=== PATIENT | female | born 1950 | race Caucasian/White ===

== ENCOUNTER → 2016-10-05 | Outpatient (CLI) | payer OTHER, MEDICARE ==
[~2016-10-05] MED LIST: ACET325T96 PO; ASCA500 PO; ASPI325T45 PO; CALC600T9 PO; CHOL20009 PO; CYAN10004 PO; FRS/40 PO; HMLI SC; IBUP-1050 PO; INSUINJ12 SC; LEVO25TA PO; LISI-725 PO; METF-384 PO; MULT-190 PO; MULTTAB PO; OMEG10007 PO; OXGN; POTA10CA28 PO; SIMV40TA2 PO
[2016-10-05 12:00] LABS: BASO % 0.2 %; BASO ABS # 0.02 K/uL (0-0.2); COMPLETE YES; EOS % 2.2 %; HEMATOCRIT 44.7 % (37-47); IG% 0.5 %; LYMPH ABS # 2.82 K/uL (1.2-3.4); MEAN CELL VOLUME 96.3 fL (80-100); MEAN CORPUSCULAR HEMOGLOBIN 31.3 pg (25-34); MEAN CORPUSCULAR HGB CONC 32.4 g/dl (32-36); MEAN PLATELET VOLUME 10.9 fL (7.4-10.4); MONO % 7.4 %; NEUT % 57.7 %; PLATELET COUNT 221 K/uL (130-400); RED BLOOD COUNT 4.64 M/uL (4.2-5.4); WHITE BLOOD COUNT 8.82 K/uL (4.8-10.8)
[2016-10-05 12:21] LABS: ESTIMATED AVERAGE GLUCOSE 160 mg/dl; HA1C FLAG Normal (Normal)
[2016-10-05 12:31] LABS: ALT/SGPT 36 U/L (12-78); AST/SGOT 36 U/L (15-37); BLOOD UREA NITROGEN 23 mg/dl (7-18); BUN/CREATININE RATIO 30.1 (10-20); CALCIUM 9.3 mg/dl (8.5-10.1); CARBON DIOXIDE 28 mmol/L (21-32); CHLORIDE 103 mmol/L (98-107); CHOLESTEROL 169 mg/dl (0-200); CREATININE 0.75 mg/dl (0.60-1.20); GLUCOSE 187 mg/dl (70-99); POTASSIUM 4.3 mmol/L (3.5-5.1); SODIUM 141 mmol/L (136-145)
[2016-10-05 12:41] LABS: ALB/GLOB RATIO 0.9 (0.9-2); ALKALINE PHOSPHATASE 62 U/L (45-117); HDL CHOLESTEROL 57 mg/dl; LDL CHOLESTEROL CALCULATED 80 mg/dl; TRIGLYCERIDES 159 mg/dl (0-150); VERY LOW DENSITY LIPOPROT CALC 32 mg/dl
[2016-10-05 12:46] LABS: RATIO 21.9 mcg/mg (0-30.0)
== END | disposition home or self-care (01) ==
LOC: C.LAB 10:50
PROVIDERS: ATTEND Internal Medicine
DX: E11.9 Type 2 diabetes mellitus without complications (principal); G47.36 Sleep related hypoventilation in conditions classified elsewhere

== ENCOUNTER → 2016-10-15 | Outpatient (CLI) | payer OTHER, MEDICARE ==
--- NOTE | 2016-10-15 14:17 | MAMMOGRAPHY REPORT ---
BILATERAL DIGITAL SCREENING MAMMOGRAM WITH CAD: 10/15/2016 CLINICAL HISTORY: Routine screening. Patient has no complaints. TECHNIQUE: Current study was also evaluated with a Computer Aided Detection (CAD) system. Bilatera l CC and MLO views were obtained. COMPARISON: Comparison is made to exams dated: 08/15/2015 mammogram, 08/14/2014 mammogram, 07/18/20 13 mammogram, 07/15/2012 mammogram, 07/04/2012 mammogram, and 07/01/2011 mammogram - [facility]. BREAST COMPOSITION: The tissue of both breasts is almost entirely fatty. FINDINGS: No suspicious masses, calcifications, or areas of architectural distortion are noted in e ither breast. There has been no significant interval change compared to prior exams. Scattered bilat eral benign-appearing calcifications are not significantly changed. IMPRESSION: ACR BI-RADS CATEGORY 2: BENIGN There is no mammographic evidence of malignancy. A 1 year screening mammogram is recommended. The p atient will receive written notification of the results. Approximately 10% of breast cancers are not detected with mammography. A negative mammographic repor t should not delay biopsy if a clinically suggestive mass is present. Casandra Castro M.D. /:10/15/2016 12:10:04 Home Specialist: Linsey REAL(Kaitlin)(Uriel)(BD), [facility] letter sent: Normal 1/2 BI-RADS Code: ACR BI-RADS Category 2: Benign
== END | disposition home or self-care (01) ==
LOC: C.MAMM 11:07
PROVIDERS: ATTEND Internal Medicine
DX: Z12.31 Encounter for screening mammogram for malignant neoplasm of breast (principal)

== ENCOUNTER → 2017-01-22 | Outpatient (CLI) | payer OTHER, MEDICARE ==
[2017-01-22 13:44] LABS: ESTIMATED AVERAGE GLUCOSE 163 mg/dl; HA1C FLAG Normal (Normal)
== END | disposition home or self-care (01) ==
LOC: C.LAB 12:11
PROVIDERS: ATTEND Internal Medicine
DX: Z00.00 Encounter for general adult medical examination without abnormal findings (principal); E03.9 Hypothyroidism, unspecified; E11.29 Type 2 diabetes mellitus with other diabetic kidney complication

== ENCOUNTER → 2017-05-21 | Outpatient (CLI) | payer OTHER, MEDICARE ==
[2017-05-21 13:27] LABS: ESTIMATED AVERAGE GLUCOSE 166 mg/dl; HA1C FLAG Normal (Normal)
== END | disposition home or self-care (01) ==
LOC: C.LAB 11:49
PROVIDERS: ATTEND Nurse Practitioner Family
DX: E11.29 Type 2 diabetes mellitus with other diabetic kidney complication (principal)

== ENCOUNTER → 2017-11-16 | Outpatient (CLI) | payer OTHER, MEDICARE ==
[~2017-11-16] MED LIST changes: +ACET-1693 PO; -ACET325T96 PO
--- NOTE | 2017-11-17 08:03 | MAMMOGRAPHY REPORT ---
BILATERAL DIGITAL SCREENING MAMMOGRAM TOMOSYNTHESIS WITH CAD: 11/16/2017 CLINICAL HISTORY: Routine screening. Patient has no complaints. TECHNIQUE: Breast tomosynthesis in addition to standard 2D mammography was performed. Current study was also evaluated with a Computer Aided Detection (CAD) system. COMPARISON: Comparison is made to exams dated: 10/15/2016 mammogram, 08/15/2015 mammogram, 08/14/2014 mammogram, 07/18/2013 mammogram, 01/20/2013 mammogram, and 08/02/2012 mammogram - [facility]. BREAST COMPOSITION: The tissue of both breasts is almost entirely fatty. FINDINGS: There is stable nodularity in the upper outer anterior left breast and scattered stable shu ign-appearing calcifications. No suspicious mass, architectural distortion or cluster of microcalcif ications is seen. IMPRESSION: ACR BI-RADS CATEGORY 1: NEGATIVE There is no mammographic evidence of malignancy. A 1 year screening mammogram is recommended. The pa tient will receive written notification of the results. Approximately 10% of breast cancers are not detected with mammography. A negative mammographic report should not delay biopsy if a clinically suggestive mass is present. Anh Echols M.D. ay/:11/16/2017 15:27:15 Supervisor [employer]: Sirisha Perez, [facility] letter sent: Normal 1/2 BI-RADS Code: ACR BI-RADS Category 1: Negative
== END | disposition home or self-care (01) ==
LOC: C.MAMM 11:49
PROVIDERS: ATTEND Internal Medicine
DX: Z12.31 Encounter for screening mammogram for malignant neoplasm of breast (principal)

== ENCOUNTER → 2017-12-06 | Outpatient (CLI) | payer OTHER, MEDICARE | END | disposition home or self-care (01) | LOC: C.LAB1850 11:14 | PROVIDERS: ATTEND Nurse Practitioner Family | DX: R80.9 Proteinuria, unspecified (principal); G47.36 Sleep related hypoventilation in conditions classified elsewhere ==

== ENCOUNTER → 2018-01-22 | Outpatient (CLI) | payer OTHER, MEDICARE ==
[~2018-01-22] MED LIST changes: +ASPECOTC PO; -ASPI325T45 PO
[2018-01-22 11:15] LABS: BASO % 0.2 %; BASO ABS # 0.02 K/uL (0-0.2); EOS % 2.8 %; EOS ABS # 0.27 K/uL (0-0.5); HEMATOCRIT 45.1 % (37-47); HEMOGLOBIN 14.7 g/dL (12.0-16.0); IG# 0.03 K/uL (0.00-0.02); LYMPH % 36.1 %; LYMPH ABS # 3.49 K/uL (1.2-3.4); MEAN CELL VOLUME 96.2 fL (80-100); MEAN CORPUSCULAR HEMOGLOBIN 31.3 pg (25-34); MEAN CORPUSCULAR HGB CONC 32.6 g/dl (32-36); MEAN PLATELET VOLUME 10.6 fL (7.4-10.4); MONO % 6.3 %; MONO ABS # 0.61 K/uL (0.11-0.59); NEUT % 54.3 %; NEUT ABS # 5.26 K/uL (1.4-6.5); PLATELET COUNT 229 K/uL (130-400); RED CELL DISTRIBUTION WIDTH CV 14.2 % (11.5-14.5); RED CELL DISTRIBUTION WIDTH SD 50.2 fL (36.4-46.3); WHITE BLOOD COUNT 9.68 K/uL (4.8-10.8)
[2018-01-22 11:48] LABS: ALBUMIN 3.5 gm/dl (3.4-5.0); ALT/SGPT 43 U/L (12-78); AST/SGOT 64 U/L (15-37); BLOOD UREA NITROGEN 14 mg/dl (7-18); CALCIUM 9.3 mg/dl (8.5-10.1); CARBON DIOXIDE 24 mmol/L (21-32); CREATININE 0.81 mg/dl (0.60-1.20); GLUCOSE 183 mg/dl (70-99); POTASSIUM 4.3 mmol/L (3.5-5.1); SODIUM 137 mmol/L (136-145)
[2018-01-22 11:53] LABS: ALKALINE PHOSPHATASE 78 U/L (45-117); CHOLESTEROL 119 mg/dl (0-200); LDL CHOLESTEROL CALCULATED 37 mg/dl; TOTAL PROTEIN 7.9 gm/dl (6.4-8.2)
== END | disposition home or self-care (01) ==
LOC: C.LAB 10:15
PROVIDERS: ATTEND Internal Medicine
DX: E03.9 Hypothyroidism, unspecified (principal); G47.36 Sleep related hypoventilation in conditions classified elsewhere

== ENCOUNTER 2021-03-12 00:51 | Observation (INO) ==
[2021-03-12] MEDS ORDERED: SODIUM CHLORIDE 0.9% 1000ML 500 ML IV ONE (01:04)
[2021-03-12] MEDS ORDERED: METOPROLOL TARTRATE 1 MG/ML VIAL IV STA ×2 (01:04→03:09)
--- NOTE | 2021-03-12 01:15 | Emergency Department Note ---
Impression & Plan Atrial fibrillation with rapid ventricular response ED Provider Note Name: WILI WAHL Age: 70 Sex: F Arrives Via: Ambulance Informant: Patient ED Provider: Jim Yoon MD Chief Complaint: Palpitations Impression: Atrial Fibrillation with Rapid Ventricular Response Medical Decision Makin yr old female with HTN, DLP, DMII, CKD amongst others arrives with acute palpitations. Notes this was preceded by RUQ pain which is now completely resolved. EMS brought her in and gave 10mg IV Cardizem by my order. On arrival she is Afib RVR though feeling much better than prior to ems. Given further IV Lopressor and IV fluids. Waxing and waning tachycardia. Further Lopressor ordered and after discussion hospitalist requests start heparin as well. Remarkably afib broke just prior to further Lopressor. With her significant risks, and likelihood this has been ongoing will bring in after further discussion with hospitalist who requests we continued heparin. Of note patient consented verbally to heparin and she denies risks at this time, having previously tolerated coumadin in past. Denies headache, injuries, falls, blood in stool, nor bleeding issue. Unclear RUQ pain initially though she has no TTP RUQ nor current pain. Mild LFT elevation. May have passed biliary stone as she has no gallbladder per patient. Hold on imaging at this time. Prior Medical Record and Triage/Nursing Notes reviewed by Me Differentials:Premature contractions, electrolyte abnormality, cardiac dysrhythmia, thyroid dysfunction, pulmonary embolism, infection, gastrointestinal, as well as other pathologies. Vital Signs: reviewed and remarkable for tachycardia Interventions: lopressor 5mg iv, nss bolus 500ml iv, heparin bolus/gtt Labs:Reviewed and remarkable for mild lft elevation Imaging:X ray results are stated below per my interpretation: Chest: 1 view: No infiltrate, no effusion, normal cardiac border. EKG:Per My Interpretation: Indication Palpitations: Afib RVR 104 bpm, qtc 470. No Ectopy. No Ischemia. Compared to EKG 02/06/13 afib is new. Cardiac/Tele Monitoring: Cardiac Monitoring: An Order was placed for continuous cardiac monitoring. The monitor shows a rate of 110 with a afib rhythm. Consults:Dr Maria T SOSA Hospitalist Plan: Disposition:Hospitalization. Condition: Good History of Present Illness:70 yr old female arrives for evaluation of palpitations. Patient notes that she had some band like right upper quadrant pain this evening after dinner. She gets this every few months for the last 40 yrs since her GB removed. After this past tonight she developed severe palpitations associated with shortness of breath. Denies syncope, chest pain, nausea, vomiting, back pain, headache, weakness, rashes, fevers, chills, abdominal pain, urinary/bowel symptoms, leg swelling, calf pain nor other sy mptoms. Exertion made worse, rest made better. No trauma/injury. Has never had palpitations issues nor afib. Denies previous cardiac issues. Does have PE history though not on coumadin for many years. No recent travel, leg swelling/calf pain. She was given 10mg IV Cardizem with improvement of symptoms en route. Has been dealing with a lactic acidosis of uncertain etiology. ROS: See above HPI for pertinent positives & negatives. A total of 10 systems reviewed and were otherwise negative. Past Medical History:See Below Past Surgical History:See Below Family History:See Below Social History:See Below Home Medications:See Below Allergies:codeine Vitals:Blood Pressure: 174/78, Pulse 115, RR 20, T 36.7C, O2 96% on RA Physical Exam: GENERAL: Patient is well appearing and in minimal distress. EYES: No scleral icterus, unremarkable pupils. ENT: Mucous membranes moist, no nasal congestion. NECK: No masses appreciated, nomeningismus, trachea is midline. RESPIRATORY: No dyspnea. Clear to auscultation and equal bilaterally. No wheeze, no rhonchi. CARDIOVASCULAR: tachy irregular.No murmurs, rubs, gallops appreciated. GASTROINTESTINAL: Abdomen soft, non-tender, no peritonitis.Bowel sounds positive.No masses appreciated. BACK: No midline tenderness, no CVA tenderness EXTREMITIES: Normal motion all extremities, no cyanosis, mild bilateral edema. NEUROLOGIC: Alert and oriented, no acute motor or sensory deficits, no focal weakness, cranial nerves grossly intact. SKIN: No rash, no jaundice, no diaphoresis. PSYCH: Appropriate GCS: 15 ED Course: Times/Reassessments: gradually improving hr with eventual break to NSR Critical Care: I have personally spent 30 minutes of critical care time in the direct management of this patient. Afib RVR given rounds IV lopressor and started IV heparin. This was a life/limb threatening event. This 30 minutes is in excess of all separately billable procedures. Jim Yoon MD Past Med/Surg History Medical History Benign neoplasm of large intestine BMI 60.0-69.9, adult Diabetes mellitus type 2, controlled Dyslipidemia Hypertension Hypothyroidism Joint pain, knee Obstructive sleep apnea Sleep related hypoventilation in conditions classified elsewhere Type 2 diabetes mellitus, with long-term current use of insulin Vitamin D deficiency Surgical History H/O total knee replacement History of cholecystectomy History of foot surgery History of tooth extraction Family History Mother Lung cancer Brother Myocardial infarction Other Breast cancer Colorectal cancer Stroke Social History Smoking Status: Former smoker Tobacco Type: Cigarettes Age Started Using Tobacco: 16; Age Quit Using Tobacco: 60; packs per day: 1; Second Hand Exposure: No; Hx Alcohol Use: No Hx Substance Use: No Preferred Language: [place] Verdean Communication Ability: Effective Visual Impairment: Limited Hearing Ability: Normal marital status: Single Current Living Situation: Alone current occupational status: retired Feels Safe at Home: Yes Childhood Exposure to Second-Hand Smoke: No caffeine: Yes Dental Care, Regularly: Yes Physical Activity Frequency: Does not Exercise Seatbelt Use: always Sunscreen Use: Yes Do you think of yourself as: straight/heterosexual Allergies Allergies Allergy/AdvReac Type Severity Reaction Status Date / Time codeine AdvReac Mild NAUSEA Verified 03/11/21 13:59 Home Meds Home Medications Medication Instructions Recorded Confirmed aspirin 325 mg tablet 325 mg PO DAILY tab 05/25/19 03/12/21 calcium carbonate-vitamin D3 600 1 tab PO DAILY tab 05/25/19 03/12/21 mg (1,500 mg)-800 unit tablet cholecalciferol (vitamin D3) 50 2,000 units PO DAILY cap 05/25/19 03/12/21 mcg (2,000 unit) capsule cyanocobalamin (vitamin B-12) 1,000 mcg PO DAILY tab 05/25/19 03/12/21 1,000 mcg tablet,extended release multivitamin 1 tab PO DAILY tab 05/25/19 03/12/21 omega-3 fatty acids 1,000 mg 1,000 mg PO DAILY cap 05/25/19 03/12/21 capsule vit A 1,000 unit-C 200 mg-E 60 1 tab PO DAILY tab 05/25/19 03/12/21 unit-lutein 2 mg and minerals tablet insulin lispro 100 unit/mL 1 sliding scale dose SQ 03/05/20 03/12/21 subcutaneous solution USEASDIRECTD zinc 50 mg tablet 50 mg PO DAILY 11/21/20 03/12/21 ascorbic acid (vitamin C) 1,000 mg 1 g PO DAILY tab 12/24/20 03/12/21 tablet melatonin 1 tab PO DAILY PRN 12/24/20 03/12/21 insulin glargine 100 unit/mL 50 unit SUBCUT DAILY ml 01/07/21 03/12/21 subcutaneous solution Previous Rx's Medication Instructions Recorded CPAP Machine #1 ea 07/24/19 Oxygen Home #1 ea 07/24/19 furosemide 40 mg tablet 40 mg PO DAILY #90 tab 04/29/20 simvastatin 40 mg tablet 40 mg PO DAILY #90 tab 04/29/20 BD Insulin Syringe Ultra-Fine 1 mL #400 ea NS 06/06/20 31 gauge x 5/16" OneTouch Ultra Blue Test Strip #400 ea NS 07/03/20 levothyroxine 75 mcg tablet 75 mcg PO DAILY #90 tab 08/26/20 lisinopril 20 mg tablet 20 mg PO DAILY #90 tab 08/26/20 amoxicillin 500 mg capsule 2,000 mg PO .COMPLEX #20 cap 09/10/20 potassium chloride 10 mEq 10 meq PO DAILY #90 tab 09/10/20 tablet,extended release Results & Data (ED) Vital Signs Vital Signs - 24 hr 03/12/21 00:56 03/12/21 01:12 03/12/21 01:23 Temperature 36.7 C Temperature Source Oral Pulse Rate 115 H 120 H Pulse Rate [Right] 95 H Pulse Rate from SpO2 Sensor Pulse Rhythm Irregular Pulse Rhythm [Right] Irregular Pulse Strength Normal Pulse Strength [Right] Normal Respiratory Rate 20 18 Respiratory Effort / Characteristics Non-Labored Spontaneous Non-Labored Spontaneous Respiratory Depth Normal Normal Blood Pressure 174/78 H 174/78 H Blood Pressure [Right Arm] 136/77 Blood Pressure Mean 110 Blood Pressure Mean [Right Arm] 96 Blood Pressure Position Lying Blood Pressure Position [Right Arm] Pulse Oximetry 96 96 Oxygen Delivery Method Room Air Nasal Cannula Oxygen Flow Rate 2 Sepsis Recent Fever Within 48 Hours No Sepsis New/Unexplained Change in Mental Status N/A Sepsis Action Taken by Nursing No Action Required 03/12/21 03:06 03/12/21 03:30 Temperature Temperature Source Pulse Rate 83 Pulse Rate [Right] 119 H Pulse Rate from SpO2 Sensor 82 Pulse Rhythm Pulse Rhythm [Right] Irregular Pulse Strength Pulse Strength [Right] Normal Respiratory Rate 16 16 Respiratory Effort / Characteristics Non-Labored Spontaneous Respiratory Depth Normal Blood Pressure Blood Pressure [Right Arm] 123/80 Blood Pressure Mean Blood Pressure Mean [Right Arm] 94 Blood Pressure Position Blood Pressure Position [Right Arm] Lying Pulse Oximetry 97 99 Oxygen Delivery Method Nasal Cannula Nasal Cannula Oxygen Flow Rate 2 2 Sepsis Recent Fever Within 48 Hours Sepsis New/Unexplained Change in Mental Status Sepsis Action Taken by Nursing Laboratory Data Result diagrams: 03/12/21 01:00 03/12/21 02:15 Lab Results 03/12/21 03/12/21 03/12/21 Range/Units 01:00 01:00 01:00 WBC 14.49 H (4.8-10.8) K/uL RBC 4.66 (4.2-5.4) M/uL Hgb 14.6 (12.0-16.0) g/dL Hct 44.7 (37-47) % MCV 95.9 (80-100) fL MCH 31.3 (25-34) pg MCHC 32.7 (32-36) g/dL RDW Std Deviation 47.8 H (36.4-46.3) fL RDW Coeff of Keith 13.6 (11.5-14.5) % Plt Count 266 (130-400) K/uL MPV 11.4 H (7.4-10.4) fL Immature Gran % (Auto) 0.3 % Neut % (Auto) 66.3 % Lymph % (Auto) 24.8 % [place] % (Auto) 7.9 % Eos % (Auto) 0.6 % Baso % (Auto) 0.1 % Neut # (Auto) 9.60 H (1.4-6.5) K/uL Lymph # (Auto) 3.60 H (1.2-3.4) K/uL [place] # (Auto) 1.14 H (0.11-0.59) K/uL Eos # (Auto) 0.09 (0-0.5) K/uL Baso # (Auto) 0.02 (0-0.2) K/uL Immature Gran # (Auto) 0.04 H (0.00-0.02) K/uL PT 9.8 (9.0-12.0) Seconds INR 1.0 (0.9-1.1) APTT 20.6 L (21.0-31.0) Seconds PTT Ratio 0.8 Sodium 130 L (136-145) mmol/L Potassium (3.5-5.1) mmol/L Chloride 110 H (98-107) mmol/L Carbon Dioxide 20 L (21-32) mmol/L Anion Gap 0 L (3-11) BUN 23 H (7-18) mg/dl Creatinine 1.17 (0.6-1.2) mg/dl Est Cr Clr Drug Dosing 57.0 ml/min Est GFR ( Amer) 53.9 ml/min Est GFR (Non-Af Amer) 46.5 ml/min BUN/Creatinine Ratio 20.0 (10-20) Glucose 207 H (70-99) mg/dl Calcium 10.4 H (8.5-10.1) mg/dl Magnesium (1.8-2.4) mg/dl Total Bilirubin 0.6 (0.2-1) mg/dl Direct Bilirubin (0-0.2) mg/dl AST (15-37) U/L ALT 80 H (12-78) U/L Alkaline Phosphatase 193 H (45-117) U/L Troponin I < 0.015 (0-0.045) ng/ml Total Protein 8.0 (6.4-8.2) gm/dl Albumin 3.7 (3.4-5.0) gm/dl Lipase 224 (73-393) U/L TSH (0.300-4.500) uIu/ml COVID-19 Eval Order SARS-CoV-2 (PCR) (Negative) 03/12/21 03/12/21 03/12/21 Range/Units 01:15 01:15 02:15 WBC (4.8-10.8) K/uL RBC (4.2-5.4) M/uL Hgb (12.0-16.0) g/dL Hct (37-47) % MCV (80-100) fL MCH (25-34) pg MCHC (32-36) g/dL RDW Std Deviation (36.4-46.3) fL RDW Coeff of Keith (11.5-14.5) % Plt Count (130-400) K/uL MPV (7.4-10.4) fL Immature Gran % (Auto) % Neut % (Auto) % Lymph % (Auto) % [place] % (Auto) % Eos % (Auto) % Baso % (Auto) % Neut # (Auto) (1.4-6.5) K/uL Lymph # (Auto) (1.2-3.4) K/uL [place] # (Auto) (0.11-0.59) K/uL Eos # (Auto) (0-0.5) K/uL Baso # (Auto) (0-0.2) K/uL Immature Gran # (Auto) (0.00-0.02) K/uL PT (9.0-12.0) Seconds INR (0.9-1.1) APTT (21.0-31.0) Seconds PTT Ratio Sodium (136-145) mmol/L Potassium 3.9 (3.5-5.1) mmol/L Chloride (98-107) mmol/L Carbon Dioxide (21-32) mmol/L Anion Gap (3-11) BUN (7-18) mg/dl Creatinine (0.6-1.2) mg/dl Est Cr Clr Drug Dosing ml/min Est GFR ( Amer) ml/min Est GFR (Non-Af Amer) ml/min BUN/Creatinine Ratio (10-20) Glucose (70-99) mg/dl Calcium (8.5-10.1) mg/dl Magnesium 2.1 (1.8-2.4) mg/dl Total Bilirubin (0.2-1) mg/dl Direct Bilirubin < 0.1 (0-0.2) mg/dl AST 91 H (15-37) U/L ALT (12-78) U/L Alkaline Phosphatase (45-117) U/L Troponin I (0-0.045) ng/ml Total Protein (6.4-8.2) gm/dl Albumin (3.4-5.0) gm/dl Lipase (73-393) U/L TSH 1.650 (0.300-4.500) uIu/ml COVID-19 Eval Order Covid19 at [facility] SARS-CoV-2 (PCR) NEGATIVE (Negative) Administered Medications Heparin Sodium/Dextrose (Heparin Sodium/Dextrose) 25,000 units in 500 mls @ 20 mls/hr IV .Q24H [facility]; Protocol Stop: 04/11/21 03:30 Last Admin: 03/12/21 04:21 Dose: 1,000 units/hr, 20 mls/hr Documented by: [id number] Cosigned by: [id number] Discontinued Medications Heparin Sodium (Porcine) (Heparin Sod (Porcine) 1000 Unit/Ml) 1 units IV NOW ONE Stop: 03/12/21 03:32 Last Admin: 03/12/21 04:17 Dose: Not Given Documented by: [id number] Heparin Sodium (Porcine) (Heparin Sod (Porcine) 1000 Unit/Ml) 4,000 units IV NOW ONE Stop: 03/12/21 04:16 Last Admin: 03/12/21 04:17 Dose: Not Given Documented by: [id number] Heparin Sodium/Dextrose (Heparin Iv Adult Wt-Based Low-Dose With Bolus Protocol) 1 ea N/A NOW STA; Protocol Stop: 03/12/21 03:16 Last Admin: 03/12/21 04:18 Dose: Not Given Documented by: [id number] Sodium Chloride (Nss 1000ml) 500 mls @ 999 mls/hr IV .Q31M ONE Stop: 03/12/21 01:34 Last Infusion: 03/12/21 01:45 Dose: 0 mls/hr Documented by: [id number] Admin: 03/12/21 01:13 Dose: 999 mls/hr Documented by: [id number] Metoprolol Tartrate (Metoprolol Tartrate 1 Mg/Ml Vial) 5 mg IV NOW STA Stop: 03/12/21 01:05 Last Admin: 03/12/21 01:12 Dose: 5 mg Documented by: [id number] Metoprolol Tartrate (Metoprolol Tartrate 1 Mg/Ml Vial) 5 mg IV NOW STA Stop: 03/12/21 03:10 Last Admin: 03/12/21 04:22 Dose: Not Given Documented by: [id number] Imaging Data Radiologist's Impression: Chest X-Ray 03/12/21 01:04 XR chest 1V portable HISTORY: Atrial fibrillation. COMPARISON: Chest 02/06/2013. FINDINGS: No pneumothorax or no pleural effusions. There are low lung volumes. The heart remains mildly enlarged. There is diffuse interstitial thickening, unchanged. No new focal lung consolidations to suggest pneumonia. No evidence for pulmonary edema. Advanced degenerative changes again noted within the shoulders. IMPRESSION: No significant change compared to the prior study. No acute process. ACT 112: Negative or not required by law. Electronically signed by: Bryan Berry M.D. 03/12/2021 7:28 AM Discharge Plan Visit Data Chief Complaint: Cardiac Assessment Stated Complaint: CARDIAC ASSESSMENT ED Provider: Jim Yoon Discharge Problem: Atrial fibrillation with rapid ventricular response Patient Disposition: Admitted As Inpatient Discharge Instructions Interventions: ED Discharge Assessment Last Done: 03/12/21 06:04
[2021-03-12 01:23] LABS: Partial Thromboplastin Ratio 0.8; Partial Thromboplastin Time 20.6 Seconds (21.0-31.0); Prothrombin Time 9.8 Seconds (9.0-12.0)
[2021-03-12 01:30] LABS: Basophils # (auto) 0.02 K/uL (0-0.2); Basophils % (auto) 0.1 %; Eosinophils # (auto) 0.09 K/uL (0-0.5); Eosinophils % (auto) 0.6 %; Hematocrit (blood only) 44.7 % (37-47); Hemoglobin 14.6 g/dL (12.0-16.0); Immature Granulocytes # (auto) 0.04 K/uL (0.00-0.02); Immature Granulocytes % (auto) 0.3 %; Lymphocytes % (auto) 24.8 %; Mean Corpuscular Hemoglobin 31.3 pg (25-34); Mean Corpuscular Hgb Conc 32.7 g/dL (32-36); Mean Corpuscular Volume 95.9 fL (80-100); Mean Platelet Volume 11.4 fL (7.4-10.4); Monocytes # (auto) 1.14 K/uL (0.11-0.59); Monocytes % (auto) 7.9 %; Neutrophils % (auto) 66.3 %; Platelet Count 266 K/uL (130-400); RDW Coefficient of Variation 13.6 % (11.5-14.5); RDW Standard Deviation 47.8 fL (36.4-46.3); Red Blood Count 4.66 M/uL (4.2-5.4); White Blood Count 14.49 K/uL (4.8-10.8)
[2021-03-12 01:51] LABS: Alanine Aminotransferase 80 U/L (12-78); Albumin Level 3.7 gm/dl (3.4-5.0); Alkaline Phosphatase 193 U/L (45-117); Anion Gap 0 (3-11); Bilirubin,Total 0.6 mg/dl (0.2-1); Blood Urea Nitrogen 23 mg/dl (7-18); Calcium 10.4 mg/dl (8.5-10.1); Carbon Dioxide 20 mmol/L (21-32); Chloride 110 mmol/L (98-107); Est GFR (African American) 53.9 ml/min; Est GFR (Non-African American) 46.5 ml/min; Glucose 207 mg/dl (70-99); Lipase 224 U/L (73-393); Sodium 130 mmol/L (136-145); Troponin I < 0.015 ng/ml (0-0.045)
[2021-03-12 02:53] LABS: Potassium 3.9 mmol/L (3.5-5.1)
[2021-03-12 02:58] LABS: Aspartate Aminotransferase 91 U/L (15-37); Bilirubin Direct < 0.1 mg/dl (0-0.2); Magnesium 2.1 mg/dl (1.8-2.4)
[2021-03-12] MEDS ORDERED: Heparin IV Adult Wt-Based Low-Dose WITH Bolus Protocol STA (03:15)
[2021-03-12] MEDS ORDERED: HEPARIN SOD (PORCINE) 1000 UNIT/ML IV ONE ×3 (03:31→15:00)
[2021-03-12] MEDS ORDERED: HEPARIN SODIUM/DEXTROSE 25,000 UNITS/500 ML BAG IV SCH (03:31)
--- NOTE | 2021-03-12 04:43 | History & Physical Report ---
Date of Service March 12, 2021 Assessment & Plan (1) Atrial fibrillation with RVR: New onset atrial fibrillation with RVR/hypertension- The patient will be admitted to telemetry for serial cardiac enzymes, serial EKG's, cardiac rhythm monitoring and a 2-D echocardiogram with Dopplers. Patient did convert to normal sinus rhythm after administration of Lopressor 5 mg IV x2 by the ED. Start metoprolol succinate 25 mg p.o. every morning Continue lisinopril 20 mg p.o. daily Hold furosemide Present on Admission?: Yes (2) CKD (chronic kidney disease), stage III: Creatinine then 1.17 upon admission and creatinine clearance 57.0 within her range. Present on Admission?: Yes (3) Obstructive sleep apnea: CPAP at at bedtime as needed Present on Admission?: Yes (4) Dyslipidemia: Continue simvastatin 40 mg daily Present on Admission?: Yes (5) Diabetes mellitus type 2, controlled: Decrease insulin glargine from 50 to 40 units subcu daily. Placed on Accu-Cheks before meals and at bedtime with NovoLog coverage per scale Present on Admission?: Yes (6) Hypertension: See above Present on Admission?: Yes (7) Hypothyroidism: Continue levothyroxine sodium 75 mcg daily Check a TSH level Present on Admission?: Yes (8) Abnormal LFTs: repeat labs in a.m. May be secondary to obesity, diabetes mellitus, hyperlipidemia or combination thereof. No abdominal complaints If worsening, would do a CT abdomen and pelvis Present on Admission?: Yes History of Present Illness Chief Complaint: The patient presents to the emergency department with complaint of acute onset of rapid heart rate around 10 PM this evening, that developed after an episode of nausea and vomiting Primary Care Provider: Emerson Herron MD The patient is a 70-year-old female with a asthma history including high serum lactate, CKD stage III, ANN MARIE, dyslipidemia, morbid obesity with BMI 56.7, diabetes mellitus type 2, hypertension, hyper thyroid isn't, knee osteoarthritis, sleep related hypoventilation and vitamin D deficiency. Patient presented with the acute onset of rapid heart rate while at home at 10 PM this evening. She has had no previous occurrences of this type of sensation. Work-up in the emergency department included an initial EKG that showed atrial fibrillation with RVR, for which she received metoprolol 5 mg IV x2 from the ED, and did ultimately convert to normal sinus rhythm. Blood pressure remained satisfactory during the entire interval. Allergies Allergy/AdvReac Type Severity Reaction Status Date / Time codeine AdvReac Mild NAUSEA Verified 03/11/21 13:59 Home Medications Medication Instructions Recorded Confirmed Type aspirin 325 mg tablet 325 mg PO DAILY tab 05/25/19 03/12/21 History calcium carbonate-vitamin D3 600 1 tab PO DAILY tab 05/25/19 03/12/21 History mg (1,500 mg)-800 unit tablet cholecalciferol (vitamin D3) 50 2,000 units PO DAILY cap 05/25/19 03/12/21 History mcg (2,000 unit) capsule cyanocobalamin (vitamin B-12) 1,000 mcg PO DAILY tab 05/25/19 03/12/21 History 1,000 mcg tablet,extended release multivitamin 1 tab PO DAILY tab 05/25/19 03/12/21 History omega-3 fatty acids 1,000 mg 1,000 mg PO DAILY cap 05/25/19 03/12/21 History capsule vit A 1,000 unit-C 200 mg-E 60 1 tab PO DAILY tab 05/25/19 03/12/21 History unit-lutein 2 mg and minerals tablet CPAP Machine #1 ea 07/24/19 03/11/21 Rx Oxygen Home #1 ea 07/24/19 03/11/21 Rx insulin lispro 100 unit/mL 1 sliding scale dose SQ 03/05/20 03/12/21 History subcutaneous solution USEASDIRECTD furosemide 40 mg tablet 40 mg PO DAILY #90 tab 04/29/20 03/12/21 Rx simvastatin 40 mg tablet 40 mg PO DAILY #90 tab 04/29/20 03/12/21 Rx BD Insulin Syringe Ultra-Fine 1 mL #400 ea NS 06/06/20 03/11/21 Rx 31 gauge x 02/09" OneTouch Ultra Blue Test Strip #400 ea NS 07/03/20 03/11/21 Rx levothyroxine 75 mcg tablet 75 mcg PO DAILY #90 tab 08/26/20 03/12/21 Rx lisinopril 20 mg tablet 20 mg PO DAILY #90 tab 08/26/20 03/12/21 Rx amoxicillin 500 mg capsule 2,000 mg PO .COMPLEX #20 cap 09/10/20 03/12/21 Rx potassium chloride 10 mEq 10 meq PO DAILY #90 tab 09/10/20 03/12/21 Rx tablet,extended release zinc 50 mg tablet 50 mg PO DAILY 11/21/20 03/12/21 History ascorbic acid (vitamin C) 1,000 mg 1 g PO DAILY tab 12/24/20 03/12/21 History tablet melatonin 1 tab PO DAILY PRN 12/24/20 03/12/21 History insulin glargine 100 unit/mL 50 unit SUBCUT DAILY ml 01/07/21 03/12/21 History subcutaneous solution Past Med/Surg History Medical History Benign neoplasm of large intestine BMI 60.0-69.9, adult Diabetes mellitus type 2, controlled Dyslipidemia Hypertension Hypothyroidism Joint pain, knee Obstructive sleep apnea Sleep related hypoventilation in conditions classified elsewhere Type 2 diabetes mellitus, with long-term current use of insulin Vitamin D deficiency Surgical History H/O total knee replacement History of cholecystectomy History of foot surgery History of tooth extraction Family History Mother Lung cancer Brother Myocardial infarction Other Breast cancer Colorectal cancer Stroke Social History Smoking Status: Former smoker Tobacco Type: Cigarettes Age Started Using Tobacco: 16; Age Quit Using Tobacco: 60; packs per day: 1; Second Hand Exposure: No; Hx Alcohol Use: No Hx Substance Use: No Preferred Language: Greenlandic Communication Ability: Effective Visual Impairment: Limited Hearing Ability: Normal marital status: Single Current Living Situation: Alone current occupational status: retired Feels Safe at Home: Yes Childhood Exposure to Second-Hand Smoke: No caffeine: Yes Dental Care, Regularly: Yes Physical Activity Frequency: Does not Exercise Seatbelt Use: always Sunscreen Use: Yes Do you think of yourself as: straight/heterosexual Review of Systems Review of Systems: The patient denies chest pain, shortness of breath, dyspnea on exertion, cough, lower extremity swelling, sore throat, fevers, chills, sweats, weight change, fatigue, diarrhea , constipation, abdominal pain, pelvic pain, blood in urine or stool, dysuria, urinary frequency or urgency, lightheadedness, dizziness, headache, memory loss, loss of consciousness, rash, abnormal bruising or bleeding, imbalance, focal or generalized weakness, numbness or tingling in arms or legs, generalized arthralgias or myalgias, back or neck pain, or night sweats. The review of systems is otherwise negative other than for that already noted above, and at least 10 systems have been reviewed. Physical Exam Physical Exam: The patient is awake, alert and oriented 3, well developed and well nourished, normocephalic and atraumatic, lying in bed and in no acute distress. HEENT--PERRL, EOMI, mucous membranes and oropharynx mildly dry. Neck--supple. No JVD. No bruits. Thyroid normal, trachea midline, no adenopathy. Heart--normal S1 and S2. No murmurs, rubs or gallops. Lungs--clear bilaterally, no respiratory distress, no accessory muscle use. Abdomen--normal bowel sounds and soft. Nontender. Nondistended. Morbidly obese Extremities--no cyanosis or clubbing. No edema. Dermatologic--normal skin turgor, normal color, no abnormal lymph nodes, no rash. Neurologic--cranial nerves II through XII grossly intact. Rheumatologic--range of motion limited by body habitus Psychiatric--normal affect. Results & Data Results & Data ([facility]) Vital Signs (Past 12 Hours) Vital Signs Temp Pulse Pulse Resp BP BP Pulse Ox 03/12/21 03:30 83 16 99 03/12/21 03:06 119 H 16 123/80 97 03/12/21 01:23 95 H 18 136/77 96 03/12/21 01:12 120 H 174/78 H 03/12/21 00:56 98.1 F 115 H 20 174/78 H 96 Laboratory Results Laboratory Results WBC 14.49 K/uL (4.8-10.8) H 03/12/21 01:00 RBC 4.66 M/uL (4.2-5.4) 03/12/21 01:00 Hgb 14.6 g/dL (12.0-16.0) 03/12/21 01:00 Hct 44.7 % (37-47) 03/12/21 01:00 MCV 95.9 fL (80-100) 03/12/21 01:00 MCH 31.3 pg (25-34) 03/12/21 01:00 MCHC 32.7 g/dL (32-36) 03/12/21 01:00 RDW Std Deviation 47.8 fL (36.4-46.3) H 03/12/21 01:00 RDW Coeff of Keith 13.6 % (11.5-14.5) 03/12/21 01:00 Plt Count 266 K/uL (130-400) 03/12/21 01:00 MPV 11.4 fL (7.4-10.4) H 03/12/21 01:00 Immature Gran % (Auto) 0.3 % 03/12/21 01:00 Neut % (Auto) 66.3 % 03/12/21 01:00 Lymph % (Auto) 24.8 % 03/12/21 01:00 [place] % (Auto) 7.9 % 03/12/21 01:00 Eos % (Auto) 0.6 % 03/12/21 01:00 Baso % (Auto) 0.1 % 03/12/21 01:00 Neut # (Auto) 9.60 K/uL (1.4-6.5) H 03/12/21 01:00 Lymph # (Auto) 3.60 K/uL (1.2-3.4) H 03/12/21 01:00 [place] # (Auto) 1.14 K/uL (0.11-0.59) H 03/12/21 01:00 Eos # (Auto) 0.09 K/uL (0-0.5) 03/12/21 01:00 Baso # (Auto) 0.02 K/uL (0-0.2) 03/12/21 01:00 Immature Gran # (Auto) 0.04 K/uL (0.00-0.02) H 03/12/21 01:00 PT 9.8 Seconds (9.0-12.0) 03/12/21 01:00 INR 1.0 (0.9-1.1) 03/12/21 01:00 APTT 20.6 Seconds (21.0-31.0) L 03/12/21 01:00 PTT Ratio 0.8 03/12/21 01:00 Sodium 130 mmol/L (136-145) L 03/12/21 01:00 Potassium 3.9 mmol/L (3.5-5.1) 03/12/21 02:15 Chloride 110 mmol/L (98-107) H 03/12/21 01:00 Carbon Dioxide 20 mmol/L (21-32) L 03/12/21 01:00 Anion Gap 0 (3-11) L 03/12/21 01:00 BUN 23 mg/dl (7-18) H 03/12/21 01:00 Creatinine 1.17 mg/dl (0.6-1.2) 03/12/21 01:00 Est Cr Clr Drug Dosing 57.0 ml/min 03/12/21 01:00 Est GFR ( Amer) 53.9 ml/min 03/12/21 01:00 Est GFR (Non-Af Amer) 46.5 ml/min 03/12/21 01:00 BUN/Creatinine Ratio 20.0 (10-20) 03/12/21 01:00 Glucose 207 mg/dl (70-99) H 03/12/21 01:00 Calcium 10.4 mg/dl (8.5-10.1) H 03/12/21 01:00 Magnesium 2.1 mg/dl (1.8-2.4) 03/12/21 02:15 Total Bilirubin 0.6 mg/dl (0.2-1) 03/12/21 01:00 Direct Bilirubin < 0.1 mg/dl (0-0.2) 03/12/21 02:15 AST 91 U/L (15-37) H 03/12/21 02:15 ALT 80 U/L (12-78) H 03/12/21 01:00 Alkaline Phosphatase 193 U/L (45-117) H 03/12/21 01:00 Troponin I < 0.015 ng/ml (0-0.045) 03/12/21 01:00 Total Protein 8.0 gm/dl (6.4-8.2) 03/12/21 01:00 Albumin 3.7 gm/dl (3.4-5.0) 03/12/21 01:00 Lipase 224 U/L (73-393) 03/12/21 01:00 COVID-19 Eval Order Covid19 at [facility] 03/12/21 01:15 SARS-CoV-2 (PCR) NEGATIVE (Negative) 03/12/21 01:15 Code Status & VTE Plan Code Status Full code VTE Prophylaxis Plan VTE Prophylaxis will be ordered: Yes PG Care Time/CCT Total # of Minutes Spent Total Time Spent with Patient: Total time spent is greater than 50% in coordination of care (as documented) at patient's floor/unit and/or counseling patient: Coding Level of Care Code 61592 OBS Care - Level 3 Diagnoses Atrial fibrillation with RVR I48.91 CKD (chronic kidney disease), stage III N18.30 Obstructive sleep apnea G47.33 Dyslipidemia E78.5 Diabetes mellitus type 2, controlled E11.9 Hypertension I10 Hypothyroidism E03.9 Abnormal LFTs R94.5
[2021-03-12] MEDS ORDERED: METOPROLOL TARTRATE 1 MG/ML VIAL IV PRN (06:00)
[2021-03-12] MEDS ORDERED: GLUCAGON FOR INJ 1 MG VIAL SQ PRN (06:00)
[2021-03-12] MEDS ORDERED: CARBOHYDRATES FOR HYPOGLYCEMIA PO PRN (06:00)
[2021-03-12] MEDS ORDERED: GLUCOSE 10 TABS/TUBE PO PRN (06:00)
[2021-03-12] MEDS ORDERED: DEXTROSE 50% 50 ML SYRINGE IV PRN (06:00)
[2021-03-12] MEDS ORDERED: GLUCOSE 40% GEL 15 GM TUBE PO PRN (06:00)
[2021-03-12] MEDS ORDERED: ONDANSETRON INJ 2 MG/ML 2 ML VIAL IV PRN (06:00)
[2021-03-12] MEDS ORDERED: MELATONIN 3 MG TAB PO PRN (06:22)
--- NOTE | 2021-03-12 07:30 | XRay Report ---
XR chest 1V portable HISTORY: Atrial fibrillation. COMPARISON: Chest 02/06/2013. FINDINGS: No pneumothorax or no pleural effusions. There are low lung volumes. The heart remains mild ly enlarged. There is diffuse interstitial thickening, unchanged. No new focal lung consolidations to suggest pneumonia. No evidence for pulmonary edema. Advanced degenerative changes again noted within the shoulders. IMPRESSION: No significant change compared to the prior study. No acute process. ACT 112: Negative or not required by law. Electronically signed by: Bryan Berry M.D. 03/12/2021 7:28 AM
--- NOTE | 2021-03-12 07:42 | Hospitalist Progress Note ---
Date of Service March 12, 2021 Assessment & Plan (1) Atrial fibrillation with RVR: New onset atrial fibrillation with RVR/hypertension-converted to sinus rhythm serial cardiac enzymes are not elevated , serial EKG shows conversion to nsr, cardiac rhythm monitoring and pending echocardiogram shows normal systolic function, concentric lvh and mild Patient did convert to normal sinus rhythm after administration of Lopressor 5 mg IV x2 by the ED. Started on metoprolol succinate 25 mg p.o. every morning, will start on eliquis Continue lisinopril 20 mg p.o. daily Hold furosemide, seems euvolumic, given some sob and h/o PE did have CTA without evidence of pe or suggestion of pulmonary edema (2) CKD (chronic kidney disease), stage III: Creatinine then 1.17 upon admission and creatinine clearance 57.0 within her range. (3) Obstructive sleep apnea: CPAP at at bedtime as needed (4) Dyslipidemia: Continue simvastatin 40 mg daily (5) Diabetes mellitus type 2, controlled: Decrease insulin glargine from 50 to 40 units subcu daily. Placed on Accu-Cheks before meals and at bedtime with NovoLog coverage per scale (6) Hypertension: See above (7) Hypothyroidism: Continue levothyroxine sodium 75 mcg daily Normal TSH level (8) Abnormal LFTs: May be secondary to obesity, diabetes mellitus, hyperlipidemia or combination thereof. No abdominal complaints transaminitis Admission and Anticipated Discharge Date Admission Date: March 12, 2021 Results & Data Results & Data ([facility]) Vital Signs (Past 12 Hours) Vital Signs Temp Pulse Pulse Resp BP BP Pulse Ox 03/12/21 06:04 68 18 131/65 96 03/12/21 05:02 69 13 129/75 97 03/12/21 03:30 83 16 99 03/12/21 03:06 119 H 16 123/80 97 03/12/21 01:23 95 H 18 136/77 96 03/12/21 01:12 120 H 174/78 H 03/12/21 00:56 98.1 F 115 H 20 174/78 H 96 PG Care Time/CCT Total # of Minutes Spent Total Time Spent with Patient: Total time spent is greater than 50% in coordination of care (as documented) at patient's floor/unit and/or counseling patient: Coding Level of Care Code None Diagnoses Atrial fibrillation with RVR I48.91 CKD (chronic kidney disease), stage III N18.30 Obstructive sleep apnea G47.33 Dyslipidemia E78.5 Diabetes mellitus type 2, controlled E11.9 Hypertension I10 Hypothyroidism E03.9 Abnormal LFTs R94.5
[2021-03-12] MEDS: ZINC SULFATE 220 MG CAPSULE PO SCH (08:30)
[2021-03-12] MEDS: POTASSIUM CHLORIDE 10 MEQ TABCR PO SCH (08:30)
[2021-03-12] MEDS: CHOLECALCIFEROL 1,000 UNITS 25 MCG TAB PO SCH (08:30)
[2021-03-12] MEDS: CYANOCOBALAMIN 500 MCG TABLET (VITAMIN B-12) PO SCH (08:30)
[2021-03-12] MEDS: CEROVITE ADV FORMULA TAB PO SCH (08:30)
[2021-03-12] MEDS: CALCIUM 600MG + VIT D 400 IU TAB PO SCH (08:30)
[2021-03-12] MEDS: lisinopril 20 MG TAB PO SCH (08:31)
[2021-03-12] MEDS: SIMVASTATIN 40 MG TAB PO SCH (08:31)
[2021-03-12] MEDS: ASCORBIC ACID 500 MG TAB PO SCH (08:31)
[2021-03-12] MEDS: MULTIVITAMIN TAB PO SCH (08:31)
[2021-03-12] MEDS: LEVOTHYROXINE SODIUM 75 MCG TABLET PO SCH (08:31)
[2021-03-12] MEDS: METOPROLOL SUCC 25MG EXT REL TAB PO SCH (08:31)
[2021-03-12] MEDS ORDERED: INSULIN GLARGINE SOLOSTAR 100 UNITS/ML 3 ML PEN SQ SCH ×2 (09:00→21:00)
[2021-03-12] MEDS ORDERED: ASPIRIN 325 MG ECTAB PO SCH (09:00)
[2021-03-12] MEDS: INSULIN ASPART 100 UNITS/ML 3 ML PEN SC SCH ×4 (09:02→21:36)
--- NOTE | 2021-03-12 09:39 | Electrocardiogram Report ---
Test Reason : Blood Pressure : / mmHG Vent. Rate : 104 BPM Atrial Rate : 127 BPM P-R Int : 000 ms QRS Dur : 104 ms QT Int : 358 ms P-R-T Axes : 000 104 033 degrees QTc Int : 470 ms Atrial fibrillation with rapid ventricular response Rightward axis Abnormal ECG When compared with ECG of 06-FEB-2013 16:01, Atrial fibrillation has replaced Sinus rhythm Confirmed by Anderson Andujar ([id number]) on 03/12/2021 9:39:19 AM Referred By: REFERRED SELF Confirmed By:Ignacio Andujar
--- NOTE | 2021-03-12 09:44 | Electrocardiogram Report ---
Test Reason : Blood Pressure : / mmHG Vent. Rate : 082 BPM Atrial Rate : 082 BPM P-R Int : 184 ms QRS Dur : 104 ms QT Int : 390 ms P-R-T Axes : 072 101 059 degrees QTc Int : 455 ms Normal sinus rhythm Rightward axis When compared with ECG of 12-MAR-2021 00:56, (unconfirmed) Sinus rhythm has replaced Atrial fibrillation Confirmed by Anderson Andujar ([id number]) on 03/12/2021 9:44:17 AM Referred By: REFERRED SELF Confirmed By:Ignacio Andujar
--- NOTE | 2021-03-12 10:53 | Cardiology Consultation ---
Date of Consultation March 12, 2021 Assessment & Plan (1) Atrial fibrillation with rapid ventricular response: -converted spontaneously to sinus rhythm after receiving intravenous metoprolol. -agree with metoprolol succinate. -suggest Eliquis at 5 mg b.i.d.. -echocardiogram pending. -I am happy to see her in follow-up in approximately 2 weeks. (2) Hypertension: -adequate control on current regimen. (3) Dyslipidemia: -continue simvastatin. History of Present Illness Attending Physician: Andrew Bernstein MD History of Present Illness Ms. Enamorado is a 70-year-old female admitted earlier today with atrial fibrillation rapid ventricular response. This consultation was ordered to assist in her cardiac management. The patient was in her usual state of health until approximately 10:00 p.m. last evening. She had the abrupt onset of palpitations with a rapid and irregular pulse. She presented to the emergency room and her initial evaluation noted atrial fibrillation with a rapid ventricular response. She was given 2 doses of intravenous metoprolol and she spontaneously converted to sinus rhythm. She has remained in sinus rhythm since that time. She has never been given the diagnosis of paroxysmal atrial fibrillation. She has never had a cardiac event. She has never experienced exertional chest pain or limiting dyspnea. She further denies syncope, presyncope, PND, orthopnea, lower extremity edema, and claudication. Currently, patient is resting comfortably in bed without complaints. Past medical and surgical history 1. Hypertension 2. Hypercholesterolemia 3. Paroxysmal atrial fibrillation 4. Diabetes mellitus 5. Chronic renal failure 6. Hypothyroidism 7. Morbid obesity 8. Obstructive sleep apnea 9. Vitamin-D deficiency 10. DJD 11. Colonic polyps 12. Cholecystectomy 13. 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 Forty pack year history No alcohol Family history No early coronary artery disease Review of systems A 10 review systems was undertaken and negative except for that described above. Allergies Allergy/AdvReac Type Severity Reaction Status Date / Time codeine AdvReac Mild NAUSEA Verified 03/11/21 13:59 Home Medications Medication Instructions Recorded Confirmed Type aspirin 325 mg tablet 325 mg PO DAILY tab 05/25/19 03/12/21 History calcium carbonate-vitamin D3 600 1 tab PO DAILY tab 05/25/19 03/12/21 History mg (1,500 mg)-800 unit tablet cholecalciferol (vitamin D3) 50 2,000 units PO DAILY cap 05/25/19 03/12/21 History mcg (2,000 unit) capsule cyanocobalamin (vitamin B-12) 1,000 mcg PO DAILY tab 05/25/19 03/12/21 History 1,000 mcg tablet,extended release multivitamin 1 tab PO DAILY tab 05/25/19 03/12/21 History omega-3 fatty acids 1,000 mg 1,000 mg PO DAILY cap 05/25/19 03/12/21 History capsule vit A 1,000 unit-C 200 mg-E 60 1 tab PO DAILY tab 05/25/19 03/12/21 History unit-lutein 2 mg and minerals tablet CPAP Machine #1 ea 07/24/19 03/11/21 Rx Oxygen Home #1 ea 07/24/19 03/11/21 Rx insulin lispro 100 unit/mL 1 sliding scale dose SQ 03/05/20 03/12/21 History subcutaneous solution USEASDIRECTD furosemide 40 mg tablet 40 mg PO DAILY #90 tab 04/29/20 03/12/21 Rx simvastatin 40 mg tablet 40 mg PO DAILY #90 tab 04/29/20 03/12/21 Rx BD Insulin Syringe Ultra-Fine 1 mL #400 ea NS 06/06/20 03/11/21 Rx 31 gauge x 5/16" OneTouch Ultra Blue Test Strip #400 ea NS 07/03/20 03/11/21 Rx levothyroxine 75 mcg tablet 75 mcg PO DAILY #90 tab 08/26/20 03/12/21 Rx lisinopril 20 mg tablet 20 mg PO DAILY #90 tab 08/26/20 03/12/21 Rx amoxicillin 500 mg capsule 2,000 mg PO .COMPLEX #20 cap 09/10/20 03/12/21 Rx potassium chloride 10 mEq 10 meq PO DAILY #90 tab 09/10/20 03/12/21 Rx tablet,extended release zinc 50 mg tablet 50 mg PO DAILY 11/21/20 03/12/21 History ascorbic acid (vitamin C) 1,000 mg 1 g PO DAILY tab 12/24/20 03/12/21 History tablet melatonin 1 tab PO DAILY PRN 12/24/20 03/12/21 History insulin glargine 100 unit/mL 50 unit SUBCUT DAILY ml 01/07/21 03/12/21 History subcutaneous solution Patient History Medical History Benign neoplasm of large intestine BMI 60.0-69.9, adult Diabetes mellitus type 2, controlled Dyslipidemia Hypertension Hypothyroidism Joint pain, knee Obstructive sleep apnea Sleep related hypoventilation in conditions classified elsewhere Type 2 diabetes mellitus, with long-term current use of insulin Vitamin D deficiency Surgical History H/O total knee replacement History of cholecystectomy History of foot surgery History of tooth extraction Family History Mother Lung cancer Brother Myocardial infarction Other Breast cancer Colorectal cancer Stroke Social History Smoking Status: Former smoker Tobacco Type: Cigarettes Age Started Using Tobacco: 16; Age Quit Using Tobacco: 60; packs per day: 1; Second Hand Exposure: No; Hx Alcohol Use: No Hx Substance Use: No Preferred Language: Wolof Communication Ability: Effective Visual Impairment: Limited Hearing Ability: Normal Beliefs That Will Affect Care: None marital status: Single Current Living Situation: Alone current occupational status: retired Feels Safe at Home: Yes Safety Concerns: Feels Safe At This Time Childhood Exposure to Second-Hand Smoke: No caffeine: Yes Dental Care, Regularly: Yes Physical Activity Frequency: Does not Exercise Seatbelt Use: always Sunscreen Use: Yes Do you think of yourself as: straight/heterosexual Assistive Devices: Cane and Glasses Results & Data ([facility]) Vital Signs (Past 12 Hours) Vital Signs Temp Pulse Pulse Resp BP BP Pulse Ox 03/12/21 08:37 36.8 C 82 18 163/108 H 95 03/12/21 06:04 68 18 131/65 96 03/12/21 05:02 69 13 129/75 97 03/12/21 03:30 83 16 99 03/12/21 03:06 119 H 16 123/80 97 03/12/21 01:23 95 H 18 136/77 96 03/12/21 01:12 120 H 174/78 H 03/12/21 00:56 36.7 C 115 H 20 174/78 H 96 Laboratory Results CBC notes hemoglobin of 14.6, crit 44.7, white count 14.49, and platelet count [id number]. Electrolytes note a sodium of 130, potassium 3.9, chloride 110, bicarb 20, BUN 23, creatinine 1.17, glucose of 207. Troponin I level is less than 0.015. TSH level is normal at 1.65. Diagnostic Findings EKG notes atrial fibrillation with a rapid ventricular response. PG Care Time/CCT Total # of Minutes Spent Total Time Spent with Patient: Total time spent is greater than 50% in coordination of care (as documented) at patient's floor/unit and/or counseling patient: Coding Level of Care Code 62599 OBS Care - Level 3 Diagnoses Atrial fibrillation with rapid ventricular response I48.91 Hypertension I10 Dyslipidemia E78.5
--- NOTE | 2021-03-12 11:26 | XCELERA ---
[id number]
[2021-03-12 11:33] LABS: Partial Thromboplastin Ratio 1.1; Partial Thromboplastin Time 27.9 Seconds (21.0-31.0)
[2021-03-12] MEDS ORDERED: OPTIRAY 350 500ml IV ONE (15:19)
--- NOTE | 2021-03-12 15:48 | CT Scan Report ---
CT ANGIOGRAPHY OF THE CHEST, PULMONARY EMBOLUS PROTOCOL CLINICAL HISTORY: Shortness of breath. Evaluate for pulmonary embolus. COMPARISON STUDY: Chest radiograph February 23, 2013 and March 12, 2021. Chest CT November 01, 2006. TECHNIQUE: Following IV administration of 115 mL of Optiray, helical axial images of the chest were o btained utilizing the pulmonary embolus protocol. Maximal intensity projections and sagittal and cor onal reformats were viewed on an independent 3D workstation. IV contrast was administered without co mplication. Automated exposure control was utilized for the study. A dose lowering technique was ut ilized adhering to the principles of ALARA. CT DOSE: 581.16 mGycm FINDINGS: Incidental note is made of an aberrant right subclavian artery. No pulmonary emboli are id entified although the segmental and subsegmental arteries within the lower lobes are suboptimally ass essed due to respiratory motion. There is mild cardiomegaly. No thoracic aortic dissection is noted. There is mild dilatation of the central pulmonary arteries. No enlarged thoracic lymph nodes are note d. Groundglass opacities within the lungs favor atelectasis. There is no consolidation to suggest pne umonia. No pneumothorax or pleural effusion is noted. There may be a hepatic steatosis. Liver is subo ptimally assessed due to artifact. IMPRESSION: 1. No pulmonary emboli identified although segmental and subsegmental pulmonary arteries within the l ower lobes suboptimally assessed due to respiratory motion. 2. No consolidation to suggest pneumonia. 3. Cardiomegaly. ACT 112: Negative or not required by law. Electronically signed by: Jonas Monterroso M.D. 03/12/2021 3:46 PM
[2021-03-12] MEDS: ACETAMINOPHEN 325 MG TAB PO PRN (15:49)
[2021-03-12 18:01] LABS: Appearance Urine Cloudy (Clear); Bacteria Urine Automated Negative (Negative); Blood Urine 3+ (Negative); Color Urine Red; Epithelial Cell Urine Auto >30 /lpf (0-5); Glucose Urine UA Negative (Negative); Ketones Urine Negative (Negative); Leukocyte Esterase Urine 2+ (Negative); Nitrite Urine Negative (Negative); Protein Urine 1+ (Negative); RBC Urine Automated >30 /hpf (0-4); Specific Gravity Urine 1.038 (1.000-1.030); Urobilinogen Urine Negative (Negative)
[2021-03-12 18:34] LABS: Bilirubin Urine 1+ (Negative)
[2021-03-12] MEDS: APIXABAN 5 MG TABLET PO SCH (21:32)
[2021-03-13] MEDS: LEVOTHYROXINE SODIUM 75 MCG TABLET PO SCH (05:34)
[2021-03-13 06:40] LABS: Basophils # (auto) 0.02 K/uL (0-0.2); Basophils % (auto) 0.2 %; Eosinophils # (auto) 0.19 K/uL (0-0.5); Hematocrit (blood only) 41.1 % (37-47); Hemoglobin 13.2 g/dL (12.0-16.0); Immature Granulocytes # (auto) 0.02 K/uL (0.00-0.02); Immature Granulocytes % (auto) 0.2 %; Lymphocytes # (auto) 2.81 K/uL (1.2-3.4); Lymphocytes % (auto) 29.8 %; Mean Corpuscular Hemoglobin 30.9 pg (25-34); Mean Corpuscular Hgb Conc 32.1 g/dL (32-36); Mean Corpuscular Volume 96.3 fL (80-100); Mean Platelet Volume 11.4 fL (7.4-10.4); Monocytes # (auto) 0.89 K/uL (0.11-0.59); Monocytes % (auto) 9.4 %; Neutrophils % (auto) 58.4 %; Platelet Count 251 K/uL (130-400); RDW Coefficient of Variation 13.9 % (11.5-14.5); Red Blood Count 4.27 M/uL (4.2-5.4); White Blood Count 9.43 K/uL (4.8-10.8)
[2021-03-13 06:52] LABS: Prothrombin Time 10.1 Seconds (9.0-12.0)
[2021-03-13 07:06] LABS: Albumin Level 3.5 gm/dl (3.4-5.0); BUN Creatinine Ratio 22.1 (10-20); Calcium 9.6 mg/dl (8.5-10.1); Creatinine Clr Calc Pharmacy 72.4 ml/min; Est GFR (African American) 76.1 ml/min; Est GFR (Non-African American) 65.6 ml/min
[2021-03-13 07:09] LABS: Albumin Globulin Ratio 0.9 (0.9-2); Bilirubin,Total 0.7 mg/dl (0.2-1); Globulin 3.9 gm/dl (2.5-4.0); Total Protein 7.4 gm/dl (6.4-8.2)
[2021-03-13 08:01] LABS: Estimated Average Glucose 154 mg/dl
[2021-03-13] MEDS: CYANOCOBALAMIN 500 MCG TABLET (VITAMIN B-12) PO SCH (08:11)
[2021-03-13] MEDS: APIXABAN 5 MG TABLET PO SCH (08:12)
[2021-03-13] MEDS: CALCIUM 600MG + VIT D 400 IU TAB PO SCH (08:12)
[2021-03-13] MEDS: SIMVASTATIN 40 MG TAB PO SCH (08:12)
[2021-03-13] MEDS: lisinopril 20 MG TAB PO SCH (08:12)
[2021-03-13] MEDS: METOPROLOL SUCC 25MG EXT REL TAB PO SCH (08:12)
[2021-03-13] MEDS: ZINC SULFATE 220 MG CAPSULE PO SCH (08:12)
[2021-03-13] MEDS: ASCORBIC ACID 500 MG TAB PO SCH (08:13)
[2021-03-13] MEDS: CHOLECALCIFEROL 1,000 UNITS 25 MCG TAB PO SCH (08:13)
[2021-03-13] MEDS: CEROVITE ADV FORMULA TAB PO SCH (08:13)
[2021-03-13] MEDS: MULTIVITAMIN TAB PO SCH (08:13)
[2021-03-13] MEDS: INSULIN ASPART 100 UNITS/ML 3 ML PEN SC SCH ×2 (08:15→11:53)
[2021-03-13] MEDS: ACETAMINOPHEN 325 MG TAB PO PRN (08:17)
[2021-03-13] MEDS ORDERED: ASPIRIN 81 MG ECTAB PO SCH (09:00)
[2021-03-13] MEDS: POTASSIUM CHLORIDE 10 MEQ TABCR PO SCH (11:52)
--- NOTE | 2021-03-13 15:11 | Electrocardiogram Report ---
Test Reason : Blood Pressure : / mmHG Vent. Rate : 076 BPM Atrial Rate : 076 BPM P-R Int : 148 ms QRS Dur : 098 ms QT Int : 400 ms P-R-T Axes : 042 056 053 degrees QTc Int : 450 ms Normal sinus rhythm Normal ECG When compared with ECG of 12-MAR-2021 03:13, No significant change was found Confirmed by Anderson Andujar ([id number]) on 03/13/2021 3:10:39 PM Referred By: REFERRED SELF Confirmed By:Ignacio Andujar
--- NOTE | 2021-03-13 18:44 | Discharge Summary ---
Date of Service March 13, 2021 Admission HPI Per Admitting Provider The patient is a 70-year-old female with a asthma history including high serum lactate, CKD stage III, ANN MARIE, dyslipidemia, morbid obesity with BMI 56.7, diabetes mellitus type 2, hypertension, hyper thyroid isn't, knee os teoarthritis, sleep related hypoventilation and vitamin D deficiency. Patient presented with the acute onset of rapid heart rate while at home at 10 PM this evening. She has had no previous occurrences of this type of sensation. Work-up in the emergency department included an initial EKG that showed atrial fibrillation with RVR, for which she received metoprolol 5 mg IV x2 from the ED, and did ultimately convert to normal sinus rhythm. Blood pressure remained satisfactory during the entire interval. Principal Diagnosis afib rvr with conversion to nsr Discharge Exam The patient appeared well Vital signs as documented. Lungs are clear to auscultation and appear unlabored Cardiac exam, Rhythm is regular.nsr . No murmurs, rubs or gallops. Abdominal exam reveals normal bowel sounds, soft non tender, no masses Extremities are nonedematous and both pedal pulses are normal. Neurologic exam is alert and oriented, no focal loss of strength or sensation Skin is without bruises or rashes Psychologically is without concerns for anxiety or depression. Discharge Data Allergies Allergy/AdvReac Type Severity Reaction Status Date / Time codeine AdvReac Mild NAUSEA Verified 03/11/21 13:59 Consultations 03/12/21 03:15 ED Decision to Admit Stat 03/12/21 06:00 Consult Cardiology Routine 03/12/21 08:44 Consult Cardiology Routine Ordered Studies 03/12/21 14:38 CT angio chest PE protocol Stat Hospital Course (1) Atrial fibrillation with RVR: New onset atrial fibrillation with RVR/hypertension-converted to sinus rhythm serial cardiac enzymes are not elevated , serial EKG shows conversion to nsr, cardiac rhythm monitoring and pending echocardiogram shows normal systolic function, concentric lvh and mild Patient did convert to normal sinus rhythm after administration of Lopressor 5 mg IV x2 by the ED. Started on metoprolol succinate 25 mg p.o. every morning, will start on eliquis Continue lisinopril 20 mg p.o. daily resume lasix at d/c given some sob and h/o PE did have CTA without evidence of pe or suggestion of pulmonary edema (2) CKD (chronic kidney disease), stage III: Creatinine then 1.17 upon admission and creatinine clearance 57.0 within her range.stable after ct contrast (3) Obstructive sleep apnea: CPAP at at bedtime as needed (4) Dyslipidemia: Continue simvastatin 40 mg daily (5) Diabetes mellitus type 2, controlled: resume home insulin regimen (6) Hypertension: See above (7) Hypothyroidism: Continue levothyroxine sodium 75 mcg daily Normal TSH level (8) Abnormal LFTs: May be secondary to obesity, diabetes mellitus, hyperlipidemia or combination thereof. No abdominal complaints transaminitis Total Time Total Time Spent Total Time Spent (In Minutes): greater than 30 minutes were required to prepare this discharge Discharge Plan Discharge Items Patient Disposition: Home - Self-Care Reason For Visit: NEW ONSET ATRIAL FIB WITH RVR Discharge Diagnosis: atrial fibrillation Activity: Resume your previous activity Non-emergency contact: Primary Care Provider and Pipe Stripper Call non-emergency contact if: you have any medication questions and your symptoms worsen Follow-up/Referrals: Emerson Herron MD [Primary Care Provider] - Diet: Carb Consistent or DM2 Addtl Attending Provider Instructions: please take your metoprolol and eliquis, follow up with Dr Herron in one week and Dr Mi in 2 weeks Medication Instructions: Your condition is typically treated with an anticoagulant. Anticoagulants will thin your blood to help prevent new clots. * You should take her medication exactly as directed. * Never skip a dose. * Never take a double dose. If you miss a dose, take it as soon as you remember. Call your Primary Care doctor if you experience any of the following: * Swelling or Pain in your leg * Sudden, continuous pain deep in a muscle * Pain that worsens when you are active or when you stand still for a long time * Chest Pain * Sudden Shortness of Breath * Rapid or pounding heart beat * Fainting * Dizziness * Cough with blood or bloody sputum * Sweating more than normal * Bruises * Heavy or uncontrolled bleeding * Blood in your urine, stool or vomit * Black or tarry stools Caring for Your Self at Home: * Avoid sitting, standing or lying down for long periods without moving your legs and feet * When traveling by car, stop to get out and move around at least once every 3 hours * On long airplane, train or bus rides, get up and move around when possible * If you can't get up, wiggle your toes and tighten your calves to keep your blood moving Pending Studies at Discharge: No Stand-Alone Forms: My [facility], Smoking Cessation Medications and DC Order Prescriptions: New aspirin 81 mg Tablet,Delayed Release (Dr/Ec) 81 mg PO DAILY Qty: 30 RF: 0 metoprolol succinate 25 mg Tablet Extended Release 24 Hr 25 mg PO QAM Qty: 30 RF: 5 Eliquis 5 mg Tablet 5 mg PO BID Qty: 60 RF: 0 Continued insulin lispro 100 unit/mL solution 1 sliding scale dose SQ USEASDIRECTD RF: 0 furosemide 40 mg tablet 40 mg PO DAILY Qty: 90 RF: 3 simvastatin 40 mg tablet 40 mg PO DAILY Qty: 90 RF: 3 (DME) insulin syringe-needle U-100 [BD Insulin Syringe Ultra-Fine] 1 mL 31 gauge x 5/16 syringe See Rx Instructions .ROUTE .MEDSUPPLY Qty: 400 RF: 3 (DME) OneTouch Ultra Blue Test Strip Strip See Dose Instructions .ROUTE .MEDSUPPLY Qty: 400 RF: 3 levothyroxine 75 mcg tablet 75 mcg PO DAILY Qty: 90 RF: 3 lisinopril 20 mg tablet 20 mg PO DAILY Qty: 90 RF: 3 amoxicillin 500 mg capsule 2,000 mg PO .COMPLEX Qty: 20 RF: 0 potassium chloride 10 mEq tablet extended release 10 meq PO DAILY Qty: 90 RF: 3 calcium carbonate-vitamin D3 [Caltrate with Vitamin D3] 600 mg(1,500mg) -800 unit tablet 1 tab PO DAILY RF: 0 multivitamin tablet 1 tab PO DAILY RF: 0 Ocuvite with Lutein 1,000 unit-200 mg-60 unit-2 mg tablet 1 tab PO DAILY RF: 0 cyanocobalamin (vitamin B-12) 1,000 mcg tablet extended release 1,000 mcg PO DAILY RF: 0 cholecalciferol (vitamin D3) 2,000 unit capsule 2,000 units PO DAILY RF: 0 zinc 50 mg tablet 50 mg PO DAILY RF: 0 melatonin 1 tab PO DAILY PRN (Reason: Sleep) RF: 0 ascorbic acid (vitamin C) 1,000 mg tablet 1 g PO DAILY RF: 0 omega-3 fatty acids [Fish Oil Concentrate] 1,000 mg capsule 1,000 mg PO DAILY RF: 0 (DME) CPAP Machine Misc See Dose Instructions .ROUTE .MEDSUPPLY Qty: 1 RF: 0 (DME) Oxygen Home Liters Per Minute See Dose Instructions .ROUTE .MEDSUPPLY Qty: 1 RF: 0 Lantus U-100 Insulin 100 unit/mL solution 50 unit subcut DAILY RF: 0 Discontinued aspirin 325 mg tablet 325 mg PO DAILY RF: 0 Discharge Orders: Discharge Order (Routine); Ordered 03/13/21 Ordered By: Andrew Silver/Other Patient Handouts: Managing Type 2 Diabetes, A1C Admission Data Admit Date/Time: 03/12/21 04:42 Attending Provider: Andrew Bernstein Admit Provider: [facility] Primary Care Provider: Emerson Herron Other Providers: [facility] ; Carlos Hernandez ; Stuart Mi Other Interventions: Discharge Summary Assessment (RN) Last Done: 03/13/21 12:48 Coding Level of Care Code D/C Day Management >30 mins Diagnoses Atrial fibrillation with RVR I48.91 CKD (chronic kidney disease), stage III N18.30 Obstructive sleep apnea G47.33 Dyslipidemia E78.5 Diabetes mellitus type 2, controlled E11.9 Hypertension I10 Hypothyroidism E03.9 Abnormal LFTs R94.5
== END 2021-03-13 13:39 | disposition home or self-care (01) ==
LOC: ED 00:51 → EDINP 00:51 → SUATTDRO 04:42 → 2E 06:04

== ENCOUNTER 2021-03-24 13:07 | Inpatient (IN) ==
[2021-03-24] MEDS ORDERED: SODIUM CHLORIDE 0.9% 500 ML IV STA (14:05)
--- NOTE | 2021-03-24 14:10 | Emergency Department Note ---
Impression & Plan Abnormal vaginal bleeding in postmenopausal patient, Anemia ED Provider Note NAME: WILI WAHL AGE: 70 SEX: F : 1950 ARRIVES VIA: Ambulance INFORMANT: Patient, ED PROVIDER(S): Stuart Renteria DO CHIEF COMPLAINT: Vaginal bleeding HPI: The patient is a 70-year-old female who presented to the emergency department for an evaluation of vaginal bleeding. The patient has a history of atrial fibrillation. She was recently started on blood thinners approximately 2 weeks ago after being in atrial fibrillation. The patient had vaginal spotting initially. She then started having vaginal bleeding with heavy clots. This sta rted to worsen last evening into today. She was seen by her primary care physician last week for similar complaints. No RADIATION OFFICER follow-up has been arranged yet. The patient denies having any fever. She has pelvic pain which is moderate to severe. She denies having any recent trauma. She denies having any shortness of breath or chest pain at rest but does complain of dyspnea on exertion. She states her symptoms are moderate to severe. She called 911 and came to the emergency department via ambulance. The patient has noticed clots as well as fresh bleeding. ROS: See above HPI for pertinent positives & negatives. A total of 10 systems reviewed and were otherwise negative. PAST MEDICAL HISTORY: See Below PAST SURGICAL HISTORY: See Below FAMILY HISTORY: See Below SOCIAL HISTORY: See Below HOME MEDICATIONS: See Below ALLERGIES: See Below VITALS: See Below PHYSICAL EXAMINATION: GENERAL: The patient is awake and alert. She is very anxious appearing. EYES: The conjunctivae are clear. The pupils are round and reactive. EARS, NOSE, MOUTH AND THROAT: The nose is without any evidence of any deformity. Mucous membranes are moist. Tongue is midline. NECK: The neck is nontender and supple. RESPIRATORY: Normal respiratory effort is noted there is no evidence of wheezing rhonchi or rales CARDIOVASCULAR: Regular rate and rhythm noted there no murmurs rubs or gallops normal S1 normal S2. GASTROINTESTINAL: The abdomen is soft. Abdomen is nontender. MUSCULOSKELETAL/EXTREMITIES: There is no evidence of gross deformity full range of motion is noted in the hips and shoulders. SKIN: Skin is pale and dry. Trace pedal edema was noted bilaterally. NEUROLOGIC: Patient is awake alert and oriented x3. MEDICAL DECISION MAKING: The patient is a 70-year-old female who presented to the emergency department for vaginal bleeding. The patient had very significant vaginal bleeding. She was found to be anemic compared to CBC that was only done a few weeks ago. The patient was started on anticoagulation recently because of atrial fibrillation. I discussed the patient's laboratory and radiographic studies with her. She was reevaluated multiple times. I discussed her case with the on-call unassigned RADIATION OFFICER physician. I also discussed [facility] They have agreed to evaluate the patient in the emergency department. The patient was treated with IV fluids. She was also typed and screened in the emergency department. Triage Nursing notes reviewed. Prior medical records reviewed Vital Signs: reviewed and remarkable for hypotension. Differential diagnosis: Etiologies such as threatened AB, miscarriage, ectopic , dysfunction uterine bleeding, bleeding dyscrasia, trauma, infection, as well as others were entertained. ER treatment provided: See below Diagnostics interpreted by me: ECG: EKG was obtained in the emergency department. My interpretation is normal sinus rhythm at 82 bpm. There was no ectopy. There was no acute ST segment abnormalities. This was compared to a tracing from March 132020. No significant changes were noted. Cardiac Monitoring: An order was placed for continuous cardiac monitoring. The monitor shows a rate of 70 bpm with sinus rhythm. Laboratory studies: As stated above and show below. Imaging studies: See below Consultation(s): 1550: I discussed this case with Dr. Giles who is on-call for [facility]. 1600: I discussed this case with Dr Victoria who was on for [facility]. I discussed this case with Dr. Matute who is on-call for the [facility]. They will evaluate the patient in the emergency department for further management and disposition. Past Med/Surg History Medical History (Updated 03/24/21 @ 20:09 by Stuart Renteria DO) Benign neoplasm of large intestine BMI 60.0-69.9, adult CKD (chronic kidney disease), stage III Diabetes mellitus type 2, controlled Dyslipidemia Hypertension Hypothyroidism Joint pain, knee Lactic acidosis Metabolic acidosis Nocturnal hypoxemia Obstructive sleep apnea Paroxysmal atrial fibrillation Personal history of deep vein thrombosis Pulmonary nodule Sleep related hypoventilation in conditions classified elsewhere Type 2 diabetes mellitus, with long-term current use of insulin Vitamin D deficiency Surgical History H/O total knee replacement History of cholecystectomy History of foot surgery History of tooth extraction Family History Mother Lung cancer Brother Myocardial infarction Other Breast cancer Colorectal cancer Stroke Social History (Updated 03/24/21 @ 17:07 by Pili Matute MD) Smoking Status: Former smoker Tobacco Type: Cigarettes Age Started Using Tobacco: 16; Age Quit Using Tobacco: 60; packs per day: 1; Second Hand Exposure: No; Hx Alcohol Use: No Hx Substance Use: No Preferred Language: Somali Communication Ability: Effective Visual Impairment: Limited Hearing Ability: Normal Beliefs That Will Affect Care: None marital status: Single Current Living Situation: Alone current occupational status: retired Feels Safe at Home: Yes Childhood Exposure to Second-Hand Smoke: No caffeine: Yes Dental Care, Regularly: Yes Physical Activity Frequency: Does not Exercise Seatbelt Use: always Sunscreen Use: Yes Do you think of yourself as: straight/heterosexual Assistive Devices: Cane and Glasses Allergies Allergies Allergy/AdvReac Type Severity Reaction Status Date / Time codeine AdvReac Mild NAUSEA Verified 03/24/21 16:56 Home Meds Home Medications Medication Instructions Recorded Confirmed calcium carbonate-vitamin D3 600 1 tab PO DAILY tab 05/25/19 03/24/21 mg (1,500 mg)-800 unit tablet cholecalciferol (vitamin D3) 50 2,000 units PO DAILY cap 05/25/19 03/24/21 mcg (2,000 unit) capsule cyanocobalamin (vitamin B-12) 1,000 mcg PO DAILY tab 05/25/19 03/24/21 1,000 mcg tablet,extended release multivitamin 1 tab PO DAILY tab 05/25/19 03/24/21 omega-3 fatty acids 1,000 mg 1,000 mg PO DAILY cap 05/25/19 03/24/21 capsule vit A 1,000 unit-C 200 mg-E 60 1 tab PO DAILY tab 05/25/19 03/24/21 unit-lutein 2 mg and minerals tablet insulin lispro 100 unit/mL 1 sliding scale dose SQ 03/05/20 03/24/21 subcutaneous solution USEASDIRECTD zinc 50 mg tablet 50 mg PO DAILY 11/21/20 03/24/21 ascorbic acid (vitamin C) 1,000 mg 1 g PO DAILY tab 12/24/20 03/24/21 tablet melatonin 1 tab PO DAILY PRN 12/24/20 03/24/21 insulin glargine 100 unit/mL 50 unit SUBCUT DAILY ml 01/07/21 03/24/21 subcutaneous solution Previous Rx's Medication Instructions Recorded CPAP Machine #1 ea 07/24/19 Oxygen Home #1 ea 07/24/19 furosemide 40 mg tablet 40 mg PO DAILY #90 tab 04/29/20 simvastatin 40 mg tablet 40 mg PO DAILY #90 tab 04/29/20 BD Insulin Syringe Ultra-Fine 1 mL #400 ea NS 06/06/20 31 gauge x 5/16" OneTouch Ultra Blue Test Strip #400 ea NS 07/03/20 levothyroxine 75 mcg tablet 75 mcg PO DAILY #90 tab 08/26/20 lisinopril 20 mg tablet 20 mg PO DAILY #90 tab 08/26/20 amoxicillin 500 mg capsule 2,000 mg PO .COMPLEX #20 cap 09/10/20 potassium chloride 10 mEq 10 meq PO DAILY #90 tab 09/10/20 tablet,extended release apixaban [Eliquis] 5 mg PO BID #60 tab 03/13/21 aspirin 81 mg PO DAILY #30 tab 03/13/21 metoprolol succinate 25 mg PO QAM #30 tab 03/13/21 Results & Data (ED) Vital Signs Vital Signs - 24 hr 03/24/21 13:16 03/24/21 13:19 03/24/21 13:20 Temperature Temperature Source Pulse Rate 85 86 86 Pulse Rate from SpO2 Sensor 85 85 86 Pulse Rhythm Pulse Strength Respiratory Rate 18 20 19 Respiratory Effort / Characteristics Respiratory Depth Blood Pressure 151/73 H Blood Pressure Mean 99 Pulse Oximetry 94 94 93 Oxygen Delivery Method Sepsis Recent Fever Within 48 Hours Sepsis New/Unexplained Change in Mental Status Sepsis Action Taken by Nursing 03/24/21 13:24 03/24/21 13:30 03/24/21 13:31 Temperature 36.7 C Temperature Source Oral Pulse Rate 84 83 86 Pulse Rate from SpO2 Sensor 84 85 Pulse Rhythm Regular Pulse Strength Normal Respiratory Rate 20 17 18 Respiratory Effort / Characteristics Non-Labored Respiratory Depth Normal Blood Pressure 151/73 H 112/62 Blood Pressure Mean 99 78 Pulse Oximetry 94 92 91 Oxygen Delivery Method Room Air Sepsis Recent Fever Within 48 Hours No Sepsis New/Unexplained Change in Mental Status N/A Sepsis Action Taken by Nursing No Action Required 03/24/21 13:40 03/24/21 13:50 03/24/21 14:00 Temperature Temperature Source Pulse Rate 83 85 79 Pulse Rate from SpO2 Sensor 84 85 81 Pulse Rhythm Pulse Strength Respiratory Rate 16 19 18 Respiratory Effort / Characteristics Respiratory Depth Blood Pressure Blood Pressure Mean Pulse Oximetry 92 91 94 Oxygen Delivery Method Sepsis Recent Fever Within 48 Hours Sepsis New/Unexplained Change in Mental Status Sepsis Action Taken by Nursing 03/24/21 14:10 03/24/21 14:12 03/24/21 14:20 Temperature Temperature Source Pulse Rate 81 80 79 Pulse Rate from SpO2 Sensor 81 79 Pulse Rhythm Regular Pulse Strength Respiratory Rate 19 18 16 Respiratory Effort / Characteristics Respiratory Depth Blood Pressure Blood Pressure Mean Pulse Oximetry 93 93 95 Oxygen Delivery Method Sepsis Recent Fever Within 48 Hours Sepsis New/Unexplained Change in Mental Status Sepsis Action Taken by Nursing 03/24/21 14:30 03/24/21 14:40 03/24/21 14:50 Temperature Temperature Source Pulse Rate 76 79 81 Pulse Rate from SpO2 Sensor 77 79 78 Pulse Rhythm Pulse Strength Respiratory Rate 15 13 17 Respiratory Effort / Characteristics Respiratory Depth Blood Pressure Blood Pressure Mean Pulse Oximetry 95 94 96 Oxygen Delivery Method Sepsis Recent Fever Within 48 Hours Sepsis New/Unexplained Change in Mental Status Sepsis Action Taken by Nursing 03/24/21 15:00 03/24/21 15:10 03/24/21 15:29 Temperature Temperature Source Pulse Rate 81 81 82 Pulse Rate from SpO2 Sensor 81 81 Pulse Rhythm Pulse Strength Respiratory Rate 14 17 21 Respiratory Effort / Characteristics Respiratory Depth Blood Pressure Blood Pressure Mean Pulse Oximetry 95 94 Oxygen Delivery Method Sepsis Recent Fever Within 48 Hours Sepsis New/Unexplained Change in Mental Status Sepsis Action Taken by Nursing 03/24/21 15:30 03/24/21 15:31 03/24/21 15:40 Temperature Temperature Source Pulse Rate 81 80 82 Pulse Rate from SpO2 Sensor 80 80 82 Pulse Rhythm Pulse Strength Respiratory Rate 17 23 29 H Respiratory Effort / Characteristics Respiratory Depth Blood Pressure 134/54 L Blood Pressure Mean 80 Pulse Oximetry 97 98 97 Oxygen Delivery Method Sepsis Recent Fever Within 48 Hours Sepsis New/Unexplained Change in Mental Status Sepsis Action Taken by Nursing 03/24/21 15:50 03/24/21 16:00 03/24/21 16:01 Temperature Temperature Source Pulse Rate 82 81 82 Pulse Rate from SpO2 Sensor 82 82 82 Pulse Rhythm Pulse Strength Respiratory Rate 19 21 17 Respiratory Effort / Characteristics Respiratory Depth Blood Pressure 132/60 Blood Pressure Mean 84 Pulse Oximetry 97 96 96 Oxygen Delivery Method Sepsis Recent Fever Within 48 Hours Sepsis New/Unexplained Change in Mental Status Sepsis Action Taken by Nursing 03/24/21 16:10 03/24/21 16:13 03/24/21 16:20 Temperature Temperature Source Pulse Rate 83 83 80 Pulse Rate from SpO2 Sensor 83 82 81 Pulse Rhythm Pulse Strength Respiratory Rate 20 21 14 Respiratory Effort / Characteristics Respiratory Depth Blood Pressure 150/48 H Blood Pressure Mean 82 Pulse Oximetry 96 97 96 Oxygen Delivery Method Sepsis Recent Fever Within 48 Hours Sepsis New/Unexplained Change in Mental Status Sepsis Action Taken by Nursing 03/24/21 16:30 03/24/21 16:31 03/24/21 16:40 Temperature Temperature Source Pulse Rate 86 84 84 Pulse Rate from SpO2 Sensor 85 83 85 Pulse Rhythm Pulse Strength Respiratory Rate 26 H 25 H 18 Respiratory Effort / Characteristics Respiratory Depth Blood Pressure 124/47 L Blood Pressure Mean 72 Pulse Oximetry 96 95 96 Oxygen Delivery Method Sepsis Recent Fever Within 48 Hours Sepsis New/Unexplained Change in Mental Status Sepsis Action Taken by Nursing 03/24/21 16:50 03/24/21 17:00 03/24/21 17:01 Temperature Temperature Source Pulse Rate 85 85 81 Pulse Rate from SpO2 Sensor 85 84 82 Pulse Rhythm Pulse Strength Respiratory Rate 19 26 H 23 Respiratory Effort / Characteristics Respiratory Depth Blood Pressure 122/57 L Blood Pressure Mean 78 Pulse Oximetry 96 99 96 Oxygen Delivery Method Sepsis Recent Fever Within 48 Hours Sepsis New/Unexplained Change in Mental Status Sepsis Action Taken by Nursing 03/24/21 17:10 03/24/21 17:20 03/24/21 17:30 Temperature Temperature Source Pulse Rate 80 82 83 Pulse Rate from SpO2 Sensor 80 80 84 Pulse Rhythm Pulse Strength Respiratory Rate 20 19 23 Respiratory Effort / Characteristics Respiratory Depth Blood Pressure 144/76 H Blood Pressure Mean 98 Pulse Oximetry 94 95 95 Oxygen Delivery Method Sepsis Recent Fever Within 48 Hours Sepsis New/Unexplained Change in Mental Status Sepsis Action Taken by Nursing 03/24/21 17:40 03/24/21 18:25 03/24/21 18:31 Temperature Temperature Source Pulse Rate 83 83 85 Pulse Rate from SpO2 Sensor 83 Pulse Rhythm Pulse Strength Respiratory Rate 19 21 19 Respiratory Effort / Characteristics Respiratory Depth Blood Pressure 133/79 117/56 L Blood Pressure Mean 97 76 Pulse Oximetry 97 94 Oxygen Delivery Method Sepsis Recent Fever Within 48 Hours Sepsis New/Unexplained Change in Mental Status Sepsis Action Taken by Nursing 03/24/21 19:01 03/24/21 19:30 Temperature Temperature Source Pulse Rate 81 77 Pulse Rate from SpO2 Sensor Pulse Rhythm Pulse Strength Respiratory Rate 15 16 Respiratory Effort / Characteristics Respiratory Depth Blood Pressure 99/56 L 96/52 L Blood Pressure Mean 70 66 Pulse Oximetry 91 94 Oxygen Delivery Method Sepsis Recent Fever Within 48 Hours Sepsis New/Unexplained Change in Mental Status Sepsis Action Taken by [facility] Medications Current Medication List: was personally reviewed by me Laboratory Data Attestation: I reviewed the patient's lab results. Result diagrams: 03/24/21 18:37 03/24/21 14:00 Lab Results 03/24/21 03/24/21 03/24/21 Range/Units 14:00 14:00 14:00 WBC 13.19 H (4.8-10.8) K/uL RBC 3.03 L (4.2-5.4) M/uL Hgb 9.3 L (12.0-16.0) g/dL Hct 28.4 L (37-47) % MCV 93.7 (80-100) fL MCH 30.7 (25-34) pg MCHC 32.7 (32-36) g/dL RDW Std Deviation 47.6 H (36.4-46.3) fL RDW Coeff of Keith 14.0 (11.5-14.5) % Plt Count 257 (130-400) K/uL MPV 10.9 H (7.4-10.4) fL Immature Gran % (Auto) 0.4 % Neut % (Auto) 75.2 % Lymph % (Auto) 16.1 % Coke % (Auto) 7.9 % Eos % (Auto) 0.2 % Baso % (Auto) 0.2 % Neut # (Auto) 9.93 H (1.4-6.5) K/uL Lymph # (Auto) 2.12 (1.2-3.4) K/uL Coke # (Auto) 1.04 H (0.11-0.59) K/uL Eos # (Auto) 0.03 (0-0.5) K/uL Baso # (Auto) 0.02 (0-0.2) K/uL Immature Gran # (Auto) 0.05 H (0.00-0.02) K/uL PT 10.1 (9.0-12.0) Seconds INR 1.0 (0.9-1.1) APTT 20.7 L (21.0-31.0) Seconds PTT Ratio 0.8 Sodium 139 (136-145) mmol/L Potassium 3.5 (3.5-5.1) mmol/L Chloride 106 (98-107) mmol/L Carbon Dioxide 23 (21-32) mmol/L Anion Gap 10.0 (3-11) BUN 16 (7-18) mg/dl Creatinine 1.00 (0.6-1.2) mg/dl Est Cr Clr Drug Dosing 63.8 ml/min Est GFR ( Amer) 65.2 ml/min Est GFR (Non-Af Amer) 56.2 ml/min BUN/Creatinine Ratio 16.1 (10-20) Glucose 206 H (70-99) mg/dl Calcium 8.6 (8.5-10.1) mg/dl Total Bilirubin 0.3 (0.2-1) mg/dl AST 16 (15-37) U/L ALT 23 (12-78) U/L Alkaline Phosphatase 59 (45-117) U/L Troponin I < 0.015 (0-0.045) ng/ml Total Protein 6.5 (6.4-8.2) gm/dl Albumin 3.0 L (3.4-5.0) gm/dl Globulin 3.5 (2.5-4.0) gm/dl Albumin/Globulin Ratio 0.9 (0.9-2) Lipase 193 (73-393) U/L COVID-19 Eval Order SARS-CoV-2 (PCR) (Negative) Blood Type Antibody Screen Crossmatch 03/24/21 03/24/21 03/24/21 Range/Units 14:10 18:13 18:13 WBC (4.8-10.8) K/uL RBC (4.2-5.4) M/uL Hgb (12.0-16.0) g/dL Hct (37-47) % MCV (80-100) fL MCH (25-34) pg MCHC (32-36) g/dL RDW Std Deviation (36.4-46.3) fL RDW Coeff of Keith (11.5-14.5) % Plt Count (130-400) K/uL MPV (7.4-10.4) fL Immature Gran % (Auto) % Neut % (Auto) % Lymph % (Auto) % Coke % (Auto) % Eos % (Auto) % Baso % (Auto) % Neut # (Auto) (1.4-6.5) K/uL Lymph # (Auto) (1.2-3.4) K/uL Coke # (Auto) (0.11-0.59) K/uL Eos # (Auto) (0-0.5) K/uL Baso # (Auto) (0-0.2) K/uL Immature Gran # (Auto) (0.00-0.02) K/uL PT (9.0-12.0) Seconds INR (0.9-1.1) APTT (21.0-31.0) Seconds PTT Ratio Sodium (136-145) mmol/L Potassium (3.5-5.1) mmol/L Chloride (98-107) mmol/L Carbon Dioxide (21-32) mmol/L Anion Gap (3-11) BUN (7-18) mg/dl Creatinine (0.6-1.2) mg/dl Est Cr Clr Drug Dosing ml/min Est GFR ( Amer) ml/min Est GFR (Non-Af Amer) ml/min BUN/Creatinine Ratio (10-20) Glucose (70-99) mg/dl Calcium (8.5-10.1) mg/dl Total Bilirubin (0.2-1) mg/dl AST (15-37) U/L ALT (12-78) U/L Alkaline Phosphatase (45-117) U/L Troponin I (0-0.045) ng/ml Total Protein (6.4-8.2) gm/dl Albumin (3.4-5.0) gm/dl Globulin (2.5-4.0) gm/dl Albumin/Globulin Ratio (0.9-2) Lipase (73-393) U/L COVID-19 Eval Order Covid19 at [facility] SARS-CoV-2 (PCR) NEGATIVE (Negative) Blood Type A Positive Antibody Screen NEGATIVE Crossmatch See Detail 03/24/21 Range/Units 18:37 WBC 13.15 H (4.8-10.8) K/uL RBC 2.95 L (4.2-5.4) M/uL Hgb 9.1 L (12.0-16.0) g/dL Hct 27.6 L (37-47) % MCV 93.6 (80-100) fL MCH 30.8 (25-34) pg MCHC 33.0 (32-36) g/dL RDW Std Deviation 47.9 H (36.4-46.3) fL RDW Coeff of Keith 14.0 (11.5-14.5) % Plt Count 256 (130-400) K/uL MPV 10.6 H (7.4-10.4) fL Immature Gran % (Auto) % Neut % (Auto) % Lymph % (Auto) % Coke % (Auto) % Eos % (Auto) % Baso % (Auto) % Neut # (Auto) (1.4-6.5) K/uL Lymph # (Auto) (1.2-3.4) K/uL Coke # (Auto) (0.11-0.59) K/uL Eos # (Auto) (0-0.5) K/uL Baso # (Auto) (0-0.2) K/uL Immature Gran # (Auto) (0.00-0.02) K/uL PT (9.0-12.0) Seconds INR (0.9-1.1) APTT (21.0-31.0) Seconds PTT Ratio Sodium (136-145) mmol/L Potassium (3.5-5.1) mmol/L Chloride (98-107) mmol/L Carbon Dioxide (21-32) mmol/L Anion Gap (3-11) BUN (7-18) mg/dl Creatinine (0.6-1.2) mg/dl Est Cr Clr Drug Dosing ml/min Est GFR ( Amer) ml/min Est GFR (Non-Af Amer) ml/min BUN/Creatinine Ratio (10-20) Glucose (70-99) mg/dl Calcium (8.5-10.1) mg/dl Total Bilirubin (0.2-1) mg/dl AST (15-37) U/L ALT (12-78) U/L Alkaline Phosphatase (45-117) U/L Troponin I (0-0.045) ng/ml Total Protein (6.4-8.2) gm/dl Albumin (3.4-5.0) gm/dl Globulin (2.5-4.0) gm/dl Albumin/Globulin Ratio (0.9-2) Lipase (73-393) U/L COVID-19 Eval Order SARS-CoV-2 (PCR) (Negative) Blood Type Antibody Screen Crossmatch Administered Medications Potassium Chloride/Sodium Chloride (Normal Saline W/20 Meq Kcl) 20 meq in 1,000 mls @ 75 mls/hr IV .[id number] CATALINO Stop: 04/23/21 17:44 Last Admin: 03/24/21 19:25 Dose: 75 mls/hr Documented by: [id number] Discontinued Medications Sodium Chloride (Nss) 500 mls @ 999 mls/hr IV .[id number] STA Stop: 03/24/21 14:35 Last Infusion: 03/24/21 15:43 Dose: 0 mls/hr Documented by: [id number] Admin: 03/24/21 14:34 Dose: 999 mls/hr Documented by: [id number] Ioversol (Optiray 320 100ml) 92 ml IV ONCE ONE Stop: 03/24/21 15:22 Last Admin: 03/24/21 15:22 Dose: 92 ml Documented by: [id number] Imaging Data Radiologist's Impression: Abdomen/Pelvis CT 03/24/21 14:05 CT abd pelvis IV con only CLINICAL HISTORY: pelvic pain and vag bleeding COMPARISON STUDY: CT angiogram chest dated 03/12/2021 TECHNIQUE: The patient was scanned in a dynamic helical fashion during intravenous administration of 92 cc of Optiray 320 A dose lowering technique was utilized adhering to the principles of ALARA. CT DOSE: 1592.44 mGy.cm FINDINGS: Lower chest: There are coronary artery calcifications. There is a solid 7 mm right lower lobe pulmonary nodule. This nodule is obscured on the prior study due to motion artifact. Liver: There is mild inhomogeneous hepatic enhancement. There is diminished attenuation involving the caudate and portions of the left lobe adjacent to the IVC, likely representing focal fat. There is mild intra and extrahepatic biliary ductal dilatation, likely secondary to a reservoir effect from prior cholecys tectomy. Gallbladder: Surgically absent Spleen: Normal in size and attenuation. Pancreas: Unremarkable. Adrenal glands: Unremarkable. Kidneys: There is symmetric renal cortical enhancement. The kidneys are normal in size without hydronephrosis. Bowel: There are no transition zones indicate bowel obstruction. There is no evidence of acute diverticulitis. The appendix appears normal. Peritoneum: There is no intraperitoneal free air or abdominal ascites. There is a fat-containing umbilical hernia Vasculature: The abdominal aorta is normal in course and caliber. Adenopathy: None. Pelvic viscera: Uterine fundus is slightly bulbous and enhances inhomogeneously. This may indicate an underlying fibroid. Skeletal structures: No destructive osseous lesions are seen. IMPRESSION: 1. No evidence of bowel obstruction. No evidence of free air 2. Normal appendix. No evidence of acute diverticulitis 3. Fat-containing umbilical hernia 4. Surgically absent gallbladder and mild biliary ductal dilatation likely secondary to a reservoir effect 5. Diminished enhancement involving the left lobe of the liver adjacent to the IVC likely representing focal fat 6. Slightly bulbous uterine fundus. Fibroid not excluded 7. Solid 7 mm right lower lobe pulmonary nodule. 6-[address] scan recommended in follow-up Please refer to below summary of Fleischner criteria recommendations for follow- up of incidental CT nodules (Alba Echevarria, Guidelines for management of small pulmonary nodules detected on CT scans: A statement from the Fleischner Society, Radiology 237: [phone].) SOLID NODULES Solitary nodule size: <6 mm * low risk patients: no follow-up needed * high risk patients: optional CT at 12 months Solitary nodule size: 6-8 mm * low risk patients: follow-up at 6-12 months, then consider further follow-up at 18-24 months * high risk patients: initial follow-up CT at 6-12 months and then at 18-24 months if no change Solitary nodule size: >8 mm * either low or high risk patients - consider follow-up CT at 3 months, and/or CT-PET, and/or biopsy Multiple nodules size: <6 mm * low risk patients: no routine follow-up * high risk patients: optional CT at 12 months Multiple nodules size: 6-8 mm * low risk patients: follow-up at 3-6 months, then consider further follow-up at 18-24 months * high risk patients: follow-up at 3-6 months, then at 18-24 months if no change Multiple nodules size: >8 mm * low risk patients: follow-up at 3-6 months, then consider further follow-up at 18-24 months * high risk patients: follow-up at 3-6 months, then at 18-24 months if no change Note: newly detected indeterminate nodule in persons 35 years of age or older. * low risk patients: minimal or absent history of smoking and/or other known risk factors * high risk patients: history of smoking or of other known risk factors (e.g. first degree relative with lung cancer, or exposure to asbestos, radon, uranium) * if a nodule up to 8 mm is partly solid or is ground glass further follow-up is required after 24 months to exclude possible slow growing adenocarcinoma (B AC) SUBSOLID NODULES Solitary pure ground-glass nodule * nodule size <6 mm - no CT follow-up required * nodule size >=6 mm - follow-up CT at 6-12 months, then every 2 years until 5 years Solitary part-solid nodule * nodule size <6 mm - no CT follow-up required * nodule size >=6 mm - follow-up CT at 3-6 months. If unchanged, and solid component remains <6 mm, then annual follow-up for 5 years Multiple subsolid nodules * nodule size <6 mm - follow-up CT at 3-6 months, consider further follow-up at 2 and 4 years if stable * nodule size >=6 mm - follow-up CT at 3-6 months, subsequent management based on the most suspicious nodule(s) ACT 112: Positive. There are findings on this exam that require communication between the performing entity and the patient following Patient Test Result Information Act ([place] Act 112) guidelines. Electronically signed by: Matt Almendarez M.D. 03/24/2021 3:37 PM Chest X-Ray 03/24/21 14:05 XR chest 1V portable CLINICAL HISTORY: Atypical chest pain COMPARISON STUDY: No previous studies for comparison. FINDINGS: The heart is borderline enlarged. There are prominent cardiophrenic angle fat pads. There is no failure. There is no focal pulmonary consolidation. There are no pleural effusions. Arthritic changes are present within the shoulders[ IMPRESSION: No active disease in the chest. ACT 112: Negative or not required by law. Electronically signed by: Matt Almendarez M.D. 03/24/2021 2:26 PM Pelvis Ultrasound 03/24/21 15:52 PELVIC ULTRASOUND, TRANSABDOMINAL HISTORY: Vaginal bleeding COMPARISON: Abdomen and pelvis CT 03/24/2021. FINDINGS: Uterus: 8.4 x 4.1 x 5.5 cm. No uterine masses. Endometrial stripe: Abnormally thickened for age measuring up to 1.5 cm. Right ovary: Obscured by overlying bowel gas. No adnexal masses. Left ovary: Obscured by overlying bowel gas. No adnexal masses. Miscellaneous:No pelvic free fluid. IMPRESSION: Abnormally thickened endometrium measuring up to 1.5 cm. This could represent an underlying endometrial mass/polyp. Follow-up gynecologic consultation recommended for further evaluation. ACT 112: Positive. There are findings on this exam that require communication between the performing entity and the patient following Patient Test Result Info rmation [place] Act 112[place] guidelines. Electronically signed by: Bryan Berry M.D. 03/24/2021 6:15 PM Discharge Plan Visit Data Chief Complaint: Vaginal Bleeding ED Provider: Stuart Renteria Discharge Problem: Abnormal vaginal bleeding in postmenopausal patient, Anemia Patient Disposition: Being Evaluated by Hospitalist Condition: Good Forms Stand Alone Forms: Continuum Prescriptions Prescriptions: No Action insulin lispro 100 unit/mL solution 1 sliding scale dose SQ USEASDIRECTD RF: 0 furosemide 40 mg tablet 40 mg PO DAILY Qty: 90 RF: 3 simvastatin 40 mg tablet 40 mg PO DAILY Qty: 90 RF: 3 (DME) insulin syringe-needle U-100 [BD Insulin Syringe Ultra-Fine] 1 mL 31 gauge x 5/16 syringe See Rx Instructions .ROUTE .MEDSUPPLY Qty: 400 RF: 3 (DME) OneTouch Ultra Blue Test Strip Strip See Dose Instructions .ROUTE .MEDSUPPLY Qty: 400 RF: 3 levothyroxine 75 mcg tablet 75 mcg PO DAILY Qty: 90 RF: 3 lisinopril 20 mg tablet 20 mg PO DAILY Qty: 90 RF: 3 amoxicillin 500 mg capsule 2,000 mg PO .COMPLEX Qty: 20 RF: 0 potassium chloride 10 mEq tablet extended release 10 meq PO DAILY Qty: 90 RF: 3 calcium carbonate-vitamin D3 [Caltrate with Vitamin D3] 600 mg(1,500mg) -800 unit tablet 1 tab PO DAILY RF: 0 multivitamin tablet 1 tab PO DAILY RF: 0 Ocuvite with Lutein 1,000 unit-200 mg-60 unit-2 mg tablet 1 tab PO DAILY RF: 0 cyanocobalamin (vitamin B-12) 1,000 mcg tablet extended release 1,000 mcg PO DAILY RF: 0 cholecalciferol (vitamin D3) 2,000 unit capsule 2,000 units PO DAILY RF: 0 zinc 50 mg tablet 50 mg PO DAILY RF: 0 melatonin 1 tab PO DAILY PRN (Reason: Sleep) RF: 0 ascorbic acid (vitamin C) 1,000 mg tablet 1 g PO DAILY RF: 0 omega-3 fatty acids [Fish Oil Concentrate] 1,000 mg capsule 1,000 mg PO DAILY RF: 0 (DME) CPAP Machine Misc See Dose Instructions .ROUTE .MEDSUPPLY Qty: 1 RF: 0 (DME) Oxygen Home Liters Per Minute See Dose Instructions .ROUTE .MEDSUPPLY Qty: 1 RF: 0 Lantus U-100 Insulin 100 unit/mL solution 50 unit subcut DAILY RF: 0 aspirin 81 mg Tablet,Delayed Release (Dr/Ec) 81 mg PO DAILY Qty: 30 RF: 0 metoprolol succinate 25 mg Tablet Extended Release 24 Hr 25 mg PO QAM Qty: 30 RF: 5 Eliquis 5 mg Tablet 5 mg PO BID Qty: 60 RF: 0 Referrals Referrals: Emerson Herron MD [Primary Care Provider] - Discharge Problem: Anemia Qualifiers: Anemia type: unspecified type Qualified Code(s): D64.9 - Anemia, unspecified
[2021-03-24 14:27] LABS: Partial Thromboplastin Ratio 0.8; Partial Thromboplastin Time 20.7 Seconds (21.0-31.0); Prothrombin Time 10.1 Seconds (9.0-12.0)
--- NOTE | 2021-03-24 14:27 | XRay Report ---
XR chest 1V portable CLINICAL HISTORY: Atypical chest pain COMPARISON STUDY: No previous studies for comparison. FINDINGS: The heart is borderline enlarged. There are prominent cardiophrenic angle fat pads. There i s no failure. There is no focal pulmonary consolidation. There are no pleural effusions. Arthritic ch anges are present within the shoulders[ IMPRESSION: No active disease in the chest. ACT 112: Negative or not required by law. Electronically signed by: Matt Almendarez M.D. 03/24/2021 2:26 PM
[2021-03-24 14:35] LABS: Alanine Aminotransferase 23 U/L (12-78); Aspartate Aminotransferase 16 U/L (15-37); BUN Creatinine Ratio 16.1 (10-20); Blood Urea Nitrogen 16 mg/dl (7-18); Calcium 8.6 mg/dl (8.5-10.1); Carbon Dioxide 23 mmol/L (21-32); Chloride 106 mmol/L (98-107); Creatinine Clr Calc Pharmacy 63.8 ml/min; Est GFR (African American) 65.2 ml/min; Est GFR (Non-African American) 56.2 ml/min; Glucose 206 mg/dl (70-99); Lipase 193 U/L (73-393); Potassium 3.5 mmol/L (3.5-5.1); Sodium 139 mmol/L (136-145)
[2021-03-24 14:39] LABS: Albumin Globulin Ratio 0.9 (0.9-2); Alkaline Phosphatase 59 U/L (45-117); Bilirubin,Total 0.3 mg/dl (0.2-1); Globulin 3.5 gm/dl (2.5-4.0); Total Protein 6.5 gm/dl (6.4-8.2); Troponin I < 0.015 ng/ml (0-0.045)
[2021-03-24 14:50] LABS: Basophils # (auto) 0.02 K/uL (0-0.2); Basophils % (auto) 0.2 %; Eosinophils # (auto) 0.03 K/uL (0-0.5); Eosinophils % (auto) 0.2 %; Hematocrit (blood only) 28.4 % (37-47); Hemoglobin 9.3 g/dL (12.0-16.0); Immature Granulocytes # (auto) 0.05 K/uL (0.00-0.02); Immature Granulocytes % (auto) 0.4 %; Lymphocytes # (auto) 2.12 K/uL (1.2-3.4); Lymphocytes % (auto) 16.1 %; Mean Corpuscular Hemoglobin 30.7 pg (25-34); Mean Corpuscular Hgb Conc 32.7 g/dL (32-36); Mean Corpuscular Volume 93.7 fL (80-100); Mean Platelet Volume 10.9 fL (7.4-10.4); Monocytes # (auto) 1.04 K/uL (0.11-0.59); Monocytes % (auto) 7.9 %; Neutrophils # (auto) 9.93 K/uL (1.4-6.5); Neutrophils % (auto) 75.2 %; Platelet Count 257 K/uL (130-400); RDW Standard Deviation 47.6 fL (36.4-46.3); Red Blood Count 3.03 M/uL (4.2-5.4); White Blood Count 13.19 K/uL (4.8-10.8)
[2021-03-24] MEDS ORDERED: OPTIRAY 320 100ml IV ONE (15:21)
--- NOTE | 2021-03-24 15:38 | CT Scan Report ---
CT abd pelvis IV con only CLINICAL HISTORY: pelvic pain and vag bleeding COMPARISON STUDY: CT angiogram chest dated 03/12/2021 TECHNIQUE: The patient was scanned in a dynamic helical fashion during intravenous administration of 92 cc of Optiray 320 A dose lowering technique was utilized adhering to the principles of ALARA. CT DOSE: 1592.44 mGy.cm FINDINGS: Lower chest: There are coronary artery calcifications. There is a solid 7 mm right lower lobe pulmona ry nodule. This nodule is obscured on the prior study due to motion artifact. Liver: There is mild inhomogeneous hepatic enhancement. There is diminished attenuation involving the caudate and portions of the left lobe adjacent to the IVC, likely representing focal fat. There is m ild intra and extrahepatic biliary ductal dilatation, likely secondary to a reservoir effect from chikis or cholecystectomy. Gallbladder: Surgically absent Spleen: Normal in size and attenuation. Pancreas: Unremarkable. Adrenal glands: Unremarkable. Kidneys: There is symmetric renal cortical enhancement. The kidneys are normal in size without hydron ephrosis. Bowel: There are no transition zones indicate bowel obstruction. There is no evidence of acute divert iculitis. The appendix appears normal. Peritoneum: There is no intraperitoneal free air or abdominal ascites. There is a fat-containing umbi lical hernia Vasculature: The abdominal aorta is normal in course and caliber. Adenopathy: None. Pelvic viscera: Uterine fundus is slightly bulbous and enhances inhomogeneously. This may indicate an underlying fibroid. Skeletal structures: No destructive osseous lesions are seen. IMPRESSION: 1. No evidence of bowel obstruction. No evidence of free air 2. Normal appendix. No evidence of acute diverticulitis 3. Fat-containing umbilical hernia 4. Surgically absent gallbladder and mild biliary ductal dilatation likely secondary to a reservoir e ffect 5. Diminished enhancement involving the left lobe of the liver adjacent to the IVC likely representin g focal fat 6. Slightly bulbous uterine fundus. Fibroid not excluded 7. Solid 7 mm right lower lobe pulmonary nodule. 6-[address] scan recommended in follow-u p Please refer to below summary of Fleischner criteria recommendations for follow-up of incidental CT n odules (Alba Echevarria, Guidelines for management of small pulmonary nodules detected on CT scans: A sta tement from the Fleischner Society, Radiology 237: [phone].) SOLID NODULES Solitary nodule size: <6 mm * low risk patients: no follow-up needed * high risk patients: optional CT at 12 months Solitary nodule size: 6-8 mm * low risk patients: follow-up at 6-12 months, then consider further follow-up at 18-24 months * high risk patients: initial follow-up CT at 6-12 months and then at 18-24 months if no change Solitary nodule size: >8 mm * either low or high risk patients - consider follow-up CT at 3 months, and/or CT-PET, and/or biopsy Multiple nodules size: <6 mm * low risk patients: no routine follow-up * high risk patients: optional CT at 12 months Multiple nodules size: 6-8 mm * low risk patients: follow-up at 3-6 months, then consider further follow-up at 18-24 months * high risk patients: follow-up at 3-6 months, then at 18-24 months if no change Multiple nodules size: >8 mm * low risk patients: follow-up at 3-6 months, then consider further follow-up at 18-24 months * high risk patients: follow-up at 3-6 months, then at 18-24 months if no change Note: newly detected indeterminate nodule in persons 35 years of age or older. * low risk patients: minimal or absent history of smoking and/or other known risk factors * high risk patients: history of smoking or of other known risk factors (e.g. first degree relative with lung cancer, or exposure to asbestos, radon, uranium) * if a nodule up to 8 mm is partly solid or is ground glass further follow-up is required after 24 m onths to exclude possible slow growing adenocarcinoma ([facility]) SUBSOLID NODULES Solitary pure ground-glass nodule * nodule size <6 mm - no CT follow-up required * nodule size >=6 mm - follow-up CT at 6-12 months, then every 2 years until 5 years Solitary part-solid nodule * nodule size <6 mm - no CT follow-up required * nodule size >=6 mm - follow-up CT at 3-6 months. If unchanged, and solid component remains <6 mm, then annual follow-up for 5 years Multiple subsolid nodules * nodule size <6 mm - follow-up CT at 3-6 months, consider further follow-up at 2 and 4 years if sta ble * nodule size >=6 mm - follow-up CT at 3-6 months, subsequent management based on the most suspiciou s nodule(s) ACT 112: Positive. There are findings on this exam that require communication between the performing entity and the patient following Patient Test Result Information Act ([place] Act 112) guidelines. Electronically signed by: Matt Almendarez M.D. 03/24/2021 3:37 PM
--- NOTE | 2021-03-24 16:54 | History & Physical Report ---
Date of Service March 24, 2021 Assessment & Plan (1) Vaginal bleeding: Had some vaginal spotting prior to start on Eliquis 11 days ago, however bleeding has become much heavier since being on Eliquis With evidence of possible fibroid uterus on CT abdomen/pelvis performed upon admission With acute blood loss anemia as below She is hemodynamically stable Her last dose of Eliquis was the morning of 03/22-she stopped it after the bleeding became heavier -Admit to PCU -Continue to monitor serial CBCs and transfuse as needed as below -Check pelvic ultrasound as per OB recommendation -Consult [employer]-discussed care with him/Dr. Victoria at the time of admission -Continue to hold Eliquis and also will hold her home aspirin and fish oil -Keep n.p.o. for now in case needs urgent gynecological procedure (2) Acute blood loss anemia: Hemoglobin down to 9.3 from 13.2 on 03/13 Secondary to vaginal bleeding in the setting of taking Eliquis Check CBC and type and cross for 2 units PRBCs now -Follow CBC in the morning We will transfuse if hemoglobin continues to drop down into the 7-8 range as she continues to have ongoing vaginal bleeding-I consented the patient for blood products in the ER and the consent is on the chart Holding Eliquis and aspirin as above (3) CKD (chronic kidney disease), stage III: Creatinine a little above baseline at 1.0 -Avoid nephrotoxins -renally dose meds when appropriate -follow BMP (4) Diabetes mellitus type 2, controlled: Hemoglobin A1c 7.0% on recent admission Continue home Lantus 50 units and add NovoLog sliding scale (5) Dyslipidemia: Continue statin (6) Hypertension: Blood pressures actually a bit elevated here Okay to continue home lisinopril and metoprolol with hold parameters (7) Hypothyroidism: TSH normal at 1.65 last week Continue home levothyroxine (8) Lactic acidosis: Has a history of such thought to be possibly related to Metformin use- Metformin has been discontinued Follow as an outpatient (9) Metabolic acidosis: As above Holding home metformin as an outpatient follows with nephrology (10) Nocturnal hypoxemia: Continue 2 L nasal cannula at night as she is intolerant of CPAP (11) Obstructive sleep apnea: As above, 2 L nasal cannula at night (12) Paroxysmal atrial fibrillation: With new onset atrial fibrillation diagnosed 1 and half weeks ago on previous admission Continue metoprolol -Holding Eliquis Remains in sinus rhythm here Monitor on telemetry (13) Pulmonary nodule: 7 mm incidental right lower lobe pulmonary nodule seen on CT abdomen/pelvis Does have a history of smoking but quit 25 years ago Follow as an outpatient (14) DVT prophylaxis: Has a history of DVT/PE and was on Coumadin from [id number] Eliquis is on hold as above SCDs only at this time due to acute blood loss anemia and vaginal bleeding Disposition-admit to PCU Full code, however does not want prolonged life support, feeding tubes or tracheostomy, she designates her brothers as her HCPOA History of Present Illness Chief Complaint: Vaginal bleeding Primary Care Provider: Emerson Herron MD This patient is a 70-year-old female with a history of morbid obesity, obesity hypoventilation syndrome, DM 2, dyslipidemia, AN NMARIE on nocturnal O2, CKD stage III, HTN, hypothyroidism, and atrial fibrillation on Eliquis, history of PE, Anion gap metabolic acidosis with elevated lactate, and mild aortic stenosis, who presents to the ER with vaginal bleeding. It started initially as vaginal spotting prior to starting on Eliquis and then became heavier with clots over the last 2 days and then more so last evening into today. She sometimes had clots that were almost as big as her fist. Her last dose of Eliquis was 2 days ago-she stopped it when the bleeding became heavier. She apparently continued to have some fairly heavy vaginal bleeding ER which then stopped on its own. Her hemoglobin was noted to be 9.3 down from 13.2 just 11 days ago. She was fortunately hemodynamically stable. She is having some dyspnea on exertion but no chest pain. A CT of the abdomen/pelvis did show a bulbous appearing uterine fundus possibly indicating underlying fibroid. She will be admitted for acute blood loss anemia and vaginal bleeding. Allergies Allergy/AdvReac Type Severity Reaction Status Date / Time codeine AdvReac Mild NAUSEA Verified 03/24/21 16:56 Home Medications Medication Instructions Recorded Confirmed Type calcium carbonate-vitamin D3 600 1 tab PO DAILY tab 05/25/19 03/24/21 History mg (1,500 mg)-800 unit tablet cholecalciferol (vitamin D3) 50 2,000 units PO DAILY cap 05/25/19 03/24/21 History mcg (2,000 unit) capsule cyanocobalamin (vitamin B-12) 1,000 mcg PO DAILY tab 05/25/19 03/24/21 History 1,000 mcg tablet,extended release multivitamin 1 tab PO DAILY tab 05/25/19 03/24/21 History omega-3 fatty acids 1,000 mg 1,000 mg PO DAILY cap 05/25/19 03/24/21 History capsule vit A 1,000 unit-C 200 mg-E 60 1 tab PO DAILY tab 05/25/19 03/24/21 History unit-lutein 2 mg and minerals tablet CPAP Machine #1 ea 07/24/19 03/20/21 Rx Oxygen Home #1 ea 07/24/19 03/20/21 Rx insulin lispro 100 unit/mL 1 sliding scale dose SQ 03/05/20 03/24/21 History subcutaneous solution USEASDIRECTD furosemide 40 mg tablet 40 mg PO DAILY #90 tab 04/29/20 03/24/21 Rx simvastatin 40 mg tablet 40 mg PO DAILY #90 tab 04/29/20 03/24/21 Rx BD Insulin Syringe Ultra-Fine 1 mL #400 ea NS 06/06/20 03/20/21 Rx 31 gauge x 5/16" OneTouch Ultra Blue Test Strip #400 ea NS 07/03/20 03/20/21 Rx levothyroxine 75 mcg tablet 75 mcg PO DAILY #90 tab 08/26/20 03/24/21 Rx lisinopril 20 mg tablet 20 mg PO DAILY #90 tab 08/26/20 03/24/21 Rx amoxicillin 500 mg capsule 2,000 mg PO .COMPLEX #20 cap 09/10/20 03/24/21 Rx potassium chloride 10 mEq 10 meq PO DAILY #90 tab 09/10/20 03/24/21 Rx tablet,extended release zinc 50 mg tablet 50 mg PO DAILY 11/21/20 03/24/21 History ascorbic acid (vitamin C) 1,000 mg 1 g PO DAILY tab 12/24/20 03/24/21 History tablet melatonin 1 tab PO DAILY PRN 12/24/20 03/24/21 History insulin glargine 100 unit/mL 50 unit SUBCUT DAILY ml 01/07/21 03/24/21 History subcutaneous solution apixaban [Eliquis] 5 mg PO BID #60 tab 03/13/21 03/24/21 Rx aspirin 81 mg PO DAILY #30 tab 03/13/21 03/24/21 Rx metoprolol succinate 25 mg PO QAM #30 tab 03/13/21 03/24/21 Rx Past Med/Surg History Medical History (Updated 03/24/21 @ 18:04 by Pili Matute MD) Benign neoplasm of large intestine BMI 60.0-69.9, adult CKD (chronic kidney disease), stage III Diabetes mellitus type 2, controlled Dyslipidemia Hypertension Hypothyroidism Joint pain, knee Lactic acidosis Metabolic acidosis Nocturnal hypoxemia Obstructive sleep apnea Paroxysmal atrial fibrillation Personal history of deep vein thrombosis Pulmonary nodule Sleep related hypoventilation in conditions classified elsewhere Type 2 diabetes mellitus, with long-term current use of insulin Vitamin D deficiency Surgical History H/O total knee replacement History of cholecystectomy History of foot surgery History of tooth extraction Family History Mother Lung cancer Brother Myocardial infarction Other Breast cancer Colorectal cancer Stroke Social History (Updated 03/24/21 @ 17:07 by Pili Matute MD) Smoking Status: Former smoker Tobacco Type: Cigarettes Age Started Using Tobacco: 16; Age Quit Using Tobacco: 60; packs per day: 1; Second Hand Exposure: No; Hx Alcohol Use: No Hx Substance Use: No Preferred Language: Yi Communication Ability: Effective Visual Impairment: Limited Hearing Ability: Normal Beliefs That Will Affect Care: None marital status: Single Current Living Situation: Alone current occupational status: retired Feels Safe at Home: Yes Childhood Exposure to Second-Hand Smoke: No caffeine: Yes Dental Care, Regularly: Yes Physical Activity Frequency: Does not Exercise Seatbelt Use: always Sunscreen Use: Yes Do you think of yourself as: straight/heterosexual Assistive Devices: Cane and Glasses Review of Systems Review of Systems: All systems reviewed & are unremarkable except as noted in HPI & below Denies any lightheadedness, no chest pain. She did have some shortness of breath with going up 7 stairs in her house today prior to calling the ambulance. Denies nausea or vomiting, no abdominal pain. Has some mild suprapubic cramping with the bleeding. Denies fevers or chills. No urinary symptoms No constipation or diarrhea. Physical Exam Constitutional: WD/WN, vitals as above + morbidly obese Eyes: PERRL, conjunctivae normal, anicteric sclerae ENMT: external ear and nose normal, oropharynx normal Neck: trachea midline, no thyromegaly Respiratory: normal respiratory effort, lungs clear to auscultation Cardiovascular: RRR, no murmur, no edema Chest (Breasts): Chest: normal inspection of chest Gastrointestinal (Abdomen): normal bowel sounds, soft, nontender, no hepatosplenomegaly Musculoskeletal: Extremities: extremities normal to inspection; no cyanosis and no clubbing Skin: no rashes, warm and dry Neurologic: moves all extremities and awake; no focal motor deficits Psychiatric: A+Ox3, euthymic affect Lymphatic: no lymphedema Results & Data Results & Data ([facility]) Vital Signs (Past 12 Hours) Vital Signs Temp Pulse Resp BP Pulse Ox 03/24/21 14:12 80 18 93 03/24/21 13:24 36.7 C 84 20 151/73 H 94 Laboratory Results 03/24/21 03/24/21 03/24/21 Range/Units 14:10 14:00 14:00 WBC (4.8-10.8) K/uL RBC (4.2-5.4) M/uL Hgb (12.0-16.0) g/dL Hct (37-47) % MCV (80-100) fL MCH (25-34) pg MCHC (32-36) g/dL RDW Std Deviation (36.4-46.3) fL RDW Coeff of Keith (11.5-14.5) % Plt Count (130-400) K/uL MPV (7.4-10.4) fL Immature Gran % (Auto) % Neut % (Auto) % Lymph % (Auto) % Lucas % (Auto) % Eos % (Auto) % Baso % (Auto) % Neut # (Auto) (1.4-6.5) K/uL Lymph # (Auto) (1.2-3.4) K/uL Lucas # (Auto) (0.11-0.59) K/uL Eos # (Auto) (0-0.5) K/uL Baso # (Auto) (0-0.2) K/uL Immature Gran # (Auto) (0.00-0.02) K/uL PT 10.1 (9.0-12.0) Seconds INR 1.0 (0.9-1.1) APTT 20.7 L (21.0-31.0) Seconds PTT Ratio 0.8 Sodium 139 (136-145) mmol/L Potassium 3.5 (3.5-5.1) mmol/L Chloride 106 (98-107) mmol/L Carbon Dioxide 23 (21-32) mmol/L Anion Gap 10.0 (3-11) BUN 16 (7-18) mg/dl Creatinine 1.00 (0.6-1.2) mg/dl Est Cr Clr Drug Dosing 63.8 ml/min Est GFR ( Amer) 65.2 ml/min Est GFR (Non-Af Amer) 56.2 ml/min BUN/Creatinine Ratio 16.1 (10-20) Glucose 206 H (70-99) mg/dl Calcium 8.6 (8.5-10.1) mg/dl Total Bilirubin 0.3 (0.2-1) mg/dl AST 16 (15-37) U/L ALT 23 (12-78) U/L Alkaline Phosphatase 59 (45-117) U/L Troponin I < 0.015 (0-0.045) ng/ml Total Protein 6.5 (6.4-8.2) gm/dl Albumin 3.0 L (3.4-5.0) gm/dl Globulin 3.5 (2.5-4.0) gm/dl Albumin/Globulin Ratio 0.9 (0.9-2) Lipase 193 (73-393) U/L Blood Type A Positive Antibody Screen NEGATIVE 03/24/21 Range/Units 14:00 WBC 13.19 H (4.8-10.8) K/uL RBC 3.03 L (4.2-5.4) M/uL Hgb 9.3 L (12.0-16.0) g/dL Hct 28.4 L (37-47) % MCV 93.7 (80-100) fL MCH 30.7 (25-34) pg MCHC 32.7 (32-36) g/dL RDW Std Deviation 47.6 H (36.4-46.3) fL RDW Coeff of Keith 14.0 (11.5-14.5) % Plt Count 257 (130-400) K/uL MPV 10.9 H (7.4-10.4) fL Immature Gran % (Auto) 0.4 % Neut % (Auto) 75.2 % Lymph % (Auto) 16.1 % Lucas % (Auto) 7.9 % Eos % (Auto) 0.2 % Baso % (Auto) 0.2 % Neut # (Auto) 9.93 H (1.4-6.5) K/uL Lymph # (Auto) 2.12 (1.2-3.4) K/uL Lucas # (Auto) 1.04 H (0.11-0.59) K/uL Eos # (Auto) 0.03 (0-0.5) K/uL Baso # (Auto) 0.02 (0-0.2) K/uL Immature Gran # (Auto) 0.05 H (0.00-0.02) K/uL PT (9.0-12.0) Seconds INR (0.9-1.1) APTT (21.0-31.0) Seconds PTT Ratio Sodium (136-145) mmol/L Potassium (3.5-5.1) mmol/L Chloride (98-107) mmol/L Carbon Dioxide (21-32) mmol/L Anion Gap (3-11) BUN (7-18) mg/dl Creatinine (0.6-1.2) mg/dl Est Cr Clr Drug Dosing ml/min Est GFR ( Amer) ml/min Est GFR (Non-Af Amer) ml/min BUN/Creatinine Ratio (10-20) Glucose (70-99) mg/dl Calcium (8.5-10.1) mg/dl Total Bilirubin (0.2-1) mg/dl AST (15-37) U/L ALT (12-78) U/L Alkaline Phosphatase (45-117) U/L Troponin I (0-0.045) ng/ml Total Protein (6.4-8.2) gm/dl Albumin (3.4-5.0) gm/dl Globulin (2.5-4.0) gm/dl Albumin/Globulin Ratio (0.9-2) Lipase (73-393) U/L Blood Type Antibody Screen Diagnostic Findings Abdomen/Pelvis CT 03/24/21 14:05 CT abd pelvis IV con only CLINICAL HISTORY: pelvic pain and vag bleeding COMPARISON STUDY: CT angiogram chest dated 03/12/2021 TECHNIQUE: The patient was scanned in a dynamic helical fashion during intravenous administration of 92 cc of Optiray 320 A dose lowering technique was utilized adhering to the principles of ALARA. CT DOSE: 1592.44 mGy.cm FINDINGS: Lower chest: There are coronary artery calcifications. There is a solid 7 mm right lower lobe pulmonary nodule. This nodule is obscured on the prior study due to motion artifact. Liver: There is mild inhomogeneous hepatic enhancement. There is diminished attenuation involving the caudate and portions of the left lobe adjacent to the IVC, likely representing focal fat. There is mild intra and extrahepatic biliary ductal dilatation, likely secondary to a reservoir effect from prior cholecystectomy. Gallbladder: Surgically absent Spleen: Normal in size and attenuation. Pancreas: Unremarkable. Adrenal glands: Unremarkable. Kidneys: There is symmetric renal cortical enhancement. The kidneys are normal in size without hydronephrosis. Bowel: There are no transition zones indicate bowel obstruction. There is no evidence of acute diverticulitis. The appendix appears normal. Peritoneum: There is no intraperitoneal free air or abdominal ascites. There is a fat-containing umbilical hernia Vasculature: The abdominal aorta is normal in course and caliber. Adenopathy: None. Pelvic viscera: Uterine fundus is slightly bulbous and enhances inhomogeneously. This may indicate an underlying fibroid. Skeletal structures: No destructive osseous lesions are seen. IMPRESSION: 1. No evidence of bowel obstruction. No evidence of free air 2. Normal appendix. No evidence of acute diverticulitis 3. Fat-containing umbilical hernia 4. Surgically absent gallbladder and mild biliary ductal dilatation likely secondary to a reservoir effect 5. Diminished enhancement involving the left lobe of the liver adjacent to the IVC likely representing focal fat 6. Slightly bulbous uterine fundus. Fibroid not excluded 7. Solid 7 mm right lower lobe pulmonary nodule. 6-[address] scan recommended in follow-up Please refer to below summary of Fleischner criteria recommendations for follow- up of incidental CT nodules (Alba Echevarria, Guidelines for management of small pulmonary nodules detected on CT scans: A statement from the Fleischner Society, Radiology 237: [phone].) SOLID NODULES Solitary nodule size: <6 mm * low risk patients: no follow-up needed * high risk patients: optional CT at 12 months Solitary nodule size: 6-8 mm * low risk patients: follow-up at 6-12 months, then consider further follow-up at 18-24 months * high risk patients: initial follow-up CT at 6-12 months and then at 18-24 months if no change Solitary nodule size: >8 mm * either low or high risk patients - consider follow-up CT at 3 months, and/or CT-PET, and/or biopsy Multiple nodules size: <6 mm * low risk patients: no routine follow-up * high risk patients: optional CT at 12 months Multiple nodules size: 6-8 mm * low risk patients: follow-up at 3-6 months, then consider further follow-up at 18-24 months * high risk patients: follow-up at 3-6 months, then at 18-24 months if no change Multiple nodules size: >8 mm * low risk patients: follow-up at 3-6 months, then consider further follow-up at 18-24 months * high risk patients: follow-up at 3-6 months, then at 18-24 months if no change Note: newly detected indeterminate nodule in persons 35 years of age or older. * low risk patients: minimal or absent history of smoking and/or other known risk factors * high risk patients: history of smoking or of other known risk factors (e.g. first degree relative with lung cancer, or exposure to asbestos, radon, uranium) * if a nodule up to 8 mm is partly solid or is ground glass further follow-up is required after 24 months to exclude possible slow growing adenocarcinoma ([facility]) SUBSOLID NODULES Solitary pure ground-glass nodule * nodule size <6 mm - no CT follow-up required * nodule size >=6 mm - follow-up CT at 6-12 months, then every 2 years until 5 years Solitary part-solid nodule * nodule size <6 mm - no CT follow-up required * nodule size >=6 mm - follow-up CT at 3-6 months. If unchanged, and solid component remains <6 mm, then annual follow-up for 5 years Multiple subsolid nodules * nodule size <6 mm - follow-up CT at 3-6 months, consider further follow-up at 2 and 4 years if stable * nodule size >=6 mm - follow-up CT at 3-6 months, subsequent management based on the most suspicious nodule(s) ACT 112: Positive. There are findings on this exam that require communication between the performing entity and the patient following Patient Test Result Information Act ([place] Act 112) guidelines. Electronically signed by: Matt Almendarez M.D. 03/24/2021 3:37 PM Chest X-Ray 03/24/21 14:05 XR chest 1V portable CLINICAL HISTORY: Atypical chest pain COMPARISON STUDY: No previous studies for comparison. FINDINGS: The heart is borderline enlarged. There are prominent cardiophrenic angle fat pads. There is no failure. There is no focal pulmonary consolidation. There are no pleural effusions. Arthritic changes are present within the shoulders[ IMPRESSION: No active disease in the chest. ACT 112: Negative or not required by law. Electronically signed by: Matt Almendarez M.D. 03/24/2021 2:26 PM ECG Additional Comments: EKG on 03/24/2021 at 1418 with normal sinus rhythm, rate 82, no ischemic changes Code Status & VTE Plan Code Status Full code VTE Prophylaxis Plan VTE Prophylaxis will be ordered: Yes PG Care Time/CCT Total # of Minutes Spent Total Time Spent with Patient: Total time spent is greater than 50% in coordination of care (as documented) at patient's floor/unit and/or counseling patient: Coding Level of Care Code 84734 Initial Inpt Care Lvl 3 Diagnoses Vaginal bleeding N93.9 Acute blood loss anemia D62 CKD (chronic kidney disease), stage III N18.30 Diabetes mellitus type 2, controlled E11.9 Dyslipidemia E78.5 Hypertension I10 Hypothyroidism E03.9 Lactic acidosis E87.2 Metabolic acidosis E87.2 Nocturnal hypoxemia G47.34 Obstructive sleep apnea G47.33 Paroxysmal atrial fibrillation I48.0 Pulmonary nodule R91.1 DVT prophylaxis Z29.9
[2021-03-24] MEDS ORDERED: SODIUM CHLORIDE 0.9% 250 ML IV PRN ×2 (17:15→23:43)
--- NOTE | 2021-03-24 18:16 | Ultrasound Report ---
PELVIC ULTRASOUND, TRANSABDOMINAL HISTORY: Vaginal bleeding COMPARISON: Abdomen and pelvis CT 03/24/2021. FINDINGS: Uterus: 8.4 x 4.1 x 5.5 cm. No uterine masses. Endometrial stripe: Abnormally thickened for age measuring up to 1.5 cm. Right ovary: Obscured by overlying bowel gas. No adnexal masses. Left ovary: Obscured by overlying bowel gas. No adnexal masses. Miscellaneous:No pelvic free fluid. IMPRESSION: Abnormally thickened endometrium measuring up to 1.5 cm. This could represent an underlying endometri al mass/polyp. Follow-up gynecologic consultation recommended for further evaluation. ACT 112: Positive. There are findings on this exam that require communication between the performing entity and the patient following Patient Test Result Information Act ([place] Act 112) guidelines. Electronically signed by: Bryan Berry M.D. 03/24/2021 6:15 PM
[2021-03-24 19:03] LABS: Hematocrit (blood only) 27.6 % (37-47); Hemoglobin 9.1 g/dL (12.0-16.0); Mean Corpuscular Hemoglobin 30.8 pg (25-34); Mean Corpuscular Volume 93.6 fL (80-100); Mean Platelet Volume 10.6 fL (7.4-10.4); Platelet Count 256 K/uL (130-400); RDW Standard Deviation 47.9 fL (36.4-46.3); Red Blood Count 2.95 M/uL (4.2-5.4); White Blood Count 13.15 K/uL (4.8-10.8)
[2021-03-24] MEDS: NSS + 20MEQ KCL 20 MEQ/1,000 ML BAG IV SCH (19:25)
[2021-03-24] MEDS ORDERED: GLUCOSE 10 TABS/TUBE PO PRN (21:16)
[2021-03-24] MEDS ORDERED: DEXTROSE 50% 50 ML SYRINGE IV PRN (21:16)
[2021-03-24] MEDS ORDERED: POLYETHYLENE (MIRALAX) 17 GM PACK PO PRN (21:16)
[2021-03-24] MEDS ORDERED: CARBOHYDRATES FOR HYPOGLYCEMIA PO PRN (21:16)
[2021-03-24] MEDS ORDERED: ONDANSETRON INJ 2 MG/ML 2 ML VIAL IV PRN (21:16)
[2021-03-24] MEDS ORDERED: GLUCOSE 40% GEL 15 GM TUBE PO PRN (21:16)
[2021-03-24] MEDS ORDERED: GLUCAGON FOR INJ 1 MG VIAL SQ PRN (21:16)
[2021-03-24] MEDS: INSULIN ASPART 100 UNITS/ML 3 ML PEN SC SCH (21:36)
[2021-03-24] MEDS: SIMVASTATIN 40 MG TAB PO SCH (22:41)
[2021-03-24 23:02] LABS: Hematocrit (blood only) 26.1 % (37-47); Hemoglobin 8.4 g/dL (12.0-16.0); Mean Corpuscular Hemoglobin 30.9 pg (25-34); Mean Corpuscular Hgb Conc 32.2 g/dL (32-36); Mean Platelet Volume 10.4 fL (7.4-10.4); Platelet Count 247 K/uL (130-400); RDW Coefficient of Variation 14.1 % (11.5-14.5); RDW Standard Deviation 48.8 fL (36.4-46.3); Red Blood Count 2.72 M/uL (4.2-5.4); White Blood Count 11.69 K/uL (4.8-10.8)
[2021-03-25] MEDS: LEVOTHYROXINE SODIUM 75 MCG TABLET PO SCH (05:56)
[2021-03-25] MEDS: ACETAMINOPHEN 325 MG TAB PO PRN (05:58)
[2021-03-25 07:27] LABS: Basophils # (auto) 0.02 K/uL (0-0.2); Basophils % (auto) 0.2 %; Eosinophils % (auto) 0.9 %; Hematocrit (blood only) 29.2 % (37-47); Hemoglobin 9.4 g/dL (12.0-16.0); Immature Granulocytes # (auto) 0.02 K/uL (0.00-0.02); Immature Granulocytes % (auto) 0.2 %; Lymphocytes # (auto) 2.46 K/uL (1.2-3.4); Lymphocytes % (auto) 22.5 %; Mean Corpuscular Hemoglobin 30.4 pg (25-34); Mean Corpuscular Hgb Conc 32.2 g/dL (32-36); Mean Corpuscular Volume 94.5 fL (80-100); Mean Platelet Volume 10.4 fL (7.4-10.4); Monocytes # (auto) 1.15 K/uL (0.11-0.59); Monocytes % (auto) 10.5 %; Neutrophils # (auto) 7.17 K/uL (1.4-6.5); Neutrophils % (auto) 65.7 %; Platelet Count 233 K/uL (130-400); RDW Coefficient of Variation 15.7 % (11.5-14.5); RDW Standard Deviation 53.3 fL (36.4-46.3); Red Blood Count 3.09 M/uL (4.2-5.4); White Blood Count 10.92 K/uL (4.8-10.8)
[2021-03-25 07:58] LABS: BUN Creatinine Ratio 21.5 (10-20); Calcium 8.6 mg/dl (8.5-10.1); Creatinine Clr Calc Pharmacy 83.1 ml/min; Est GFR (African American) 90.8 ml/min; Est GFR (Non-African American) 78.4 ml/min; Potassium 3.5 mmol/L (3.5-5.1)
[2021-03-25] MEDS: INSULIN ASPART 100 UNITS/ML 3 ML PEN SC SCH ×4 (08:02→21:25)
[2021-03-25] MEDS: FUROSEMIDE 40 MG TAB PO SCH (08:54)
[2021-03-25] MEDS: lisinopril 20 MG TAB PO SCH (08:54)
[2021-03-25] MEDS: METOPROLOL SUCC 25MG EXT REL TAB PO SCH (08:54)
[2021-03-25] MEDS ORDERED: INSULIN GLARGINE SOLOSTAR 100 UNITS/ML 3 ML PEN SQ SCH (09:00)
[2021-03-25] MEDS ORDERED: POTASSIUM CHLORIDE CRTAB 20 MEQ TABCR PO SCH (09:00)
[2021-03-25] MEDS: NSS + 20MEQ KCL 20 MEQ/1,000 ML BAG IV SCH ×2 (10:29→22:20)
[2021-03-25 13:32] LABS: Hematocrit (blood only) 29.4 % (37-47); Hemoglobin 9.6 g/dL (12.0-16.0)
--- NOTE | 2021-03-25 15:58 | Electrocardiogram Report ---
Test Reason : Blood Pressure : / mmHG Vent. Rate : 082 BPM Atrial Rate : 082 BPM P-R Int : 166 ms QRS Dur : 108 ms QT Int : 400 ms P-R-T Axes : 056 047 038 degrees QTc Int : 467 ms Normal sinus rhythm Normal ECG When compared with ECG of 13-MAR-2021 06:37, No significant change was found Confirmed by Carlos Hernandez ([id number]) on 03/25/2021 3:58:10 PM Referred By: REFERRED SELF Confirmed By:Carlos Hernandez
[2021-03-25] MEDS ORDERED: INSULIN GLARGINE SOLOSTAR 100 UNITS/ML 3 ML PEN SQ ONE (21:00)
[2021-03-25] MEDS ORDERED: NORETHINDRONE 5 MG TAB PO STA (21:37)
--- NOTE | 2021-03-25 22:04 | Hospitalist Progress Note ---
Date of Service March 25, 2021 Assessment & Plan (1) Vaginal bleeding: Had some vaginal spotting prior to start on Eliquis 11 days ago, however bleeding has become much heavier since being on Eliquis With evidence of possible fibroid uterus on CT abdomen/pelvis performed upon admission With acute blood loss anemia as below She is hemodynamically stable Her last dose of Eliquis was the morning of 03/22-she stopped it after the bleeding became heavier -Admit to PCU -Continue to monitor serial CBCs and transfuse as needed as below -Check pelvic ultrasound as per OB recommendation -Consult TELECOMMUNICATION LINES REPAIRER-discussed care with him/Dr. Victoria at the time of admission -Continue to hold Eliquis and also will hold her home aspirin and fish oil -D/W TELECOMMUNICATION LINES REPAIRER: will resume diet. -Will obtain endometrial biospy once her bleeding has stopped. - will continue to monitor. -Hemoglobin has been controlled. (2) Acute blood loss anemia: Hemoglobin down to 9.3 from 13.2 on 03/13 Secondary to vaginal bleeding in the setting of taking Eliquis Check CBC and type and cross for 2 units PRBCs now -Follow CBC in the morning We will transfuse if hemoglobin continues to drop down into the 7-8 range as she continues to have ongoing vaginal bleeding-I consented the patient for blood products in the ER and the consent is on the chart Holding Eliquis and aspirin as above (3) CKD (chronic kidney disease), stage III: Creatinine a little above baseline at 1.0 -Avoid nephrotoxins -renally dose meds when appropriate -follow BMP (4) Diabetes mellitus type 2, controlled: Hemoglobin A1c 7.0% on recent admission Continue home Lantus 50 units and add NovoLog sliding scale (5) Dyslipidemia: Continue statin (6) Hypertension: Blood pressures actually a bit elevated here Okay to continue home lisinopril and metoprolol with hold parameters (7) Hypothyroidism: TSH normal at 1.65 last week Continue home levothyroxine (8) Lactic acidosis: Has a history of such thought to be possibly related to Metformin use- Metformin has been discontinued Follow as an outpatient (9) Metabolic acidosis: As above Holding home metformin as an outpatient follows with nephrology (10) Nocturnal hypoxemia: Continue 2 L nasal cannula at night as she is intolerant of CPAP (11) Obstructive sleep apnea: As above, 2 L nasal cannula at night (12) Paroxysmal atrial fibrillation: With new onset atrial fibrillation diagnosed 1 and half weeks ago on previous admission Continue metoprolol -Holding Lina Remains in sinus rhythm here Monitor on telemetry (13) Pulmonary nodule: 7 mm incidental right lower lobe pulmonary nodule seen on CT abdomen/pelvis Does have a history of smoking but quit 25 years ago Follow as an outpatient (14) DVT prophylaxis: Has a history of DVT/PE and was on Coumadin from [id number] Lina is on hold as above SCDs only at this time due to acute blood loss anemia and vaginal bleeding Disposition-admit to PCU Full code, however does not want prolonged life support, feeding tubes or tracheostomy, she designates her brothers as her HCPOA Admission and Anticipated Discharge Date Admission Date: March 24, 2021 Subjective Patient reports feeling well. Her bleeding has decreased. Review of Systems Review of Systems: All systems reviewed & are unremarkable except as noted in HPI & below Physical Exam Physical Exam: Constitutional: WD/WN, vitals as above + morbidly obese Eyes: PERRL, conjunctivae normal, anicteric sclerae ENMT: external ear and nose normal, oropharynx normal Neck: trachea midline, no thyromegaly Respiratory: normal respiratory effort, lungs clear to auscultation Cardiovascular: RRR, no murmur, no edema Chest (Breasts): Chest: normal inspection of chest Gastrointestinal (Abdomen): normal bowel sounds, soft, nontender, no hepatosplenomegaly Musculoskeletal: Extremities: extremities normal to inspection; no cyanosis and no clubbing Skin: no rashes, warm and dry Neurologic: moves all extremities and awake; no focal motor deficits Psychiatric: A+Ox3, euthymic affect Lymphatic: no lymphedema Results & Data Results & Data ([facility]) Vital Signs (Past 12 Hours) Vital Signs Temp Pulse Pulse Resp BP Pulse Ox 03/25/21 19:57 74 03/25/21 19:23 37.0 C 74 18 107/58 L 91 03/25/21 15:31 36.7 C 75 18 113/68 94 03/25/21 15:17 71 03/25/21 11:36 36.9 C 74 17 99/63 L 95 PG Care Time/CCT Total # of Minutes Spent Total Time Spent with Patient: Total time spent is greater than 50% in coordination of care (as documented) at patient's floor/unit and/or counseling patient: Coding Level of Care Code 34544 Subseq Hosp Care Lvl 2 Diagnoses Vaginal bleeding N93.9 Acute blood loss anemia D62 CKD (chronic kidney disease), stage III N18.30 Diabetes mellitus type 2, controlled E11.9 Dyslipidemia E78.5 Hypertension I10 Hypothyroidism E03.9 Lactic acidosis E87.2 Metabolic acidosis E87.2 Nocturnal hypoxemia G47.34 Obstructive sleep apnea G47.33 Paroxysmal atrial fibrillation I48.0 Pulmonary nodule R91.1 DVT prophylaxis Z29.9 Time Spent (min) 35
--- NOTE | 2021-03-25 22:06 | OB/GYN Consultation ---
Date of Consultation March 25, 2021 Assessment & Plan (1) Abnormal vaginal bleeding in postmenopausal patient: 70 yo G0 female with PMB, thickened endometrium on US VSS Afebrile H&H stable Decreased but ongoing bleeding Recommend Aygestin to stop bleeding, if not consider D&C Would need clearance from medicine team for possible D&C (2) Vaginal bleeding: (3) Endometrial thickening on ultrasound: History of Present Illness Attending Physician: Jarad Leiva History of Present Illness Patient is a 70 yo G0 postmenopausal female who started to have vaginal spotting abut 2 weeks ago. Then she was started on Eliquis for AF, bleeding increased significantly with cloths She presented to ER yesterday when she was admitted to hospital for H&H and possible Blood transfusions. Her bleeding slowed down but still passing small cloths No pain Her pelvic US showed thickened endometrium at 1.5 mm She was planned for office bx yesterday by Dr Victoria Her bleeding has not stopped and I was called by the team Per her she changed 4 depends today, small cloths+, quarter size Patient denies recent Sexual activity, hormone use after menopause LMP was in 2003 She had PE in 2004, none since then She denies CAD, nor stents She has not seen [employer] Dynamics Developer for may years, does not remember when was the last pap smear. Allergies Allergy/AdvReac Type Severity Reaction Status Date / Time codeine AdvReac Mild NAUSEA Verified 03/24/21 16:56 Home Medications Medication Instructions Recorded Confirmed Type calcium carbonate-vitamin D3 600 1 tab PO DAILY tab 05/25/19 03/24/21 History mg (1,500 mg)-800 unit tablet cholecalciferol (vitamin D3) 50 2,000 units PO DAILY cap 05/25/19 03/24/21 History mcg (2,000 unit) capsule cyanocobalamin (vitamin B-12) 1,000 mcg PO DAILY tab 05/25/19 03/24/21 History 1,000 mcg tablet,extended release multivitamin 1 tab PO DAILY tab 05/25/19 03/24/21 History omega-3 fatty acids 1,000 mg 1,000 mg PO DAILY cap 05/25/19 03/24/21 History capsule vit A 1,000 unit-C 200 mg-E 60 1 tab PO DAILY tab 05/25/19 03/24/21 History unit-lutein 2 mg and minerals tablet CPAP Machine #1 ea 07/24/19 03/20/21 Rx Oxygen Home #1 ea 07/24/19 03/20/21 Rx insulin lispro 100 unit/mL 1 sliding scale dose SQ 03/05/20 03/24/21 History subcutaneous solution USEASDIRECTD furosemide 40 mg tablet 40 mg PO DAILY #90 tab 04/29/20 03/24/21 Rx simvastatin 40 mg tablet 40 mg PO DAILY #90 tab 04/29/20 03/24/21 Rx BD Insulin Syringe Ultra-Fine 1 mL #400 ea NS 06/06/20 03/20/21 Rx 31 gauge x 5/16" OneTouch Ultra Blue Test Strip #400 ea NS 07/03/20 03/20/21 Rx levothyroxine 75 mcg tablet 75 mcg PO DAILY #90 tab 08/26/20 03/24/21 Rx lisinopril 20 mg tablet 20 mg PO DAILY #90 tab 08/26/20 03/24/21 Rx amoxicillin 500 mg capsule 2,000 mg PO .COMPLEX #20 cap 09/10/20 03/24/21 Rx potassium chloride 10 mEq 10 meq PO DAILY #90 tab 09/10/20 03/24/21 Rx tablet,extended release zinc 50 mg tablet 50 mg PO DAILY 11/21/20 03/24/21 History ascorbic acid (vitamin C) 1,000 mg 1 g PO DAILY tab 12/24/20 03/24/21 History tablet melatonin 1 tab PO DAILY PRN 12/24/20 03/24/21 History insulin glargine 100 unit/mL 50 unit SUBCUT DAILY ml 01/07/21 03/24/21 History subcutaneous solution apixaban [Eliquis] 5 mg PO BID #60 tab 03/13/21 03/24/21 Rx aspirin 81 mg PO DAILY #30 tab 03/13/21 03/24/21 Rx metoprolol succinate 25 mg PO QAM #30 tab 03/13/21 03/24/21 Rx Patient History Medical History Benign neoplasm of large intestine BMI 60.0-69.9, adult CKD (chronic kidney disease), stage III Diabetes mellitus type 2, controlled Dyslipidemia Hypertension Hypothyroidism Joint pain, knee Lactic acidosis Metabolic acidosis Nocturnal hypoxemia Obstructive sleep apnea Paroxysmal atrial fibrillation Personal history of deep vein thrombosis Pulmonary nodule Sleep related hypoventilation in conditions classified elsewhere Type 2 diabetes mellitus, with long-term current use of insulin Vitamin D deficiency Surgical History H/O total knee replacement History of cholecystectomy History of foot surgery History of tooth extraction Family History Mother Lung cancer Brother Myocardial infarction Other Breast cancer Colorectal cancer Stroke Social History Smoking Status: Former smoker Tobacco Type: Cigarettes Age Started Using Tobacco: 16; Age Quit Using Tobacco: 60; packs per day: 1; Second Hand Exposure: No; Hx Alcohol Use: No Hx Substance Use: No Preferred Language: Czech Communication Ability: Effective Visual Impairment: Limited Hearing Ability: Normal Can Line Examiner Required: No Beliefs That Will Affect Care: None marital status: Single Current Living Situation: Alone current occupational status: retired Feels Safe at Home: Yes Safety Concerns: Feels Safe At This Time Childhood Exposure to Second-Hand Smoke: No caffeine: Yes Dental Care, Regularly: Yes Physical Activity Frequency: Does not Exercise Seatbelt Use: always Sunscreen Use: Yes Do you think of yourself as: straight/heterosexual Assistive Devices: None Review of Systems Review of Systems: All systems reviewed & are unremarkable except as noted in HPI & below Constitutional: as per Subjective / HPI Physical Exam Constitutional: WD/WN, vitals as above well developed, well nourished and + morbidly obese Gastrointestinal (Abdomen): normal bowel sounds, soft, nontender, no hepatosplenomegaly Genitourinary: Small 2x3 cm dark colored blood cloths seen on depends Results & Data ([facility]) Vital Signs (Past 12 Hours) Vital Signs Temp Pulse Pulse Resp BP Pulse Ox 03/25/21 19:57 74 03/25/21 19:23 37.0 C 74 18 107/58 L 91 03/25/21 15:31 36.7 C 75 18 113/68 94 03/25/21 15:17 71 03/25/21 11:36 36.9 C 74 17 99/63 L 95 Laboratory Results Lab Results 06/28/21 06/28/21 06/28/21 Range/Units 14:00 14:00 14:00 WBC 13.19 H (4.8-10.8) K/uL RBC 3.03 L (4.2-5.4) M/uL Hgb 9.3 L (12.0-16.0) g/dL Hct 28.4 L (37-47) % MCV 93.7 (80-100) fL MCH 30.7 (25-34) pg MCHC 32.7 (32-36) g/dL RDW Std Deviation 47.6 H (36.4-46.3) fL RDW Coeff of Keith 14.0 (11.5-14.5) % Plt Count 257 (130-400) K/uL MPV 10.9 H (7.4-10.4) fL Immature Gran % (Auto) 0.4 % Neut % (Auto) 75.2 % Lymph % (Auto) 16.1 % [place] % (Auto) 7.9 % Eos % (Auto) 0.2 % Baso % (Auto) 0.2 % Neut # (Auto) 9.93 H (1.4-6.5) K/uL Lymph # (Auto) 2.12 (1.2-3.4) K/uL [place] # (Auto) 1.04 H (0.11-0.59) K/uL Eos # (Auto) 0.03 (0-0.5) K/uL Baso # (Auto) 0.02 (0-0.2) K/uL Immature Gran # (Auto) 0.05 H (0.00-0.02) K/uL PT 10.1 (9.0-12.0) Seconds INR 1.0 (0.9-1.1) APTT 20.7 L (21.0-31.0) Seconds PTT Ratio 0.8 Sodium 139 (136-145) mmol/L Potassium 3.5 (3.5-5.1) mmol/L Chloride 106 (98-107) mmol/L Carbon Dioxide 23 (21-32) mmol/L Anion Gap 10.0 (3-11) BUN 16 (7-18) mg/dl Creatinine 1.00 (0.6-1.2) mg/dl Est Cr Clr Drug Dosing 63.8 ml/min Est GFR ( Amer) 65.2 ml/min Est GFR (Non-Af Amer) 56.2 ml/min BUN/Creatinine Ratio 16.1 (10-20) Glucose 206 H (70-99) mg/dl POC Glucose (70-99) mg/dl Calcium 8.6 (8.5-10.1) mg/dl Magnesium (1.8-2.4) mg/dl Total Bilirubin 0.3 (0.2-1) mg/dl AST 16 (15-37) U/L ALT 23 (12-78) U/L Alkaline Phosphatase 59 (45-117) U/L Troponin I < 0.015 (0-0.045) ng/ml Total Protein 6.5 (6.4-8.2) gm/dl Albumin 3.0 L (3.4-5.0) gm/dl Globulin 3.5 (2.5-4.0) gm/dl Albumin/Globulin Ratio 0.9 (0.9-2) Lipase 193 (73-393) U/L COVID-19 Eval Order SARS-CoV-2 (PCR) (Negative) Blood Type Blood Type Recheck Antibody Screen Crossmatch 03/24/21 03/24/21 03/24/21 Range/Units 14:10 18:13 18:13 WBC (4.8-10.8) K/uL RBC (4.2-5.4) M/uL Hgb (12.0-16.0) g/dL Hct (37-47) % MCV (80-100) fL MCH (25-34) pg MCHC (32-36) g/dL RDW Std Deviation (36.4-46.3) fL RDW Coeff of Keith (11.5-14.5) % Plt Count (130-400) K/uL MPV (7.4-10.4) fL Immature Gran % (Auto) % Neut % (Auto) % Lymph % (Auto) % [place] % (Auto) % Eos % (Auto) % Baso % (Auto) % Neut # (Auto) (1.4-6.5) K/uL Lymph # (Auto) (1.2-3.4) K/uL [place] # (Auto) (0.11-0.59) K/uL Eos # (Auto) (0-0.5) K/uL Baso # (Auto) (0-0.2) K/uL Immature Gran # (Auto) (0.00-0.02) K/uL PT (9.0-12.0) Seconds INR (0.9-1.1) APTT (21.0-31.0) Seconds PTT Ratio Sodium (136-145) mmol/L Potassium (3.5-5.1) mmol/L Chloride (98-107) mmol/L Carbon Dioxide (21-32) mmol/L Anion Gap (3-11) BUN (7-18) mg/dl Creatinine (0.6-1.2) mg/dl Est Cr Clr Drug Dosing ml/min Est GFR ( Amer) ml/min Est GFR (Non-Af Amer) ml/min BUN/Creatinine Ratio (10-20) Glucose (70-99) mg/dl POC Glucose (70-99) mg/dl Calcium (8.5-10.1) mg/dl Magnesium (1.8-2.4) mg/dl Total Bilirubin (0.2-1) mg/dl AST (15-37) U/L ALT (12-78) U/L Alkaline Phosphatase (45-117) U/L Troponin I (0-0.045) ng/ml Total Protein (6.4-8.2) gm/dl Albumin (3.4-5.0) gm/dl Globulin (2.5-4.0) gm/dl Albumin/Globulin Ratio (0.9-2) Lipase (73-393) U/L COVID-19 Eval Order Covid19 at [facility] SARS-CoV-2 (PCR) NEGATIVE (Negative) Blood Type A Positive Blood Type Recheck Antibody Screen NEGATIVE Crossmatch See Detail 03/24/21 03/24/21 03/24/21 Range/Units 18:37 21:33 22:38 WBC 13.15 H 11.69 H (4.8-10.8) K/uL RBC 2.95 L 2.72 L (4.2-5.4) M/uL Hgb 9.1 L 8.4 L (12.0-16.0) g/dL Hct 27.6 L 26.1 L (37-47) % MCV 93.6 96.0 (80-100) fL MCH 30.8 30.9 (25-34) pg MCHC 33.0 32.2 (32-36) g/dL RDW Std Deviation 47.9 H 48.8 H (36.4-46.3) fL RDW Coeff of Keith 14.0 14.1 (11.5-14.5) % Plt Count 256 247 (130-400) K/uL MPV 10.6 H 10.4 (7.4-10.4) fL Immature Gran % (Auto) % Neut % (Auto) % Lymph % (Auto) % [place] % (Auto) % Eos % (Auto) % Baso % (Auto) % Neut # (Auto) (1.4-6.5) K/uL Lymph # (Auto) (1.2-3.4) K/uL [place] # (Auto) (0.11-0.59) K/uL Eos # (Auto) (0-0.5) K/uL Baso # (Auto) (0-0.2) K/uL Immature Gran # (Auto) (0.00-0.02) K/uL PT (9.0-12.0) Seconds INR (0.9-1.1) APTT (21.0-31.0) Seconds PTT Ratio Sodium (136-145) mmol/L Potassium (3.5-5.1) mmol/L Chloride (98-107) mmol/L Carbon Dioxide (21-32) mmol/L Anion Gap (3-11) BUN (7-18) mg/dl Creatinine (0.6-1.2) mg/dl Est Cr Clr Drug Dosing ml/min Est GFR ( Amer) ml/min Est GFR (Non-Af Amer) ml/min BUN/Creatinine Ratio (10-20) Glucose (70-99) mg/dl POC Glucose 138 H (70-99) mg/dl Calcium (8.5-10.1) mg/dl Magnesium (1.8-2.4) mg/dl Total Bilirubin (0.2-1) mg/dl AST (15-37) U/L ALT (12-78) U/L Alkaline Phosphatase (45-117) U/L Troponin I (0-0.045) ng/ml Total Protein (6.4-8.2) gm/dl Albumin (3.4-5.0) gm/dl Globulin (2.5-4.0) gm/dl Albumin/Globulin Ratio (0.9-2) Lipase (73-393) U/L COVID-19 Eval Order SARS-CoV-2 (PCR) (Negative) Blood Type Blood Type Recheck Antibody Screen Crossmatch 03/25/21 03/25/21 03/25/21 Range/Units 06:53 06:53 06:53 WBC 10.92 H (4.8-10.8) K/uL RBC 3.09 L (4.2-5.4) M/uL Hgb 9.4 L (12.0-16.0) g/dL Hct 29.2 L (37-47) % MCV 94.5 (80-100) fL MCH 30.4 (25-34) pg MCHC 32.2 (32-36) g/dL RDW Std Deviation 53.3 H (36.4-46.3) fL RDW Coeff of Keith 15.7 H (11.5-14.5) % Plt Count 233 (130-400) K/uL MPV 10.4 (7.4-10.4) fL Immature Gran % (Auto) 0.2 % Neut % (Auto) 65.7 % Lymph % (Auto) 22.5 % [place] % (Auto) 10.5 % Eos % (Auto) 0.9 % Baso % (Auto) 0.2 % Neut # (Auto) 7.17 H (1.4-6.5) K/uL Lymph # (Auto) 2.46 (1.2-3.4) K/uL [place] # (Auto) 1.15 H (0.11-0.59) K/uL Eos # (Auto) 0.10 (0-0.5) K/uL Baso # (Auto) 0.02 (0-0.2) K/uL Immature Gran # (Auto) 0.02 (0.00-0.02) K/uL PT (9.0-12.0) Seconds INR (0.9-1.1) APTT (21.0-31.0) Seconds PTT Ratio Sodium 142 (136-145) mmol/L Potassium 3.5 (3.5-5.1) mmol/L Chloride 111 H (98-107) mmol/L Carbon Dioxide 25 (21-32) mmol/L Anion Gap 6.0 (3-11) BUN 16 (7-18) mg/dl Creatinine 0.76 (0.6-1.2) mg/dl Est Cr Clr Drug Dosing 83.1 ml/min Est GFR ( Amer) 90.8 ml/min Est GFR (Non-Af Amer) 78.4 ml/min BUN/Creatinine Ratio 21.5 H (10-20) Glucose 133 H (70-99) mg/dl POC Glucose (70-99) mg/dl Calcium 8.6 (8.5-10.1) mg/dl Magnesium 2.0 (1.8-2.4) mg/dl Total Bilirubin (0.2-1) mg/dl AST (15-37) U/L ALT (12-78) U/L Alkaline Phosphatase (45-117) U/L Troponin I (0-0.045) ng/ml Total Protein (6.4-8.2) gm/dl Albumin (3.4-5.0) gm/dl Globulin (2.5-4.0) gm/dl Albumin/Globulin Ratio (0.9-2) Lipase (73-393) U/L COVID-19 Eval Order SARS-CoV-2 (PCR) (Negative) Blood Type Blood Type Recheck A Positive Antibody Screen Crossmatch 03/25/21 03/25/21 03/25/21 Range/Units 11:33 13:01 16:13 WBC (4.8-10.8) K/uL RBC (4.2-5.4) M/uL Hgb 9.6 L (12.0-16.0) g/dL Hct 29.4 L (37-47) % MCV (80-100) fL MCH (25-34) pg MCHC (32-36) g/dL RDW Std Deviation (36.4-46.3) fL RDW Coeff of Keith (11.5-14.5) % Plt Count (130-400) K/uL MPV (7.4-10.4) fL Immature Gran % (Auto) % Neut % (Auto) % Lymph % (Auto) % [place] % (Auto) % Eos % (Auto) % Baso % (Auto) % Neut # (Auto) (1.4-6.5) K/uL Lymph # (Auto) (1.2-3.4) K/uL [place] # (Auto) (0.11-0.59) K/uL Eos # (Auto) (0-0.5) K/uL Baso # (Auto) (0-0.2) K/uL Immature Gran # (Auto) (0.00-0.02) K/uL PT (9.0-12.0) Seconds INR (0.9-1.1) APTT (21.0-31.0) Seconds PTT Ratio Sodium (136-145) mmol/L Potassium (3.5-5.1) mmol/L Chloride (98-107) mmol/L Carbon Dioxide (21-32) mmol/L Anion Gap (3-11) BUN (7-18) mg/dl Creatinine (0.6-1.2) mg/dl Est Cr Clr Drug Dosing ml/min Est GFR ( Amer) ml/min Est GFR (Non-Af Amer) ml/min BUN/Creatinine Ratio (10-20) Glucose (70-99) mg/dl POC Glucose 160 H 124 H (70-99) mg/dl Calcium (8.5-10.1) mg/dl Magnesium (1.8-2.4) mg/dl Total Bilirubin (0.2-1) mg/dl AST (15-37) U/L ALT (12-78) U/L Alkaline Phosphatase (45-117) U/L Troponin I (0-0.045) ng/ml Total Protein (6.4-8.2) gm/dl Albumin (3.4-5.0) gm/dl Globulin (2.5-4.0) gm/dl Albumin/Globulin Ratio (0.9-2) Lipase (73-393) U/L COVID-19 Eval Order SARS-CoV-2 (PCR) (Negative) Blood Type Blood Type Recheck Antibody Screen Crossmatch 03/25/21 Range/Units 20:39 WBC (4.8-10.8) K/uL RBC (4.2-5.4) M/uL Hgb (12.0-16.0) g/dL Hct (37-47) % MCV (80-100) fL MCH (25-34) pg MCHC (32-36) g/dL RDW Std Deviation (36.4-46.3) fL RDW Coeff of Keith (11.5-14.5) % Plt Count (130-400) K/uL MPV (7.4-10.4) fL Immature Gran % (Auto) % Neut % (Auto) % Lymph % (Auto) % [place] % (Auto) % Eos % (Auto) % Baso % (Auto) % Neut # (Auto) (1.4-6.5) K/uL Lymph # (Auto) (1.2-3.4) K/uL [place] # (Auto) (0.11-0.59) K/uL Eos # (Auto) (0-0.5) K/uL Baso # (Auto) (0-0.2) K/uL Immature Gran # (Auto) (0.00-0.02) K/uL PT (9.0-12.0) Seconds INR (0.9-1.1) APTT (21.0-31.0) Seconds PTT Ratio Sodium (136-145) mmol/L Potassium (3.5-5.1) mmol/L Chloride (98-107) mmol/L Carbon Dioxide (21-32) mmol/L Anion Gap (3-11) BUN (7-18) mg/dl Creatinine (0.6-1.2) mg/dl Est Cr Clr Drug Dosing ml/min Est GFR ( Amer) ml/min Est GFR (Non-Af Amer) ml/min BUN/Creatinine Ratio (10-20) Glucose (70-99) mg/dl POC Glucose 147 H (70-99) mg/dl Calcium (8.5-10.1) mg/dl Magnesium (1.8-2.4) mg/dl Total Bilirubin (0.2-1) mg/dl AST (15-37) U/L ALT (12-78) U/L Alkaline Phosphatase (45-117) U/L Troponin I (0-0.045) ng/ml Total Protein (6.4-8.2) gm/dl Albumin (3.4-5.0) gm/dl Globulin (2.5-4.0) gm/dl Albumin/Globulin Ratio (0.9-2) Lipase (73-393) U/L COVID-19 Eval Order SARS-CoV-2 (PCR) (Negative) Blood Type Blood Type Recheck Antibody Screen Crossmatch
[2021-03-25] MEDS: SIMVASTATIN 40 MG TAB PO SCH (22:19)
[2021-03-26] MEDS ORDERED: SODIUM CHLORIDE 0.9% 1000ML 1,000 ML IV SCH (06:00)
[2021-03-26] MEDS: LEVOTHYROXINE SODIUM 75 MCG TABLET PO SCH (06:42)
[2021-03-26] MEDS: lisinopril 20 MG TAB PO SCH (07:51)
[2021-03-26] MEDS: NORETHINDRONE 5 MG TAB PO SCH ×2 (07:51→21:14)
[2021-03-26] MEDS: METOPROLOL SUCC 25MG EXT REL TAB PO SCH (07:52)
[2021-03-26] MEDS: FUROSEMIDE 40 MG TAB PO SCH (07:52)
[2021-03-26] MEDS: INSULIN ASPART 100 UNITS/ML 3 ML PEN SC SCH ×4 (07:52→21:14)
--- NOTE | 2021-03-26 08:36 | XRay Report ---
XR chest 1V portable HISTORY: Endometrial thickening. Preop. COMPARISON: Chest 03/24/2021. FINDINGS: The cardiac silhouette remains mildly enlarged. There are low lung volumes. No pleural effu sions. No pneumothorax. IMPRESSION: No significant change compared to the prior study. No acute process. ACT 112: Negative or not required by law. Electronically signed by: Bryan Berry M.D. 03/26/2021 8:34 AM
--- NOTE | 2021-03-26 12:08 | Hospitalist Progress Note ---
Date of Service March 26, 2021 Assessment & Plan (1) Vaginal bleeding: Had some vaginal spotting prior to start on Eliquis 11 days ago, however bleeding has become much heavier since being on Eliquis With evidence of possible fibroid uterus on CT abdomen/pelvis performed upon admission With acute blood loss anemia as below She is hemodynamically stable Her last dose of Eliquis was the morning of 03/22-she stopped it after the bleeding became heavier -Admit to PCU -Continue to monitor serial CBCs and transfuse as needed as below -Check pelvic ultrasound as per OB recommendation -Consult REHABILITATION ENGINEER-discussed care with him/Dr. Victoria at the time of admission -Continue to hold Eliquis and also will hold her home aspirin and fish oil -D/W REHABILITATION ENGINEER: will have endometrial biopsy with dilatation and curettage. Patient is low risk as she is independent, does not have hsitory of [place], stroke or Congestive heart failure, or WILL. Only risk factor is her age and requires insulin for her diabetes. Patient is agreeable to the possibility of a D and C with her current risk level.. Patient can proceed with the procedure from a medical standpoint. (2) Acute blood loss anemia: Hemoglobin down to 9.3 from 13.2 on 03/13 Secondary to vaginal bleeding in the setting of taking Eliquis HEMOGLOBIN has been stable. Holding Eliquis and aspirin as above (3) CKD (chronic kidney disease), stage III: Creatinine a little above baseline at 1.0 -Avoid nephrotoxins -renally dose meds when appropriate -follow BMP (4) Diabetes mellitus type 2, controlled: Hemoglobin A1c 7.0% on recent admission Continue home Lantus 50 units and add NovoLog sliding scale (5) Dyslipidemia: Continue statin (6) Hypertension: Blood pressures actually a bit elevated here Okay to continue home lisinopril and metoprolol with hold parameters (7) Hypothyroidism: TSH normal at 1.65 last week Continue home levothyroxine (8) Lactic acidosis: Has a history of such thought to be possibly related to Metformin use- Metformin has been discontinued Follow as an outpatient (9) Metabolic acidosis: As above Holding home metformin as an outpatient follows with nephrology (10) Nocturnal hypoxemia: Continue 2 L nasal cannula at night as she is intolerant of CPAP (11) Obstructive sleep apnea: As above, 2 L nasal cannula at night (12) Paroxysmal atrial fibrillation: With new onset atrial fibrillation diagnosed 1 and half weeks ago on previous admission Continue metoprolol -Holding Lina Remains in sinus rhythm here Monitor on telemetry (13) Pulmonary nodule: 7 mm incidental right lower lobe pulmonary nodule seen on CT abdomen/pelvis Does have a history of smoking but quit 25 years ago Follow as an outpatient (14) DVT prophylaxis: Has a history of DVT/PE and was on Coumadin from [id number] Lina is on hold as above SCDs only at this time due to acute blood loss anemia and vaginal bleeding Disposition-admit to PCU Full code, however does not want prolonged life support, feeding tubes or tracheostomy, she designates her brothers as her HCPOA Admission and Anticipated Discharge Date Admission Date: March 24, 2021 Subjective 70 yo female reports feeling well. Her bleeding has improved, she reports having small clots Review of Systems Review of Systems: All systems reviewed & are unremarkable except as noted in HPI & below Physical Exam Physical Exam: Constitutional: WD/WN, vitals as above + morbidly obese Eyes: PERRL, conjunctivae normal, anicteric sclerae ENMT: external ear and nose normal, oropharynx normal Neck: trachea midline, no thyromegaly Respiratory: normal respiratory effort, lungs clear to auscultation Cardiovascular: RRR, no murmur, no edema Chest (Breasts): Chest: normal inspection of chest Gastrointestinal (Abdomen): normal bowel sounds, soft, nontender, no hepatosplenomegaly Musculoskeletal: Extremities: extremities normal to inspection; no cyanosis and no clubbing Skin: no rashes, warm and dry Neurologic: moves all extremities and awake; no focal motor deficits Psychiatric: A+Ox3, euthymic affect Lymphatic: no lymphedema Results & Data Results & Data ([facility]) Vital Signs (Past 12 Hours) Vital Signs Temp Pulse Pulse Resp BP Pulse Ox 03/26/21 11:16 36.7 C 79 18 121/79 95 03/26/21 08:00 76 03/26/21 07:58 36.6 C 70 19 124/72 98 03/26/21 03:24 36.6 C 74 20 126/78 100 03/26/21 01:00 79 PG Care Time/CCT Total # of Minutes Spent Total Time Spent with Patient: Total time spent is greater than 50% in coordination of care (as documented) at patient's floor/unit and/or counseling patient: Coding Level of Care Code 51701 Subseq Hosp Care Lvl 3 Diagnoses Vaginal bleeding N93.9 Acute blood loss anemia D62 CKD (chronic kidney disease), stage III N18.30 Diabetes mellitus type 2, controlled E11.9 Dyslipidemia E78.5 Hypertension I10 Hypothyroidism E03.9 Lactic acidosis E87.2 Metabolic acidosis E87.2 Nocturnal hypoxemia G47.34 Obstructive sleep apnea G47.33 Paroxysmal atrial fibrillation I48.0 Pulmonary nodule R91.1 DVT prophylaxis Z29.9 Time Spent (min) 35
--- NOTE | 2021-03-26 12:53 | Obstetrical Progress Note ---
Date of Service March 26, 2021 Assessment & Plan Admission and Anticipated Discharge Date Admission Date: March 24, 2021 Subjective Patient is reevaluated She still has VB, not as heavy as before Used 2 depends since last night Her current depends has small cloths and 5x10 cm area of on it Pelvic exam: Ext genitalia WNL Sterile speculum was placed in vagina, 10 cc of blood cloths were removed Pap smear was obtained Cervix was cleaned with Betadine Pipelle was introduced from cervix, blood was obtained She continued to pass cloths Discussed the findings, junaid to OR now for hysteroscopy, D&C and definitive pathology vs continue with Aygestin and outpatient biopsy She understands the risks of surgery and agreed with OR procedure today She signed an informed consent. Results & Data ([facility]) Vital Signs (Past 12 Hours) Vital Signs Temp Pulse Pulse Resp BP Pulse Ox 03/26/21 11:16 36.7 C 79 18 121/79 95 03/26/21 08:00 76 03/26/21 07:58 36.6 C 70 19 124/72 98 03/26/21 03:24 36.6 C 74 20 126/78 100 03/26/21 01:00 79
[2021-03-26] MEDS: NSS + 20MEQ KCL 20 MEQ/1,000 ML BAG IV SCH ×3 (13:28→23:03)
--- NOTE | 2021-03-26 13:33 | Anesthesiology Consultation ---
Date of Service March 26, 2021 Assessment & Plan (1) Encounter for pre-operative examination: Chart Review Chart Review: direct entry midwife initiated History Surgery Operation Date: 03/26/21 12:35 Proposed Procedures p Dilation and Curettage Possible Polypectomy, - Jorge Figueroa MD s Hysteroscopy - Jorge Figueroa MD Height/Weight Height: 5 ft Weight: 129.6 kg Allergies Allergy/AdvReac Type Severity Reaction Status Date / Time codeine AdvReac Mild NAUSEA Verified 03/24/21 16:56 Medications Home Medications Medication Instructions Recorded Confirmed Last Taken calcium carbonate-vitamin D3 600 1 tab PO DAILY tab 05/25/19 03/24/21 Unknown mg (1,500 mg)-800 unit tablet cholecalciferol (vitamin D3) 50 2,000 units PO DAILY cap 05/25/19 03/24/21 Unknown mcg (2,000 unit) capsule cyanocobalamin (vitamin B-12) 1,000 mcg PO DAILY tab 05/25/19 03/24/21 Unknown 1,000 mcg tablet,extended release multivitamin 1 tab PO DAILY tab 05/25/19 03/24/21 Unknown omega-3 fatty acids 1,000 mg 1,000 mg PO DAILY cap 05/25/19 03/24/21 Unknown capsule vit A 1,000 unit-C 200 mg-E 60 1 tab PO DAILY tab 05/25/19 03/24/21 Unknown unit-lutein 2 mg and minerals tablet CPAP Machine #1 ea 07/24/19 03/20/21 Unknown Oxygen Home #1 ea 07/24/19 03/20/21 Unknown insulin lispro 100 unit/mL 1 sliding scale dose SQ 03/05/20 03/24/21 Unknown subcutaneous solution USEASDIRECTD furosemide 40 mg tablet 40 mg PO DAILY #90 tab 04/29/20 03/24/21 Unknown simvastatin 40 mg tablet 40 mg PO DAILY #90 tab 04/29/20 03/24/21 Unknown BD Insulin Syringe Ultra-Fine 1 mL #400 ea NS 06/06/20 03/20/21 Unknown 31 gauge x 5/16" OneTouch Ultra Blue Test Strip #400 ea NS 07/03/20 03/20/21 Unknown levothyroxine 75 mcg tablet 75 mcg PO DAILY #90 tab 08/26/20 03/24/21 Unknown lisinopril 20 mg tablet 20 mg PO DAILY #90 tab 08/26/20 03/24/21 Unknown amoxicillin 500 mg capsule 2,000 mg PO .COMPLEX #20 cap 09/10/20 03/24/21 Un known potassium chloride 10 mEq 10 meq PO DAILY #90 tab 09/10/20 03/24/21 Unknown tablet,extended release zinc 50 mg tablet 50 mg PO DAILY 11/21/20 03/24/21 Unknown ascorbic acid (vitamin C) 1,000 mg 1 g PO DAILY tab 12/24/20 03/24/21 Unknown tablet melatonin 1 tab PO DAILY PRN 12/24/20 03/24/21 Unknown insulin glargine 100 unit/mL 50 unit SUBCUT DAILY ml 01/07/21 03/24/21 Unknown subcutaneous solution apixaban [Eliquis] 5 mg PO BID #60 tab 03/13/21 03/24/21 Unknown aspirin 81 mg PO DAILY #30 tab 03/13/21 03/24/21 Unknown metoprolol succinate 25 mg PO QAM #30 tab 03/13/21 03/24/21 Unknown Active Medications Generic Name Dose Route Start Last Admin Trade Name Freq PRN Reason Stop Dose Admin Acetaminophen 650 mg 03/24/21 21:16 03/25/21 05:58 Acetaminophen 325 Mg Tab PO 04/23/21 21:15 650 mg Q4H PRN Administration Pain or Fever Furosemide 40 mg 03/25/21 09:00 03/26/21 07:52 Furosemide 40 Mg Tab PO 04/24/21 08:59 40 mg DAILY CATALINO Administration Potassium Chloride/Sodium Chloride 20 meq in 1,000 mls @ 75 mls/hr 03/24/21 17:45 03/26/21 13:28 Normal Saline W/20 Meq Kcl IV 04/23/21 17:44 75 mls/hr .[id number] CATALINO Administration Insulin Aspart 0 units 03/24/21 21:16 03/26/21 13:28 Insulin Aspart 100 Units/Ml 3 Ml Pen SC 04/23/21 21:15 2 units ACHS CATALINO Administration Levothyroxine Sodium 75 mcg 03/25/21 06:30 03/26/21 06:42 Levothyroxine Sodium 75 Mcg Tablet PO 04/24/21 06:29 75 mcg DAILYBB CATALINO Administration Lisinopril 20 mg 03/25/21 09:00 03/26/21 07:51 Lisinopril 20 Mg Tab PO 04/24/21 08:59 20 mg DAILY CATALINO Administration Metoprolol Succinate 25 mg 03/25/21 09:00 03/26/21 07:52 Metoprolol Succ 25mg Ext Rel Tab PO 04/24/21 08:59 25 mg QAM CATALINO Administration Norethindrone 5 mg 03/26/21 09:00 03/26/21 07:51 Norethindrone 5 Mg Tab PO 04/25/21 08:59 5 mg BID CATALINO Administration Simvastatin 40 mg 03/25/21 21:00 03/25/21 22:19 Simvastatin 40 Mg Tab PO 04/24/21 20:59 40 mg HS CATALINO Administration Past Medical History Medical History Benign neoplasm of large intestine BMI 60.0-69.9, adult CKD (chronic kidney disease), stage III Diabetes mellitus type 2, controlled Dyslipidemia Hypertension Hypothyroidism Joint pain, knee Lactic acidosis Metabolic acidosis Nocturnal hypoxemia Obstructive sleep apnea Paroxysmal atrial fibrillation Personal history of deep vein thrombosis Pulmonary nodule Sleep related hypoventilation in conditions classified elsewhere Type 2 diabetes mellitus, with long-term current use of insulin Vitamin D deficiency Past Family History Family History Mother Lung cancer Brother Myocardial infarction Other Breast cancer Colorectal cancer Stroke Past Surgical History Surgical History H/O total knee replacement History of cholecystectomy History of foot surgery History of tooth extraction Social History Smoking Status: Former smoker Hx Alcohol Use: No Hx Substance Use: No Physical Exam Vital Signs Last Vital Signs Temp 98.1 F 03/26/21 11:16 Pulse 79 03/26/21 11:16 Resp 18 03/26/21 11:16 BP 121/79 03/26/21 11:16 Pulse Ox 95 03/26/21 11:16 Testing Laboratory Results 03/25/21 13:01 03/25/21 06:53 PT 10.1 Seconds (9.0-12.0) 03/24/21 14:00 INR 1.0 (0.9-1.1) 03/24/21 14:00 APTT 20.7 Seconds (21.0-31.0) L 03/24/21 14:00 Blood Type A Positive 03/24/21 14:10 Antibody Screen NEGATIVE 03/24/21 14:10 03/26/21 03/26/21 11:18 07:32 POC Glucose 179 H 145 H Electrocardiogram Date: 03/24/21 Findings: + NSR @ (82 bpm) Chest X-Ray Date: 03/26/21 FINDINGS: The cardiac silhouette remains mildly enlarged. There are low lung volumes. No pleural effusions. No pneumothorax. IMPRESSION: No significant change compared to the prior study. No acute process. Echocardiogram Date: 03/12/21 LV systolic function is normal There is mild concentric LVH Mild
[2021-03-26] MEDS ORDERED: fentaNYL citrate 100 MCG/2 ML VIAL IV PRN (14:29)
[2021-03-26] MEDS ORDERED: ONDANSETRON INJ 2 MG/ML 2 ML VIAL IV PRN (14:29)
[2021-03-26] MEDS ORDERED: ATROPINE SULFATE 0.1 MG/ML 10ML SYR IV PRN (14:29)
[2021-03-26] MEDS ORDERED: ePHEDrine sulfate 50 MG/ML AMP IV PRN (14:29)
[2021-03-26] MEDS ORDERED: MIDAZOLAM HCL 1 MG/ML 2ML VIAL ONE (15:44)
[2021-03-26] MEDS ORDERED: LIDOCAINE 2% 2 ML VIAL/AMP(20MG/ML) INFIL ONE (15:44)
[2021-03-26] MEDS ORDERED: fentaNYL citrate 100 MCG/2 ML VIAL ONE ×2 (15:44→16:55)
[2021-03-26] MEDS ORDERED: PROPOFOL IV EMULSION 10 MG/ML 20 ML VIAL IV ONE ×2 (15:44→16:58)
[2021-03-26] MEDS ORDERED: SILVER NITR/POTASSIUM NITRATE APPLICATOR ONE (16:03)
[2021-03-26] MEDS ORDERED: FERRIC SUBSULFATE 8 GM VIAL ONE (16:03)
[2021-03-26] MEDS ORDERED: miSOPROStoL 100 MCG TAB ONE ×2 (16:03→16:06)
--- NOTE | 2021-03-26 16:09 | History & Physical Bridge Note ---
Date of Service March 26, 2021 History & Physical Bridge Note I have examined the patient, reviewed the History & Physical and in the interval since the performance of the History & Physical I have noted the following changes of clinical significance: no changes noted Cleared for procedure per medical team.
[2021-03-26 16:11] LABS: Basophils # (auto) 0.02 K/uL (0-0.2); Basophils % (auto) 0.2 %; Eosinophils # (auto) 0.15 K/uL (0-0.5); Eosinophils % (auto) 1.2 %; Hematocrit (blood only) 26.5 % (37-47); Hemoglobin 8.6 g/dL (12.0-16.0); Immature Granulocytes # (auto) 0.04 K/uL (0.00-0.02); Immature Granulocytes % (auto) 0.3 %; Lymphocytes # (auto) 2.99 K/uL (1.2-3.4); Lymphocytes % (auto) 23.5 %; Mean Corpuscular Hemoglobin 30.1 pg (25-34); Mean Corpuscular Volume 92.7 fL (80-100); Mean Platelet Volume 10.1 fL (7.4-10.4); Monocytes % (auto) 8.7 %; Neutrophils # (auto) 8.41 K/uL (1.4-6.5); Neutrophils % (auto) 66.1 %; Platelet Count 262 K/uL (130-400); RDW Coefficient of Variation 15.5 % (11.5-14.5); Red Blood Count 2.86 M/uL (4.2-5.4); White Blood Count 12.71 K/uL (4.8-10.8)
[2021-03-26 16:32] LABS: Mean Corpuscular Hgb Conc 32.5 g/dL (32-36)
[2021-03-26] MEDS ORDERED: SUCCINYLCHOLINE CHLORIDE 20 MG/ML 10 ML VIAL IV ONE (16:43)
[2021-03-26] MEDS ORDERED: ONDANSETRON INJ 2 MG/ML 2 ML VIAL ONE (16:44)
[2021-03-26] MEDS ORDERED: ePHEDrine sulfate 50 MG/ML AMP ONE (16:58)
[2021-03-26] MEDS ORDERED: IBUPROFEN 600 MG TAB PO PRN (17:17)
[2021-03-26] MEDS ORDERED: oxyCODONE/ACETAMINOPHEN 5mg/325mg TAB PO PRN ×2 (17:17)
[2021-03-26] MEDS ORDERED: MoRPHine SULFATE 4 MG/ML 1 ML CARP\\VIAL IV PRN (17:17)
[2021-03-26] MEDS ORDERED: MoRPHine SULFATE 2 MG/ML CARP IV PRN (17:17)
--- NOTE | 2021-03-26 17:17 | Post Operative Brief Note ---
Immediate Post Op Note v1 Date of Surgery March 26, 2021 Pre & Post Diagnosis Operation Date: 03/26/21 12:35 Pre-Op Diagnosis: ACUTE BLOOD LOSS ANEMIA, Postmenopausal VAGINAL BLEEDING Post-Op Diagnosis: ACUTE BLOOD LOSS ANEMIA, VAGINAL BLEEDING I identified the patient and participated in the time-out.: Yes Procedure Operation Date: 03/26/21 12:35 Actual Procedures p Dilation and Curettage, Polypectomy(Not Applicable) - Jorge Figueroa MD s Hysteroscopy(Not Applicable) - Jorge Figueroa MD Surgeon Jorge Figueroa MD Graphite Mill Operator OR tech Estimated Blood Loss 100 Findings Consistent with Post-Op Diagnosis Drains Other (250 ml) Anesthesia Type General Complications none Disposition Accompanied Patient To Recovery: Yes Disposition: Recovery Room
--- NOTE | 2021-03-26 18:05 | Operative Report (OR) ---
DATE OF PROCEDURE: 03/26/2021. PREOPERATIVE DIAGNOSES: The patient is a 70-year-old G0 female with postmenopausal bleeding, acute blood loss anemia, thickened endometrial lining and morbid obesity. POSTOPERATIVE DIAGNOSES: The patient is a 70-year-old G0 female with postmenopausal bleeding, acute blood loss anemia, thickened endometrial lining and morbid obesity. PROCEDURE: Exam under anesthesia, hysteroscopy, endometrial biopsy with MyoSure device and dilatation and curettage. SURGEON: Jorge Figueroa MD. CORPORATE RELATIONS DIRECTOR: OR assessment technician. ESTIMATED BLOOD LOSS: 100 mL DRAINS: Straight catheter drained 250 mL of clear urine. ANESTHESIA: General, Dr. Meade. COMPLICATIONS: None. FINDINGS: Exam under anesthesia revealed morbid obesity, small nulliparous cervix, anteverted small uterus, nonpalpable adnexa. INTRAOPERATIVE FINDINGS: Uterus was sounded to be 7 cm. There was irregular polypoid masses around the uterine cavity and a calcified endometrial surface. DESCRIPTION OF PROCEDURE: The patient was taken to the operating room where general anesthesia was given without difficulty. She was placed in dorsal lithotomy position, prepared and draped in the usual sterile fashion and straight catheter was used to drain the bladder. An exam under anesthesia was done with the above findings. Speculum was placed in the patient's vagina. Cervix was visualized, grasped with a single tooth tenaculum. Cervix was dilated until a #8 Hegar dilators and uterus was sounded to be 7 cm. MyoSure hysteroscope was introduced from the cervix. We saw blood clots as well as polypoid irregular structures. Those were removed with the tip of MyoSure device and then she was having bleeding and unable to see the uterine cavity very well. Hysteroscopy was removed and the deficit was 90 mL and then a small sharp curette was used, uterine cavity was curetted on all its entirety. I felt a gritty calcified endometrial surface all along the uterus and obtained abundant white tissue. Those were sent to the pathology. Bleeding was minimal. The procedure was ended. Cervix was visualized to be oozing from tenaculum site, which was controlled with Monsel solution as well as Surgicel was placed over the cervix. She tolerated the procedure well. Sponge and instrument count was correct x2. She was given 3 grams of cefazolin before surgery. She was taken to recovery room in stable condition. Job ID: [id number] [facility]
--- NOTE | 2021-03-26 19:33 | Anesthesiology Progress Note ---
Date of Service March 26, 2021 Anesthesia Post Procedure Vital Signs Vital Signs: Temp Pulse Pulse Resp BP Pulse Ox 03/26/21 18:47 88 16 151/80 H 93 03/26/21 18:30 80 16 152/83 H 96 03/26/21 18:17 37.2 C 80 16 144/82 H 97 03/26/21 17:50 87 16 147/60 H 96 03/26/21 17:40 36.4 C L 88 16 158/74 H 100 03/26/21 17:30 36.4 C L 89 16 157/72 H 100 03/26/21 14:00 37.4 C 86 18 158/77 H 97 03/26/21 11:16 36.7 C 79 18 121/79 95 03/26/21 08:00 76 03/26/21 07:58 36.6 C 70 19 124/72 98 03/26/21 03:24 36.6 C 74 20 126/78 100 03/26/21 01:00 79 03/25/21 23:41 37.1 C 41 L 18 156/70 H 91 03/25/21 19:57 74 Transfer of Care Handoff Completed per policy Notes Mental Status: alert / awake / arousable and participated in evaluation Patient Amnestic to Procedure: Yes Nausea / Vomiting: adequately controlled Pain: adequately controlled Airway Patency, RR, SpO2: stable & adequate BP & HR: stable & adequate Hydration State: stable & adequate Anesthetic Complications: no major complications apparent and Pt Satisfied with anesthetic care
[2021-03-26] MEDS: SIMVASTATIN 40 MG TAB PO SCH (21:13)
[2021-03-26] MEDS: INSULIN GLARGINE SOLOSTAR 100 UNITS/ML 3 ML PEN SQ SCH (21:15)
--- NOTE | 2021-03-26 21:50 | Obstetrical Progress Note ---
Date of Service March 26, 2021 Assessment & Plan Admission and Anticipated Discharge Date Admission Date: March 24, 2021 Subjective Postop check Patient is seen and examined Feels well, no complaints Pain is under control with meds No CP/ SOB/ Dizziness/ N&V/ VB/ Leg pain Not OOB yet Explained about the surgery and findings Vital Signs Temp Pulse Pulse Pulse Resp BP Pulse Ox 03/26/21 21:00 36.7 C 99 H 14 111/68 94 03/26/21 20:00 36.8 C 97 H 99 H 20 114/72 92 03/26/21 19:45 97 H 14 126/78 96 03/26/21 19:30 36.6 C 97 H 15 115/62 97 03/26/21 18:47 88 16 151/80 H 93 03/26/21 18:30 80 16 152/83 H 96 03/26/21 18:17 37.2 C 80 16 144/82 H 97 03/26/21 17:50 87 16 147/60 H 96 03/26/21 17:40 36.4 C L 88 16 158/74 H 100 03/26/21 17:30 36.4 C L 89 16 157/72 H 100 03/26/21 14:00 37.4 C 86 18 158/77 H 97 03/26/21 11:16 36.7 C 79 18 121/79 95 03/26/21 03/26/21 03/26/21 Range/Units 20:44 18:31 16:13 WBC (4.8-10.8) K/uL RBC (4.2-5.4) M/uL Hgb (12.0-16.0) g/dL Hct (37-47) % MCV (80-100) fL MCH (25-34) pg MCHC (32-36) g/dL RDW Std Deviation (36.4-46.3) fL RDW Coeff of Keith (11.5-14.5) % Plt Count (130-400) K/uL MPV (7.4-10.4) fL Immature Gran % (Auto) % Neut % (Auto) % Lymph % (Auto) % Dundy % (Auto) % Eos % (Auto) % Baso % (Auto) % Neut # (Auto) (1.4-6.5) K/uL Lymph # (Auto) (1.2-3.4) K/uL Dundy # (Auto) (0.11-0.59) K/uL Eos # (Auto) (0-0.5) K/uL Baso # (Auto) (0-0.2) K/uL Immature Gran # (Auto) (0.00-0.02) K/uL POC Glucose 191 H 139 H 145 H (70-99) mg/dl 03/26/21 03/26/21 03/26/21 Range/Units 16:00 11:18 07:32 WBC 12.71 H (4.8-10.8) K/uL RBC 2.86 L (4.2-5.4) M/uL Hgb 8.6 L (12.0-16.0) g/dL Hct 26.5 L (37-47) % MCV 92.7 (80-100) fL MCH 30.1 (25-34) pg MCHC 32.5 (32-36) g/dL RDW Std Deviation 53.0 H (36.4-46.3) fL RDW Coeff of Keith 15.5 H (11.5-14.5) % Plt Count 262 (130-400) K/uL MPV 10.1 (7.4-10.4) fL Immature Gran % (Auto) 0.3 % Neut % (Auto) 66.1 % Lymph % (Auto) 23.5 % Dundy % (Auto) 8.7 % Eos % (Auto) 1.2 % Baso % (Auto) 0.2 % Neut # (Auto) 8.41 H (1.4-6.5) K/uL Lymph # (Auto) 2.99 (1.2-3.4) K/uL Dundy # (Auto) 1.10 H (0.11-0.59) K/uL Eos # (Auto) 0.15 (0-0.5) K/uL Baso # (Auto) 0.02 (0-0.2) K/uL Immature Gran # (Auto) 0.04 H (0.00-0.02) K/uL POC Glucose 179 H 145 H (70-99) mg/dl PE: General: Alert, orientedx3, NAD CVS: S1S2 RRR Lungs: CTAB Abd: soft, NT, ND, BS+, No active VB, brown spots on pad, from monsel's solution Ext: NT, no edema, SCD's on AP: 70 yo female with heavt VB, PMB, thickened endometrium, s/p EUA, Hysteroscopy, D&C , pod#0 VSS Afebrile doing well Continue to routine postop care Encourage PO intake, may ambulate H&H now, consider blood transfusion if Hb less than 8 Results & Data ([facility]) Vital Signs (Past 12 Hours) Vital Signs Temp Pulse Pulse Pulse Resp BP Pulse Ox 03/26/21 21:00 36.7 C 99 H 14 111/68 94 03/26/21 20:00 36.8 C 97 H 99 H 20 114/72 92 03/26/21 19:45 97 H 14 126/78 96 03/26/21 19:30 36.6 C 97 H 15 115/62 97 03/26/21 18:47 88 16 151/80 H 93 03/26/21 18:30 80 16 152/83 H 96 03/26/21 18:17 37.2 C 80 16 144/82 H 97 03/26/21 17:50 87 16 147/60 H 96 03/26/21 17:40 36.4 C L 88 16 158/74 H 100 03/26/21 17:30 36.4 C L 89 16 157/72 H 100 03/26/21 14:00 37.4 C 86 18 158/77 H 97 03/26/21 11:16 36.7 C 79 18 121/79 95
[2021-03-26 21:54] LABS: Hematocrit (blood only) 24.4 % (37-47)
[2021-03-26] MEDS ORDERED: SODIUM CHLORIDE 0.9% 250 ML IV PRN (22:03)
[2021-03-27] MEDS: LEVOTHYROXINE SODIUM 75 MCG TABLET PO SCH (05:59)
[2021-03-27 08:53] LABS: Hematocrit (blood only) 24.5 % (37-47); Hemoglobin 7.9 g/dL (12.0-16.0); Mean Corpuscular Hemoglobin 30.2 pg (25-34); Mean Corpuscular Hgb Conc 32.2 g/dL (32-36); Mean Corpuscular Volume 93.5 fL (80-100); Mean Platelet Volume 10.2 fL (7.4-10.4); Platelet Count 277 K/uL (130-400); RDW Coefficient of Variation 15.4 % (11.5-14.5); RDW Standard Deviation 52.5 fL (36.4-46.3); Red Blood Count 2.62 M/uL (4.2-5.4); White Blood Count 13.66 K/uL (4.8-10.8)
[2021-03-27] MEDS: INSULIN ASPART 100 UNITS/ML 3 ML PEN SC SCH ×4 (08:54→21:20)
[2021-03-27] MEDS: lisinopril 20 MG TAB PO SCH ×2 (08:56→12:37)
[2021-03-27] MEDS: METOPROLOL SUCC 25MG EXT REL TAB PO SCH ×2 (08:56→12:37)
[2021-03-27] MEDS: FUROSEMIDE 40 MG TAB PO SCH ×2 (08:56→12:37)
[2021-03-27] MEDS: NORETHINDRONE 5 MG TAB PO SCH ×2 (08:57→21:19)
[2021-03-27 09:19] LABS: Calcium 8.2 mg/dl (8.5-10.1); Creatinine Clr Calc Pharmacy 71.8 ml/min; Est GFR (African American) 77.1 ml/min; Est GFR (Non-African American) 66.6 ml/min; Potassium 3.6 mmol/L (3.5-5.1)
[2021-03-27] MEDS: ACETAMINOPHEN 325 MG TAB PO PRN (11:46)
--- NOTE | 2021-03-27 19:46 | Gynecologic Progress Note ---
Date of Service March 27, 2021 Assessment & Plan Admission and Anticipated Discharge Date Admission Date: March 24, 2021 Subjective POD#! doing well minimal bleeding today no pain no dizziness or shortness of breath has been out of bed tolerating diet passing gas Physical Exam Constitutional: WD/WN, vitals as above comfortable Abdomen is soft and non-tender neg Hansa's will repeat CBC in AM OK with [employer] to d/c in AM if stable medically Results & Data ([facility]) Vital Signs (Past 12 Hours) Vital Signs Temp Pulse Pulse Resp BP BP Pulse Ox 03/27/21 19:42 37.0 C 76 16 115/68 98 03/27/21 16:00 84 03/27/21 15:36 36.5 C 79 27 H 113/72 95 03/27/21 13:44 37.1 C 91 H 16 114/74 95 03/27/21 12:24 36.9 C 82 118/78 03/27/21 11:49 36.8 C 83 20 116/70 100 03/27/21 11:24 36.9 C 84 16 116/70 03/27/21 10:54 36.8 C 84 16 138/82 03/27/21 10:39 36.8 C 84 18 138/80 100 03/27/21 10:21 36.8 C 86 18 128/73 03/27/21 08:00 88 Pulse Ox 03/27/21 19:42 03/27/21 16:00 95 03/27/21 15:36 03/27/21 13:44 03/27/21 12:24 03/27/21 11:49 03/27/21 11:24 03/27/21 10:54 03/27/21 10:39 03/27/21 10:21 03/27/21 08:00
[2021-03-27] MEDS: SIMVASTATIN 40 MG TAB PO SCH (21:19)
[2021-03-27] MEDS: INSULIN GLARGINE SOLOSTAR 100 UNITS/ML 3 ML PEN SQ SCH (21:20)
--- NOTE | 2021-03-27 21:40 | Hospitalist Progress Note ---
Date of Service March 27, 2021 Assessment & Plan (1) Vaginal bleeding: Had some vaginal spotting prior to start on Eliquis 11 days ago, however bleeding has become much heavier since being on Eliquis With evidence of possible fibroid uterus on CT abdomen/pelvis performed upon admission With acute blood loss anemia as below She is hemodynamically stable Her last dose of Eliquis was the morning of 03/22-she stopped it after the bleeding became heavier -Admit to PCU -Continue to monitor serial CBCs and transfuse as needed as below -Check pelvic ultrasound as per OB recommendation -Consult CLIENT MANAGER-discussed care with him/Dr. Victoria at the time of admission -Continue to hold Eliquis and also will hold her home aspirin and fish oil -D/W CLIENT MANAGER: SP endometrial biopsy with dilatation and curettage. BP was low. ordered a transfusion as her Hemoglobin dropped to 7.9 (2) Acute blood loss anemia: Hemoglobin down to 9.3 from 13.2 on 03/13 Secondary to vaginal bleeding in the setting of taking Eliquis HEMOGLOBIN has been stable. Holding Eliquis and aspirin as above (3) CKD (chronic kidney disease), stage III: Creatinine a little above baseline at 1.0 -Avoid nephrotoxins -renally dose meds when appropriate -follow BMP (4) Diabetes mellitus type 2, controlled: Hemoglobin A1c 7.0% on recent admission Continue home Lantus 50 units and add NovoLog sliding scale (5) Dyslipidemia: Continue statin (6) Hypertension: Blood pressures actually a bit elevated here Okay to continue home lisinopril and metoprolol with hold parameters (7) Hypothyroidism: TSH normal at 1.65 last week Continue home levothyroxine (8) Lactic acidosis: Has a history of such thought to be possibly related to Metformin use- Metformin has been discontinued Follow as an outpatient (9) Metabolic acidosis: As above Holding home metformin as an outpatient follows with nephrology (10) Nocturnal hypoxemia: Continue 2 L nasal cannula at night as she is intolerant of CPAP (11) Obstructive sleep apnea: As above, 2 L nasal cannula at night (12) Paroxysmal atrial fibrillation: With new onset atrial fibrillation diagnosed 1 and half weeks ago on previous admission Continue metoprolol -Holding Eliquis Remains in sinus rhythm here Monitor on telemetry (13) Pulmonary nodule: 7 mm incidental right lower lobe pulmonary nodule seen on CT abdomen/pelvis Does have a history of smoking but quit 25 years ago Follow as an outpatient (14) DVT prophylaxis: 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 Review of Systems Review of Systems: All systems reviewed & are unremarkable except as noted in HPI & below Physical Exam Physical Exam: Constitutional: WD/WN, vitals as above + morbidly obese Eyes: PERRL, conjunctivae normal, anicteric sclerae ENMT: external ear and nose normal, oropharynx normal Neck: trachea midline, no thyromegaly Respiratory: normal respiratory effort, lungs clear to auscultation Cardiovascular: RRR, no murmur, no edema Chest (Breasts): Chest: normal inspection of chest Gastrointestinal (Abdomen): normal bowel sounds, soft, nontender, no hepatosplenomegaly Musculoskeletal: Extremities: extremities normal to inspection; no cyanosis and no clubbing Skin: no rashes, warm and dry Neurologic: moves all extremities and awake; no focal motor deficits Psychiatric: A+Ox3, euthymic affect Lymphatic: no lymphedema Results & Data Results & Data ([facility]) Vital Signs (Past 12 Hours) Vital Signs Temp Pulse Pulse Resp BP BP Pulse Ox 03/27/21 19:42 37.0 C 76 16 115/68 98 03/27/21 16:00 84 03/27/21 15:36 36.5 C 79 27 H 113/72 95 03/27/21 13:44 37.1 C 91 H 16 114/74 95 03/27/21 12:24 36.9 C 82 118/78 03/27/21 11:49 36.8 C 83 20 116/70 100 03/27/21 11:24 36.9 C 84 16 116/70 03/27/21 10:54 36.8 C 84 16 138/82 03/27/21 10:39 36.8 C 84 18 138/80 100 03/27/21 10:21 36.8 C 86 18 128/73 Pulse Ox 03/27/21 19:42 07/01/21 16:00 95 03/27/21 15:36 03/27/21 13:44 03/27/21 12:24 03/27/21 11:49 03/27/21 11:24 03/27/21 10:54 03/27/21 10:39 03/27/21 10:21 PG Care Time/CCT Total # of Minutes Spent Total Time Spent with Patient: Total time spent is greater than 50% in coordination of care (as documented) at patient's floor/unit and/or counseling patient: Coding Level of Care Code 84697 Subseq Hosp Care Lvl 2 Diagnoses Vaginal bleeding N93.9 Acute blood loss anemia D62 CKD (chronic kidney disease), stage III N18.30 Diabetes mellitus type 2, controlled E11.9 Dyslipidemia E78.5 Hypertension I10 Hypothyroidism E03.9 Lactic acidosis E87.2 Metabolic acidosis E87.2 Nocturnal hypoxemia G47.34 Obstructive sleep apnea G47.33 Paroxysmal atrial fibrillation I48.0 Pulmonary nodule R91.1 DVT prophylaxis Z29.9 Time Spent (min) 25
[2021-03-28] MEDS: LEVOTHYROXINE SODIUM 75 MCG TABLET PO SCH (06:37)
[2021-03-28 07:18] LABS: Hemoglobin 9.1 g/dL (12.0-16.0); Mean Corpuscular Hemoglobin 30.4 pg (25-34); Mean Corpuscular Hgb Conc 32.5 g/dL (32-36); Mean Corpuscular Volume 93.6 fL (80-100); Mean Platelet Volume 10.2 fL (7.4-10.4); Platelet Count 276 K/uL (130-400); RDW Standard Deviation 51.1 fL (36.4-46.3); Red Blood Count 2.99 M/uL (4.2-5.4); White Blood Count 10.71 K/uL (4.8-10.8)
[2021-03-28 07:45] LABS: BUN Creatinine Ratio 16.1 (10-20); Calcium 8.5 mg/dl (8.5-10.1); Creatinine Clr Calc Pharmacy 77.9 ml/min; Est GFR (African American) 82.9 ml/min; Est GFR (Non-African American) 71.5 ml/min; Potassium 3.6 mmol/L (3.5-5.1)
[2021-03-28] MEDS: INSULIN ASPART 100 UNITS/ML 3 ML PEN SC SCH ×2 (07:55→12:05)
[2021-03-28] MEDS: lisinopril 20 MG TAB PO SCH (07:56)
[2021-03-28] MEDS: METOPROLOL SUCC 25MG EXT REL TAB PO SCH (07:56)
[2021-03-28] MEDS: NORETHINDRONE 5 MG TAB PO SCH (07:56)
[2021-03-28] MEDS: FUROSEMIDE 40 MG TAB PO SCH (07:56)
--- NOTE | 2021-03-28 14:50 | Obstetrical Progress Note ---
Date of Service March 28, 2021 Assessment & Plan Admission and Anticipated Discharge Date Admission Date: March 24, 2021 Subjective Patient is reevalauted. She feels well and ready to go home, awaiting for her physician to discharge her. She denies vaginal bleeding since the procedure, she denies pelvic pain. She received 2 units of packed red blood cell and her hemoglobin is 9.1. Vital signs stable afebrile, She is sitting and watching TV comfortably, Discussed the pathology report which was released today. Endometrial adenocarcinoma, FIGO grade 2. She is appropriately sad to hear but understands. Recommended SUPERINTENDENT NONSELLING oncology referral as soon as possible and discuss options with them. I placed a referral to [facility] oncology department and they should call her back soon with an appointment. Recommended to continue with Aygestin until she will see [facility]LL[facility] oncology. All questions were answered. Results & Data ([facility]) Vital Signs (Past 12 Hours) Vital Signs Temp Pulse Pulse Resp BP Pulse Ox 03/28/21 11:07 36.6 C 91 H 22 123/59 L 96 03/28/21 08:00 77 03/28/21 07:33 36.8 C 82 22 140/81 95 03/28/21 04:06 37.1 C 74 24 131/72 96
--- NOTE | 2021-03-30 19:09 | Discharge Summary ---
Date of Service March 28, 2021 Principal Diagnosis Vaginal Bleeding Discharge Exam Constitutional: WD/WN, vitals as above + morbidly obese Eyes: PERRL, conjunctivae normal, anicteric sclerae ENMT: external ear and nose normal, oropharynx normal Neck: trachea midline, no thyromegaly Respiratory: normal respiratory effort, lungs clear to auscultation Cardiovascular: RRR, no murmur, no edema Chest (Breasts): Chest: normal inspection of chest Gastrointestinal (Abdomen): normal bowel sounds, soft, nontender, no hepatosplenomegaly Musculoskeletal: Extremities: extremities normal to inspection; no cyanosis and no clubbing Skin: no rashes, warm and dry Neurologic: moves all extremities and awake; no focal motor deficits Psychiatric: A+Ox3, euthymic affect Lymphatic: no lymphedema Discharge Data Allergies Allergy/AdvReac Type Severity Reaction Status Date / Time codeine AdvReac Mild NAUSEA Verified 03/24/21 16:56 Consultations 03/24/21 15:51 Consult Obstetrics Stat 03/24/21 16:27 ED Decision to Admit Stat Procedures Performed Operation Date: 03/26/21 12:35 Actual Procedures p Dilation and Curettage, Polypectomy(Not Applicable) - Jorge Figueroa MD s Hysteroscopy(Not Applicable) - Jorge Figueroa MD Ordered Studies 03/24/21 14:05 CT abd pelvis IV con only Stat 03/24/21 15:52 US pelvic complete Stat Hospital Course (1) Vaginal bleeding: Had some vaginal spotting prior to start on Eliquis 11 days ago, however bleeding has become much heavier since being on Eliquis With evidence of possible fibroid uterus on CT abdomen/pelvis performed upon admission With acute blood loss anemia as below She is hemodynamically stable Her last dose of Eliquis was the morning of 03/22-she stopped it after the bleeding became heavier -Admit to PCU -Continue to monitor serial CBCs and transfuse as needed as below -Check pelvic ultrasound as per OB recommendation -Consult FRAMING MANAGER-discussed care with him/Dr. Victoria at the time of admission -Continue to hold Eliquis and also will hold her home aspirin and fish oil -D/W FRAMING MANAGER: SP endometrial biopsy with dilatation and curettage. BP was low. ordered a transfusion of 1 PRBC. Pathology returned as an adenocarcinoma. Will followup with Catalyst Operator Chief. Oncology. Discharge instructions noted below. (2) Acute blood loss anemia: Hemoglobin down to 9.3 from 13.2 on 03/13 Secondary to vaginal bleeding in the setting of taking Eliquis HEMOGLOBIN has been stable. Holding Eliquis and aspirin as above (3) CKD (chronic kidney disease), stage III: Creatinine a little above baseline at 1.0 -Avoid nephrotoxins -renally dose meds when appropriate -improved (4) Diabetes mellitus type 2, controlled: Hemoglobin A1c 7.0% on recent admission Continue home Lantus 50 units and add NovoLog sliding scale (5) Dyslipidemia: Continue statin (6) Hypertension: Blood pressures actually a bit elevated here Okay to continue home lisinopril and metoprolol with hold parameters (7) Hypothyroidism: TSH normal at 1.65 last week Continue home levothyroxine (8) Lactic acidosis: Has a history of such thought to be possibly related to Metformin use- Metformin has been discontinued Follow as an outpatient (9) Metabolic acidosis: As above Holding home metformin as an outpatient follows with nephrology (10) Nocturnal hypoxemia: Continue 2 L nasal cannula at night as she is intolerant of CPAP (11) Obstructive sleep apnea: As above, 2 L nasal cannula at night (12) Paroxysmal atrial fibrillation: With new onset atrial fibrillation diagnosed 1 and half weeks ago on previous admission Continue metoprolol -Holding Eliquis Remains in sinus rhythm here Monitor on telemetry (13) Pulmonary nodule: 7 mm incidental right lower lobe pulmonary nodule seen on CT abdomen/ pelvis Does have a history of smoking but quit 25 years ago Follow as an outpatient (14) DVT prophylaxis: Has a history of DVT/PE and was on Coumadin from [id number] Eliquis is on hold as above SCDs only at this time due to acute blood loss anemia and vaginal bleeding Disposition-admit to PCU Full code, however does not want prolonged life support, feeding tubes or tracheostomy, she designates her brothers as her HCPOA Total Time Total Time Spent Total Time Spent (In Minutes): 32 Total Time Includes: Examination of the Patient, Discharge Planning and Medication Reconciliation Discharge Plan Discharge Items Patient Disposition: Home - Self-Care Reason For Visit: ACUTE BLOOD LOSS ANEMIA, VAGINAL BLEEDING Discharge Diagnosis: Acute Blood loss anemia, Condition on Discharge: Good Activity: Resume your previous activity Non-emergency contact: Primary Care Provider Call non-emergency contact if: you have any medication questions Follow-up/Referrals: Emerson Herron MD [Primary Care Provider] - 04/02/21 11:00 am Diet: Carb Consistent or DM2 Addtl Attending Provider Instructions: ACTIVITY RECOMMENDATIONS: * Avoid tampons, douching, hot tubs, pools, and intercourse until bleeding has stopped. * May shower as usual. * No strenuous activity for 24-48 hours. After 24-48 hours, you can do anything you feel like doing (driving and sports are okay). RETURN TO SCHOOL/WORK: * You may return to school or work after 24 hours unless specified by your physician. DIET: * Resume previous diet. MEDICATIONS: Resume previous medications unless instructed otherwise by your surgeon. Ibuprofen 200mg 2-3 tablets every 4-6 hours as needed --OR-- Aleve 2 tablets every 8-12 hours as needed for post-operative discomfort Medications are over the counter. Tylenol may be used if above medications are contraindicated or not preferred. Medication should be taken with food or milk. do not take on an empty stomach. Continue with Norethindrone 5 mg 2 times a day until you see ferry pilot. SPECIAL CARE INSTRUCTIONS: * Check temperature twice daily for one week. Report any elevation over 101 degrees. * Call office if you experience increased pelvic pain or discomfort not relieved by pain medicine, if you have foul smelling vaginal discharge, if you have bleeding that is heavier than a normal menstrual flow. If you are changing a maxi pad every 1- 2 hours, this is too heavy. vaginal spotting is normal for 1-2 weeks. FOLLOW UP VISIT: Call your doctor's office for a post-operative visit. 1-2 weeks [facility] at [phone] Pending Studies at Discharge: Yes Studies:: pathology Stand-Alone Forms: My [facility] [employer], Smoking Cessation Medications and DC Order Prescriptions: New norethindrone acetate 5 mg Tablet 5 mg PO BID Qty: 40 RF: 1 ferrous sulfate 325 mg (65 mg iron) tablet 325 mg PO BID Qty: 60 RF: 0 Continued insulin lispro 100 unit/mL solution 1 sliding scale dose SQ USEASDIRECTD RF: 0 furosemide 40 mg tablet 40 mg PO DAILY Qty: 90 RF: 3 simvastatin 40 mg tablet 40 mg PO DAILY Qty: 90 RF: 3 (DME) insulin syringe-needle U-100 [BD Insulin Syringe Ultra-Fine] 1 mL 31 gauge x 5/16 syringe See Rx Instructions .ROUTE .MEDSUPPLY Qty: 400 RF: 3 (DME) OneTouch Ultra Blue Test Strip Strip See Dose Instructions .ROUTE .MEDSUPPLY Qty: 400 RF: 3 levothyroxine 75 mcg tablet 75 mcg PO DAILY Qty: 90 RF: 3 lisinopril 20 mg tablet 20 mg PO DAILY Qty: 90 RF: 3 potassium chloride 10 mEq tablet extended release 10 meq PO DAILY Qty: 90 RF: 3 calcium carbonate-vitamin D3 [Caltrate with Vitamin D3] 600 mg(1,500mg) -800 unit tablet 1 tab PO DAILY RF: 0 multivitamin tablet 1 tab PO DAILY RF: 0 Ocuvite with Lutein 1,000 unit-200 mg-60 unit-2 mg tablet 1 tab PO DAILY RF: 0 cyanocobalamin (vitamin B-12) 1,000 mcg tablet extended release 1,000 mcg PO DAILY RF: 0 cholecalciferol (vitamin D3) 2,000 unit capsule 2,000 units PO DAILY RF: 0 zinc 50 mg tablet 50 mg PO DAILY RF: 0 melatonin 1 tab PO DAILY PRN (Reason: Sleep) RF: 0 ascorbic acid (vitamin C) 1,000 mg tablet 1 g PO DAILY RF: 0 omega-3 fatty acids [Fish Oil Concentrate] 1,000 mg capsule 1,000 mg PO DAILY RF: 0 (DME) CPAP Machine Misc See Dose Instructions .ROUTE .MEDSUPPLY Qty: 1 RF: 0 (DME) Oxygen Home Liters Per Minute See Dose Instructions .ROUTE .MEDSUPPLY Qty: 1 RF: 0 Lantus U-100 Insulin 100 unit/mL solution 50 unit subcut DAILY RF: 0 metoprolol succinate 25 mg Tablet Extended Release 24 Hr 25 mg PO QAM Qty: 30 RF: 5 Discontinued amoxicillin 500 mg capsule 2,000 mg PO .COMPLEX Qty: 20 RF: 0 aspirin 81 mg Tablet,Delayed Release (Dr/Ec) 81 mg PO DAILY Qty: 30 RF: 0 Eliquis 5 mg Tablet 5 mg PO BID Qty: 60 RF: 0 Discharge Orders: Discharge Order (Routine); Ordered 03/28/21 Ordered By: Jarad Leiva Admission Data Admit Date/Time: 03/24/21 17:45 Attending Provider: Jarad Leiva Admit Provider: Pili Matute Primary Care Provider: Emerson Herron Other Providers: Álvaro Victoria ; Pili Matute Other Interventions: Discharge Summary Assessment (RN) Last Done: 03/28/21 15:10 Coding Level of Care Code D/C Day Management >30 mins Diagnoses Vaginal bleeding N93.9 Acute blood loss anemia D62 CKD (chronic kidney disease), stage III N18.30 Diabetes mellitus type 2, controlled E11.9 Dyslipidemia E78.5 Hypertension I10 Hypothyroidism E03.9 Lactic acidosis E87.2 Metabolic acidosis E87.2 Nocturnal hypoxemia G47.34 Obstructive sleep apnea G47.33 Paroxysmal atrial fibrillation I48.0 Pulmonary nodule R91.1 DVT prophylaxis Z29.9
== END 2021-03-28 16:46 | disposition home or self-care (01) | DRG 744 ==
LOC: ED 13:07 → 2S 17:45 → SUATTDRO 17:45 → 2S 20:38

== ENCOUNTER 2022-02-01 17:53 | Observation (INO) ==
[2022-02-01] MEDS ORDERED: SODIUM CHLORIDE 0.9% 500 ML IV ONE (18:12)
--- NOTE | 2022-02-01 18:12 | Emergency Department Note ---
Impression & Plan Atrial fibrillation with rapid ventricular response, Aortic stenosis ED Provider Note NAME: WILI WAHL AGE: 71 SEX: F : 1950 ARRIVES VIA: Ambulance INFORMANT: Patient ED PROVIDER(S): Brock Zaman DO CHIEF COMPLAINT: Palpitations HPI: Patient is a 71-year-old female with a past medical history of aortic stenosis, diabetes and adenocarcinoma of the uterus that presents the ER for feeling her heart race which started around 4:30 PM. She admits to shortness of breath but denies any chest pain. She notes she was initially sweaty but that has resolved. No belly pain, nausea, vomiting, or diarrhea. No dysuria, urgency, or frequency. She has not missed any doses of her apixaban or metoprolol. She has no other complaints at this time but notes that she can feel her heart racing. Shortness of breath is very mild but worse with movement. ROS: See above HPI for pertinent positives & negatives. A total of 10 systems r eviewed and were otherwise negative. PAST MEDICAL HISTORY:See Below PAST SURGICAL HISTORY:See Below FAMILY HISTORY:See Below SOCIAL HISTORY:See Below HOME MEDICATIONS:See Below ALLERGIES:See Below VITALS:See Below PHYSICAL EXAMINATION: GENERAL: Sitting up in bed, alert, well appearing, well nourished, no distress, non-toxic EYE EXAM: normal conjunctiva. PERRL and EOM's grossly intact. OROPHARYNX: no exudate, no erythema, lips, buccal mucosa, and tongue normal and mucous membranes are moist NECK: supple, no nuchal rigidity, no adenopathy, non-tender LUNGS: Clear to auscultation. Normal chest wall mechanics HEART: Tachycardic and irregular regular, S1 normal and S2 normal ABDOMEN: abdomen soft, non-tender, normo-active bowel sounds, no masses, no rebound or guarding. UPPER EXTREMITIES: upper extremities are grossly normal. LOWER EXTREMITIES: No pitting edema. NEURO EXAM: Normal sensorium, cranial nerves II-XII grossly intact, normal speech, no gross weakness of arms, no gross weakness of legs. MEDICAL DECISION MAKING: Patient is a 71-year-old female who presents ER with above-stated complaint. IV was established blood work was obtained. Labs show no significant leukocytosis or anemia. BMP showed a slightly elevated glucose. T bili and LFTs were unremarkable. Troponin and lipase and TSH were unremarkable. COVID was negative. Chest x-ray was clean. Patient was given 2 dose of IV Lopressor for heart rate in the 130s. Trended down to 100. She was updated bedside. Discussed with hospitalist admitted for A. jose with RVR. She has not missed any doses of her NOAC. Triage Nursing notes reviewed. Limited review of prior medical records performed Vital Signs: reviewed and remarkable for tachycardia and hypertension Differential diagnosis: Differential diagnoses includes but is not limited to pneumonia, bronchitis, COPD/Asthma exacerbation, pneumothorax, pulmonary embolism, congestive heart failure, acute coronary syndrome ER treatment provided: See below Diagnostics interpreted by me: ECG: A. jose RVR rate of [address] wave changes in the lateral leads QTC 470 Cardiac Monitoring: An order was placed for continuous cardiac monitoring. The monitor shows a rate of 132 with Afib rhythm. Laboratory studies: As stated above and show below. Imaging studies: Portable AP upright 1 view the chest is unremarkable Consultation(s): Discussed with Tricia Farrell for further evaluation Procedures: none Critical Care: I have personally spent 35 minutes of critical care time in the direct management of this patient. This includes bedside care, interpretation of diagnostic studies, and testing, discussion with consultants, patient, and family members, and other required patient management activities. This 35 minutes is in excess of all separately billable procedures. 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) High serum lactate Hypertension Hypothyroidism Joint pain, knee Lactic acidosis LVH (left ventricular hypertrophy) Metabolic acidosis Obstructive sleep apnea 2L NC Paroxysmal atrial fibrillation Pulmonary embolism (2004) Pulmonary nodule Vitamin D deficiency Surgical History (Updated 02/01/22 @ 20:30 by Linda Farrell DO) H/O total knee replacement Right History of cholecystectomy History of colonoscopy (06/12/16) History of foot surgery bunion - left foot History of robot-assisted laparoscopic hysterectomy (05/02/21) Attempted procedure not possible secondary to small bowel obscuring pelvic structures Mirena IUD placed History of tooth extraction wisdom teeth S/P dilation and curettage (03/26/21) D&C Hysteroscopy with Myosure [facility] Dr. Barfield Family History Mother , Passed Age 83 Lung cancer radiation therapy and chemotherapy Brother Prostate cancer radiation Father No problems noted. Aunt , maternal Breast cancer Aunt , maternal Colorectal cancer Uncle , maternal Esophageal cancer Other Has no children Stroke Social History Smoking Status: Former smoker Tobacco Type: Cigarettes Age Started Using Tobacco: 16; Age Quit Using Tobacco: 60; packs per day: 1; Second Hand Exposure: No; Hx Alcohol Use: No Hx Substance Use: No Preferred Language: Tongan Communication Ability: Effective Visual Impairment: Limited Hearing Ability: Normal Drum Printer Required: No Beliefs That Will Affect Care: None marital status: Single Current Living Situation: Alone Current Living Situation Comment: Home alone current occupational status: retired current occupation: Retired Feels Safe at Home: Yes Childhood Exposure to Second-Hand Smoke: No caffeine: Yes during the past year weight has: remained stable Dental Care, Regularly: Yes Physical Activity Frequency: Does not Exercise Seatbelt Use: always Sunscreen Use: Yes Do you think of yourself as: straight/heterosexual Assistive Devices: Cane, Glasses and Oxygen - at Night Allergies Allergies Allergy/AdvReac Type Severity Reaction Status Date / Time codeine AdvReac Mild NAUSEA Verified 02/01/22 19:56 Home Meds Home Medications Medication Instructions Recorded Confirmed calcium carbonate 600 mg-vitamin 1 tab PO DAILY tab 05/25/19 02/01/22 D3 20 mcg (800 unit) tablet (Caltrate with Vitamin D3) cholecalciferol (vitamin D3) 50 2,000 units PO DAILY cap 05/25/19 02/01/22 mcg (2,000 unit) capsule cyanocobalamin (vitamin B-12) 1,000 mcg PO DAILY tab 05/25/19 02/01/22 1,000 mcg tablet,extended release multivitamin 1 tab PO DAILY tab 05/25/19 02/01/22 omega-3 fatty acids 1,000 mg 1,000 mg PO DAILY cap 05/25/19 02/01/22 capsule (Fish Oil Concentrate) vit A 300 mcg-C 200 mg-E 27 1 tab PO DAILY tab 05/25/19 02/01/22 mg-lutein 2 mg and minerals tablet (Ocuvite with Lutein) zinc 50 mg tablet 50 mg PO DAILY 11/21/20 02/01/22 ascorbic acid (vitamin C) 1,000 mg 1 g PO DAILY tab 12/24/20 02/01/22 tablet furosemide 40 mg tablet 40 mg PO DAILY 07/20/21 02/01/22 insulin glargine 100 unit/mL (3 50 unit SUBCUT QPM 02/01/22 02/01/22 mL) subcutaneous pen (Lantus Solostar U-100 Insulin) insulin lispro 100 unit/mL 0 sliding scale dose SUBCUT AC MDD 02/01/22 02/01/22 subcutaneous pen 50 units simvastatin 40 mg tablet 40 mg PO QPM 02/01/22 02/01/22 Previous Rx's Medication Instructions Recorded Oxygen Home #1 ea 07/24/19 pen needle, diabetic 31 gauge x #50 ea 04/03/21 3/16" (BD Ultra-Fine Mini Pen Needle) liraglutide 0.6 mg/0.1 mL (18 mg/3 See Rx Instructions SUBCUT 07/28/21 mL) subcutaneous pen injector .COMPLEX #15 ml (Victoza 2-Ethan) blood sugar diagnostic (OneTouch #300 ea 08/05/21 Ultra Test) levothyroxine 75 mcg tablet 75 mcg PO DAILY #90 tab 08/25/21 lisinopril 20 mg tablet 20 mg PO DAILY #90 tab 08/25/21 metoprolol succinate 25 mg 25 mg PO QAM #90 tab 09/02/21 tablet,extended release 24 hr potassium chloride 10 mEq 10 meq PO DAILY #90 tab 10/14/21 tablet,extended release apixaban 5 mg tablet (Eliquis) 5 mg PO BID #180 tab 10/20/21 amoxicillin 500 mg tablet See Rx Instructions .ROUTE 10/27/21 .COMPLEX #4 tablet Results & Data (ED) Vital Signs Vital Signs - 24 hr 02/01/22 18:00 02/01/22 18:01 02/01/22 18:02 Temperature 36.9 C Temperature Source Oral Pulse Rate 124 H 121 H Pulse Rate [Left Radial] Pulse Rate from SpO2 Sensor 108 H Pulse Rhythm Irregular Pulse Strength Normal Respiratory Rate 19 20 Respiratory Effort / Characteristics Non-Labored Respiratory Depth Normal Respiratory Pattern Regular Blood Pressure 142/105 H 159/108 H Blood Pressure Mean 117 125 Blood Pressure Position Lying Pulse Oximetry 94 92 Oxygen Delivery Method Room Air Sepsis Recent Fever Within 48 Hours No Sepsis New/Unexplained Change in Mental Status No Sepsis Action Taken by Nursing No Action Required 02/01/22 18:07 02/01/22 18:10 02/01/22 18:20 Temperature Temperature Source Pulse Rate 135 H 127 H Pulse Rate [Left Radial] Pulse Rate from SpO2 Sensor 105 H 112 H Pulse Rhythm Pulse Strength Respiratory Rate 27 H 24 Respiratory Effort / Characteristics Respiratory Depth Respiratory Pattern Blood Pressure Blood Pressure Mean Blood Pressure Position Pulse Oximetry 97 95 89 L Oxygen Delivery Method Room Air Sepsis Recent Fever Within 48 Hours Sepsis New/Unexplained Change in Mental Status Sepsis Action Taken by Nursing 02/01/22 18:30 02/01/22 18:31 02/01/22 18:42 Temperature Temperature Source Pulse Rate 110 H 128 H Pulse Rate [Left Radial] 115 H Pulse Rate from SpO2 Sensor 96 H 117 H Pulse Rhythm Pulse Strength Respiratory Rate 29 H 20 20 Respiratory Effort / Characteristics Non-Labored Respiratory Depth Normal Respiratory Pattern Blood Pressure 150/106 H Blood Pressure Mean 120 Blood Pressure Position Pulse Oximetry 98 98 92 Oxygen Delivery Method Room Air Sepsis Recent Fever Within 48 Hours Sepsis New/Unexplained Change in Mental Status Sepsis Action Taken by Nursing 02/01/22 18:50 02/01/22 18:53 02/01/22 19:00 Temperature Temperature Source Pulse Rate 97 H 104 H Pulse Rate [Left Radial] Pulse Rate from SpO2 Sensor 104 H 97 H Pulse Rhythm Pulse Strength Respiratory Rate 23 24 Respiratory Effort / Characteristics Respiratory Depth Respiratory Pattern Blood Pressure 153/84 H 141/81 H Blood Pressure Mean 107 101 Blood Pressure Position Pulse Oximetry 98 98 Oxygen Delivery Method Sepsis Recent Fever Within 48 Hours Sepsis New/Unexplained Change in Mental Status Sepsis Action Taken by Nursing 02/01/22 19:30 02/01/22 20:00 02/01/22 20:01 Temperature Temperature Source Pulse Rate 106 H 95 H Pulse Rate [Left Radial] Pulse Rate from SpO2 Sensor 90 95 H Pulse Rhythm Pulse Strength Respiratory Rate 22 19 Respiratory Effort / Characteristics Respiratory Depth Respiratory Pattern Blood Pressure 154/95 H 160/99 H Blood Pressure Mean 114 119 Blood Pressure Position Pulse Oximetry 96 96 Oxygen Delivery Method Sepsis Recent Fever Within 48 Hours Sepsis New/Unexplained Change in Mental Status Sepsis Action Taken by Nursing 02/01/22 20:10 02/01/22 20:20 Temperature Temperature Source Pulse Rate 105 H 107 H Pulse Rate [Left Radial] Pulse Rate from SpO2 Sensor 101 H 100 H Pulse Rhythm Pulse Strength Respiratory Rate 24 23 Respiratory Effort / Characteristics Respiratory Depth Respiratory Pattern Blood Pressure Blood Pressure Mean Blood Pressure Position Pulse Oximetry 97 97 Oxygen Delivery Method Sepsis Recent Fever Within 48 Hours Sepsis New/Unexplained Change in Mental Status Sepsis Action Taken by Nursing Laboratory Data Result diagrams: 02/01/22 18:00 02/01/22 19:05 Lab Results 02/01/22 02/01/22 02/01/22 Range/Units 18:00 18:00 18:00 WBC 8.77 (4.8-10.8) K/uL RBC 4.69 (4.2-5.4) M/uL Hgb 14.9 (12.0-16.0) g/dL Hct 45.5 (37-47) % MCV 97.0 (80-100) fL MCH 31.8 (25-34) pg MCHC 32.7 (32-36) g/dL RDW Std Deviation 47.9 H (36.4-46.3) fL RDW Coeff of Keith 13.6 (11.5-14.5) % Plt Count 228 (130-400) K/uL MPV 10.7 H (7.4-10.4) fL Immature Gran % (Auto) 0.6 % Neut % (Auto) 65.0 % Lymph % (Auto) 12.2 % [place] % (Auto) 10.1 % Eos % (Auto) 11.9 % Baso % (Auto) 0.2 % Neut # (Auto) 5.70 (1.4-6.5) K/uL Lymph # (Auto) 1.07 L (1.2-3.4) K/uL [place] # (Auto) 0.89 H (0.11-0.59) K/uL Eos # (Auto) 1.04 H (0-0.5) K/uL Baso # (Auto) 0.02 (0-0.2) K/uL Immature Gran # (Auto) 0.05 H (0.00-0.02) K/uL Absolute Nucleated RBC 0.02 H (0-0) K/uL Nucleated RBC % (auto) 0.3 % Sodium 138 (136-145) mmol/L Potassium TNP Chloride 101 (98-107) mmol/L Carbon Dioxide 24 (21-32) mmol/L Anion Gap 13 H (3-11) BUN 16 (6-23) mg/dl Creatinine 0.95 (0.6-1.2) mg/dl Est Cr Clr Drug Dosing 69.2 ml/min Est GFR ( Amer) 68.9 ml/min Est GFR (Non-Af Amer) 59.4 ml/min BUN/Creatinine Ratio 16.8 (10-20) Glucose 234 H (70-99(Fasting)) mg/dl Calcium 9.5 (8.5-10.1) mg/dl Phosphorus (2.5-4.9) mg/dl Magnesium (1.7-2.4) mg/dl Total Bilirubin 0.5 (0.2-1.0) mg/dl AST TNP ALT 21 (7-52) U/L Alkaline Phosphatase 91 (34-104) U/L Troponin I High Sens 6.8 (0-14) pg/ml Total Protein 7.1 (6.0-8.3) gm/dl Albumin 4.1 (3.4-5.0) gm/dl Globulin 3.0 (2.5-4.0) gm/dl Albumin/Globulin Ratio 1.4 (0.9-2) Lipase 35 (11-82) U/L TSH 1.329 (0.300-4.500) uIu/ml SARS-CoV-2, RNA, NAAT (NEGATIVE) 02/01/22 02/01/22 02/01/22 Range/Units 18:24 19:05 19:05 WBC (4.8-10.8) K/uL RBC (4.2-5.4) M/uL Hgb (12.0-16.0) g/dL Hct (37-47) % MCV (80-100) fL MCH (25-34) pg MCHC (32-36) g/dL RDW Std Deviation (36.4-46.3) fL RDW Coeff of Keith (11.5-14.5) % Plt Count (130-400) K/uL MPV (7.4-10.4) fL Immature Gran % (Auto) % Neut % (Auto) % Lymph % (Auto) % [place] % (Auto) % Eos % (Auto) % Baso % (Auto) % Neut # (Auto) (1.4-6.5) K/uL Lymph # (Auto) (1.2-3.4) K/uL [place] # (Auto) (0.11-0.59) K/uL Eos # (Auto) (0-0.5) K/uL Baso # (Auto) (0-0.2) K/uL Immature Gran # (Auto) (0.00-0.02) K/uL Absolute Nucleated RBC (0-0) K/uL Nucleated RBC % (auto) % Sodium (136-145) mmol/L Potassium 3.5 Chloride (98-107) mmol/L Carbon Dioxide (21-32) mmol/L Anion Gap (3-11) BUN (6-23) mg/dl Creatinine (0.6-1.2) mg/dl Est Cr Clr Drug Dosing ml/min Est GFR ( Amer) ml/min Est GFR (Non-Af Amer) ml/min BUN/Creatinine Ratio (10-20) Glucose (70-99(Fasting)) mg/dl Calcium (8.5-10.1) mg/dl Phosphorus 2.9 (2.5-4.9) mg/dl Magnesium 1.6 L (1.7-2.4) mg/dl Total Bilirubin (0.2-1.0) mg/dl AST 17 ALT (7-52) U/L Alkaline Phosphatase (34-104) U/L Troponin I High Sens (0-14) pg/ml Total Protein (6.0-8.3) gm/dl Albumin (3.4-5.0) gm/dl Globulin (2.5-4.0) gm/dl Albumin/Globulin Ratio (0.9-2) Lipase (11-82) U/L TSH (0.300-4.500) uIu/ml SARS-CoV-2, RNA, NAAT NEGATIVE (NEGATIVE) Administered Medications Apixaban (Apixaban 5 Mg Tablet) 5 mg PO BID CATALINO Stop: 03/03/22 21:37 Last Admin: 02/01/22 22:36 Dose: 5 mg Documented by: [id number] Magnesium Sulfate/Dextrose (Magnesium Sulfate / D5w) 1 gm in 100 mls @ 50 mls/hr IV Q2H CATALINO Stop: 02/02/22 04:14 Last Admin: 02/01/22 22:43 Dose: 50 mls/hr Documented by: [id number] Insulin Aspart (Insulin Aspart Per Unit) 0 units SC ACHS CATALINO Stop: 03/03/22 21:37 Last Admin: 02/01/22 22:42 Dose: 2 units Documented by: [id number] Cosigned by: [id number] Insulin Glargine (Insulin Glargine Solostar 100 Units/Ml 3 Ml Pen) 50 units SQ QPM CATALINO Stop: 03/03/22 21:37 Last Admin: 02/01/22 22:41 Dose: 50 units Documented by: [id number] Cosigned by: [id number] Simvastatin (Simvastatin 40 Mg Tab) 40 mg PO QPM CATALINO Stop: 03/03/22 21:37 Last Admin: 02/01/22 22:35 Dose: 40 mg Documented by: [id number] Discontinued Medications Sodium Chloride (Nss) 500 mls @ 999 mls/hr IV .Q31M ONE Stop: 02/01/22 18:42 Last Infusion: 02/01/22 18:58 Dose: 0 mls/hr Documented by: [id number] Admin: 02/01/22 18:24 Dose: 999 mls/hr Documented by: [id number] Metoprolol Tartrate (Metoprolol Tartrate 1 Mg/Ml Vial) 5 mg IV Q5M PRN PRN Reason: Tachycardia Stop: 03/03/22 18:11 Last Admin: 02/01/22 18:55 Dose: 5 mg Documented by: [id number] Admin: 02/01/22 18:24 Dose: 5 mg Documented by: [id number] Metoprolol Tartrate (Metoprolol Tartrate 25 Mg Tab) 25 mg PO NOW STA Stop: 02/01/22 20:22 Last Admin: 02/01/22 20:38 Dose: 25 mg Documented by: [id number] Imaging Data Radiologist's Impression: Chest X-Ray 02/01/22 18:05 XR chest 1V portable CLINICAL HISTORY: Atypical chest pain. COMPARISON STUDY: Chest CT October 02, 2021. Chest radiograph July 20, 2021. FINDINGS: Lung volumes are mildly diminished. There is no pneumothorax or pleural effusion. No consolidation is identified to suggest pneumonia. Car diomediastinal silhouette is stable. Subtle interstitial prominence is likely chronic. Severe osteoarthritis of the left glenohumeral joint is incidentally noted. IMPRESSION: No acute cardiopulmonary findings. No significant change in appearance of the chest. ACT 112: Negative or not required by law. Electronically signed by: Jonas Monterroso M.D. 02/01/2022 6:42 PM Discharge Plan Visit Data Chief Complaint: Cardiac Assessment ED Provider: Brock Zaman Discharge Problem: Atrial fibrillation with rapid ventricular response, Aortic stenosis Patient Disposition: Admitted As Inpatient Discharge Instructions Interventions: ED Discharge Assessment Last Done: 02/01/22 21:12
[2022-02-01 18:21] LABS: Basophils # (auto) 0.02 K/uL (0-0.2); Basophils % (auto) 0.2 %; Eosinophils # (auto) 1.04 K/uL (0-0.5); Eosinophils % (auto) 11.9 %; Hematocrit (blood only) 45.5 % (37-47); Hemoglobin 14.9 g/dL (12.0-16.0); Immature Granulocytes # (auto) 0.05 K/uL (0.00-0.02); Immature Granulocytes % (auto) 0.6 %; Lymphocytes # (auto) 1.07 K/uL (1.2-3.4); Lymphocytes % (auto) 12.2 %; Mean Corpuscular Hemoglobin 31.8 pg (25-34); Mean Corpuscular Hgb Conc 32.7 g/dL (32-36); Mean Platelet Volume 10.7 fL (7.4-10.4); Monocytes # (auto) 0.89 K/uL (0.11-0.59); Monocytes % (auto) 10.1 %; Nucleated RBC # (auto) 0.02 K/uL (0-0); Nucleated RBC % (auto) 0.3 %; Platelet Count 228 K/uL (130-400); RDW Coefficient of Variation 13.6 % (11.5-14.5); RDW Standard Deviation 47.9 fL (36.4-46.3); Red Blood Count 4.69 M/uL (4.2-5.4); White Blood Count 8.77 K/uL (4.8-10.8)
[2022-02-01] MEDS: METOPROLOL TARTRATE 1 MG/ML VIAL IV PRN ×2 (18:24→18:55)
--- NOTE | 2022-02-01 18:44 | XRay Report ---
XR chest 1V portable CLINICAL HISTORY: Atypical chest pain. COMPARISON STUDY: Chest CT October 02, 2021. Chest radiograph July 20, 2021. FINDINGS: Lung volumes are mildly diminished. There is no pneumothorax or pleural effusion. No consol idation is identified to suggest pneumonia. Cardiomediastinal silhouette is stable. Subtle interstiti al prominence is likely chronic. Severe osteoarthritis of the left glenohumeral joint is incidentally noted. IMPRESSION: No acute cardiopulmonary findings. No significant change in appearance of the chest. ACT 112: Negative or not required by law. Electronically signed by: Jonas Monterroso M.D. 02/01/2022 6:42 PM
[2022-02-01 18:47] LABS: Troponin I High Sensitivity 6.8 pg/ml (0-14)
[2022-02-01 18:56] LABS: Alanine Aminotransferase 21 U/L (7-52); Albumin Globulin Ratio 1.4 (0.9-2); Albumin Level 4.1 gm/dl (3.4-5.0); Alkaline Phosphatase 91 U/L (34-104); Anion Gap 13 (3-11); BUN Creatinine Ratio 16.8 (10-20); Bilirubin,Total 0.5 mg/dl (0.2-1.0); Blood Urea Nitrogen 16 mg/dl (6-23); Calcium 9.5 mg/dl (8.5-10.1); Carbon Dioxide 24 mmol/L (21-32); Chloride 101 mmol/L (98-107); Creatinine Clr Calc Pharmacy 69.2 ml/min; Est GFR (African American) 68.9 ml/min; Est GFR (Non-African American) 59.4 ml/min; Glucose 234 mg/dl (70-99(Fasting)); Lipase 35 U/L (11-82); Sodium 138 mmol/L (136-145); Total Protein 7.1 gm/dl (6.0-8.3)
[2022-02-01 19:46] LABS: Potassium 3.5 mmol/L (3.5-5.1)
[2022-02-01] MEDS ORDERED: METOPROLOL TARTRATE 25 MG TAB PO STA (20:21)
--- NOTE | 2022-02-01 20:42 | History & Physical Report ---
Date of Service February 01, 2022 Assessment & Plan (1) Atrial fibrillation with rapid ventricular response: Plan: 71yo female with history of paroxysmal atrial fibrillation presenting with rapid ventricular response. Rate improved after 500mL NSS and Metoprolol 5mg IV x 2 doses. Patient without complaints at present. No evidence of failure. -Observation to medical with telemetry -Check Mg and PO4 x 1 and replete as needed -Check TSH -Administer 25mg Metoprolol tartrate PO now -Metoprolol 5mg IV q 4 hours as needed for HR >110bpm -Resume Metoprolol succinate in AM - consider increasing dosage pending HR response -Continue Apixaban 5mg po BID (2) Dyslipidemia: Plan: Chronic. Last lipid panel 11/16/20 with [id number], LDL=53, HDL=55, RB=338 -Continue Simvastatin 40mg po daily (3) Hypertension: Plan: Blood pressure mildly elevated at present -Continue metoprolol 25mg po qAM -Continue Lisinopril 20mg po daily -Continue to monitor (4) Hypothyroidism: Plan: Chronic -Check TSH -Continue Synthroid 75mcg po daily (5) Diabetes mellitus type 2, controlled: Plan: Elevated blood sugar = 234 today. Diabetes well controlled overall. AIC=7 on 03/13/21 -Continue Lantus 50u qHS -Continue Liraglutide on discharge - not on formulary here -ISS -Goal blood sugar 100 - 140 while inpatient -Check HgbAIC in AM (6) Aortic stenosis: Plan: Mild aortic stenosis noted on echo 03/12/21 with no regurgitation. BESSY=1.6cm2 -Patient to have echo outpatient at the end of January (7) Obstructive sleep apnea: Plan: Patient uses 2L NC at night -Continue Plan: F/E/N - Heplock. Check Mg and PO4 and replete as needed, AHA/CC diet as tolerated Ppx - On Apixaban for AF - will continue Code - Full per discussion with patient Dispo -Observation to medical with telemetry History of Present Illness Chief Complaint: palpitations Primary Care Provider: Emerson Herron MD Sherley Enamorado is a 71yo female with history of paroxysmal atrial fibrillation on Metoprolol and Eliquis anticoagulation, DM, HTN, HLP, Hypothyroidism presenting with atrial fibrillation with RVR. Patient was sitting in her chair at home when she suddenly developed palpitations around 16:30. She has a home heart monitor and rate was reported to be 150-160, patient reported rhythm being irregularly irregular. She had some mild shortness of breath but denies chest pain, nausea, dizziness or presyncope. Upon arrival to the ER patient tachycardic at 135bpm. She was administered 500 mL NSS and Metoprolol 5mg IV x 2 doses with improvement. Presently 104 - 114 during my visit with her. She has no additional complaints. Had a cold last week and was taking [facility] cough medicine. Otherwise has been feeling healthy. She denies fever, chills, abdominal pain, nausea, vomiting, diarrhea or constipation. She still has a slight cough. Patient follows with Dr. Mi. She is schedule to have a routine echocardiogram performed at the end of this month. She denies edema, weight gain, orthopnea. ER Course: NSS x 500mL, Metoprolol 5mg IV x 2 doses Allergies Allergy/AdvReac Type Severity Reaction Status Date / Time codeine AdvReac Mild NAUSEA Verified 02/01/22 19:56 Home Medications Medication Instructions Recorded Confirmed Type calcium carbonate 600 mg-vitamin 1 tab PO DAILY tab 05/25/19 02/01/22 History D3 20 mcg (800 unit) tablet (Caltrate with Vitamin D3) cholecalciferol (vitamin D3) 50 2,000 units PO DAILY cap 05/25/19 02/01/22 History mcg (2,000 unit) capsule cyanocobalamin (vitamin B-12) 1,000 mcg PO DAILY tab 05/25/19 02/01/22 History 1,000 mcg tablet,extended release multivitamin 1 tab PO DAILY tab 05/25/19 02/01/22 History omega-3 fatty acids 1,000 mg 1,000 mg PO DAILY cap 05/25/19 02/01/22 History capsule (Fish Oil Concentrate) vit A 300 mcg-C 200 mg-E 27 1 tab PO DAILY tab 05/25/19 02/01/22 History mg-lutein 2 mg and minerals tablet (Ocuvite with Lutein) Oxygen Home #1 ea 07/24/19 10/14/21 Rx zinc 50 mg tablet 50 mg PO DAILY 11/21/20 02/01/22 History ascorbic acid (vitamin C) 1,000 mg 1 g PO DAILY tab 12/24/20 02/01/22 History tablet pen needle, diabetic 31 gauge x #50 ea 04/03/21 10/14/21 Rx 3/16" (BD Ultra-Fine Mini Pen Needle) furosemide 40 mg tablet 40 mg PO DAILY 07/20/21 02/01/22 History liraglutide 0.6 mg/0.1 mL (18 mg/3 See Rx Instructions SUBCUT 07/28/21 02/01/22 Rx mL) subcutaneous pen injector .COMPLEX #15 ml ([employer] 2-Ethan) blood sugar diagnostic (Do It In PersonTouch #300 ea 08/05/21 10/14/21 Rx Ultra Test) levothyroxine 75 mcg tablet 75 mcg PO DAILY #90 tab 08/25/21 02/01/22 Rx lisinopril 20 mg tablet 20 mg PO DAILY #90 tab 08/25/21 02/01/22 Rx metoprolol succinate 25 mg 25 mg PO QAM #90 tab 09/02/21 02/01/22 Rx tablet,extended release 24 hr potassium chloride 10 mEq 10 meq PO DAILY #90 tab 10/14/21 02/01/22 Rx tablet,extended release apixaban 5 mg tablet (Eliquis) 5 mg PO BID #180 tab 10/20/21 02/01/22 Rx amoxicillin 500 mg tablet See Rx Instructions .ROUTE 10/27/21 02/01/22 Rx .COMPLEX #4 tablet insulin glargine 100 unit/mL (3 50 unit SUBCUT QPM 02/01/22 02/01/22 History mL) subcutaneous pen (Lantus Solostar U-100 Insulin) insulin lispro 100 unit/mL 0 sliding scale dose SUBCUT AC MDD 02/01/22 02/01/22 History subcutaneous pen 50 units simvastatin 40 mg tablet 40 mg PO QPM 02/01/22 02/01/22 History Past Med/Surg History Medical History (Updated 02/01/22 @ 20:40 by Linda Farrell DO) Anemia Aortic stenosis Arthritis Atrial fibrillation with rapid ventricular response Benign neoplasm of large intestine BMI 60.0-69.9, adult Diabetes mellitus type 2, controlled Dyslipidemia 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) High serum lactate Hypertension Hypothyroidism Joint pain, knee Lactic acidosis LVH (left ventricular hypertrophy) Metabolic acidosis Obstructive sleep apnea 2L NC Paroxysmal atrial fibrillation Pulmonary embolism (2004) Pulmonary nodule Vitamin D deficiency Surgical History (Updated 02/01/22 @ 20:30 by Linda Farrell DO) H/O total knee replacement Right History of cholecystectomy History of colonoscopy (06/12/16) History of foot surgery bunion - left foot History of robot-assisted laparoscopic hysterectomy (05/02/21) Attempted procedure not possible secondary to small bowel obscuring pelvic structures Mirena IUD placed History of tooth extraction wisdom teeth S/P dilation and curettage (03/26/21) D&C Hysteroscopy with Myosure [facility] Dr. Barfield Family History Mother , Passed Age 83 Lung cancer radiation therapy and chemotherapy Brother Prostate cancer radiation Father No problems noted. Aunt , maternal Breast cancer Aunt , maternal Colorectal cancer Uncle , maternal Esophageal cancer Other Has no children Stroke Social History Smoking Status: Never smoker Tobacco Type: Cigarettes Age Started Using Tobacco: 16; Age Quit Using Tobacco: 60; packs per day: 1; Second Hand Exposure: No; Hx Alcohol Use: No Hx Substance Use: No Preferred Language: Sami Communication Ability: Effective Visual Impairment: Limited Hearing Ability: Normal Design Supervisor Required: No Beliefs That Will Affect Care: None marital status: Single Current Living Situation: Alone current occupational status: retired current occupation: Retired Feels Safe at Home: Yes Childhood Exposure to Second-Hand Smoke: No caffeine: Yes during the past year weight has: remained stable Dental Care, Regularly: Yes Physical Activity Frequency: Does not Exercise Seatbelt Use: always Sunscreen Use: Yes Do you think of yourself as: straight/heterosexual Assistive Devices: None Review of Systems Review of Systems: All systems reviewed & are unremarkable except as noted in HPI & below Physical Exam Physical Exam: General: patient resting comfortably, NAD, non-toxic in appearance, AA&O x 4 Skin: warm, dry, intact, no rashes or lesions HEENT: NC/AT, PERRL, EOMI, anicteric sclera, conjunctiva without injection, external ear normal to inspection and nontender, nares patent, moist mucus membranes, dentition intact, no oropharyngeal lesions, neck supple, trachea midline, no LAD, no thyromegaly, no JVD Heart: +S1/S2, irregularly irregular, tachycardic with rates 104 - 114, no m/r/g Lungs: equal air entry bilaterally, no rales/rhonchi/wheezes Abd: +BS, soft, NT/ND, no masses/organomegaly/ascites Ext: warm, 2+ pulses in UE/LE bilaterally, no clubbing/cyanosis or edema Neuro: nonfocal, patient AA&O x 4, speech intact, no facial droop, moving all extremities on command with equal strength 5/5 Results & Data Results & Data ([facility]) Vital Signs (Past 12 Hours) Vital Signs Temp Pulse Pulse Resp BP Pulse Ox 02/01/22 19:30 154/95 H 02/01/22 19:00 141/81 H 02/01/22 18:53 104 H 24 153/84 H 98 02/01/22 18:50 97 H 23 98 02/01/22 18:42 128 H 20 92 02/01/22 18:31 115 H 20 98 02/01/22 18:30 110 H 29 H 150/106 H 98 02/01/22 18:20 127 H 24 89 L 02/01/22 18:10 135 H 27 H 95 02/01/22 18:07 97 02/01/22 18:02 121 H 20 92 02/01/22 18:01 159/108 H 02/01/22 18:00 36.9 C 124 H 19 142/105 H 94 Laboratory Results Laboratory Results WBC 8.77 K/uL (4.8-10.8) 02/01/22 18:00 RBC 4.69 M/uL (4.2-5.4) 02/01/22 18:00 Hgb 14.9 g/dL (12.0-16.0) 02/01/22 18:00 Hct 45.5 % (37-47) 02/01/22 18:00 MCV 97.0 fL (80-100) 02/01/22 18:00 MCH 31.8 pg (25-34) 02/01/22 18:00 MCHC 32.7 g/dL (32-36) 02/01/22 18:00 RDW Std Deviation 47.9 fL (36.4-46.3) H 02/01/22 18:00 RDW Coeff of Keith 13.6 % (11.5-14.5) 02/01/22 18:00 Plt Count 228 K/uL (130-400) 02/01/22 18:00 MPV 10.7 fL (7.4-10.4) H 02/01/22 18:00 Immature Gran % (Auto) 0.6 % 02/01/22 18:00 Neut % (Auto) 65.0 % 02/01/22 18:00 Lymph % (Auto) 12.2 % 02/01/22 18:00 [place] % (Auto) 10.1 % 02/01/22 18:00 Eos % (Auto) 11.9 % 02/01/22 18:00 Baso % (Auto) 0.2 % 02/01/22 18:00 Neut # (Auto) 5.70 K/uL (1.4-6.5) 02/01/22 18:00 Lymph # (Auto) 1.07 K/uL (1.2-3.4) L 02/01/22 18:00 [place] # (Auto) 0.89 K/uL (0.11-0.59) H 02/01/22 18:00 Eos # (Auto) 1.04 K/uL (0-0.5) H 02/01/22 18:00 Baso # (Auto) 0.02 K/uL (0-0.2) 02/01/22 18:00 Immature Gran # (Auto) 0.05 K/uL (0.00-0.02) H 02/01/22 18:00 Absolute Nucleated RBC 0.02 K/uL (0-0) H 02/01/22 18:00 Nucleated RBC % (auto) 0.3 % 02/01/22 18:00 Sodium 138 mmol/L (136-145) 02/01/22 18:00 Potassium 3.5 mmol/L (3.5-5.1) 02/01/22 19:05 Chloride 101 mmol/L (98-107) 02/01/22 18:00 Carbon Dioxide 24 mmol/L (21-32) 02/01/22 18:00 Anion Gap 13 (3-11) H 02/01/22 18:00 BUN 16 mg/dl (6-23) 02/01/22 18:00 Creatinine 0.95 mg/dl (0.6-1.2) 02/01/22 18:00 Est Cr Clr Drug Dosing 69.2 ml/min 02/01/22 18:00 Est GFR ( Amer) 68.9 ml/min 02/01/22 18:00 Est GFR (Non-Af Amer) 59.4 ml/min 02/01/22 18:00 BUN/Creatinine Ratio 16.8 (10-20) 02/01/22 18:00 Glucose 234 mg/dl (70-99(Fasting)) H 02/01/22 18:00 Calcium 9.5 mg/dl (8.5-10.1) 02/01/22 18:00 Total Bilirubin 0.5 mg/dl (0.2-1.0) 02/01/22 18:00 AST 17 U/L (13-39) 02/01/22 19:05 ALT 21 U/L (7-52) 02/01/22 18:00 Alkaline Phosphatase 91 U/L (34-104) 02/01/22 18:00 Troponin I High Sens 6.8 pg/ml (0-14) 02/01/22 18:00 Total Protein 7.1 gm/dl (6.0-8.3) 02/01/22 18:00 Albumin 4.1 gm/dl (3.4-5.0) 02/01/22 18:00 Globulin 3.0 gm/dl (2.5-4.0) 02/01/22 18:00 Albumin/Globulin Ratio 1.4 (0.9-2) 02/01/22 18:00 Lipase 35 U/L (11-82) 02/01/22 18:00 SARS-CoV-2, RNA, NAAT NEGATIVE (NEGATIVE) 02/01/22 18:24 Impressions Chest X-Ray 02/01/22 18:05 XR chest 1V portable CLINICAL HISTORY: Atypical chest pain. COMPARISON STUDY: Chest CT October 02, 2021. Chest radiograph July 20, 2021. FINDINGS: Lung volumes are mildly diminished. There is no pneumothorax or pleural effusion. No consolidation is identified to suggest pneumonia. Cardiomediastinal silhouette is stable. Subtle interstitial prominence is likely chronic. Severe osteoarthritis of the left glenohumeral joint is incidentally noted. IMPRESSION: No acute cardiopulmonary findings. No significant change in appearance of the chest. ACT 112: Negative or not required by law. Electronically signed by: Jonas Monterroso M.D. 02/01/2022 6:42 PM ECG Additional Comments: EKG wtih AF at 115bpm, rightward axis deviation, QRS=1-8. [id number] Code Status & VTE Plan VTE Prophylaxis Plan VTE Prophylaxis will be ordered: Yes PG Care Time/CCT Total # of Minutes Spent Total Time Spent with Patient: Total time spent is greater than 50% in coordination of care (as documented) at patient's floor/unit and/or counseling patient: Coding Level of Care Code INT OBSERVATION CARE 70M LVL 3 Diagnoses Atrial fibrillation with rapid ventricular response I48.91 Dyslipidemia E78.5 Hypertension I10 Hypothyroidism E03.9 Aortic stenosis I35.0 Diabetes mellitus type 2, controlled E11.9 Obstructive sleep apnea G47.33
[2022-02-01 20:45] LABS: Magnesium 1.6 mg/dl (1.7-2.4); Phosphorus 2.9 mg/dl (2.5-4.9)
[2022-02-01] MEDS ORDERED: GLUCAGON FOR INJ 1 MG VIAL SQ PRN (21:38)
[2022-02-01] MEDS ORDERED: METOPROLOL TARTRATE 1 MG/ML VIAL IV PRN (21:38)
[2022-02-01] MEDS ORDERED: INSULIN GLARGINE SOLOSTAR 100 UNITS/ML 3 ML PEN SQ SCH (21:38)
[2022-02-01] MEDS ORDERED: GLUCOSE 40% GEL 15 GM TUBE PO PRN (21:38)
[2022-02-01] MEDS ORDERED: SIMVASTATIN 40 MG TAB PO SCH (21:38)
[2022-02-01] MEDS ORDERED: ACETAMINOPHEN 325 MG TAB PO PRN (21:38)
[2022-02-01] MEDS ORDERED: DEXTROSE 50% 50 ML SYRINGE IV PRN (21:38)
[2022-02-01] MEDS ORDERED: GLUCOSE 10 TABS/TUBE PO PRN (21:38)
[2022-02-01] MEDS ORDERED: CARBOHYDRATES FOR HYPOGLYCEMIA PO PRN (21:38)
[2022-02-01] MEDS: APIXABAN 5 MG TABLET PO SCH (22:36)
[2022-02-01] MEDS: INSULIN ASPART PER UNIT SC SCH (22:42)
[2022-02-01] MEDS: MAGNESIUM SULFATE / D5W 1 GM/100 ML BAG IV SCH (22:43)
[2022-02-02] MEDS: MAGNESIUM SULFATE / D5W 1 GM/100 ML BAG IV SCH ×2 (00:38→02:47)
[2022-02-02 03:31] VITALS: TEMP 97.5
[2022-02-02 06:28] LABS: Basophils # (auto) 0.03 K/uL (0-0.2); Basophils % (auto) 0.4 %; Hematocrit (blood only) 43.3 % (37-47); Hemoglobin 14.2 g/dL (12.0-16.0); Immature Granulocytes # (auto) 0.03 K/uL (0.00-0.02); Immature Granulocytes % (auto) 0.4 %; Lymphocytes # (auto) 1.26 K/uL (1.2-3.4); Lymphocytes % (auto) 15.1 %; Mean Corpuscular Hemoglobin 31.7 pg (25-34); Mean Corpuscular Hgb Conc 32.8 g/dL (32-36); Mean Corpuscular Volume 96.7 fL (80-100); Mean Platelet Volume 10.3 fL (7.4-10.4); Monocytes # (auto) 0.96 K/uL (0.11-0.59); Monocytes % (auto) 11.5 %; Neutrophils # (auto) 5.08 K/uL (1.4-6.5); Neutrophils % (auto) 60.6 %; Platelet Count 220 K/uL (130-400); RDW Coefficient of Variation 13.8 % (11.5-14.5); Red Blood Count 4.48 M/uL (4.2-5.4); White Blood Count 8.36 K/uL (4.8-10.8)
[2022-02-02] MEDS ORDERED: LEVOTHYROXINE SODIUM 75 MCG TABLET PO SCH (06:30)
[2022-02-02 06:55] LABS: BUN Creatinine Ratio 18.3 (10-20); Calcium 9.1 mg/dl (8.5-10.1); Creatinine Clr Calc Pharmacy 91.1 ml/min; Est GFR (African American) 97.9 ml/min; Est GFR (Non-African American) 84.5 ml/min; Potassium 3.5 mmol/L (3.5-5.1)
[2022-02-02 08:07] LABS: Estimated Average Glucose 154 mg/dl
[2022-02-02] MEDS: APIXABAN 5 MG TABLET PO SCH (08:54)
[2022-02-02] MEDS: INSULIN ASPART PER UNIT SC SCH ×2 (08:55→12:08)
[2022-02-02] MEDS ORDERED: FUROSEMIDE 40 MG TAB PO SCH (09:00)
[2022-02-02] MEDS ORDERED: METOPROLOL SUCC 25MG EXT REL TAB PO SCH (09:00)
[2022-02-02] MEDS ORDERED: lisinopril 20 MG TAB PO SCH (09:00)
[2022-02-02 11:18] VITALS: O2SAT 92
[2022-02-02 14:39] VITALS: BP 123/66
[2022-02-02 15:56] VITALS: PULSE 75
--- NOTE | 2022-02-03 06:09 | Electrocardiogram Report ---
Test Reason : Blood Pressure : / mmHG Vent. Rate : 115 BPM Atrial Rate : 288 BPM P-R Int : 000 ms QRS Dur : 108 ms QT Int : 340 ms P-R-T Axes : 000 096 019 degrees QTc Int : 470 ms Atrial fibrillation with rapid ventricular response Rightward axis Abnormal ECG When compared with ECG of 20-JUL-2021 19:24, Atrial fibrillation has replaced Sinus rhythm Confirmed by Loc Ware ([id number]) on 02/03/2022 6:08:44 AM Referred By: Stuart Mi Confirmed By:Loc Ware
--- NOTE | 2022-02-03 16:49 | Discharge Summary ---
Date of Service February 02, 2022 Admission HPI Per Admitting Provider Sherley Enamorado is a 71yo female with history of paroxysmal atrial fibrillation on Metoprolol and Eliquis anticoagulation, DM, HTN, HLP, Hypothyroidism presenting with atrial fibrillation with RVR. Patient was sitting in her chair at home when she suddenly developed palpitations around 16:30. She has a home heart monitor and rate was reported to be 150-160, patient reported rhythm being irregularly irregular. She had some mild shortness of breath but denies chest pain, nausea, dizziness or presyncope. Upon arrival to the ER patient tachycardic at 135bpm. She was administered 500 mL NSS and Metoprolol 5mg IV x 2 doses with improvement. Presently 104 - 114 during my visit with her. She has no additional complaints. Had a cold last week and was taking [facility] cough medicine. Otherwise has been feeling healthy. She denies fever, chills, abdominal pain, nausea, vomiting, diarrhea or constipation. She still has a slight cough. Patient follows with Dr. Mi. She is schedule to have a routine echoc ardiogram performed at the end of this month. She denies edema, weight gain, orthopnea. ER Course: NSS x 500mL, Metoprolol 5mg IV x 2 doses Principal Diagnosis Atrial fibrillation with RVR Discharge Exam General: patient resting comfortably, NAD, non-toxic in appearance, AA&O x 4 Skin: warm, dry, intact, no rashes or lesions HEENT: NC/AT, PERRL, EOMI, anicteric sclera, conjunctiva without injection, external ear normal to inspection and nontender, nares patent, moist mucus membranes, dentition intact, no oropharyngeal lesions, neck supple, trachea midline, no LAD, no thyromegaly, no JVD Heart: +S1/S2, RRR, no m/r/g Lungs: equal air entry bilaterally, no rales/rhonchi/wheezes Abd: +BS, soft, NT/ND, no masses/organomegaly/ascites Ext: warm, 2+ pulses in UE/LE bilaterally, no clubbing/cyanosis or edema Neuro: nonfocal, patient AA&O x 4, speech intact, no facial droop, moving all extremities on command with equal strength 5/5 Discharge Data Allergies Allergy/AdvReac Type Severity Reaction Status Date / Time codeine AdvReac Mild NAUSEA Verified 02/03/22 16:25 Consultations 02/01/22 19:48 ED Decision to Admit Stat Hospital Course (1) Atrial fibrillation with rapid ventricular response: 71yo female with history of paroxysmal atrial fibrillation presenting with rapid ventricular response. Rate improved after 500mL NSS and Metoprolol 5mg IV x 2 doses. Patient without complaints at present. No evidence of failure. -Observation to medical with telemetry -Check Mg and PO4 x 1 and replete as needed -Check TSH -Administer 25mg Metoprolol tartrate PO now -Metoprolol 5mg IV q 4 hours as needed for HR >110bpm -Resume Metoprolol succinate in AM - consider increasing dosage pending HR response -Continue Apixaban 5mg po BID On day of discharge: Patient spontaneously converted back to sinus overnight close to midnight. Patient is comfortable being discharged home. Given that her HR is 70, will increase her beta modesto dose to 37.5 mg of metoprolol from 25 mg. (2) Dyslipidemia: Chronic. Last lipid panel 11/16/20 with Ovvyxxmzysl=699, LDL=53, HDL=55, QJ=407 -Continue Simvastatin 40mg po daily (3) Hypertension: Blood pressure mildly elevated at present -Continue metoprolol 25mg po qAM -Continue Lisinopril 20mg po daily -Continue to monitor (4) Hypothyroidism: Chronic -Check TSH -Continue Synthroid 75mcg po daily (5) Diabetes mellitus type 2, controlled: Elevated blood sugar = 234 today. Diabetes well controlled overall. AIC=7 on 03/13/21 -Continue Lantus 50u qHS -Continue Liraglutide on discharge - not on formulary here -ISS -Goal blood sugar 100 - 140 while inpatient (6) Aortic stenosis: Mild aortic stenosis noted on echo 03/12/21 with no regurgitation. BESSY=1.6cm2 -Patient to have echo outpatient at the end of January (7) Obstructive sleep apnea: Patient uses 2L NC at night -Continue F/E/N - Heplock. Check Mg and PO4 and replete as needed, AHA/CC diet as tolerated Ppx - On Apixaban for AF - will continue Code - Full per discussion with patient Total Time Total Time Spent Total Time Spent (In Minutes): 35 Discharge Plan Discharge Items Patient Disposition: Home - Self-Care Reason For Visit: AF WITH RVR Discharge Diagnosis: Atrial fibrillation with RVR Activity: Resume your previous activity Non-emergency contact: Primary Care Provider Call non-emergency contact if: you have any medication questions Follow-up/Referrals: Emerson Herron MD [Primary Care Provider] - 02/09/22 11:00 am Diet: Regular Addtl Attending Provider Instructions: You have been hospitalized for an acute medical problem. During your stay at [facility], we have made an effort to correct the problem that brought you to the hospital while keeping you as comfortable as possible. Medications were used to bring your condition under control and your discharge instructions will include directions for any medications you should take after leaving the hospital. Please make sure you see your Primary Care Provider as part of your follow up plan. Pending Studies at Discharge: No Stand-Alone Forms: My [facility], Smoking Cessation Medications and DC Order Prescriptions: Continued (DME) OneTouch Ultra Test Strip See Rx Instructions .Route Qty: 300 RF: 3 levothyroxine 75 mcg tablet 75 mcg PO DAILY Qty: 90 RF: 3 lisinopril 20 mg tablet 20 mg PO DAILY Qty: 90 RF: 3 potassium chloride 10 mEq tablet extended release 10 meq PO DAILY Qty: 90 RF: 3 Eliquis 5 mg tablet 5 mg PO BID Qty: 180 RF: 3 calcium carbonate-vitamin D3 [Caltrate with Vitamin D3] 600 mg(1,500mg) -800 unit tablet 1 tab PO DAILY RF: 0 multivitamin tablet 1 tab PO DAILY RF: 0 Ocuvite with Lutein 1,000 unit-200 mg-60 unit-2 mg tablet 1 tab PO DAILY RF: 0 cyanocobalamin (vitamin B-12) 1,000 mcg tablet extended release 1,000 mcg PO DAILY RF: 0 cholecalciferol (vitamin D3) 2,000 unit capsule 2,000 units PO DAILY RF: 0 zinc 50 mg tablet 50 mg PO DAILY RF: 0 (DME) pen needle, diabetic [BD Ultra-Fine Mini Pen Needle] 31 gauge x 3/16" needle See Rx Instructions .ROUTE .MEDSUPPLY Qty: 50 RF: 2 ascorbic acid (vitamin C) 1,000 mg tablet 1 g PO DAILY RF: 0 (DME) Oxygen Home Liters Per Minute See Dose Instructions .ROUTE .MEDSUPPLY Qty: 1 RF: 0 simvastatin 40 mg tablet 40 mg PO QPM RF: 0 insulin lispro 100 unit/mL insulin pen 0 sliding scale dose subcut AC MDD 50 units RF: 0 Lantus Solostar U-100 Insulin 100 unit/mL (3 mL) insulin pen 50 unit subcut QPM RF: 0 furosemide 40 mg tablet 40 mg PO DAILY RF: 0 Changed metoprolol succinate 25 mg tablet extended release 24 hr 37.5 mg PO QAM Qty: 90 RF: 3 No Action omega-3 fatty acids 1,000 mg Capsule 1,000 mg PO DAILY RF: 0 amoxicillin 500 mg tablet See Rx Instructions .ROUTE .COMPLEX PRN (Reason: PRIOR TO DENTAL APPT.) RF: 0 Victoza 2-Ethan 0.6 mg/0.1 mL (18 mg/3 mL) pen injector 1.2 mg subcut DAILY RF: 0 Discharge Orders: Discharge Order (Routine); Ordered 02/02/22 Ordered By: Jarad Silver/Other Patient Handouts: Managing Type 2 Diabetes Admission Data Admit Date/Time: 02/01/22 20:21 Attending Provider: Jarad Leiva Admit Provider: Linda Farrell Primary Care Provider: Emerson Herron Other Providers: Linda Farrell Other Interventions: Discharge Summary Assessment (RN) Last Done: 02/02/22 14:37 Coding Level of Care Code 21916 OBS Care - Discharge Diagnoses Atrial fibrillation with rapid ventricular response I48.91 Dyslipidemia E78.5 Hypertension I10 Hypertension type: unspecified Hypothyroidism E03.9 Diabetes mellitus type 2, controlled E11.9 Aortic stenosis I35.0 Cardiac valve disease etiology: etiology unspecified Obstructive sleep apnea G47.33
== END 2022-02-02 15:20 | disposition home or self-care (01) ==
LOC: ED 17:53 → 2N 17:53 → SUATTDRO 20:21 → 2N 21:12

== ENCOUNTER 2022-02-03 15:15 | Observation (INO) ==
[2022-02-03] MEDS ORDERED: dilTIAZem HCl 5 MG/ML 5 ML VIAL IV STA ×2 (15:54→17:53)
[2022-02-03] MEDS ORDERED: SODIUM CHLORIDE 0.9% 500 ML IV SCH (16:00)
[2022-02-03 16:06] LABS: Basophils # (auto) 0.03 K/uL (0-0.2); Basophils % (auto) 0.4 %; Eosinophils # (auto) 0.97 K/uL (0-0.5); Eosinophils % (auto) 12.4 %; Hematocrit (blood only) 43.5 % (37-47); Hemoglobin 14.4 g/dL (12.0-16.0); Immature Granulocytes # (auto) 0.04 K/uL (0.00-0.02); Immature Granulocytes % (auto) 0.5 %; Lymphocytes # (auto) 1.03 K/uL (1.2-3.4); Lymphocytes % (auto) 13.2 %; Mean Corpuscular Hemoglobin 31.9 pg (25-34); Mean Corpuscular Hgb Conc 33.1 g/dL (32-36); Mean Corpuscular Volume 96.5 fL (80-100); Mean Platelet Volume 10.5 fL (7.4-10.4); Monocytes # (auto) 0.84 K/uL (0.11-0.59); Monocytes % (auto) 10.8 %; Neutrophils % (auto) 62.7 %; Platelet Count 247 K/uL (130-400); RDW Coefficient of Variation 13.8 % (11.5-14.5); Red Blood Count 4.51 M/uL (4.2-5.4); White Blood Count 7.81 K/uL (4.8-10.8)
--- NOTE | 2022-02-03 16:13 | Emergency Department Note ---
Impression & Plan Atrial fibrillation with rapid ventricular response, OLIVARES (dyspnea on exertion) ED Provider Note NAME: WILI WAHL AGE: 71 SEX: F : 1950 ARRIVES VIA: Ambulance INFORMANT: Patient, ED PROVIDER(S): Stuart Renteria DO CHIEF COMPLAINT: Palpitation HPI: The patient is a 71-year-old female who presented to the emergency [facility] by ambulance for evaluation of palpitations. The patient has a history of paroxysmal atrial fibrillation. She was discharged from facility yesterday because of atrial fibrillation. She was started on new medications including an increase in her beta-mod[place] dose. She states that she has been compliant with her outpatient medications. She was walking up stairs and exerting herself when she started noticing palpitations and short of breath. She states that her pulse rate was racing. She called 911 and presented to the emergency department. She did not see her doctor or call her primary printed circuit boards inspector. She states symptoms have significantly improved now that she is at rest and on nasal cannula oxygen. She normally wears oxygen only at night or with exerting herself. She has a history of obstructive sleep apnea. The patient denies having any chest pain. She is noticed no hemoptysis or fever. She denies have any lower extremity swelling. ROS: See above HPI for pertinent positives & negatives. A total of 10 systems reviewed and were otherwise negative. PAST MEDICAL HISTORY: See Below PAST SURGICAL HISTORY: See Below FAMILY HISTORY: See Below SOCIAL HISTORY: See Below HOME MEDICATIONS: See Below ALLERGIES: See Below VITALS: See Below PHYSICAL EXAMINATION: GENERAL: Patient is awake alert in no acute distress patient is resting comfortably and showing no signs of anxiety EYES: The conjunctivae are clear. The pupils are round and reactive. EARS, NOSE, MOUTH AND THROAT: The nose is without any evidence of any deformity. Mucous membranes are moist. Tongue is midline. NECK: The neck is nontender and supple. RESPIRATORY: Normal respiratory effort is noted there is no evidence of wheezing rhonchi or rales CARDIOVASCULAR: Tachycardic and irregular heart sounds are noted auscultation. There is no definite murmur. GASTROINTESTINAL: The abdomen is soft. Abdomen is nontender. MUSCULOSKELETAL/EXTREMITIES: There is no evidence of gross deformity full range of motion is noted in the hips and shoulders. SKIN: There is no obvious evidence of any rash. There are no petechiae, pallor or cyanosis noted. NEUROLOGIC: Patient is awake alert and oriented x3 MEDICAL DECISION MAKING: Patient is a 71-year-old female who presented to the emergency department for an evaluation of A. fib and palpitations. The patient was treated with IV Cardizem and oral Lopressor in the emergency department. She was treated with IV fluids. I discussed patient's laboratory and radiographic studies with her. Ultimately she continued to have episodes of rapid atrial fibrillation and was not comfortable being discharged home despite my conversation with her primary printed circuit boards inspector group. The patient was reevaluated and still did not feel comfortable. For this reason [facility] Triage Nursing notes reviewed. Prior medical records reviewed Vital Signs: reviewed and remarkable for elevated blood pressure and tachycardia. Differential diagnosis: Premature contractions, electrolyte abnormality, cardiac dysrhythmia, thyroid dysfunction, pulmonary embolism, infection, gastrointestinal, as well as other pathologies. EKG was obtained in the emergency department. My interpretation is atrial fibrillation at 104 bpm. ER treatment provided: See below Diagnostics interpreted by me: ECG: EKG was obtained in the emergency department. My interpretation is atrial fibrillation at 104 bpm. No PVCs were noted. Nonspecific ST segment abnormalities were noted. This was compared to a tracing from February 01, 2022. No changes were noted. Cardiac Monitoring: An order was placed for continuous cardiac monitoring. The monitor shows a rate of 83 bpm with sinus rhythm. Laboratory studies: As stated above and show below. Imaging studies: See below Consultation(s): I discussed this case with Dr. Jeanie gomes for the patient's primary printed circuit boards inspector. [facility]. 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) High serum lactate Hypertension Hypothyroidism Joint pain, knee Lactic acidosis LVH (left ventricular hypertrophy) Metabolic acidosis Obstructive sleep apnea 2L NC Paroxysmal atrial fibrillation Pulmonary embolism (2004) Pulmonary nodule Vitamin D deficiency Surgical History H/O total knee replacement Right History of cholecystectomy History of colonoscopy (06/12/16) History of foot surgery bunion - left foot History of robot-assisted laparoscopic hysterectomy (05/02/21) Attempted procedure not possible secondary to small bowel obscuring pelvic structures Mirena IUD placed History of tooth extraction wisdom teeth S/P dilation and curettage (03/26/21) D&C Hysteroscopy with Myosure [facility] Dr. Barfield Family History Mother , Passed Age 83 Lung cancer radiation therapy and chemotherapy Brother Prostate cancer radiation Father No problems noted. Aunt , maternal Breast cancer Aunt , maternal Colorectal cancer Uncle , maternal Esophageal cancer Other Has no children Stroke Social History Smoking Status: Former smoker Tobacco Type: Cigarettes Age Started Using Tobacco: 16; Age Quit Using Tobacco: 60; packs per day: 1; Second Hand Exposure: No; Hx Alcohol Use: No Hx Substance Use: No Preferred Language: Bhutanese Communication Ability: Effective Visual Impairment: Limited Hearing Ability: Normal Desktop Architect Required: No Beliefs That Will Affect Care: None marital status: Single Current Living Situation: Alone Current Living Situation Comment: Home alone current occupational status: retired current occupation: Retired Feels Safe at Home: Yes Childhood Exposure to Second-Hand Smoke: No caffeine: Yes during the past year weight has: remained stable Dental Care, Regularly: Yes Physical Activity Frequency: Does not Exercise Seatbelt Use: always Sunscreen Use: Yes Do you think of yourself as: straight/heterosexual Assistive Devices: Cane Allergies Allergies Allergy/AdvReac Type Severity Reaction Status Date / Time codeine AdvReac Mild NAUSEA Verified 02/03/22 16:25 Home Meds Home Medications Medication Instructions Recorded Confirmed calcium carbonate 600 mg-vitamin 1 tab PO DAILY tab 05/25/19 02/03/22 D3 20 mcg (800 unit) tablet (Caltrate with Vitamin D3) cholecalciferol (vitamin D3) 50 2,000 units PO DAILY cap 05/25/19 02/03/22 mcg (2,000 unit) capsule cyanocobalamin (vitamin B-12) 1,000 mcg PO DAILY tab 05/25/19 02/03/22 1,000 mcg tablet,extended release multivitamin 1 tab PO DAILY tab 05/25/19 02/03/22 vit A 300 mcg-C 200 mg-E 27 1 tab PO DAILY tab 05/25/19 02/03/22 mg-lutein 2 mg and minerals tablet (Ocuvite with Lutein) zinc 50 mg tablet 50 mg PO DAILY 11/21/20 02/03/22 ascorbic acid (vitamin C) 1,000 mg 1 g PO DAILY tab 12/24/20 02/03/22 tablet furosemide 40 mg tablet 40 mg PO DAILY 07/20/21 02/03/22 insulin glargine 100 unit/mL (3 50 unit SUBCUT QPM 02/01/22 02/03/22 mL) subcutaneous pen (Lantus Solostar U-100 Insulin) insulin lispro 100 unit/mL 0 sliding scale dose SUBCUT AC MDD 02/01/22 02/03/22 subcutaneous pen 50 units simvastatin 40 mg tablet 40 mg PO QPM 02/01/22 02/03/22 amoxicillin 500 mg tablet See Rx Instructions .ROUTE 02/03/22 02/03/22 .COMPLEX PRN liraglutide 0.6 mg/0.1 mL (18 mg/3 1.2 mg SUBCUT DAILY 02/03/22 02/03/22 mL) subcutaneous pen injector ([employer] Mediatoza 2-Ethan) omega-3 fatty acids 1,000 mg 1,000 mg PO DAILY 02/03/22 02/03/22 capsule Previous Rx's Medication Instructions Recorded Oxygen Home #1 ea 07/24/19 pen needle, diabetic 31 gauge x #50 ea 04/03/21 3/16" (BD Ultra-Fine Mini Pen Needle) blood sugar diagnostic (OneTouch #300 ea 08/05/21 Ultra Test) levothyroxine 75 mcg tablet 75 mcg PO DAILY #90 tab 08/25/21 lisinopril 20 mg tablet 20 mg PO DAILY #90 tab 08/25/21 potassium chloride 10 mEq 10 meq PO DAILY #90 tab 10/14/21 tablet,extended release apixaban 5 mg tablet (Eliquis) 5 mg PO BID #180 tab 10/20/21 metoprolol succinate 25 mg 37.5 mg PO QAM #90 tab 02/02/22 tablet,extended release 24 hr Results & Data (ED) Vital Signs Vital Signs - 24 hr 02/03/22 15:26 02/03/22 15:28 02/03/22 15:31 Temperature 36.8 C Temperature Source Oral Pulse Rate 117 H Pulse Rate [Apical] Pulse Rhythm Irregular Pulse Rhythm [Apical] Pulse Strength Normal Pulse Strength [Apical] Respiratory Rate 24 Respiratory Effort / Characteristics Spontaneous Spontaneous Respiratory Depth Normal Respiratory Pattern Regular Blood Pressure 117/66 Blood Pressure [Left Arm] Blood Pressure Mean 83 Blood Pressure Mean [Left Arm] Blood Pressure Position Sitting Blood Pressure Position [Left Arm] Pulse Oximetry 91 96 Oxygen Delivery Method Room Air Nasal Cannula Nasal Cannula Oxygen Flow Rate 2 2 Sepsis Recent Fever Within 48 Hours No Sepsis New/Unexplained Change in Mental Status No Sepsis Action Taken by Nursing No Action Required 02/03/22 16:08 02/03/22 16:49 02/03/22 18:00 Temperature Temperature Source Pulse Rate Pulse Rate [Apical] 94 H 106 H Pulse Rhythm Pulse Rhythm [Apical] Regular Regular Pulse Strength Pulse Strength [Apical] Normal Normal Respiratory Rate 18 18 Respiratory Effort / Characteristics Non-Labored Non-Labored Respiratory Depth Normal Normal Respiratory Pattern Regular Regular Blood Pressure Blood Pressure [Left Arm] 137/80 119/87 Blood Pressure Mean Blood Pressure Mean [Left Arm] 99 97 Blood Pressure Position Blood Pressure Position [Left Arm] Lying Lying Pulse Oximetry 98 98 100 Oxygen Delivery Method Room Air Room Air Room Air Oxygen Flow Rate Sepsis Recent Fever Within 48 Hours Sepsis New/Unexplained Change in Mental Status Sepsis Action Taken by Nursing 02/03/22 18:41 02/03/22 19:01 02/03/22 19:31 Temperature Temperature Source Pulse Rate 88 93 H Pulse Rate [Apical] 89 Pulse Rhythm Pulse Rhythm [Apical] Pulse Strength Pulse Strength [Apical] Respiratory Rate 18 18 18 Respiratory Effort / Characteristics Non-Labored Respiratory Depth Normal Respiratory Pattern Regular Blood Pressure 147/93 H 162/93 H Blood Pressure [Left Arm] 116/75 Blood Pressure Mean 111 116 Blood Pressure Mean [Left Arm] 88 Blood Pressure Position Blood Pressure Position [Left Arm] Lying Pulse Oximetry 96 97 98 Oxygen Delivery Method Room Air Oxygen Flow Rate Sepsis Recent Fever Within 48 Hours Sepsis New/Unexplained Change in Mental Status Sepsis Action Taken by Nursing 02/03/22 20:01 02/03/22 20:30 Temperature Temperature Source Pulse Rate 96 H 104 H Pulse Rate [Apical] Pulse Rhythm Pulse Rhythm [Apical] Pulse Strength Pulse Strength [Apical] Respiratory Rate 20 20 Respiratory Effort / Characteristics Respiratory Depth Respiratory Pattern Blood Pressure 147/98 H 156/117 H Blood Pressure [Left Arm] Blood Pressure Mean 114 130 Blood Pressure Mean [Left Arm] Blood Pressure Position Blood Pressure Position [Left Arm] Pulse Oximetry 98 95 Oxygen Delivery Method Oxygen Flow Rate Sepsis Recent Fever Within 48 Hours Sepsis New/Unexplained Change in Mental Status Sepsis Action Taken by Residential Medications Current Medication List: was personally reviewed by me Laboratory Data Attestation: I reviewed the patient's lab results. Result diagrams: 02/03/22 15:38 02/03/22 15:38 Lab Results 02/03/22 02/03/22 02/03/22 Range/Units 15:38 15:38 15:38 WBC 7.81 (4.8-10.8) K/uL RBC 4.51 (4.2-5.4) M/uL Hgb 14.4 (12.0-16.0) g/dL Hct 43.5 (37-47) % MCV 96.5 (80-100) fL MCH 31.9 (25-34) pg MCHC 33.1 (32-36) g/dL RDW Std Deviation 49.0 H (36.4-46.3) fL RDW Coeff of Keith 13.8 (11.5-14.5) % Plt Count 247 (130-400) K/uL MPV 10.5 H (7.4-10.4) fL Immature Gran % (Auto) 0.5 % Neut % (Auto) 62.7 % Lymph % (Auto) 13.2 % [facility] % (Auto) 10.8 % Eos % (Auto) 12.4 % Baso % (Auto) 0.4 % Neut # (Auto) 4.90 (1.4-6.5) K/uL Lymph # (Auto) 1.03 L (1.2-3.4) K/uL [facility] # (Auto) 0.84 H (0.11-0.59) K/uL Eos # (Auto) 0.97 H (0-0.5) K/uL Baso # (Auto) 0.03 (0-0.2) K/uL Immature Gran # (Auto) 0.04 H (0.00-0.02) K/uL PT 10.9 (9.0-12.0) Seconds INR 1.0 (0.9-1.1) APTT 27.1 (21.0-31.0) Seconds PTT Ratio 1.0 Sodium (136-145) mmol/L Potassium (3.5-5.1) mmol/L Chloride (98-107) mmol/L Carbon Dioxide (21-32) mmol/L Anion Gap (3-11) BUN (6-23) mg/dl Creatinine (0.6-1.2) mg/dl Est Cr Clr Drug Dosing ml/min Est GFR ( Amer) ml/min Est GFR (Non-Af Amer) ml/min BUN/Creatinine Ratio (10-20) Glucose (70-99(Fasting)) mg/dl Calcium (8.5-10.1) mg/dl Magnesium (1.7-2.4) mg/dl Total Bilirubin (0.2-1.0) mg/dl AST (13-39) U/L ALT (7-52) U/L Alkaline Phosphatase (34-104) U/L Troponin I High Sens 6.4 (0-14) pg/ml Total Protein (6.0-8.3) gm/dl Albumin (3.4-5.0) gm/dl Globulin (2.5-4.0) gm/dl Albumin/Globulin Ratio (0.9-2) TSH (0.300-4.500) uIu/ml SARS-CoV-2, RNA, NAAT (NEGATIVE) 02/03/22 02/03/22 02/03/22 Range/Units 15:38 15:38 21:00 WBC (4.8-10.8) K/uL RBC (4.2-5.4) M/uL Hgb (12.0-16.0) g/dL Hct (37-47) % MCV (80-100) fL MCH (25-34) pg MCHC (32-36) g/dL RDW Std Deviation (36.4-46.3) fL RDW Coeff of Keith (11.5-14.5) % Plt Count (130-400) K/uL MPV (7.4-10.4) fL Immature Gran % (Auto) % Neut % (Auto) % Lymph % (Auto) % [facility] [place] % (Auto) % Eos % (Auto) % Baso % (Auto) % Neut # (Auto) (1.4-6.5) K/uL Lymph # (Auto) (1.2-3.4) K/uL [facility] [place] # (Auto) (0.11-0.59) K/uL Eos # (Auto) (0-0.5) K/uL Baso # (Auto) (0-0.2) K/uL Immature Gran # (Auto) (0.00-0.02) K/uL PT (9.0-12.0) Seconds INR (0.9-1.1) APTT (21.0-31.0) Seconds PTT Ratio Sodium 140 (136-145) mmol/L Potassium 3.3 L (3.5-5.1) mmol/L Chloride 104 (98-107) mmol/L Carbon Dioxide 21 (21-32) mmol/L Anion Gap 15 H (3-11) BUN 11 (6-23) mg/dl Creatinine 0.76 (0.6-1.2) mg/dl Est Cr Clr Drug Dosing 85.8 ml/min Est GFR ( Amer) 90.2 ml/min Est GFR (Non-Af Amer) 77.8 ml/min BUN/Creatinine Ratio 14.5 (10-20) Glucose 167 H (70-99(Fasting)) mg/dl Calcium 9.2 (8.5-10.1) mg/dl Magnesium 1.9 (1.7-2.4) mg/dl Total Bilirubin 0.5 (0.2-1.0) mg/dl AST 26 (13-39) U/L ALT 21 (7-52) U/L Alkaline Phosphatase 82 (34-104) U/L Troponin I High Sens (0-14) pg/ml Total Protein 7.0 (6.0-8.3) gm/dl Albumin 3.9 (3.4-5.0) gm/dl Globulin 3.1 (2.5-4.0) gm/dl Albumin/Globulin Ratio 1.3 (0.9-2) TSH 1.246 (0.300-4.500) uIu/ml SARS-CoV-2, RNA, NAAT NEGATIVE (NEGATIVE) Administered Medications Magnesium Sulfate/Dextrose (Magnesium Sulfate / D5w) 1 gm in 100 mls @ 50 mls/hr IV ONE ONE Stop: 02/03/22 23:07 Last Admin: 02/03/22 21:29 Dose: Not Given Documented by: [id number] Discontinued Medications Diltiazem HCl (Diltiazem Hcl 5 Mg/Ml 5 Ml Vial) 10 mg IV NOW STA Stop: 02/03/22 15:55 Last Admin: 02/03/22 16:14 Dose: 10 mg Documented by: [id number] Cosigned by: [id number] Diltiazem HCl (Diltiazem Hcl 5 Mg/Ml 5 Ml Vial) 10 mg IV NOW STA Stop: 02/03/22 17:54 Last Admin: 02/03/22 18:07 Dose: 10 mg Documented by: [id number] Cosigned by: [id number] Sodium Chloride (Nss) 500 mls @ 999 mls/hr IV .Q31M CATALINO Stop: 02/03/22 16:30 Last Infusion: 02/03/22 16:45 Dose: 0 mls/hr Documented by: [id number] Admin: 02/03/22 16:14 Dose: 999 mls/hr Documented by: [id number] Magnesium Sulfate/Dextrose (Magnesium Sulfate 1gm / D5w Bag) Confirm Administered Dose 1 gm IV .STK-MED ONE Stop: 02/03/22 21:15 Last Admin: 02/03/22 21:18 Dose: 1 gm Documented by: [id number] Metoprolol Succinate (Metoprolol Succ 50mg Ext Rel Tab) 25 mg PO NOW STA Stop: 02/03/22 19:32 Last Admin: 02/03/22 19:41 Dose: 25 mg Documented by: [id number] Potassium Chloride (Potassium Chloride Crtab 20 Meq Tabcr) 40 meq PO NOW STA Stop: 02/03/22 21:09 Last Admin: 02/03/22 21:29 Dose: Not Given Documented by: [id number] Potassium Chloride (Potassium Chloride 10 Meq Tabcr) Confirm Administered Dose 40 meq PO .STK-MED ONE Stop: 02/03/22 21:16 Last Admin: 02/03/22 21:17 Dose: 40 meq Documented by: [id number] Imaging Data Radiologist's Impression: Chest X-Ray 02/03/22 15:54 XR chest 1V portable HISTORY: weakness COMPARISON: Chest 02/01/2022. FINDINGS: No pneumothorax. No pleural effusions. The cardiac silhouette is normal in size. There is mild diffuse interstitial thickening, unchanged. No new focal lung consolidations to suggest pneumonia. There are low lung volumes. IMPRESSION: No significant change compared to the prior study. No acute process. ACT 112: Negative or not required by law. Electronically signed by: Bryan Berry M.D. 02/03/2022 4:44 PM Discharge Plan Visit Data Chief Complaint: Cardiac Assessment ED Provider: Stuart Renteria Discharge Problem: Atrial fibrillation with rapid ventricular response, OLIVARES (dyspnea on exertion) Patient Disposition: Being Evaluated by Hospitalist Forms Stand Alone Forms: [facility] Prescriptions Prescriptions: No Action (DME) OneTouch Ultra Test Strip See Rx Instructions .Route Qty: 300 RF: 3 levothyroxine 75 mcg tablet 75 mcg PO DAILY Qty: 90 RF: 3 lisinopril 20 mg tablet 20 mg PO DAILY Qty: 90 RF: 3 potassium chloride 10 mEq tablet extended release 10 meq PO DAILY Qty: 90 RF: 3 Eliquis 5 mg tablet 5 mg PO BID Qty: 180 RF: 3 calcium carbonate-vitamin D3 [Caltrate with Vitamin D3] 600 mg(1,500mg) -800 unit tablet 1 tab PO DAILY RF: 0 multivitamin tablet 1 tab PO DAILY RF: 0 Ocuvite with Lutein 1,000 unit-200 mg-60 unit-2 mg tablet 1 tab PO DAILY RF: 0 cyanocobalamin (vitamin B-12) 1,000 mcg tablet extended release 1,000 mcg PO DAILY RF: 0 cholecalciferol (vitamin D3) 2,000 unit capsule 2,000 units PO DAILY RF: 0 zinc 50 mg tablet 50 mg PO DAILY RF: 0 (DME) pen needle, diabetic [BD Ultra-Fine Mini Pen Needle] 31 gauge x 3/16" needle See Rx Instructions .ROUTE .MEDSUPPLY Qty: 50 RF: 2 ascorbic acid (vitamin C) 1,000 mg tablet 1 g PO DAILY RF: 0 (DME) Oxygen Home Liters Per Minute See Dose Instructions .ROUTE .MEDSUPPLY Qty: 1 RF: 0 simvastatin 40 mg tablet 40 mg PO QPM RF: 0 insulin lispro 100 unit/mL insulin pen 0 sliding scale dose subcut AC MDD 50 units RF: 0 Lantus Solostar U-100 Insulin 100 unit/mL (3 mL) insulin pen 50 unit subcut QPM RF: 0 metoprolol succinate 25 mg tablet extended release 24 hr 37.5 mg PO QAM Qty: 90 RF: 3 furosemide 40 mg tablet 40 mg PO DAILY RF: 0 omega-3 fatty acids 1,000 mg Capsule 1,000 mg PO DAILY RF: 0 amoxicillin 500 mg tablet See Rx Instructions .ROUTE .COMPLEX PRN (Reason: PRIOR TO DENTAL APPT.) RF: 0 Victoza 2-Ethan 0.6 mg/0.1 mL (18 mg/3 mL) pen injector 1.2 mg subcut DAILY RF: 0 Referrals Referrals: Emerson Herron MD [Primary Care Provider] -
[2022-02-03 16:22] LABS: Partial Thromboplastin Time 27.1 Seconds (21.0-31.0); Prothrombin Time 10.9 Seconds (9.0-12.0)
--- NOTE | 2022-02-03 16:45 | XRay Report ---
XR chest 1V portable HISTORY: weakness COMPARISON: Chest 02/01/2022. FINDINGS: No pneumothorax. No pleural effusions. The cardiac silhouette is normal in size. There is m ild diffuse interstitial thickening, unchanged. No new focal lung consolidations to suggest pneumonia . There are low lung volumes. IMPRESSION: No significant change compared to the prior study. No acute process. ACT 112: Negative or not required by law. Electronically signed by: Bryan Berry M.D. 02/03/2022 4:44 PM
[2022-02-03 19:04] LABS: Albumin Globulin Ratio 1.3 (0.9-2); Albumin Level 3.9 gm/dl (3.4-5.0); BUN Creatinine Ratio 14.5 (10-20); Bilirubin,Total 0.5 mg/dl (0.2-1.0); Calcium 9.2 mg/dl (8.5-10.1); Creatinine Clr Calc Pharmacy 85.8 ml/min; Est GFR (African American) 90.2 ml/min; Est GFR (Non-African American) 77.8 ml/min; Globulin 3.1 gm/dl (2.5-4.0); Magnesium 1.9 mg/dl (1.7-2.4); Potassium 3.3 mmol/L (3.5-5.1)
[2022-02-03] MEDS ORDERED: METOPROLOL SUCC 50MG EXT REL TAB PO STA (19:31)
[2022-02-03] MEDS ORDERED: POTASSIUM CHLORIDE CRTAB 20 MEQ TABCR PO STA (21:08)
[2022-02-03] MEDS ORDERED: MAGNESIUM SULFATE / D5W 1 GM/100 ML BAG IV ONE (21:08)
[2022-02-03] MEDS ORDERED: MAGNESIUM SULFATE 1GM / D5W BAG IV ONE (21:14)
[2022-02-03] MEDS ORDERED: POTASSIUM CHLORIDE 10 MEQ TABCR PO ONE (21:15)
--- NOTE | 2022-02-03 21:27 | History & Physical Report ---
Date of Service February 03, 2022 Assessment & Plan (1) Atrial fibrillation with rapid ventricular response: (2) Diabetes mellitus type 2, controlled: (3) Hypothyroidism: (4) Hypertension: (5) Dyslipidemia: (6) Obstructive sleep apnea: (7) Hypokalemia: Plan: 71 yo F Hx AFib, aortic stenosis, hypothyroidism, HTN, DM2, ANN MARIE admitted for atrial fibrillation with rapid ventricular response. AFib with RVR: Presented with complaints of palpitations and dyspnea with HR up to 140s with AFib on telemetry and EKG. Patient has already received metoprolol 25mg PO, as well as diltiazem 10mg IV x2. Patient's HR 80s on my interview. TSH normal on current levothyroxine dose. Metoprolol 5mg IV q4h as needed for HR >120. Replete electrolytes as described below. Electrolyte derangement, Hypokalemia: Presents with K of 3.3 on admission. Goal K >4. Given KCl 40 meq PO, 20 meq K Riders IV. Patient without evidence of CHF on last Echo. Repeat ordered as described above, and furosemide decreased to 20mg daily with low salt diet. KCl daily supplementation was 10meq daily in outpatient; will increase to 40 meq daily. Mg 1.9 on admission. Given AFib RVR will have Mg goal of >2. Dyspnea, Hx aortic stenosis: History of aortic stenosis, noted to be mild on Echo in 02/2021. Given dyspnea and scheduled to have Echo in next several weeks, will do in the AM. CXR without evidence of pulmonary edema or pneumonia to explain dyspnea. HTN: History of. Continue lisinopril 20mg daily, metoprolol. ANN MARIE: Patient is on 2LNC at night due to hypoxia with sleep; continue this. Has been diagnosed with ANN MARIE in the past and given script for CPAP, however patient has been resistant to use in the past. Advocated for CPAP this visit, especially with history of AFib; continue education while admitted. DM2: Lantus 25u BID with sliding scale insulin while admitted. A1c 7.0% on 02/02/2022. Hypothyroidism: Continue levothyroxine 75mcg daily. Code Status: FULL CODE FEN: low salt, DM2 diet DVT ppx: Eliquis 5mg BID Dispo: Med/Surg with Telemetry History of Present Illness Chief Complaint: palpitations, dyspnea Primary Care Provider: Emerson Herron MD 71 yo F Hx AFib, ANN MARIE, aortic stenosis, hypothyroidism, HTN, DM2 presents to ER from discharge from hospital 02/02 for AFib with RVR. She was discharged with increased dose of metoprolol succinate (increased from 25mg daily to 37.5mg daily). She reports that she was walking around her home today and started feeling palpitations and trouble breathing, and checked her HR which was in the 130s. On presentation here to ER noted to have HR in the 120s. She as given diltiazem 10mg IV x2 as well as metoprolol succinate 25mg PO without change in HR, and so hospitalist service was consulted for admission. On my interview patient denies current palpitations but when HR goes higher than 130 she feels them. She denies chest pain, shortness of breath, nausea, vomiting, diarrhea, dizziness, headache. Allergies Allergy/AdvReac Type Severity Reaction Status Date / Time codeine AdvReac Mild NAUSEA Verified 02/03/22 16:25 Home Medications Medication Instructions Recorded Confirmed Type calcium carbonate 600 mg-vitamin 1 tab PO DAILY tab 05/25/19 02/03/22 History D3 20 mcg (800 unit) tablet (Caltrate with Vitamin D3) cholecalciferol (vitamin D3) 50 2,000 units PO DAILY cap 05/25/19 02/03/22 History mcg (2,000 unit) capsule cyanocobalamin (vitamin B-12) 1,000 mcg PO DAILY tab 05/25/19 02/03/22 History 1,000 mcg tablet,extended release multivitamin 1 tab PO DAILY tab 05/25/19 02/03/22 History vit A 300 mcg-C 200 mg-E 27 1 tab PO DAILY tab 05/25/19 02/03/22 History mg-lutein 2 mg and minerals tablet (Ocuvite with Lutein) Oxygen Home #1 ea 07/24/19 10/14/21 Rx zinc 50 mg tablet 50 mg PO DAILY 11/21/20 02/03/22 History ascorbic acid (vitamin C) 1,000 mg 1 g PO DAILY tab 12/24/20 02/03/22 History tablet pen needle, diabetic 31 gauge x #50 ea 04/03/21 10/14/21 Rx 3/16" (BD Ultra-Fine Mini Pen Needle) furosemide 40 mg tablet 40 mg PO DAILY 07/20/21 02/03/22 History blood sugar diagnostic (OneTouch #300 ea 08/05/21 10/14/21 Rx Ultra Test) levothyroxine 75 mcg tablet 75 mcg PO DAILY #90 tab 08/25/21 02/03/22 Rx lisinopril 20 mg tablet 20 mg PO DAILY #90 tab 08/25/21 02/03/22 Rx potassium chloride 10 mEq 10 meq PO DAILY #90 tab 10/14/21 02/03/22 Rx tablet,extended release apixaban 5 mg tablet (Eliquis) 5 mg PO BID #180 tab 10/20/21 02/03/22 Rx insulin glargine 100 unit/mL (3 50 unit SUBCUT QPM 02/01/22 02/03/22 History mL) subcutaneous pen (Lantus Solostar U-100 Insulin) insulin lispro 100 unit/mL 0 sliding scale dose SUBCUT AC MDD 02/01/22 02/03/22 History subcutaneous pen 50 units metoprolol succinate 25 mg 37.5 mg PO QAM #90 tab 02/02/22 02/03/22 Rx tablet,extended release 24 hr amoxicillin 500 mg tablet See Rx Instructions .ROUTE 02/03/22 02/03/22 History .COMPLEX PRN liraglutide 0.6 mg/0.1 mL (18 mg/3 1.2 mg SUBCUT DAILY 02/03/22 02/03/22 History mL) subcutaneous pen injector (Victoza 2-Ethan) omega-3 fatty acids 1,000 mg 1,000 mg PO DAILY 02/03/22 02/03/22 History capsule amiodarone 200 mg tablet 200 mg PO BIDM #60 tab 02/04/22 Rx magnesium oxide 400 mg (241.3 mg 400 mg PO BID #60 tab 02/04/22 Rx magnesium) tablet pravastatin 40 mg tablet 40 mg PO HS #30 tab 02/04/22 Rx 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) High serum lactate Hypertension Hypothyroidism Joint pain, knee Lactic acidosis LVH (left ventricular hypertrophy) Metabolic acidosis Obstructive sleep apnea 2L NC Paroxysmal atrial fibrillation Pulmonary embolism (2004) Pulmonary nodule Vitamin D deficiency Surgical History H/O total knee replacement Right History of cholecystectomy History of colonoscopy (06/12/16) History of foot surgery bunion - left foot History of robot-assisted laparoscopic hysterectomy (05/02/21) Attempted procedure not possible secondary to small bowel obscuring pelvic structures Mirena IUD placed History of tooth extraction wisdom teeth S/P dilation and curettage (03/26/21) D&C Hysteroscopy with Myosure [facility] Dr. Barfield Family History Mother , Passed Age 83 Lung cancer radiation therapy and chemotherapy Brother Prostate cancer radiation Father No problems noted. Aunt , maternal Breast cancer Aunt , maternal Colorectal cancer Uncle , maternal Esophageal cancer Other Has no children Stroke Social History Smoking Status: Former smoker Tobacco Type: Cigarettes Age Started Using Tobacco: 16; Age Quit Using Tobacco: 60; packs per day: 1; Second Hand Exposure: No; Hx Alcohol Use: No Hx Substance Use: No Preferred Language: Taiwanese Communication Ability: Effective Visual Impairment: Limited Hearing Ability: Normal Member Of Congress Required: No Beliefs That Will Affect Care: None marital status: Single Current Living Situation: Alone Current Living Situation Comment: Home alone current occupational status: retired current occupation: Retired Feels Safe at Home: Yes Childhood Exposure to Second-Hand Smoke: No caffeine: Yes during the past year weight has: remained stable Dental Care, Regularly: Yes Physical Activity Frequency: Does not Exercise Seatbelt Use: always Sunscreen Use: Yes Do you think of yourself as: straight/heterosexual Assistive Devices: Cane and Oxygen - at Night Assistive Devices Comment: O2 thru Tru[employer] Review of Systems Review of Systems: All systems reviewed & are unremarkable except as noted in HPI & below Physical Exam Constitutional: WD/WN, vitals as above Eyes: PERRL, conjunctivae normal, anicteric sclerae ENMT: external ear and nose normal, oropharynx normal Neck: normal visual inspection Respiratory: normal respiratory effort, lungs clear to auscultation Cardiovascular: HR irregularly irregular, non-tachycardic, 2/6 systolic murmur over RUSB, trace peripheral edema Gastrointestinal (Abdomen): normal bowel sounds, soft, nontender, no hepatosplenomegaly Musculoskeletal: no cyanosis or clubbing, extremities motor strength 5/5 Skin: no rashes, warm and dry Neurologic: AAOx3, normal speech. PERRLA, EOMI, no nystagmus. Bilateral UE, LE, and face without sensory or motor deficits. No tremor. Psychiatric: A+Ox3, euthymic affect Results & Data Results & Data ([facility]) Vital Signs (Past 12 Hours) Vital Signs Temp Pulse Pulse Resp BP BP Pulse Ox 02/03/22 20:30 104 H 20 156/117 H 95 02/03/22 20:01 96 H 20 147/98 H 98 02/03/22 19:31 93 H 18 162/93 H 98 02/03/22 19:01 88 18 147/93 H 97 02/03/22 18:41 89 18 116/75 96 02/03/22 18:00 106 H 18 119/87 100 02/03/22 16:49 94 H 18 137/80 98 02/03/22 16:08 98 02/03/22 15:31 96 02/03/22 15:26 36.8 C 117 H 24 117/66 91 Supervising Physician Co-Signing Physician Notes Attending addendum: I have physically seen this patient, have supervised the medical residents activities, and agree with the H&P unless as otherwise noted. Assessment and Plan: Atrial fibrillation with RVR- Received Cardizem 10 mg IV x2, and metoprolol 25 mg p.o. from the ED Patient was noted to have potassium of 3.2 and magnesium of 1.9 We gave potassium 40 mEq p.o. and 2K riders, and magnesium sulfate 1 g IV, and patient converted to normal sinus rhythm during these administrations The patient will be admitted to telemetry for serial cardiac enzymes, serial EKG's, cardiac rhythm monitoring. Remaining orders and notations as noted Resident Activity Tracking Resident Involvement: Resident Care Provided Care Provided: Adult [facility] (1) Hypertension Hypertension type: unspecified Qualified Code(s): I10 - Essential (primary) hypertension
[2022-02-03] MEDS ORDERED: METOPROLOL TARTRATE 1 MG/ML VIAL IV PRN (21:51)
[2022-02-03] MEDS: INSULIN GLARGINE SOLOSTAR 100 UNITS/ML 3 ML PEN SQ SCH (22:14)
[2022-02-03] MEDS: POTASSIUM CHLORIDE / WTR 10 MEQ/100 ML PLCT IV SCH ×2 (22:15→23:56)
[2022-02-03] MEDS ORDERED: ONDANSETRON INJ 2 MG/ML 2 ML VIAL IV PRN (22:55)
[2022-02-03] MEDS ORDERED: DEXTROSE 50% 50 ML SYRINGE IV PRN (22:55)
[2022-02-03] MEDS ORDERED: GLUCAGON FOR INJ 1 MG VIAL SQ PRN (22:55)
[2022-02-03] MEDS ORDERED: CARBOHYDRATES FOR HYPOGLYCEMIA PO PRN (22:55)
[2022-02-03] MEDS ORDERED: GLUCOSE 40% GEL 15 GM TUBE PO PRN (22:55)
[2022-02-03] MEDS ORDERED: GLUCOSE 10 TABS/TUBE PO PRN (22:55)
[2022-02-03] MEDS ORDERED: POLYETHYLENE (MIRALAX) 17 GM PACK PO PRN (22:55)
[2022-02-03] MEDS ORDERED: ACETAMINOPHEN 325 MG TAB PO PRN (22:55)
[2022-02-03] MEDS: APIXABAN 5 MG TABLET PO SCH (23:25)
[2022-02-04] MEDS ORDERED: LEVOTHYROXINE SODIUM 75 MCG TABLET PO SCH (06:30)
[2022-02-04 07:46] VITALS: O2SAT 90
[2022-02-04] MEDS: INSULIN GLARGINE SOLOSTAR 100 UNITS/ML 3 ML PEN SQ SCH (08:41)
[2022-02-04] MEDS: INSULIN ASPART PER UNIT SC SCH ×2 (08:41→12:11)
[2022-02-04] MEDS ORDERED: POTASSIUM CHLORIDE CRTAB 20 MEQ TABCR PO SCH (09:00)
[2022-02-04] MEDS ORDERED: lisinopril 20 MG TAB PO SCH (09:00)
[2022-02-04] MEDS ORDERED: METOPROLOL SUCC 25MG EXT REL TAB PO SCH (09:00)
[2022-02-04] MEDS ORDERED: FUROSEMIDE 20 MG TAB PO SCH (09:00)
[2022-02-04] MEDS: APIXABAN 5 MG TABLET PO SCH (09:38)
[2022-02-04] MEDS ORDERED: AMIODARONE 200 MG TAB PO STA (10:52)
[2022-02-04 11:03] VITALS: BP 128/70; TEMP 98.2
--- NOTE | 2022-02-04 12:25 | Communication Note ---
Date of Service: February 04, 2022 By CMS guidelines, a determination that the admission or continued stay is not medically necessary has been made by a member of the UR committee and a physici an for this hospital stay, therefore a Code 44 will be completed and the Inpatient admission will be changed to outpatient.
[2022-02-04 12:30] VITALS: PULSE 81
--- NOTE | 2022-02-04 12:45 | Communication Note ---
Date of Service: February 04, 2022 By CMS guidelines, a determination that the admission or continued stay is not medically necessary has been made by a member of the UR committee and a physic susanna for this hospital stay, therefore a Code 44 will be completed and the Inpatient admission will be changed to outpatient.
--- NOTE | 2022-02-04 14:40 | XCELERA ---
[id number]
--- NOTE | 2022-02-04 16:36 | Cardiology Consultation ---
Date of Consultation February 04, 2022 Assessment & Plan (1) Atrial fibrillation with rapid ventricular response: -has been having more frequent episodes of symptomatic atrial fibrillation. -would start antiarrhythmic therapy with amiodarone 200 mg b.i.d. -continue Eliquis 5 mg b.i.d. -increase potassium supplementation to 40 mEq b.i.d. x1 week, then resume 40 mEq daily. -would start magnesium supplementation. -stable for hospital discharge. -follow-up with me as scheduled in February. (2) Hypertension: -adequate control on current regimen. (3) Dyslipidemia: -okay to change simvastatin to pravastatin to avoid interaction with amiodarone. (4) Aortic stenosis: -moderate in degree on current echocardiogram. History of Present Illness Attending Physician: Dayday Live MD History of Present Illness Ms. Enamorado is a 71-year-old female Re admitted yesterday with atrial fibrillation and a rapid ventricular response. This consultation was ordered to assist in her cardiac management. The patient was in her usual state of health until February 01 when she had the abrupt onset of sustained palpitations and dizziness. The patient presented to the emergency room and was admitted as an observation overnight. Fortunately, she converted to sinus rhythm spontaneously and was discharged home on February 02. The following day, she again had the abrupt onset of sustained palpitations and dizziness. She can presented to the emergency room for further evaluation. Laboratory studies noted hypokalemia and hypomagnesemia. She was readmitted for cardiac care. Fortunately, patient again converted spontaneously to sinus rhythm. We have discussed initiating a trial of an anti arrhythmic agent (amiodarone). The patient was diagnosed with paroxysmal atrial fibrillation back in February 2021. She has been maintained on rate control and long-term anticoagulation since that time. Currently, patient is resting comfortably in bed without complaints. Past medical and surgical history 1. Hypertension 2. Hypercholesterolemia 3. Paroxysmal atrial fibrillation 4. Diabetes mellitus 5. Chronic renal failure 6. Hypothyroidism 7. Morbid obesity 8. Obstructive sleep apnea 9. Vitamin-D deficiency 10. DJD 11. Colonic polyps 12 Uterine carcinoma-February 2021 13. Cholecystectomy 14. Left TKR 15. 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 Forty pack year history No alcohol Family history No early coronary artery disease Review of systems A 10 review systems was undertaken and negative except for that described above. Allergies Allergy/AdvReac Type Severity Reaction Status Date / Time codeine AdvReac Mild NAUSEA Verified 02/03/22 16:25 Home Medications Medication Instructions Recorded Confirmed Type calcium carbonate 600 mg-vitamin 1 tab PO DAILY tab 05/25/19 02/03/22 History D3 20 mcg (800 unit) tablet (Caltrate with Vitamin D3) cholecalciferol (vitamin D3) 50 2,000 units PO DAILY cap 05/25/19 02/03/22 History mcg (2,000 unit) capsule cyanocobalamin (vitamin B-12) 1,000 mcg PO DAILY tab 05/25/19 02/03/22 History 1,000 mcg tablet,extended release multivitamin 1 tab PO DAILY tab 05/25/19 02/03/22 History vit A 300 mcg-C 200 mg-E 27 1 tab PO DAILY tab 05/25/19 02/03/22 History mg-lutein 2 mg and minerals tablet (Ocuvite with Lutein) Oxygen Home #1 ea 07/24/19 10/14/21 Rx zinc 50 mg tablet 50 mg PO DAILY 11/21/20 02/03/22 History ascorbic acid (vitamin C) 1,000 mg 1 g PO DAILY tab 12/24/20 02/03/22 History tablet pen needle, diabetic 31 gauge x #50 ea 04/03/21 10/14/21 Rx 3/16" (BD Ultra-Fine Mini Pen Needle) furosemide 40 mg tablet 40 mg PO DAILY 07/20/21 02/03/22 History blood sugar diagnostic (OneTouch #300 ea 08/05/21 10/14/21 Rx Ultra Test) levothyroxine 75 mcg tablet 75 mcg PO DAILY #90 tab 08/25/21 02/03/22 Rx lisinopril 20 mg tablet 20 mg PO DAILY #90 tab 08/25/21 02/03/22 Rx potassium chloride 10 mEq 10 meq PO DAILY #90 tab 10/14/21 02/03/22 Rx tablet,extended release apixaban 5 mg tablet (Eliquis) 5 mg PO BID #180 tab 10/20/21 02/03/22 Rx insulin glargine 100 unit/mL (3 50 unit SUBCUT QPM 02/01/22 02/03/22 History mL) subcutaneous pen (Lantus Solostar U-100 Insulin) insulin lispro 100 unit/mL 0 sliding scale dose SUBCUT AC MDD 02/01/22 02/03/22 History subcutaneous pen 50 units metoprolol succinate 25 mg 37.5 mg PO QAM #90 tab 02/02/22 02/03/22 Rx tablet,extended release 24 hr amoxicillin 500 mg tablet See Rx Instructions .ROUTE 02/03/22 02/03/22 History .COMPLEX PRN liraglutide 0.6 mg/0.1 mL (18 mg/3 1.2 mg SUBCUT DAILY 02/03/22 02/03/22 History mL) subcutaneous pen injector (Nvigentoza 2-Ethan) omega-3 fatty acids 1,000 mg 1,000 mg PO DAILY 02/03/22 02/03/22 History capsule amiodarone 200 mg tablet 200 mg PO BIDM #60 tab 02/04/22 Rx magnesium oxide 400 mg (241.3 mg 400 mg PO BID #60 tab 02/04/22 Rx magnesium) tablet pravastatin 40 mg tablet 40 mg PO HS #30 tab 02/04/22 Rx Patient History Medical History Anemia Aortic stenosis Arthritis Atrial fibrillation with rapid ventricular response Benign neoplasm of large intestine BMI 60.0-69.9, adult Diabetes mellitus type 2, controlled Dyslipidemia 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) High serum lactate Hypertension Hypothyroidism Joint pain, knee Lactic acidosis LVH (left ventricular hypertrophy) Metabolic acidosis Obstructive sleep apnea 2L NC Paroxysmal atrial fibrillation Pulmonary embolism (2004) Pulmonary nodule Vitamin D deficiency Surgical History H/O total knee replacement Right History of cholecystectomy History of colonoscopy (06/12/16) History of foot surgery bunion - left foot History of robot-assisted laparoscopic hysterectomy (05/02/21) Attempted procedure not possible secondary to small bowel obscuring pelvic structures Mirena IUD placed History of tooth extraction wisdom teeth S/P dilation and curettage (03/26/21) D&C Hysteroscopy with Myosure [facility] Dr. Barfield Family History Mother , Passed Age 83 Lung cancer radiation therapy and chemotherapy Brother Prostate cancer radiation Father No problems noted. Aunt , maternal Breast cancer Aunt , maternal Colorectal cancer Uncle , maternal Esophageal cancer Other Has no children Stroke Social History Smoking Status: Former smoker Tobacco Type: Cigarettes Age Started Using Tobacco: 16; Age Quit Using Tobacco: 60; packs per day: 1; Second Hand Exposure: No; Hx Alcohol Use: No Hx Substance Use: No Preferred Language: Upper Sorbian Communication Ability: Effective Visual Impairment: Limited Hearing Ability: Normal Cloth Calender Required: No Beliefs That Will Affect Care: None marital status: Single Current Living Situation: Alone Current Living Situation Comment: Home alone current occupational status: retired current occupation: Retired Feels Safe at Home: Yes Childhood Exposure to Second-Hand Smoke: No caffeine: Yes during the past year weight has: remained stable Dental Care, Regularly: Yes Physical Activity Frequency: Does not Exercise Seatbelt Use: always Sunscreen Use: Yes Do you think of yourself as: straight/heterosexual Assistive Devices: Cane and Oxygen - at Night Assistive Devices Comment: O2 thru Tru's Physical Exam Physical Exam: In general this is an obese white female in no acute distress. HEENT exam is negative. Neck is supple with full carotid upstrokes. No obvious bruits or transmitted murmurs. Cardiovascular exam reveals a regular rhythm with distant heart sounds. A 2/6 basal systolic ejection murmurs noted. S2 is audible at the apex. Lungs are clear without rales, rhonchi or wheezes. Abdomen is obese without bruits. Extremities reveal intact radial artery pulses bilaterally. There is trace pretibial edema. Results & Data ([facility]) Vital Signs (Past 12 Hours) Vital Signs Temp Pulse Pulse Pulse Resp BP BP 02/04/22 12:28 36.8 C 81 77 18 128/70 137/74 02/04/22 11:01 36.8 C 77 18 128/70 02/04/22 10:57 65 02/04/22 07:45 36.4 C L 65 18 112/61 Pulse Ox 02/04/22 12:28 90 02/04/22 11:01 90 02/04/22 10:57 02/04/22 07:45 90 PG Care Time/CCT Total # of Minutes Spent Total Time Spent with Patient: Total time spent is greater than 50% in coordination of care (as documented) at patient's floor/unit and/or counseling patient: Coding Level of Care Code INT OBSERVATION CARE 70M LVL 3 Diagnoses Atrial fibrillation with rapid ventricular response I48.91 Hypertension I10 Hypertension type: unspecified Dyslipidemia E78.5 Aortic stenosis I35.0 Cardiac valve disease etiology: etiology unspecified (1) Hypertension Hypertension type: unspecified Qualified Code(s): I10 - Essential (primary) hypertension (2) Aortic stenosis Cardiac valve disease etiology: etiology unspecified Qualified Code(s): I35.0 - Nonrheumatic aortic (valve) stenosis
[2022-02-04] MEDS ORDERED: AMIODARONE 200 MG TAB PO SCH (17:00)
[2022-02-04] MEDS ORDERED: SIMVASTATIN 40 MG TAB PO SCH (21:00)
[2022-02-04] MEDS ORDERED: MAGNESIUM OXIDE 400 MG TAB PO SCH (21:00)
--- NOTE | 2022-02-05 02:52 | Billing Data ---
Date of Service February 05, 2022 Coding Level of Care Code INT OBSERVATION CARE 70M LVL 3
--- NOTE | 2022-02-05 06:11 | Electrocardiogram Report ---
Test Reason : Blood Pressure : / mmHG Vent. Rate : 104 BPM Atrial Rate : 300 BPM P-R Int : 000 ms QRS Dur : 102 ms QT Int : 384 ms P-R-T Axes : 000 077 027 degrees QTc Int : 504 ms Atrial fibrillation with rapid ventricular response Cannot rule out Anterior infarct , age undetermined Abnormal ECG When compared with ECG of 01-FEB-2022 17:59, Minimal criteria for Anterior infarct are now Present Confirmed by Loc Ware ([id number]) on 02/05/2022 6:10:47 AM Referred By: REFERRED SELF Confirmed By:Loc Ware
--- NOTE | 2022-02-05 07:01 | Electrocardiogram Report ---
Test Reason : Blood Pressure : / mmHG Vent. Rate : 083 BPM Atrial Rate : 083 BPM P-R Int : 176 ms QRS Dur : 104 ms QT Int : 408 ms P-R-T Axes : 065 083 055 degrees QTc Int : 479 ms Normal sinus rhythm Cannot rule out Anterior infarct (cited on or before 03-FEB-2022) Abnormal ECG When compared with ECG of 03-FEB-2022 15:29, Sinus rhythm has replaced Atrial fibrillation Confirmed by Loc Ware ([id number]) on 02/05/2022 7:01:24 AM Referred By: REFERRED SELF Confirmed By:Loc Ware
--- NOTE | 2022-02-05 23:29 | Electrocardiogram Report ---
Test Reason : Blood Pressure : / mmHG Vent. Rate : 071 BPM Atrial Rate : 071 BPM P-R Int : 166 ms QRS Dur : 102 ms QT Int : 444 ms P-R-T Axes : 062 077 063 degrees QTc Int : 482 ms Normal sinus rhythm Prolonged QT Abnormal ECG When compared with ECG of 03-FEB-2022 22:01, No significant change was found Confirmed by Loc Ware ([id number]) on 02/05/2022 11:29:24 PM Referred By: REFERRED SELF Confirmed By:Loc Ware
--- NOTE | 2022-02-10 08:37 | Discharge Summary ---
Date of Service February 04, 2022 Admission HPI Per Admitting Provider 71 yo F Hx AFib, ANN MARIE, aortic stenosis, hypothyroidism, HTN, DM2 presents to ER from discharge from hospital 02/02 for AFib with RVR. She was discharged with increased dose of metoprolol succinate (increased from 25mg daily to 37.5mg daily). She reports that she was walking around her home today and started feeling palpitations and trouble breathing, and checked her HR which was in the 130s. On presentation here to ER noted to have HR in the 120s. She as given diltiazem 10mg IV x2 as well as metoprolol succinate 25mg PO without change in HR, and so hospitalist service was consulted for admission. On my interview shae ent denies current palpitations but when HR goes higher than 130 she feels them. She denies chest pain, shortness of breath, nausea, vomiting, diarrhea, dizziness, headache. Principal Diagnosis A fib RVR Discharge Exam Constitutional: WD/WN, vitals as above Eyes: PERRL, conjunctivae normal, anicteric sclerae ENMT: external ear and nose normal, oropharynx normal Neck: normal visual inspection Respiratory: normal respiratory effort, lungs clear to auscultation Cardiovascular: non-tachycardic, 2/6 systolic murmur over RUSB, trace peripheral edema Gastrointestinal (Abdomen): normal bowel sounds, soft, nontender, no hepatosplenomegaly Musculoskeletal: no cyanosis or clubbing, extremities motor strength 5/5 Skin: no rashes, warm and dry Neurologic: AAOx3, normal speech. PERRLA, EOMI, no nystagmus. Bilateral UE, LE, and face without sensory or motor deficits. No tremor. Psychiatric: A+Ox3, euthymic affect Discharge Data Allergies Allergy/AdvReac Type Severity Reaction Status Date / Time codeine AdvReac Mild NAUSEA Verified 02/09/22 10:53 Consultations 02/03/22 21:17 ED Decision to Admit Stat 02/04/22 07:10 Consult Cardiology Routine Hospital Course (1) Atrial fibrillation with rapid ventricular response: (2) Diabetes mellitus type 2, controlled: (3) Hypothyroidism: (4) Hypertension: (5) Dyslipidemia: (6) Obstructive sleep apnea: (7) Hypokalemia: On admission: 71 yo F Hx AFib, aortic stenosis, hypothyroidism, HTN, DM2, ANN MARIE admitted for atrial fibrillation with rapid ventricular response. AFib with RVR: Presented with complaints of palpitations and dyspnea with HR up to 140s with AFib on telemetry and EKG. Patient has already received metoprolol 25mg PO, as well as diltiazem 10mg IV x2. Patient's HR 80s on my interview. TSH normal on current levothyroxine dose. Metoprolol 5mg IV q4h as needed for HR >120. Replete electrolytes as described below. Electrolyte derangement, Hypokalemia: Presents with K of 3.3 on admission. Goal K >4. Given KCl 40 meq PO, 20 meq K Riders IV. Patient without evidence of CHF on last Echo. Repeat ordered as described above, and furosemide decreased to 20mg daily with low salt diet. KCl daily supplementation was 10meq daily in outpatient; will increase to 40 meq daily. Mg 1.9 on admission. Given AFib RVR will have Mg goal of >2. Dyspnea, Hx aortic stenosis: History of aortic stenosis, noted to be mild on Echo in 02/2021. Given dyspnea and scheduled to have Echo in next several weeks, will do in the AM. CXR without evidence of pulmonary edema or pneumonia to explain dyspnea. HTN: History of. Continue lisinopril 20mg daily, metoprolol. ANN MARIE: Patient is on 2LNC at night due to hypoxia with sleep; continue this. Has been diagnosed with ANN MARIE in the past and given script for CPAP, however patient has been resistant to use in the past. Advocated for CPAP this visit, especially with history of AFib; continue education while admitted. DM2: Lantus 25u BID with sliding scale insulin while admitted. A1c 7.0% on 02/02/2022. Hypothyroidism: Continue levothyroxine 75mcg daily. Code Status: FULL CODE FEN: low salt, DM2 diet DVT ppx: Eliquis 5mg BID Dispo: Med/Surg with Telemetry At discharge: For her A. fib, placed on amiodarone, and increased potassium as stated in discharge instructions. will place on magnesium supplementation. will switch simvastatin to pravastatin Total Time Total Time Spent Total Time Spent (In Minutes): 32 Discharge Plan Discharge Items Patient Disposition: Home - Self-Care Reason For Visit: AFIB WITH RVR Discharge Diagnosis: AFIB with RVR Activity: Resume your previous activity Non-emergency contact: Primary Care Provider Call non-emergency contact if: you have any medication questions Follow-up/Referrals: Emerson Herron MD [Primary Care Provider] - Diet: Carb Consistent or DM2 Addtl Attending Provider Instructions: Please double your potassium intake for 7 days. Then return to your regular dose Will start you on amiodarone 200 mg PO twice a daY TO HELP KEEP YOUR RHYTHM IN CHECK. Will also add mag ox 400 mg PO BID. Pending Studies at Discharge: No Stand-Alone Forms: My [facility] [employer], Smoking Cessation Medications and DC Order Prescriptions: New amiodarone 200 mg Tablet 200 mg PO BIDM Qty: 60 RF: 0 magnesium oxide 400 mg (241.3 mg magnesium) Tablet 400 mg PO BID Qty: 60 RF: 0 pravastatin 40 mg tablet 40 mg PO HS Qty: 30 RF: 0 Continued (DME) OneTouch Ultra Test Strip See Rx Instructions .Route Qty: 300 RF: 3 levothyroxine 75 mcg tablet 75 mcg PO DAILY Qty: 90 RF: 3 lisinopril 20 mg tablet 20 mg PO DAILY Qty: 90 RF: 3 potassium chloride 10 mEq tablet extended release 10 meq PO DAILY Qty: 90 RF: 3 Eliquis 5 mg tablet 5 mg PO BID Qty: 180 RF: 3 multivitamin tablet 1 tab PO DAILY RF: 0 Ocuvite with Lutein 1,000 unit-200 mg-60 unit-2 mg tablet 1 tab PO DAILY RF: 0 cyanocobalamin (vitamin B-12) 1,000 mcg tablet extended release 1,000 mcg PO DAILY RF: 0 cholecalciferol (vitamin D3) 2,000 unit capsule 2,000 units PO DAILY RF: 0 zinc 50 mg tablet 50 mg PO DAILY RF: 0 (DME) pen needle, diabetic [BD Ultra-Fine Mini Pen Needle] 31 gauge x 3/16" needle See Rx Instructions .ROUTE .MEDSUPPLY Qty: 50 RF: 2 ascorbic acid (vitamin C) 1,000 mg tablet 1 g PO DAILY RF: 0 (DME) Oxygen Home Liters Per Minute See Dose Instructions .ROUTE .MEDSUPPLY Qty: 1 RF: 0 insulin lispro 100 unit/mL insulin pen 0 sliding scale dose subcut AC MDD 50 units RF: 0 Lantus Solostar U-100 Insulin 100 unit/mL (3 mL) insulin pen 50 unit subcut QPM RF: 0 metoprolol succinate 25 mg tablet extended release 24 hr 37.5 mg PO QAM Qty: 90 RF: 3 furosemide 40 mg tablet 40 mg PO DAILY RF: 0 omega-3 fatty acids 1,000 mg Capsule 1,000 mg PO DAILY RF: 0 Victoza 2-Ethan 0.6 mg/0.1 mL (18 mg/3 mL) pen injector 1.2 mg subcut DAILY RF: 0 Discontinued simvastatin 40 mg tablet 40 mg PO QPM RF: 0 No Action calcium carbonate-vitamin D3 [Caltrate with Vitamin D3] 600 mg-20 mcg (800 unit) tablet 1 tab PO DAILY PRNRF: 0 amoxicillin 500 mg tablet See Rx Instructions .ROUTE .COMPLEX PRN (Reason: PRIOR TO DENTAL APPT.) Qty: 16 RF: 1 Discharge Orders: Discharge Order (Routine); Ordered 02/04/22 Ordered By: Jarad Leiva Admission Data Admit Date/Time: 02/03/22 21:51 Attending Provider: Dayday Live Admit Provider: Dayday Live Primary Care Provider: Emerson Herron Other Providers: Dayday Live ; Loc Ware Other Interventions: Discharge Summary Assessment (RN) Last Done: 02/04/22 12:28 Coding Level of Care Code 12625 OBS Care - Discharge Diagnoses Atrial fibrillation with rapid ventricular response I48.91 Diabetes mellitus type 2, controlled E11.9 Hypothyroidism E03.9 Hypertension I10 Hypertension type: unspecified Dyslipidemia E78.5 Obstructive sleep apnea G47.33 Hypokalemia E87.6
== END 2022-02-04 15:04 | disposition home or self-care (01) ==
LOC: ED 15:15 → 2N 21:51 → INTOOBSV 21:51 → 2N 22:29
DX: I48.91 Unspecified atrial fibrillation; Z99.89 Dependence on other enabling machines and devices; E11.9 Type 2 diabetes mellitus without complications; G47.33 Obstructive sleep apnea (adult) (pediatric); Z79.899 Other long term (current) drug therapy; E87.6 Hypokalemia; Z79.01 Long term (current) use of anticoagulants; Z79.890 Hormone replacement therapy; I10 Essential (primary) hypertension; E03.9 Hypothyroidism, unspecified; Z79.4 Long term (current) use of insulin; E78.5 Hyperlipidemia, unspecified; I35.0 Nonrheumatic aortic (valve) stenosis; Z87.891 Personal history of nicotine dependence

== ENCOUNTER 2024-07-18 17:29 | Inpatient (IN) ==
--- NOTE | 2024-07-18 17:51 | Emergency Department Note ---
Impression & Plan Fall, Ambulatory dysfunction ED Provider Note Diagnosis: Fall, ambulatory dysfunction Disposition: Admit CHIEF COMPLAINT: Fall HPI: Patient is a 73-year-old female presenting status post mechanical fall. Patient states she received a dose of chemotherapy today had experienced diarrhea and was in the restroom trying to get her underwear down and slipped and fell. Patient denies lightheadedness or dizziness. Patient denies chest pain or shortness of breath. Patient states she hit the back of her head and is complaining of head pain. Patient is on Eliquis at baseline and was activated as a trauma prior to arrival. PAST MEDICAL HISTORY: See Below PAST SURGICAL HISTORY: See Below SOCIAL HISTORY: See Below HOME MEDICATIONS: See Below ALLERGIES: See Below VITALS: See Below PHYSICAL EXAMINATION: GENERAL: Well appearing, well nourished, NAD, non-toxic. EYE EXAM: Normal conjunctiva. OROPHARYNX: Moist mucus membranes. Grossly normal dentition. NECK: Supple, LUNGS: Clear to auscultation. Normal chest wall mechanics. HEART: NSR ABDOMEN: Abdomen soft, non-tender, normo-active bowel sounds, no masses, no rebound or guarding BACK: No CVA TTP. SKIN: No rashes and no bruising. UPPER EXTREMITIES: Upper extremities are grossly normal LOWER EXTREMITIES: Grossly normal, no edema. NEURO EXAM: A&O x3,, normal speech, moves all 4 extremities PSYCH: Cooperative MEDICAL DECISION MAKING: History obtained from: Patient ER Course: Patient is a 73-year-old female presenting with complaint of mechanical fall. Patient was in the bathroom trying to get to the toilet took her underwear down and fell to the ground. Patient denies syncope or near syncope. Patient is chest pain or shortness of breath. Patient did hit the back of her head off the ground and is on Eliquis. Patient was a trauma alert upon arrival. Patient hemodynamically stable. Patient brought over for CTs of head and neck which were negative for intracranial hemorrhage or cervical spine fracture. Patient walks with a walker at baseline. Patient unable to ambulate without assistance and a walker which is not her baseline and does not feel comfortable that she will be safe at home and she lives alone at this time. Patient does receive chemotherapy and reportedly had treatment today for uterine cancer. Labs (independently interpreted) are significant for: No change from baseline Imaging results (independently interpreted): Chest x-ray negative Consultants: Hospitalist Triage Nursing notes reviewed and agree them. 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) radiation X 2 last treatment 09/2021 follows w/ [facility] onc Pulmonary nodule BEING MONITORING Paroxysmal atrial fibrillation Obstructive sleep apnea 2L NC Dyslipidemia Diabetes mellitus type 2, controlled Hypertension Hypothyroidism Medical History (Updated 07/18/24 @ 21:49 by Jose Maria Gibson DO) Colon polyps Prolonged Q-T interval on ECG per 05/11/24 EKG (QTc 509ms) Acid reflux Hx of migraine headaches none recently Pulmonary nodule 05/25/24 CT scan follow up - monitoring Hx pulmonary embolism 2004 Endometrioid adenocarcinoma of uterus s/p hyster03/06/24; also s/p XRT; follows w/ [facility] onc Type 2 diabetes mellitus IDDM History of COVID-19 07/2021 no symptoms Arthritis LVH (left ventricular hypertrophy) Vitamin D deficiency Surgical History (Updated 06/13/24 @ 17:45 by Uyen Santana MD) Port-A-Cath in place (06/01/24) p Insertion of Left Subclavian Access Port with Fluoroscopy(Left) - Tristan Devries MD, FACS MRI port placement in the left subclavian throughout the procedure fluoroscopy was used and I interpreted all the images H/O: hysterectomy History of robot-assisted laparoscopic hysterectomy 03/06/24 [facility] - Follows History of bunionectomy Left Foot History of robot-assisted laparoscopic hysterectomy (04/2021) Attempted procedure not possible secondary to small bowel obscuring pelvic structures Mirena IUD placed History of colonoscopy S/P dilation and curettage (03/26/21) "I only had one done down at [place]" D&C Hysteroscopy with Myosure [facility] Dr. Barfield History of tooth extraction wisdom teeth History of cholecystectomy H/O total knee replacement Right Family History Mother Lung cancer Cancer Heart disease Brother Prostate cancer Diabetes Myocardial infarction Father Myocardial infarction Heart disease Stroke Aunt Breast cancer Cancer Aunt Colorectal cancer Uncle Esophageal cancer Grandmother (Maternal) Diabetes Sister Diabetes Clotting disorder Other Has no children No family history of adverse response to anesthesia Denies family history of Ovarian cancer Social History Smoking Status: Former smoker Tobacco Type: Cigarettes Age Started Using Tobacco: 16; Age Quit Using Tobacco: 60; packs per day: 1; Second Hand Exposure: No; Do You Dip or Chew Tobacco: No; Hx Alcohol Use: No Hx Substance Use: No Preferred Language: Mosotho Communication Ability: Effective Visual Impairment: Limited Hearing Ability: Normal Box Shook Patcher Required: No Beliefs That Will Affect Care: None marital status: Single Current Living Situation: Personal Care Facility Current Living Situation Comment: Currently at [facility] until 05/27/24 - when at home is alone current occupational status: retired current occupation: Retired How many Children do You have: 0 Feels Safe at Home: Yes Childhood Exposure to Second-Hand Smoke: No Diet: diabetic and low carbohydrate caffeine: Yes (soda daily) during the past year weight has: remained stable Dental Care, Regularly: Yes Physical Activity Frequency: Does not Exercise Seatbelt Use: always Sunscreen Use: Yes Do you think of yourself as: straight/heterosexual Assistive Devices: Cane, Glasses, Oxygen - at Night and Walker Allergies Allergies Allergy/AdvReac Type Severity Reaction Status Date / Time codeine AdvReac Mild NAUSEA Verified 06/13/24 14:04 Home Meds Home Medications Medication Instructions Recorded Confirmed cholecalciferol (vitamin D3) 50 2,000 units PO QAM 05/25/19 06/13/24 mcg (2,000 unit) capsule cyanocobalamin (vitamin B-12) 1,000 mcg PO QAM 05/25/19 06/13/24 1,000 mcg tablet,extended release vit A 300 mcg-C 200 mg-E 27 1 tab PO QAM 05/25/19 06/13/24 mg-lutein 2 mg and minerals tablet (Ocuvite with Lutein) calcium 600 mg (as 1 tab PO QAM 02/09/22 06/13/24 carbonate)-vitamin D3 20 mcg (800 unit) tablet (Caltrate with Vitamin D3) dexamethasone 4 mg tablet 4 mg PO DIRECTED 05/11/24 06/13/24 olanzapine 2.5 mg tablet 2.5 mg PO DIRECTED 05/11/24 06/13/24 prochlorperazine maleate 10 mg 10 mg PO DIRECTED PRN Nausea 05/11/24 06/13/24 tablet And Vomiting levothyroxine 75 mcg tablet 75 mcg PO QAM 05/22/24 06/13/24 lisinopril 10 mg tablet 5 mg PO QAM 06/13/24 06/13/24 Previous Rx's Medication Instructions Recorded Oxygen Home #1 ea 07/24/19 pen needle, diabetic 31 gauge x #50 ea 04/03/2112/10" (BD Ultra-Fine Mini Pen Needle) blood sugar diagnostic (OneTouch #300 ea 12/14/22 Ultra Test strips) magnesium oxide 400 mg (241.3 mg 400 mg PO BID #60 tabs 03/01/23 magnesium) tablet insulin glargine 100 unit/mL (3 35 unit (0.35 mL) subcut QPM #30 mL 07/27/23 mL) subcutaneous pen (Lantus Solostar U-100 Insulin) amoxicillin 500 mg tablet See Rx Instructions .Route 08/03/23 .COMPLEX PRN PRIOR TO DENTAL APPT. #16 tabs potassium chloride 10 mEq 10 meq PO QAM #90 tabs 09/23/23 tablet,extended release metoprolol succinate 25 mg 37.5 mg (1.5 x 25 mg) PO QAM #135 10/19/23 tablet,extended release 24 hr tabs insulin lispro 100 unit/mL See Rx Instructions subcut AC #15 02/28/24 subcutaneous pen mL pravastatin 40 mg tablet 40 mg PO HS #30 tabs 03/13/24 amiodarone 200 mg tablet 200 mg PO QAM #90 tabs 04/26/24 furosemide 40 mg tablet 40 mg PO QAM #90 tabs 06/09/24 apixaban 2.5 mg tablet 2.5 mg PO BID #60 tabs 06/15/24 Results & Data (ED) Vital Signs Vital Signs - 24 hr 07/18/24 17:19 07/18/24 17:48 07/18/24 17:48 Temperature 36.8 C 36.8 C Temperature Source Oral Oral Pulse Rate 88 87 Pulse Rate [Apical] 88 Pulse Rate from SpO2 Sensor 87 Respiratory Rate 19 19 20 Respiratory Effort / Characteristics Non-Labored Spontaneous Respiratory Depth Normal Respiratory Pattern Regular Blood Pressure 170/92 H 170/92 H Blood Pressure [Right Arm] 170/92 H Blood Pressure Mean 118 118 Blood Pressure Mean [Right Arm] 118 Blood Pressure Position Semi-fowlers Blood Pressure Position [Right Arm] Semi-fowlers Pulse Oximetry 96 96 96 Oxygen Delivery Method Room Air Room Air Sepsis Recent Fever Within 48 Hours No Sepsis New/Unexplained Change in Mental Status No Sepsis Action Taken by Nursing No Action Required 07/18/24 17:51 07/18/24 18:15 07/18/24 18:16 Temperature Temperature Source Pulse Rate 87 87 88 Pulse Rate [Apical] Pulse Rate from SpO2 Sensor 87 Respiratory Rate 16 16 Respiratory Effort / Characteristics Respiratory Depth Respiratory Pattern Blood Pressure 142/87 H Blood Pressure [Right Arm] Blood Pressure Mean 105 Blood Pressure Mean [Right Arm] Blood Pressure Position Blood Pressure Position [Right Arm] Pulse Oximetry 92 95 Oxygen Delivery Method Room Air Sepsis Recent Fever Within 48 Hours Sepsis New/Unexplained Change in Mental Status Sepsis Action Taken by Nursing 07/18/24 18:18 07/18/24 18:19 07/18/24 18:26 Temperature 36.8 C Temperature Source Pulse Rate 88 Pulse Rate [Apical] 87 Pulse Rate from SpO2 Sensor Respiratory Rate 16 19 Respiratory Effort / Characteristics Respiratory Depth Respiratory Pattern Blood Pressure 170/92 H Blood Pressure [Right Arm] 142/87 H Blood Pressure Mean Blood Pressure Mean [Right Arm] 105 Blood Pressure Position Blood Pressure Position [Right Arm] Semi-fowlers Pulse Oximetry 95 95 Oxygen Delivery Method Room Air Room Air Room Air Sepsis Recent Fever Within 48 Hours Sepsis New/Unexplained Change in Mental Status Sepsis Action Taken by Nursing 07/18/24 19:03 07/18/24 20:03 Temperature Temperature Source Pulse Rate 89 85 Pulse Rate [Apical] Pulse Rate from SpO2 Sensor 89 85 Respiratory Rate 14 16 Respiratory Effort / Characteristics Respiratory Depth Respiratory Pattern Blood Pressure 138/86 151/88 H Blood Pressure [Right Arm] Blood Pressure Mean 103 109 Blood Pressure Mean [Right Arm] Blood Pressure Position Blood Pressure Position [Right Arm] Pulse Oximetry 91 96 Oxygen Delivery Method Sepsis Recent Fever Within 48 Hours Sepsis New/Unexplained Change in Mental Status Sepsis Action Taken by Nursing Laboratory Data 07/18/24 18:40 07/18/24 18:40 Lab Results 07/18/24 Range/Units 18:40 WBC 9.27 (4.8-10.8) K/ul RBC 3.49 L (4.20-5.40) M/uL Hgb 10.5 L (12.0-16.0) g/dl Hct 32.2 L (37.0-47.0) % MCV 92.3 (80.0-100.0) fL MCH 30.1 (25.0-34.0) pg MCHC 32.6 (32.0-36.0) g/dL RDW Std Deviation 86.0 H (36.4-46.3) fL RDW Coeff of Keith 25.1 H (11.5-14.5) % Plt Count 82 L (130-400) K/uL MPV 10.2 (9.4-12.4) fL Immature Gran % (Auto) 0.8 % Neut % (Auto) 92.2 % Lymph % (Auto) 5.8 % Sheridan % (Auto) 1.1 % Eos % (Auto) 0.0 % Baso % (Auto) 0.1 % Neut # (Auto) 8.55 H (1.40-6.50) K/uL Lymph # (Auto) 0.54 L (1.20-3.40) K/uL Sheridan # (Auto) 0.10 L (0.11-0.59) K/uL Eos # (Auto) 0.00 (0.00-0.50) K/uL Baso # (Auto) 0.01 (0.00-0.20) K/uL Immature Gran # (Auto) 0.07 (0.01-0.20) K/uL Polychromasia 1+ Anisocytosis Present Target Cells 2+ Sodium 137 (136-145) mmol/L Potassium 4.6 (3.5-5.1) mmol/L Chloride 109 H (98-107) mmol/L Carbon Dioxide 19 L (21-32) mmol/L Anion Gap 9 (3-11) BUN 23 (6-23) mg/dl Creatinine 0.74 (0.6-1.2) mg/dl Est Cr Clr Drug Dosing 78.9 ml/min eGFR 84.32 BUN/Creatinine Ratio 31.1 H (10-20) Glucose 218 H (70-99(Fasting)) mg/dl Calcium 8.6 (8.6-10.3) mg/dl Total Bilirubin 0.6 (0.2-1.0) mg/dl AST 20 (13-39) U/L ALT 20 (7-52) U/L Alkaline Phosphatase 74 (34-104) U/L Total Protein 6.9 (6.0-8.3) gm/dl Albumin 3.7 (3.4-5.0) gm/dl Globulin 3.2 (2.5-4.0) gm/dl Albumin/Globulin Ratio 1.2 (0.9-2) Imaging Data Radiologist's Impression: Cervical Spine CT 07/18/24 17:46 CT cervical spine wo con CLINICAL HISTORY: 73 years-old Female with Trauma-fall on blood thinner. Acute neck injury status post fall COMPARISON: Head CT of same day TECHNIQUE: Multiple axial CT images of the cervical spine were obtained without contrast. A dose lowering technique was utilized adhering to the principles of ALARA. FINDINGS: Multilevel degenerative changes of the cervical spine include moderate to severe intervertebral disc space narrowing and opea-nc-kerbvyin facet arthrosis. Demineralized appearance of the bones. The cervical soft tissues appear unremarkable. Heterogeneous thyroid. Partially imaged left subclavian port catheter. Aberrant right subclavian artery. No pneumothorax. Biapical groundglass densities. IMPRESSION: No acute cervical spine fracture or subluxation identified. ACT 112: Negative or not required by law. The above report was generated using voice recognition software. It may contain grammatical, syntax or spelling errors. Electronically signed by: Lenin Low M.D. 07/18/2024 6:31 PM Chest X-Ray 07/18/24 17:46 XR chest 1V portable HISTORY: 73 years-old Female fall acute chest trauma status post fall COMPARISON: 06/01/2024 TECHNIQUE: AP chest FINDINGS: Left subclavian Sbskrk-x-Ntoz catheter is unchanged. Cardiomegaly. No pneumothorax, pleural effusion, airspace consolidation or pulmonary edema. Degenerative changes of the shoulders and spine. IMPRESSION: No acute process. ACT 112: Negative or not required by law. The above report was generated using voice recognition software. It may contain grammatical, syntax or spelling errors. Electronically signed by: Lenin Low M.D. 07/18/2024 5:[address] 07/18/24 17:46 CT head/brain wo con CLINICAL HISTORY: 73 years-old Female with Trauma-fall on blood thinner. Acute head trauma TECHNIQUE: Multiple axial CT images of the head were obtained without contrast. A dose lowering technique was utilized adhering to the principles of ALARA. CT DOSE: 1428.21 mGy.cm COMPARISON: CT cervical spine of same day, CT exam May 29, 2010 FINDINGS: No acute intracranial hemorrhage, midline shift, intracranial mass, hydrocephalus, territorial ischemia or abnormal extra-axial collection. Involutional changes with chronic microvascular ischemic disease. The calvarium is intact. Small posterior scalp contusions. The paranasal sinuses, mastoid air cells, and middle ear cavities are clear. IMPRESSION: 1. No acute intracranial abnormality or calvarial fracture. 2. Small posterior scalp contusions. ACT 112: Negative or not required by law. The above report was generated using voice recognition software. It may contain grammatical, syntax or spelling errors. Electronically signed by: Lenin Low M.D. 07/18/2024 6:28 PM Discharge Plan Visit Data Chief Complaint: Trauma ED Provider: Jose Maria Gibson Discharge Problem: Fall, Ambulatory dysfunction Forms Stand Alone Forms: [facility] [employer] Prescriptions Prescriptions: No Action (DME) OneTouch Ultra Test Strip See Rx Instructions .Route Qty: 300 3RF Rx Instructions: use 3 strips daily to test blood sugars magnesium oxide 400 mg (241.3 mg magnesium) tablet 400 mg PO BID Qty: 60 11RF insulin glargine [Lantus Solostar U-100 Insulin] 100 unit/mL (3 mL) insulin pen 35 unit subcut QPM Qty: 30 3RF Patient Comments: "Will be doing 50% dose of 17 units prior to 06/01/24 surgery" amoxicillin 500 mg tablet See Rx Instructions .ROUTE .COMPLEX PRN (Reason: PRIOR TO DENTAL APPT.) Qty: 16 1RF Rx Instructions: TAKE FOUR TABLETS BY MOUTH ONE HOUR BEFORE APPOINTMENT DIRECTED potassium chloride 10 mEq tablet extended release 10 meq PO QAM Qty: 90 3RF metoprolol succinate 25 mg tablet extended release 24 hr 37.5 mg PO QAM Qty: 135 3RF insulin lispro 100 unit/mL insulin pen See Rx Instructions subcut AC MDD 50 units Qty: 15 1RF Rx Instructions: subcutaneously before meals; per sliding scale subcut; 50 units max per day pravastatin 40 mg tablet 40 mg PO HS Qty: 30 11RF amiodarone 200 mg tablet 200 mg PO QAM Qty: 90 3RF furosemide 40 mg tablet 40 mg PO QAM Qty: 90 1RF Rx Instructions: Take 1 tablet by mouth once daily Ocuvite with Lutein 1,000 unit-200 mg-60 unit-2 mg tablet 1 tab PO QAM cyanocobalamin (vitamin B-12) 1,000 mcg tablet extended release 1,000 mcg PO QAM cholecalciferol (vitamin D3) 2,000 unit capsule 2,000 units PO QAM calcium carbonate-vitamin D3 [Caltrate with Vitamin D3] 600 mg-20 mcg (800 unit) tablet 1 tab PO QAM (DME) pen needle, diabetic [BD Ultra-Fine Mini Pen Needle] 31 gauge x 3/16" needle See Rx Instructions .ROUTE .MEDSUPPLY Qty: 50 2RF Rx Instructions: use daily with victoza Eliquis 2.5 mg tablet 2.5 mg PO BID Qty: 60 0RF Hold Instructions: Resume on 06/03/24. (DME) Oxygen Home Liters Per Minute See Dose Instructions .ROUTE .MEDSUPPLY Qty: 1 0RF Dose Instruction: As directed Rx Instructions: PORTABLE OXYGEN CONCENTRATOR 2L OF OXYGEN AT NIGHT DX: G47.36 LENGTH OF NEED: 99 MONTHS prochlorperazine maleate 10 mg tablet 10 mg PO DIRECTED PRN (Reason: Nausea And Vomiting) olanzapine 2.5 mg tablet 2.5 mg PO DIRECTED Patient Comments: "Use once chemo starts" Rx Instructions: TAKE 1 TABLET BY MOUTH ONCE DAILY AT BEDTIME FOR 4 DAYS STARTING ON DAY 1 OF CHEMOTHERAPY FOR NAUSEA dexamethasone 4 mg tablet 4 mg PO DIRECTED Patient Comments: "Use once chemo starts" levothyroxine 75 mcg tablet 75 mcg PO QAM lisinopril 10 mg tablet 5 mg PO QAM Referrals Referrals: Uyen Santana MD [Primary Care Provider] -
--- NOTE | 2024-07-18 17:58 | XRay Report ---
XR chest 1V portable HISTORY: 73 years-old Female fall acute chest trauma status post fall COMPARISON: 06/01/2024 TECHNIQUE: AP chest FINDINGS: Left subclavian Uolpfm-s-Cnqw catheter is unchanged. Cardiomegaly. No pneumothorax, pleural effusion, airspace consolidation or pulmonary edema. Degenerative changes of the shoulders and spine. IMPRESSION: No acute process. ACT 112: Negative or not required by law. The above report was generated using voice recognition software. It may contain grammatical, syntax o r spelling errors. Electronically signed by: Lenin Low M.D. 07/18/2024 5:56 PM
--- NOTE | 2024-07-18 18:29 | CT Scan Report ---
CT head/brain wo con CLINICAL HISTORY: 73 years-old Female with Trauma-fall on blood thinner. Acute head trauma TECHNIQUE: Multiple axial CT images of the head were obtained without contrast. A dose lowering tech nique was utilized adhering to the principles of ALARA. CT DOSE: 1428.21 mGy.cm COMPARISON: CT cervical spine of same day, CT exam May 29, 2010 FINDINGS: No acute intracranial hemorrhage, midline shift, intracranial mass, hydrocephalus, territorial ischem ia or abnormal extra-axial collection. Involutional changes with chronic microvascular ischemic disea se. The calvarium is intact. Small posterior scalp contusions. The paranasal sinuses, mastoid air cells, and middle ear cavities are clear. IMPRESSION: 1. No acute intracranial abnormality or calvarial fracture. 2. Small posterior scalp contusions. ACT 112: Negative or not required by law. The above report was generated using voice recognition software. It may contain grammatical, syntax o r spelling errors. Electronically signed by: Lenin Low M.D. 07/18/2024 6:28 PM
--- NOTE | 2024-07-18 18:33 | CT Scan Report ---
CT cervical spine wo con CLINICAL HISTORY: 73 years-old Female with Trauma-fall on blood thinner. Acute neck injury status po st fall COMPARISON: Head CT of same day TECHNIQUE: Multiple axial CT images of the cervical spine were obtained without contrast. A dose low ering technique was utilized adhering to the principles of ALARA. FINDINGS: Multilevel degenerative changes of the cervical spine include moderate to severe interverte bral disc space narrowing and vhjv-wo-xolovmrc facet arthrosis. Demineralized appearance of the bones . The cervical soft tissues appear unremarkable. Heterogeneous thyroid. Partially imaged left subclav susanna port catheter. Aberrant right subclavian artery. No pneumothorax. Biapical groundglass densities. IMPRESSION: No acute cervical spine fracture or subluxation identified. ACT 112: Negative or not required by law. The above report was generated using voice recognition software. It may contain grammatical, syntax o r spelling errors. Electronically signed by: Lenin Low M.D. 07/18/2024 6:31 PM
[2024-07-18 18:54] LABS: Hematocrit (blood only) 32.2 % (37.0-47.0); Hemoglobin 10.5 g/dl (12.0-16.0); Mean Corpuscular Hemoglobin 30.1 pg (25.0-34.0); Mean Corpuscular Hgb Conc 32.6 g/dL (32.0-36.0); Mean Corpuscular Volume 92.3 fL (80.0-100.0); Mean Platelet Volume 10.2 fL (9.4-12.4); Platelet Count 82 K/uL (130-400); RDW Coefficient of Variation 25.1 % (11.5-14.5); Red Blood Count 3.49 M/uL (4.20-5.40); White Blood Count 9.27 K/ul (4.8-10.8)
[2024-07-18 19:24] LABS: Anisocytosis Present; Basophils # (auto) 0.01 K/uL (0.00-0.20); Basophils % (auto) 0.1 %; Immature Granulocytes # (auto) 0.07 K/uL (0.01-0.20); Immature Granulocytes % (auto) 0.8 %; Lymphocytes # (auto) 0.54 K/uL (1.20-3.40); Lymphocytes % (auto) 5.8 %; Monocytes % (auto) 1.1 %; Neutrophils # (auto) 8.55 K/uL (1.40-6.50); Neutrophils % (auto) 92.2 %; Polychromasia 1+; Target Cells 2+
[2024-07-18 19:59] LABS: Albumin Level 3.7 gm/dl (3.4-5.0); Bilirubin,Total 0.6 mg/dl (0.2-1.0); Calcium 8.6 mg/dl (8.6-10.3); Potassium 4.6 mmol/L (3.5-5.1)
[2024-07-18 20:05] LABS: Albumin Globulin Ratio 1.2 (0.9-2); BUN Creatinine Ratio 31.1 (10-20); Creatinine Clr Calc Pharmacy 78.9 ml/min; Globulin 3.2 gm/dl (2.5-4.0); Total Protein 6.9 gm/dl (6.0-8.3)
[2024-07-18] MEDS ORDERED: VANCOMYCIN CONSULT ACTIVE PRN (22:41)
--- NOTE | 2024-07-18 22:49 | History & Physical Report ---
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 anticoagulation: (6) Paroxysmal atrial fibrillation: (7) Type 2 diabetes mellitus with obesity: (8) Aortic stenosis: (9) Endometrioid adenocarcinoma of uterus: (10) Obstructive sleep apnea: (11) Diabetes mellitus type 2, controlled: (12) Hypertension: (13) Obesity, Class III, BMI 40-49.9 (morbid obesity): Plan Status post fall- Secondary to generalized weakness after chemotherapy induced diarrhea Patient lost her balance and fell as she was trying to pull her undergarments back up when she was getting off the commode Will consult PT/OT Cellulitis of bilateral lower extremities- Patient reports that she has had issues in the past, and had noticed that earlier in the day today that the symptoms were recurring Due to history of chemotherapy and diabetes, would treat aggressively. Vancomycin IV per pharmacokinetic monitoring Zosyn 4.5 g IV every 8 hours Paroxysmal atrial fibrillation/hypertension- Continue amiodarone, apixaban, metoprolol succinate Hold furosemide and lisinopril Diabetes mellitus- Continue glargine 35 units at bedtime Placed on Accu-Cheks with NovoLog SSI Of note, patient did take her usual dexamethasone dosing prior to chemotherapy on 07/18 History of Present Illness Chief Complaint: The patient presents to the emergency department after a mechanical fall, due to becoming acutely weak after having chemotherapy induced diarrhea. She reports that she lost her balance and fell as she was trying to pull up her undergarments when she was getting off the commode earlier this evening Primary Care Provider: Uyen Santana MD The patient is a 73-year-old female with a past medical history including ambulatory dysfunction, obesity, diabetes mellitus type 2, aortic stenosis, long-term anticoagulation, endometrioid adenocarcinoma of the uterus, PAF, ANN MARIE, dyslipidemia, hypertension, and hypothyroidism. She reports that she just had her third treatment with chemotherapy earlier in the day today, and sometimes gets significant diarrhea afterwards. This happened today, she became somewhat fatigued and weak and, and that she was getting up off the commode and trying to pull her undergarments off she fell and had difficulty getting up. She denies any injury to any body parts, including her head Allergies Allergy/AdvReac Type Severity Reaction Status Date / Time codevivek AdvReac Mild NAUSEA Verified 06/13/24 14:04 Home Medications Medication Instructions Recorded Confirmed Type vit A 300 mcg-C 200 mg-E 27 1 tab PO QAM 05/25/19 07/18/24 History mg-lutein 2 mg and minerals tablet (Ocuvite with Lutein) Oxygen Home #1 ea 07/24/19 07/19/24 Rx pen needle, diabetic 31 gauge x #50 ea 04/03/21 07/19/24 Rx 3/16" (BD Ultra-Fine Mini Pen Needle) calcium 600 mg (as 1 tab PO QAM 02/09/22 07/18/24 History carbonate)-vitamin D3 20 mcg (800 unit) tablet (Caltrate with Vitamin D3) blood sugar diagnostic (OneTouch #300 ea 12/14/22 07/19/24 Rx Ultra Test strips) magnesium oxide 400 mg (241.3 mg 400 mg PO BID #60 tabs 03/01/23 07/18/24 Rx magnesium) tablet insulin glargine 100 unit/mL (3 35 unit (0.35 mL) subcut QPM #30 mL 07/27/23 07/18/24 Rx mL) subcutaneous pen (Lantus Solostar U-100 Insulin) amoxicillin 500 mg tablet See Rx Instructions .Route 08/03/23 07/18/24 Rx .COMPLEX PRN PRIOR TO DENTAL APPT. #16 tabs potassium chloride 10 mEq 10 meq PO QAM #90 tabs 09/23/23 07/18/24 Rx tablet,extended release metoprolol succinate 25 mg 37.5 mg (1.5 x 25 mg) PO QAM #135 10/19/23 07/18/24 Rx tablet,extended release 24 hr tabs insulin lispro 100 unit/mL See Rx Instructions subcut AC #15 02/28/24 07/18/24 Rx subcutaneous pen mL pravastatin 40 mg tablet 40 mg PO HS #30 tabs 03/13/24 07/18/24 Rx amiodarone 200 mg tablet 200 mg PO QAM #90 tabs 04/26/24 07/18/24 Rx dexamethasone 4 mg tablet 4 mg PO DIRECTED 05/11/24 07/18/24 History olanzapine 2.5 mg tablet 2.5 mg PO DIRECTED 05/11/24 07/18/24 History prochlorperazine maleate 10 mg 10 mg PO DIRECTED PRN Nausea 05/11/24 07/18/24 History tablet And Vomiting levothyroxine 75 mcg tablet 75 mcg PO QAM 05/22/24 07/18/24 History furosemide 40 mg tablet 40 mg PO QAM #90 tabs 06/09/24 07/18/24 Rx lisinopril 10 mg tablet 5 mg PO QAM 06/13/24 07/18/24 History apixaban 2.5 mg tablet 2.5 mg PO BID #60 tabs 06/15/24 07/18/24 Rx ferrous sulfate 325 mg (65 mg 325 mg PO BID 07/18/24 07/18/24 History iron) tablet (Iron (ferrous sulfate)) Past Med/Surg History Problem List (Updated 07/19/24 @ 05:10 by Dayday Live MD) Cellulitis of both lower extremities Diarrhea due to drug Ambulatory dysfunction (Acute) Fall (Acute) Obesity, Class III, 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 Aortic stenosis moderate per 03/2023 ECHO Current use of usp anticoagulation (Acute) Glenohumeral arthritis Endometrioid adenocarcinoma of uterus (Chronic 03/26/21) radiation X 2 last treatment 09/2021 follows w/ [facility] onc Pulmonary nodule BEING MONITORING Paroxysmal atrial fibrillation Obstructive sleep apnea 2L NC Dyslipidemia Diabetes mellitus type 2, controlled Hypertension Hypothyroidism Medical History (Updated 07/19/24 @ 05:10 by Dayday Live MD) Colon polyps Prolonged Q-T interval on ECG per 05/11/24 EKG (QTc 509ms) Acid reflux Hx of migraine headaches none recently Pulmonary nodule 05/25/24 CT scan follow up - monitoring Hx pulmonary embolism 2004 Endometrioid adenocarcinoma of uterus s/p hyster03/06/24; also s/p XRT; follows w/ [facility] onc Type 2 diabetes mellitus IDDM History of COVID-19 07/2021 no symptoms Arthritis LVH (left ventricular hypertrophy) Vitamin D deficiency Surgical History (Updated 06/13/24 @ 17:45 by Uyen Santana MD) Port-A-Cath in place (06/01/24) p Insertion of Left Subclavian Access Port with Fluoroscopy(Left) - Tristan Devries MD, FACS MRI port placement in the left subclavian throughout the procedure fluoroscopy was used and I interpreted all the images H/O: hysterectomy History of robot-assisted laparoscopic hysterectomy 03/06/24 [facility] - Follows History of bunionectomy Left Foot History of robot-assisted laparoscopic hysterectomy (04/2021) Attempted procedure not possible secondary to small bowel obscuring pelvic structures Mirena IUD placed History of colonoscopy S/P dilation and curettage (03/26/21) "I only had one done down at [place]" D&C Hysteroscopy with Myosure [facility] Dr. Barfield History of tooth extraction wisdom teeth History of cholecystectomy H/O total knee replacement Right Family History Mother Lung cancer Cancer Heart disease Brother Prostate cancer Diabetes Myocardial infarction Father Myocardial infarction Heart disease Stroke Aunt Breast cancer Cancer Aunt Colorectal cancer Uncle Esophageal cancer Grandmother (Maternal) Diabetes Sister Diabetes Clotting disorder Other Has no children No family history of adverse response to anesthesia Denies family history of Ovarian cancer Social History Smoking Status: Former smoker Tobacco Type: Cigarettes Age Started Using Tobacco: 16; Age Quit Using Tobacco: 60; packs per day: 1; Second Hand Exposure: No; Do You Dip or Chew Tobacco: No; Hx Alcohol Use: No Hx Substance Use: No Preferred Language: Greek Communication Ability: Effective Visual Impairment: Limited Hearing Ability: Normal Software 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 Required: No Beliefs That Will Affect Care: None marital status: Single Current Living Situation: Alone Current Living Situation Comment: Currently at [facility] until 05/27/24 - when at home is alone current occupational status: retired current occupation: Retired How many Children do You have: 0 Feels Safe at Home: Yes Childhood Exposure to Second-Hand Smoke: No Diet: diabetic and low carbohydrate caffeine: Yes (soda daily) during the past year weight has: remained stable Dental Care, Regularly: Yes Physical Activity Frequency: Does not Exercise Seatbelt Use: always Sunscreen Use: Yes Do you think of yourself as: straight/heterosexual Assistive Devices: Walker Review of Systems Review of Systems: The patient denies chest pain, palpitations, shortness of breath, dyspnea on e xertion, cough, sore throat, fevers, chills, sweats, nausea, vomiting, abdominal pain, pelvic pain, blood in urine or stool, dysuria, urinary frequency or urgency, lightheadedness, dizziness, headache, memory loss, loss of consciousness, abnormal bruising or bleeding, focal weakness, numbness or tingling in arms or legs, generalized arthralgias or myalgias, back or neck pain, or night sweats. The review of systems is otherwise negative other than for that already noted above, and at least 10 systems have been reviewed. Physical Exam Physical Exam: The patient is awake, alert and oriented 3, well developed and well nourished, normocephalic and atraumatic, lying in bed and in no acute distress. HEENT--PERRL, EOMI, mucous membranes and oropharynx mildly dry. Neck--supple. No JVD. No bruits. Thyroid normal, trachea midline, no adenopathy. Heart--normal S1 and S2. No murmurs, rubs or gallops. Lungs--clear bilaterally, no respiratory distress, no accessory muscle use. Abdomen--normal bowel sounds and soft. Nontender. Nondistended. Obese Extremities--no cyanosis or clubbing. No edema. Dermatologic--mild erythema and warmth bilateral lower extremities along anterior tibial surface Neurologic--cranial nerves II through XII grossly intact. Rheumatologic--normal range of motion. Psychiatric--normal affect. Results & Data Results & Data Vital Signs (Past 12 Hours) Vital Signs Temp Pulse Pulse Resp BP BP Pulse Ox 07/18/24 22:33 81 16 93 07/18/24 22:00 137/75 07/18/24 22:00 80 18 137/75 93 07/18/24 21:47 81 07/18/24 21:00 88 27 H 143/114 H 93 07/18/24 20:37 152/117 H 07/18/24 20:03 85 16 151/88 H 96 07/18/24 19:03 89 14 138/86 91 07/18/24 18:26 87 19 142/87 H 95 07/18/24 18:19 36.8 C 88 16 170/92 H 95 07/18/24 18:18 07/18/24 18:16 88 16 95 07/18/24 18:15 87 16 142/87 H 92 07/18/24 17:51 87 07/18/24 17:48 87 20 170/92 H 96 07/18/24 17:48 36.8 C 88 19 170/92 H 96 07/18/24 17:19 36.8 C 88 19 170/92 H 96 O2 Del Method 07/18/24 22:33 07/18/24 22:00 07/18/24 22:00 07/18/24 21:47 07/18/24 21:00 07/18/24 20:37 07/18/24 20:03 07/18/24 19:03 07/18/24 18:26 Room Air 07/18/24 18:19 Room Air 07/18/24 18:18 Room Air 07/18/24 18:16 Room Air 07/18/24 18:15 07/18/24 17:51 07/18/24 17:48 07/18/24 17:48 Room Air 07/18/24 17:19 Room Air Laboratory Results Laboratory Results WBC 10.91 K/ul (4.8-10.8) H 07/19/24 02:56 RBC 3.03 M/uL (4.20-5.40) L 07/19/24 02:56 Hgb 9.1 g/dl (12.0-16.0) L 07/19/24 02:56 Hct 28.3 % (37.0-47.0) L 07/19/24 02:56 MCV 93.4 fL (80.0-100.0) 07/19/24 02:56 MCH 30.0 pg (25.0-34.0) 07/19/24 02:56 MCHC 32.2 g/dL (32.0-36.0) 07/19/24 02:56 RDW Std Deviation 87.2 fL (36.4-46.3) H 07/19/24 02:56 RDW Coeff of Keith 25.2 % (11.5-14.5) H 07/19/24 02:56 Plt Count 81 K/uL (130-400) L 07/19/24 02:56 MPV 10.8 fL (9.4-12.4) 07/19/24 02:56 Immature Gran % (Auto) 0.7 % 07/19/24 02:56 Neut % (Auto) 85.7 % 07/19/24 02:56 Lymph % (Auto) 7.1 % 07/19/24 02:56 Brantley % (Auto) 6.5 % 07/19/24 02:56 Eos % (Auto) 0.0 % 07/19/24 02:56 Baso % (Auto) 0.0 % 07/19/24 02:56 Neut # (Auto) 9.34 K/uL (1.40-6.50) H 07/19/24 02:56 Lymph # (Auto) 0.78 K/uL (1.20-3.40) L 07/19/24 02:56 Brantley # (Auto) 0.71 K/uL (0.11-0.59) H 07/19/24 02:56 Eos # (Auto) 0.00 K/uL (0.00-0.50) 07/19/24 02:56 Baso # (Auto) 0.00 K/uL (0.00-0.20) 07/19/24 02:56 Immature Gran # (Auto) 0.08 K/uL (0.01-0.20) 07/19/24 02:56 Polychromasia 1+ 07/19/24 02:56 Anisocytosis Present 07/19/24 02:56 Target Cells 2+ 07/19/24 02:56 Sodium 137 mmol/L (136-145) 07/19/24 02:56 Potassium 4.1 mmol/L (3.5-5.1) 07/19/24 02:56 Chloride 110 mmol/L (98-107) H 07/19/24 02:56 Carbon Dioxide 21 mmol/L (21-32) 07/19/24 02:56 Anion Gap 6 (3-11) 07/19/24 02:56 BUN 20 mg/dl (6-23) 07/19/24 02:56 Creatinine 0.65 mg/dl (0.6-1.2) 07/19/24 02:56 Est Cr Clr Drug Dosing 89.9 ml/min 07/19/24 02:56 eGFR 91.76 07/19/24 02:56 BUN/Creatinine Ratio 30.8 (10-20) H 07/19/24 02:56 Glucose 168 mg/dl (70-99(Fasting)) H 07/19/24 02:56 POC Glucose 175 mg/dl (70-99) H 07/18/24 23:38 Calcium 7.9 mg/dl (8.6-10.3) L 07/19/24 02:56 Magnesium 2.3 mg/dl (1.7-2.4) 07/19/24 02:56 Total Bilirubin 0.4 mg/dl (0.2-1.0) 07/19/24 02:56 AST 17 U/L (13-39) 07/19/24 02:56 ALT 18 U/L (7-52) 07/19/24 02:56 Alkaline Phosphatase 62 U/L (34-104) 07/19/24 02:56 Total Protein 5.8 gm/dl (6.0-8.3) L 07/19/24 02:56 Albumin 3.2 gm/dl (3.4-5.0) L 07/19/24 02:56 Globulin 2.6 gm/dl (2.5-4.0) 07/19/24 02:56 Albumin/Globulin Ratio 1.2 (0.9-2) 07/19/24 02:[address] 07/18/24 17:46 CT cervical spine wo con CLINICAL HISTORY: 73 years-old Female with Trauma-fall on blood thinner. Acute neck injury status post fall COMPARISON: Head CT of same day TECHNIQUE: Multiple axial CT images of the cervical spine were obtained without contrast. A dose lowering technique was utilized adhering to the principles of ALARA. FINDINGS: Multilevel degenerative changes of the cervical spine include moderate to severe intervertebral disc space narrowing and [id number] facet arthrosis. Demineralized appearance of the bones. The cervical soft tissues appear unremarkable. Heterogeneous thyroid. Partially imaged left subclavian port catheter. Aberrant right subclavian artery. No pneumothorax. Biapical groundglass densities. IMPRESSION: No acute cervical spine fracture or subluxation identified. ACT 112: Negative or not required by law. The above report was generated using voice recognition software. It may contain grammatical, syntax or spelling errors. Electronically signed by: Lenin Low M.D. 07/18/2024 6:31 PM Chest X-Ray 07/18/24 17:46 XR chest 1V portable HISTORY: 73 years-old Female fall acute chest trauma status post fall COMPARISON: 06/01/2024 TECHNIQUE: AP chest FINDINGS: Left subclavian Zzsqiq-s-[id number] catheter is unchanged. Cardiomegaly. No pneumothorax, pleural effusion, airspace consolidation or pulmonary edema. Degenerative changes of the shoulders and spine. IMPRESSION: No acute process. ACT 112: Negative or not required by law. The above report was generated using voice recognition software. It may contain grammatical, syntax or spelling errors. Electronically signed by: Lenin Low M.D. 07/18/2024 5:[address] 07/18/24 17:46 CT head/brain wo con CLINICAL HISTORY: 73 years-old Female with Trauma-fall on blood thinner. Acute head trauma TECHNIQUE: Multiple axial CT images of the head were obtained without contrast. A dose lowering technique was utilized adhering to the principles of ALARA. CT DOSE: 1428.21 mGy.cm COMPARISON: CT cervical spine of same day, CT exam May 29, 2010 FINDINGS: No acute intracranial hemorrhage, midline shift, intracranial mass, hydrocephalus, territorial ischemia or abnormal extra-axial collection. I nvolutional changes with chronic microvascular ischemic disease. The calvarium is intact. Small posterior scalp contusions. The paranasal sinuses, mastoid air cells, and middle ear cavities are clear. IMPRESSION: 1. No acute intracranial abnormality or calvarial fracture. 2. Small posterior scalp contusions. ACT 112: Negative or not required by law. The above report was generated using voice recognition software. It may contain grammatical, syntax or spelling errors. Electronically signed by: Lenin Low M.D. 07/18/2024 6:28 PM Code Status & VTE Plan Code Status Full code VTE Prophylaxis Plan VTE Prophylaxis will be ordered: Yes PG Care Time/CCT Total # of Minutes Spent Total Time Spent with Patient: Total time spent is greater than 50% in coordination of care (as documented) at patient's floor/unit and/or counseling patient: Coding Level of Care Code 11762 INT INP/OBS CARE 3/75MIN Diagnoses Fall W19.XXXA Ambulatory dysfunction R26.2 Diarrhea due to drug K52.1 Cellulitis of both lower extremities L03.115; L03.116 Current use of terminal make up operator anticoagulation Z79.01 Paroxysmal atrial fibrillation I48.0 Type 2 diabetes mellitus with obesity E11.69; E66.9 Aortic stenosis I35.0 Endometrioid adenocarcinoma of uterus C55 Obstructive sleep apnea G47.33 Diabetes mellitus type 2, controlled E11.9 Hypertension I10 Hypertension type: unspecified Obesity, Class III, BMI 40-49.9 (morbid obesity) E66.01 (12) Hypertension Hypertension type: unspecified Qualified Code(s): I10 - Essential (primary) hypertension
[2024-07-18] MEDS: 4.5GM X1 IV STA (23:44)
[2024-07-18] MEDS: LANTUS PER UNIT CHARGE SQ STA (23:45)
[2024-07-18] MEDS: APIXABAN 2.5 MG TAB PO ONE (23:45)
[2024-07-19] MEDS: VANCOMYCIN HCL 2,250 MG in SODIUM CHLORIDE 0.9% 500 ML IV STA (00:15)
[2024-07-19] MEDS ORDERED: GLUCOSE 10 TAB/TUBE PO PRN (00:37)
[2024-07-19] MEDS ORDERED: GLUCOSE 40% GEL 15 GM TUBE PO PRN (00:37)
[2024-07-19] MEDS ORDERED: GLUCAGON FOR INJ 1 MG VIAL SQ PRN (00:37)
[2024-07-19] MEDS ORDERED: ONDANSETRON INJ 2 MG/ML 2 ML VIAL IV PRN (00:37)
[2024-07-19] MEDS ORDERED: DEXTROSE 50% 50 ML SYRINGE IV PRN (00:37)
[2024-07-19] MEDS ORDERED: CARBOHYDRATES FOR HYPOGLYCEMIA PO PRN (00:37)
[2024-07-19] MEDS: OLANZapine ZYDIS 5 MG ORALLY DIS. TAB PO STA (01:56)
[2024-07-19] MEDS: PRAVASTATIN SOD 40 MG TAB PO STA (01:56)
[2024-07-19] MEDS: ACETAMINOPHEN 325 MG TAB PO PRN (02:11)
[2024-07-19 03:40] LABS: Hematocrit (blood only) 28.3 % (37.0-47.0); Hemoglobin 9.1 g/dl (12.0-16.0); Immature Granulocytes # (auto) 0.08 K/uL (0.01-0.20); Immature Granulocytes % (auto) 0.7 %; Lymphocytes # (auto) 0.78 K/uL (1.20-3.40); Lymphocytes % (auto) 7.1 %; Mean Corpuscular Hgb Conc 32.2 g/dL (32.0-36.0); Mean Corpuscular Volume 93.4 fL (80.0-100.0); Mean Platelet Volume 10.8 fL (9.4-12.4); Monocytes # (auto) 0.71 K/uL (0.11-0.59); Monocytes % (auto) 6.5 %; Neutrophils # (auto) 9.34 K/uL (1.40-6.50); Neutrophils % (auto) 85.7 %; Platelet Count 81 K/uL (130-400); RDW Coefficient of Variation 25.2 % (11.5-14.5); RDW Standard Deviation 87.2 fL (36.4-46.3); Red Blood Count 3.03 M/uL (4.20-5.40); White Blood Count 10.91 K/ul (4.8-10.8)
[2024-07-19 03:52] LABS: Albumin Globulin Ratio 1.2 (0.9-2); Albumin Level 3.2 gm/dl (3.4-5.0); BUN Creatinine Ratio 30.8 (10-20); Bilirubin,Total 0.4 mg/dl (0.2-1.0); Calcium 7.9 mg/dl (8.6-10.3); Creatinine Clr Calc Pharmacy 89.9 ml/min; Globulin 2.6 gm/dl (2.5-4.0); Magnesium 2.3 mg/dl (1.7-2.4); Potassium 4.1 mmol/L (3.5-5.1); Total Protein 5.8 gm/dl (6.0-8.3)
[2024-07-19 03:55] LABS: Anisocytosis Present; Polychromasia 1+; Target Cells 2+
[2024-07-19] MEDS: LEVOTHYROXINE SODIUM 75 MCG TABLET PO SCH (06:26)
[2024-07-19] MEDS: PIPERACILLIN/TAZOBACTAM 4.5 GM/100 ML BAG IV SCH (06:26)
[2024-07-19 07:09] LABS: Estimated Average Glucose 143 mg/dl; Hemoglobin A1C 6.6 % (4.5-5.6)
--- NOTE | 2024-07-19 07:25 | Hospitalist Progress Note ---
Date of Service July 19, 2024 Assessment & Plan (1) Diarrhea due to drug: Plan: Status post fall-metabolic encephalopathy due to weakness and diarrhea from chemotherapy for uterine cancer no fractures or serious injuries Patient lost her balance and fell as she was trying to pull her undergarments back up when she was getting off the commode stool testing pending , pt states diarrhea frequently after cancer treatment Will consult PT/OT (2) Cellulitis of both lower extremities: Plan: Cellulitis of bilateral lower extremities-with morbid obesity could be also component of stasis dermatitis Patient reports that she has had issues in the past, and had noticed that earlier in the day today that the symptoms were recurring Due to history of chemotherapy and diabetes, would treat aggressively. Daptomycin IV per pharmacokinetic monitoring Zosyn 4.5 g IV every 8 hours (3) Paroxysmal atrial fibrillation: Plan: Paroxysmal atrial fibrillation/hypertension- Continue amiodarone, metoprolol succinate nursing home anticoagulation with apixiban, recently held with vaginal bleeding and restarted at lower dose Hold furosemide and lisinopril for lower blood pressure with dehydration from diarrhea poa (4) Type 2 diabetes mellitus with obesity: Plan: Diabetes mellitus- Continue glargine 35 units at bedtime Placed on Accu-Cheks with NovoLog SSI Of note, patient did take her usual dexamethasone dosing prior to chemotherapy on 07/18 (5) Obstructive sleep apnea: (6) Obesity, Class III, BMI 40-49.9 (morbid obesity): Admission and Anticipated Discharge Date Admission Date: July 18, 2024 Subjective diarrhea has regressed a bit, no further diarrhea feels weak awaiting PT eval heal injury is painful but improving Physical Exam Physical Exam: ecchymosis on posterior scalp, allopecia cardiac exam is regular lungs are clear abd is soft and non tender Results & Data Results & Data Vital Signs (Past 12 Hours) Vital Signs Pulse Pulse Resp BP BP Pulse Ox Pulse Ox 07/19/24 06:30 66 18 127/74 97 07/19/24 04:26 78 18 118/59 L 98 07/19/24 02:56 71 14 130/78 99 07/19/24 01:54 77 22 130/73 98 07/19/24 01:53 98 07/19/24 01:17 86 22 142/78 H 97 07/19/24 01:16 86 22 142/78 H 98 07/19/24 00:31 78 16 160/79 H 94 07/18/24 23:59 82 19 07/18/24 23:59 80 20 151/65 H 97 07/18/24 22:33 81 16 93 07/18/24 22:00 137/75 07/18/24 22:00 80 18 137/75 93 07/18/24 21:47 81 07/18/24 21:00 88 27 H 143/114 H 93 07/18/24 20:37 152/117 H 07/18/24 20:03 85 16 151/88 H 96 O2 Del Method O2 Del Method O2 Flow Rate O2 Flow Rate 07/19/24 06:30 07/19/24 04:26 07/19/24 02:56 07/19/24 01:54 Nasal Cannula 2 07/19/24 01:53 Nasal Cannula 2 07/19/24 01:17 Nasal Cannula 2 07/19/24 01:16 Nasal Cannula 2 07/19/24 00:31 Room Air 07/18/24 23:59 07/18/24 23:59 Room Air 07/18/24 22:33 07/18/24 22:00 07/18/24 22:00 07/18/24 21:47 07/18/24 21:00 07/18/24 20:37 07/18/24 20:03 Laboratory Results review cbc review chemistry PG Care Time/CCT Total # of Minutes Spent Total Time Spent with Patient: Total time spent is greater than 50% in coordination of care (as documented) at patient's floor/unit and/or counseling patient: Coding Level of Care Code 92872 SUB INP/OBS CARE MIN Diagnoses Diarrhea due to drug K52.1 Cellulitis of both lower extremities L03.115; L03.116 Paroxysmal atrial fibrillation I48.0 Type 2 diabetes mellitus with obesity E11.69; E66.9 Obstructive sleep apnea G47.33 Obesity, Class III, BMI 40-49.9 (morbid obesity) E66.01
[2024-07-19] MEDS: APIXABAN 2.5 MG TAB PO SCH (09:00)
[2024-07-19] MEDS: CALCIUM 600MG + VIT D 400 IU TAB PO SCH (09:01)
[2024-07-19] MEDS: CYANOCOBALAMIN (B-12) 500 MCG TABLET PO SCH (09:01)
[2024-07-19] MEDS: MAGNESIUM OXIDE 400 MG TAB PO SCH (09:01)
[2024-07-19] MEDS: CHOLECALCIFEROL 25 MCG (1000 UNITS) TAB PO SCH (09:01)
[2024-07-19] MEDS: METOPROLOL SUCC 25MG EXT REL TAB PO SCH (09:02)
[2024-07-19] MEDS: CEROVITE ADV FORMULA TAB PO SCH (09:03)
[2024-07-19] MEDS: INSULIN ASPART PER UNIT CHARGE SC SCH (10:42)
[2024-07-19] MEDS ORDERED: VANCOMYCIN HCL 1,750 MG in SODIUM CHLORIDE 0.9% 500 ML IV SCH (12:00)
[2024-07-19] MEDS: DAPTOmycin 300 MG in SYRINGE 0 ML IV SCH (12:44)
[2024-07-19] MEDS: OLANZAPINE 2.5 MG TAB PO SCH (20:37)
[2024-07-19] MEDS ORDERED: PRAVASTATIN SOD 40 MG TAB PO SCH (21:00)
[2024-07-19] MEDS: LANTUS PER UNIT CHARGE SQ SCH (22:21)
[2024-07-20 12:05] LABS: Basophils # (auto) 0.01 K/uL (0.00-0.20); Basophils % (auto) 0.1 %; Eosinophils # (auto) 0.03 K/uL (0.00-0.50); Eosinophils % (auto) 0.4 %; Hematocrit (blood only) 30.2 % (37.0-47.0); Hemoglobin 9.5 g/dl (12.0-16.0); Immature Granulocytes # (auto) 0.03 K/uL (0.01-0.20); Immature Granulocytes % (auto) 0.4 %; Lymphocytes # (auto) 1.25 K/uL (1.20-3.40); Mean Corpuscular Hemoglobin 29.7 pg (25.0-34.0); Mean Corpuscular Hgb Conc 31.5 g/dL (32.0-36.0); Mean Corpuscular Volume 94.4 fL (80.0-100.0); Mean Platelet Volume 10.9 fL (9.4-12.4); Monocytes # (auto) 0.25 K/uL (0.11-0.59); Monocytes % (auto) 3.2 %; Neutrophils # (auto) 6.23 K/uL (1.40-6.50); Neutrophils % (auto) 79.9 %; Platelet Count 95 K/uL (130-400); RDW Coefficient of Variation 25.4 % (11.5-14.5); RDW Standard Deviation 89.3 fL (36.4-46.3)
[2024-07-20 12:22] LABS: Albumin Globulin Ratio 1.3 (0.9-2); Albumin Level 3.4 gm/dl (3.4-5.0); BUN Creatinine Ratio 34.6 (10-20); Bilirubin,Total 0.5 mg/dl (0.2-1.0); Calcium 8.2 mg/dl (8.6-10.3); Creatinine Clr Calc Pharmacy 72.9 ml/min; Globulin 2.6 gm/dl (2.5-4.0); Magnesium 2.2 mg/dl (1.7-2.4); Potassium 4.1 mmol/L (3.5-5.1)
[2024-07-20 13:22] LABS: Anisocytosis Present; Polychromasia 1+; Tear Drop Cells 1+
--- NOTE | 2024-07-20 16:46 | Hospitalist Progress Note ---
Date of Service July 20, 2024 Assessment & Plan (1) Diarrhea due to drug: Plan: Status post fall-metabolic encephalopathy due to weakness and diarrhea from chemotherapy for uterine cancer no fractures or serious injuries Patient lost her balance and fell as she was trying to pull her undergarments back up when she was getting off the commode stool testing pending , pt states diarrhea frequently after cancer treatment PT/OT pt has some limitations but overall did well with rolling walker would benefit from home PT (2) Cellulitis of both lower extremities: Plan: Cellulitis of bilateral lower extremities-with morbid obesity could be also component of stasis dermatitis , much improved Patient reports that she has had issues in the past, and had noticed that earlier in the day today that the symptoms were recurring Due to history of chemotherapy and diabetes, would treat aggressively. Daptomycin IV per pharmacokinetic monitoring Zosyn 4.5 g IV every 8 hours-> transition to augmentin at dc (3) Paroxysmal atrial fibrillation: Plan: Paroxysmal atrial fibrillation/hypertension- Continue amiodarone, metoprolol succinate nursing home anticoagulation with apixiban, recently held with vaginal bleeding and restarted at lower dose Hold furosemide and lisinopril as continues with lower blood pressure, may consider holding at dc (4) Type 2 diabetes mellitus with obesity: Plan: Diabetes mellitus- Continue glargine 35 units at bedtime Placed on Accu-Cheks with NovoLog SSI Of note, patient did take her usual dexamethasone dosing prior to chemotherapy on 07/18 (5) Obstructive sleep apnea: (6) Obesity, Class III, BMI 40-49.9 (morbid obesity): Admission and Anticipated Discharge Date Admission Date: July 18, 2024 Subjective no further diarrhea, unable to sample feels weak, wondering if frome chemo, still considering wanting to go home heal injury is painful but improving Physical Exam Physical Exam: ecchymosis on posterior scalp, allopecia cardiac exam is regular lungs are clear abd is soft and non tender Results & Data Results & Data Vital Signs (Past 12 Hours) Vital Signs Temp Pulse Pulse Resp BP Pulse Ox O2 Del Method 07/20/24 15:28 97.7 F 62 20 113/73 95 Room Air 07/20/24 11:25 97.7 F 58 L 18 98/59 L 97 Room Air 07/20/24 07:50 97.7 F 59 L 18 117/69 99 Room Air 07/20/24 05:40 56 L Laboratory Results review cbc review chemistry PG Care Time/CCT Total # of Minutes Spent Total Time Spent with Patient: Total time spent is greater than 50% in coordination of care (as documented) at patient's floor/unit and/or counseling patient: Coding Level of Care Code 11590 SUB INP/OBS CARE 2/35MIN Diagnoses Diarrhea due to drug K52.1 Cellulitis of both lower extremities L03.115; L03.116 Paroxysmal atrial fibrillation I48.0 Type 2 diabetes mellitus with obesity E11.69; E66.9 Obstructive sleep apnea G47.33 Obesity, Class III, BMI 40-49.9 (morbid obesity) E66.01
[2024-07-21] MEDS: MELATONIN 3 MG TAB PO PRN (01:13)
[2024-07-21 06:58] LABS: Basophils # (auto) 0.01 K/uL (0.00-0.20); Basophils % (auto) 0.2 %; Eosinophils # (auto) 0.07 K/uL (0.00-0.50); Eosinophils % (auto) 1.6 %; Hematocrit (blood only) 27.6 % (37.0-47.0); Hemoglobin 8.7 g/dl (12.0-16.0); Immature Granulocytes # (auto) 0.01 K/uL (0.01-0.20); Immature Granulocytes % (auto) 0.2 %; Lymphocytes # (auto) 0.95 K/uL (1.20-3.40); Lymphocytes % (auto) 21.6 %; Mean Corpuscular Hgb Conc 31.5 g/dL (32.0-36.0); Mean Corpuscular Volume 95.2 fL (80.0-100.0); Monocytes # (auto) 0.17 K/uL (0.11-0.59); Monocytes % (auto) 3.9 %; Neutrophils # (auto) 3.19 K/uL (1.40-6.50); Neutrophils % (auto) 72.5 %; Platelet Count 92 K/uL (130-400); RDW Coefficient of Variation 25.3 % (11.5-14.5); RDW Standard Deviation 89.5 fL (36.4-46.3)
[2024-07-21 07:16] LABS: Albumin Globulin Ratio 1.3 (0.9-2); Albumin Level 3.1 gm/dl (3.4-5.0); BUN Creatinine Ratio 27.5 (10-20); Bilirubin,Total 0.4 mg/dl (0.2-1.0); Calcium 8.5 mg/dl (8.6-10.3); Globulin 2.3 gm/dl (2.5-4.0); Magnesium 2.1 mg/dl (1.7-2.4); Potassium 4.1 mmol/L (3.5-5.1); Total Protein 5.4 gm/dl (6.0-8.3)
[2024-07-21 07:23] LABS: Anisocytosis Present; Polychromasia 1+
[2024-07-21] MEDS: AMIODARONE 200 MG TAB PO SCH (08:49)
[2024-07-21] MEDS: INFLUENZA VACC TS2024-25(65y+)/PF (IIV3) 0.5mL Syr IM ONE (08:59)
[2024-07-21] MEDS: SODIUM CHLORIDE 0.65% NA SOLN 45 ML (OCEAN) PRN (10:28)
[2024-07-21] MEDS: PREGABALIN 75 MG CAP PO SCH (10:28)
--- NOTE | 2024-07-21 10:31 | Hospitalist Progress Note ---
Date of Service July 21, 2024 Assessment & Plan (1) Diarrhea due to drug: Plan: Now resolved stool testing pending , pt states diarrhea frequently after cancer treatment PT/OT pt has some limitations but overall did well with rolling walker would benefit from home PT (2) Cellulitis of both lower extremities: Plan: Cellulitis of bilateral lower extremities-with morbid obesity could be also co mponent of stasis dermatitis , much improved Patient reports that she has had issues in the past, Due to history of chemotherapy and diabetes, Daptomycin IV per pharmacokinetic monitoring Zosyn 4.5 g IV every 8 hours-> transition to augmentin at dc (3) Paroxysmal atrial fibrillation: Plan: Paroxysmal atrial fibrillation/hypertension- Continue amiodarone, metoprolol succinate residential anticoagulation with apixiban, recently held with vaginal bleeding and restarted at lower dose Hold furosemide and lisinopril as continues with lower blood pressure, may consider holding at dc (4) Type 2 diabetes mellitus with obesity: Plan: Diabetes mellitus- Continue glargine 35 units at bedtime Placed on Accu-Cheks with NovoLog SSI Of note, patient did take her usual dexamethasone dosing prior to chemotherapy on 07/18 (5) Neuropathic pain: Plan: most likely due to chemotherapy patient says she was prescribed clarithin for that, will give her Lyrica 75mg BID (6) Obstructive sleep apnea: (7) Obesity, Class III, BMI 40-49.9 (morbid obesity): Plan Hopefully d/c home tomorrow Admission and Anticipated Discharge Date Admission Date: July 18, 2024 Subjective patient seen and examined, still having some neuropathic pains on arms and legs Review of Systems Review of Systems: All systems reviewed are negative, apart from the ones contained in the history. Physical Exam Physical Exam: The patient is awake, alert and oriented 3, well developed and well nourished, normocephalic and atraumatic, lying in bed and in no acute distress. HEENT--PERRL, EOMI, mucous membranes and oropharynx mildly dry Neck--supple. No JVD. No bruits. Thyroid normal, trachea midline, no adenopathy. Heart--normal S1 and S2. No murmurs, rubs or gallops. Lungs--clear bilaterally, no respiratory distress, no accessory muscle use. Abdomen--normal bowel sounds and soft. Extremities--no cyanosis or clubbing. No edema. Dermatologic--normal skin turgor, normal color, no abnormal lymph nodes, no rash. Neurologic--cranial nerves II through XII grossly intact. Rheumatologic--normal range of motion. Psychiatric--normal affect. Results & Data Results & Data Vital Signs (Past 12 Hours) Vital Signs Temp Pulse Pulse Resp BP Pulse Ox O2 Del Method 07/21/24 07:35 Room Air 07/21/24 07:26 97.3 F L 63 18 118/61 99 Nasal Cannula 07/21/24 05:58 64 07/21/24 03:09 97.2 F L 65 16 116/71 98 Nasal Cannula 07/20/24 22:46 98.4 F 72 18 115/63 96 Nasal Cannula O2 Flow Rate 07/21/24 07:35 07/21/24 07:26 2 07/21/24 05:58 07/21/24 03:09 2 07/20/24 22:46 2 PG Care Time/CCT Total # of Minutes Spent Total Time Spent with Patient: Total time spent is greater than 50% in coordination of care (as documented) at patient's floor/unit and/or counseling patient: Coding Level of Care Code 37948 SUB INP/OBS CARE 2/35MIN Diagnoses Diarrhea due to drug K52.1 Cellulitis of both lower extremities L03.115; L03.116 Paroxysmal atrial fibrillation I48.0 Type 2 diabetes mellitus with obesity E11.69; E66.9 Neuropathic pain M79.2 Obstructive sleep apnea G47.33 Obesity, Class III, BMI 40-49.9 (morbid obesity) E66.01 Time Spent (min) 35
[2024-07-21] MEDS: HEPARIN 100 UNIT/ML 5ML FLUSH ONE (15:26)
[2024-07-21] MEDS: HEPARIN 100 UNIT/ML 5ML FLUSH FLUSH PRN (17:52)
[2024-07-21 23:48] VITALS: RESP 18
[2024-07-22 07:07] VITALS: TEMP 97.3; O2SAT 99
--- NOTE | 2024-07-22 10:23 | Discharge Summary ---
Date of Service July 22, 2024 Admission HPI Per Admitting Provider The patient is a 73-year-old female with a past medical history including ambulatory dysfunction, obesity, diabetes mellitus type 2, aortic stenosis, long-term anticoagulation, endometrioid adenocarcinoma of the uterus, PAF, ANN MARIE, dyslipidemia, hypertension, and hypothyroidism. She reports that she just had her third treatment with chemotherapy earlier in the day today, and sometimes gets significant diarrhea afterwards. This happened today, she became somewhat fatigued and weak and, and that she was getting up off the commode and trying to pull her undergarments off she fell and had difficulty getting up. She denies any injury to any body parts, including her head Admission Exam (Per Admitting) Constitutional The patient is awake, alert and oriented 3, well developed and well nourished, normocephalic and atraumatic, lying in bed and in no acute distress. HEENT--PERRL, EOMI, mucous membranes and oropharynx mildly dry Neck--supple. No JVD. No bruits. Thyroid normal, trachea midline, no adenopathy. Heart--normal S1 and S2. No murmurs, rubs or gallops. Lungs--clear bilaterally, no respiratory distress, no accessory muscle use. Abdomen--normal bowel sounds and soft. Extremities--no cyanosis or clubbing. No edema. Dermatologic--normal skin turgor, normal color, no abnormal lymph nodes, no rash. Neurologic--cranial nerves II through XII grossly intact. Rheumatologic--normal range of motion. Psychiatric--normal affect. Discharge Data Consultations 07/18/24 22:08 ED Decision to Admit Stat Hospital Course (1) Diarrhea due to drug: Now resolved stool testing pending , pt states diarrhea frequently after cancer treatment PT/OT pt has some limitations but overall did well with rolling walker would benefit from home PT (2) Cellulitis of both lower extremities: Cellulitis of bilateral lower extremities-with morbid obesity could be also component of stasis dermatitis , much improved Patient reports that she has had issues in the past, Due to history of chemotherapy and diabetes, Daptomycin IV per pharmacokinetic monitoring Zosyn 4.5 g IV every 8 hours-> transition to augmentin at dc (3) Paroxysmal atrial fibrillation: Paroxysmal atrial fibrillation/hypertension- Continue amiodarone, metoprolol succinate intermediate designer anticoagulation with apixiban, recently held with vaginal bleeding and restarted at lower dose Hold furosemide and lisinopril as continues with lower blood pressure, may consider holding at dc (4) Type 2 diabetes mellitus with obesity: Diabetes mellitus- Continue glargine 35 units at bedtime Placed on Accu-Cheks with NovoLog SSI Of note, patient did take her usual dexamethasone dosing prior to chemotherapy on 07/18 (5) Neuropathic pain: most likely due to chemotherapy patient says she was prescribed clarithin for that, will give her Lyrica 75mg BID (6) Obstructive sleep apnea: (7) Obesity, Class III, BMI 40-49.9 (morbid obesity): Plan Hopefully d/c home tomorrow Coding Level of Care Code 68668 INP/OBS DISCH >30 MIN Diagnoses Diarrhea due to drug K52.1 Cellulitis of both lower extremities L03.115; L03.116 Paroxysmal atrial fibrillation I48.0 Type 2 diabetes mellitus with obesity E11.69; E66.9 Neuropathic pain M79.2 Obstructive sleep apnea G47.33 Obesity, Class III, BMI 40-49.9 (morbid obesity) E66.01 Time Spent (min) 35
[2024-07-22 12:17] VITALS: BP 95/63; PULSE 70
== END 2024-07-22 13:17 | disposition home health service (06) | DRG 393 ==
LOC: ED 17:29 → SUATTDRO 22:43 → EDINP 22:43 → 2W 07-19 00:35

== ENCOUNTER 2024-10-05 08:11 | Inpatient (IN) ==
--- NOTE | 2024-10-05 08:26 | Emergency Department Note ---
Impression & Plan Anemia, OLIVARES (dyspnea on exertion), Neutropenia ED Provider Note NAME: WILI WAHL AGE: 74 SEX: F : 1950 ARRIVES VIA: Ambulance INFORMANT: Patient, ED PROVIDER(S): Stuart Renteria DO CHIEF COMPLAINT: Shortness of breath HPI: The patient is a 74-year-old female who presented to the emergency department by ambulance for an evaluation of shortness of breath. The patient's been noticing shortness of breath with exertion over the course of the last several weeks. It seems to be worse over the last couple of days. The patient has a history of uterine cancer and anemia. She takes iron supplements for her anemia. The patient does still receive chemotherapy. She denies having any abdominal pain or vomiting. The patient denies having any fever or hemoptysis. ROS: See above HPI for pertinent positives & negatives. A total of 10 systems reviewed and were otherwise negative. PAST MEDICAL HISTORY: See Below PAST SURGICAL HISTORY: See Below FAMILY HISTORY: See Below SOCIAL HISTORY: See Below HOME MEDICATIONS: See Below ALLERGIES: See Below VITALS: See Below PHYSICAL EXAMINATION: GENERAL: Patient is awake alert in no acute distress patient is resting comfortably and showing no signs of anxiety EYES: The conjunctivae are pale. The pupils are round and reactive. EARS, NOSE, MOUTH AND THROAT: The nose is without any evidence of any deformity. NECK: The neck is nontender and supple. RESPIRATORY: Normal respiratory effort is noted there is no evidence of wheezing rhonchi or rales CARDIOVASCULAR: Regular rate and rhythm noted there no murmurs rubs or gallops normal S1 normal S2. GASTROINTESTINAL: The abdomen is soft. Abdomen is nontender. MUSCULOSKELETAL/EXTREMITIES: There is no evidence of gross deformity full range of motion is noted in the hips and shoulders. SKIN: There is no obvious evidence of any rash. There are no petechiae, pallor or cyanosis noted. NEUROLOGIC: Patient is awake alert and oriented x3 MEDICAL DECISION MAKING: The patient is a 74-year-old female who presented to the emergency department for an evaluation of shortness of breath. The patient's had ongoing symptoms over the course of the last several weeks. She does have a history of cancer. She is being treated for this cancer with chemotherapy. She was found to be significantly anemic as well as neutropenic. I did do cultures. The patient was not febrile so no antibiotics were given. She was typed and screened. I discussed her condition with the [facility]call [facility]. They have agreed to evaluate the patient in the emergency department for further management and disposition. Triage Nursing notes reviewed. Prior medical records reviewed Vital Signs: reviewed and remarkable for elevated blood pressure. Differential diagnosis: Reactive airway disease, pneumonia, pneumothorax, COPD, CHF, infections, cardiac ischemia, pulmonary embolism, musculoskeletal, gastrointestinal, as well as other pathologies. ER treatment provided: See below Diagnostics interpreted by me: ECG: EKG was obtained in the emergency department. My interpretation is normal sinus rhythm at 73 bpm. There was no ectopy. Nonspecific ST segment depressions were noted. This was compared to a tracing from May 11, 2024. No changes were noted. Cardiac Monitoring: An order was placed for continuous cardiac monitoring. The monitor shows a rate of 67 bpm with sinus rhythm. Laboratory studies: As stated above and show below. Imaging studies: See below. Radiographic imaging was reviewed by myself Consultation(s): I discussed this case with [facility]. 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 X 2 last treatment 09/2021 follows w/ [facility] onc Pulmonary nodule BEING MONITORING Paroxysmal atrial fibrillation Obstructive sleep apnea 2L NC Dyslipidemia Diabetes mellitus type 2, controlled Hypertension Hypothyroidism Medical History Colon polyps Prolonged Q-T interval on ECG per 05/11/24 EKG (QTc 509ms) Acid reflux Hx of migraine headaches none recently Pulmonary nodule 05/25/24 CT scan follow up - monitoring Hx pulmonary embolism 2004 Endometrioid adenocarcinoma of uterus s/p hyster03/06/24; also s/p XRT; follows w/ [facility] onc Type 2 diabetes mellitus IDDM History of COVID-19 07/2021 no symptoms Arthritis LVH (left ventricular hypertrophy) Vitamin D deficiency Surgical History Port-A-Cath in place (06/01/24) p Insertion of Left Subclavian Access Port with Fluoroscopy(Left) - Tristan Devries MD, FACS MRI port placement in the left subclavian throughout the procedure fluoroscopy was used and I interpreted all the images H/O: hysterectomy History of robot-assisted laparoscopic hysterectomy 03/06/24 [facility] - Follows History of bunionectomy Left Foot History of robot-assisted laparoscopic hysterectomy (04/2021) Attempted procedure not possible secondary to small bowel obscuring pelvic structures Mirena IUD placed History of colonoscopy S/P dilation and curettage (03/26/21) "I only had one done down at [place]" D&C Hysteroscopy with Myosure [facility] Dr. Barfield History of tooth extraction wisdom teeth History of cholecystectomy H/O total knee replacement Right Family History Mother , Passed Age 83 Lung cancer radiation therapy and chemotherapy Cancer Heart disease Brother Prostate cancer radiation Diabetes Myocardial infarction Father Myocardial infarction Heart disease Stroke Aunt , maternal Breast cancer Cancer Aunt , maternal Colorectal cancer Uncle , maternal Esophageal cancer Grandmother (Maternal) Diabetes Sister Diabetes Clotting disorder Other Has no children No family history of adverse response to anesthesia Denies family history of Ovarian cancer Social History Smoking Status: Former smoker Tobacco Type: Cigarettes Age Started Using Tobacco: 16; Age Quit Using Tobacco: 60; packs per day: 1; Second Hand Exposure: No; Do You Dip or Chew Tobacco: No; Hx Alcohol Use: No Hx Substance Use: No Preferred Language: Luxembourgish Communication Ability: Effective Visual Impairment: Limited Hearing Ability: Normal Crab Fisherman Required: No Beliefs That Will Affect Care: None marital status: Single Current Living Situation: Alone Current Living Situation Comment: Currently at [facility] until 05/27/24 - when at home is alone current occupational status: retired current occupation: Retired How many Children do You have: 0 Feels Safe at Home: Yes Safety Concerns: Feels Safe At This Time Childhood Exposure to Second-Hand Smoke: No Diet: diabetic and low carbohydrate caffeine: Yes (soda daily) during the past year weight has: remained stable Dental Care, Regularly: Yes Physical Activity Frequency: Does not Exercise Seatbelt Use: always Sunscreen Use: Yes Do you think of yourself as: straight/heterosexual Assistive Devices: Glasses, Oxygen - at Night and Walker Assistive Devices Comment: 2l @ HS Allergies Allergies Allergy/AdvReac Type Severity Reaction Status Date / Time codeine AdvReac Mild NAUSEA Verified 10/05/24 11:07 Home Meds Home Medications Medication Instructions Recorded Confirmed vit A 300 mcg-C 200 mg-E 27 1 tab PO QAM 05/25/19 10/05/24 mg-lutein 2 mg and minerals tablet (Ocuvite with Lutein) calcium 600 mg (as 1 tab PO QAM 02/09/22 10/05/24 carbonate)-vitamin D3 20 mcg (800 unit) tablet (Caltrate with Vitamin D3) dexamethasone 4 mg tablet 4 mg PO DIRECTED 05/11/24 10/05/24 olanzapine 2.5 mg tablet 2.5 mg PO DIRECTED 05/11/24 10/05/24 prochlorperazine maleate 10 mg 10 mg PO DIRECTED PRN Nausea 05/11/24 10/05/24 tablet And Vomiting ferrous sulfate 325 mg (65 mg 325 mg PO BID 07/18/24 10/05/24 iron) tablet (Iron (ferrous sulfate)) Previous Rx's Medication Instructions Recorded Oxygen Home #1 ea 07/24/19 pen needle, diabetic 31 gauge x #50 ea 04/03/2112/10" (BD Ultra-Fine Mini Pen Needle) blood sugar diagnostic (OneTouch #300 ea 12/14/22 Ultra Test strips) magnesium oxide 400 mg (241.3 mg 400 mg PO BID #60 tabs 03/01/23 magnesium) tablet potassium chloride 10 mEq 10 meq PO QAM #90 tabs 09/23/23 tablet,extended release metoprolol succinate 25 mg 37.5 mg (1.5 x 25 mg) PO QAM #135 10/19/23 tablet,extended release 24 hr tabs insulin lispro 100 unit/mL See Rx Instructions subcut AC #15 02/28/24 subcutaneous pen mL pravastatin 40 mg tablet 40 mg PO HS #30 tabs 03/13/24 amiodarone 200 mg tablet 200 mg PO QAM #90 tabs 04/26/24 furosemide 40 mg tablet 40 mg PO QAM #90 tabs 06/09/24 insulin glargine 100 unit/mL (3 35 unit (0.35 mL) subcut QPM #30 mL 07/31/24 mL) subcutaneous pen (Lantus Solostar U-100 Insulin) apixaban 5 mg tablet 5 mg PO BID #180 tabs 08/11/24 lisinopril 5 mg tablet 5 mg PO QAM #90 tabs 08/16/24 levothyroxine 75 mcg tablet 75 mcg PO QAM #90 tabs 09/04/24 Results & Data (ED) Vital Signs Vital Signs - 24 hr 10/05/24 08:18 10/05/24 08:20 10/05/24 08:20 Temperature 36.9 C Temperature Source Oral Pulse Rate 76 71 Pulse Rate from SpO2 Sensor Pulse Rhythm Regular Regular Pulse Strength Normal Respiratory Rate 20 Respiratory Effort / Characteristics Non-Labored Spontaneous Non-Labored Spontaneous Respiratory Depth Normal Normal Respiratory Pattern Regular Regular Blood Pressure 122/87 Blood Pressure Mean 98 Blood Pressure Position Sitting Pulse Oximetry 100 100 Oxygen Delivery Method Room Air Nasal Cannula Sepsis Recent Fever Within 48 Hours No Sepsis New/Unexplained Change in Mental Status No Sepsis Action Taken by Nursing No Action Required 10/05/24 08:34 10/05/24 08:57 10/05/24 09:15 Temperature Temperature Source Pulse Rate 73 70 69 Pulse Rate from SpO2 Sensor 71 70 Pulse Rhythm Pulse Strength Respiratory Rate 24 13 Respiratory Effort / Characteristics Respiratory Depth Respiratory Pattern Blood Pressure 89/66 L 112/48 L Blood Pressure Mean 73 69 Blood Pressure Position Pulse Oximetry 100 100 Oxygen Delivery Method Sepsis Recent Fever Within 48 Hours Sepsis New/Unexplained Change in Mental Status Sepsis Action Taken by [facility] Medications Current Medication List: was personally reviewed by me Laboratory Data Attestation: I reviewed the patient's lab results. 10/05/24 19:00 10/05/24 08:25 Lab Results 10/05/24 10/05/24 10/05/24 Range/Units 08:25 10:01 11:06 WBC 1.24 L (4.8-10.8) K/ul RBC 1.85 L (4.20-5.40) M/uL Hgb 6.9 L* (12.0-16.0) g/dl Hct 20.4 L* (37.0-47.0) % MCV 110.3 H (80.0-100.0) fL MCH 37.3 H (25.0-34.0) pg MCHC 33.8 (32.0-36.0) g/dL RDW Std Deviation 63.7 H (36.4-46.3) fL RDW Coeff of Keith 15.9 H (11.5-14.5) % Plt Count 144 (130-400) K/uL MPV 11.1 (9.4-12.4) fL Immature Gran % (Auto) 0.0 % Neut % (Auto) 27.4 % Lymph % (Auto) 40.3 % Alpine % (Auto) 31.5 % Eos % (Auto) 0.8 % Baso % (Auto) 0.0 % Neut # (Auto) 0.34 L* (1.40-6.50) K/uL Lymph # (Auto) 0.50 L (1.20-3.40) K/uL Alpine # (Auto) 0.39 (0.11-0.59) K/uL Eos # (Auto) 0.01 (0.00-0.50) K/uL Baso # (Auto) 0.00 (0.00-0.20) K/uL Immature Gran # (Auto) 0.00 L (0.01-0.20) K/uL Absolute Nucleated RBC 0.07 (0.00-0.12) K/uL Nucleated RBC % (auto) 5.6 % Macrocytosis Present PT 11.4 (9.0-12.0) Seconds INR 1.1 (0.9-1.1) APTT 31 (21-31) Seconds PTT Ratio 1.2 VBG pH 7.57 H (7.36-7.41) VBG pCO2 28 L (38-50) mmHg VBG pO2 35 mmHg VBG HCO3 26 mmol/L VBG O2 Saturation 69.8 % VBG Base Excess 4.5 mEq/L Sodium 139 (136-145) mmol/L Potassium 2.9 L (3.5-5.1) mmol/L Chloride 101 (98-107) mmol/L Carbon Dioxide 27 (21-32) mmol/L Anion Gap 11 (3-11) BUN 23 (6-23) mg/dl Creatinine 0.88 (0.6-1.2) mg/dl Est Cr Clr Drug Dosing 62.3 ml/min eGFR 68.07 BUN/Creatinine Ratio 26.1 H (10-20) Glucose 176 H (70-99(Fasting)) mg/dl Calcium 8.9 (8.6-10.3) mg/dl Magnesium 1.6 L (1.7-2.4) mg/dl Iron 44 (35-150) mcg/dl TIBC 273 (250-450) mcg/dl Transferrin 195 L (200-360) mg/dl Transferrin % Sat 16 (15-50) % Ferritin 564.5 H (8-388) ng/ml Total Bilirubin 0.6 (0.2-1.0) mg/dl AST 27 (13-39) U/L ALT 47 (7-52) U/L Alkaline Phosphatase 251 H (34-104) U/L Troponin I High Sens 6.1 (0-14) pg/ml C-Reactive Protein 11.57 H (0-0.5) mg/dl B-Natriuretic Peptide 37 (0-100) pg/ml Total Protein 6.8 (6.0-8.3) gm/dl Albumin 3.6 (3.4-5.0) gm/dl Globulin 3.2 (2.5-4.0) gm/dl Albumin/Globulin Ratio 1.1 (0.9-2) Vitamin B12 990 H (180-914) pg/ml Folate > 22.30 (>5.38) ng/ml Procalcitonin 0.68 H (0-0.5) ng/ml Adenovirus (PCR) Not Detected (NotDetected) B. pertussis DNA (PCR) Not Detected (NotDetected) B.parapertussis DNA PCR Not Detected (NotDetected) C. pneumoniae DNA (PCR) Not Detected (NotDetected) Coronavirus OC43 (PCR) Not Detected (NotDetected) Coronavirus HKU1 (PCR) Not Detected (NotDetected) Coronavirus 229E (PCR) Not Detected (NotDetected) SARS-CoV-2 (PCR) Not Detected (NotDetected) Coronavirus NL63 (PCR) Not Detected (NotDetected) Human Metapneumovir PCR Not Detected (NotDetected) Influenza Type A (PCR) Not Detected (NotDetected) Influenza Type B (PCR) Not Detected (NotDetected) M. pneumoniae (PCR) Not Detected (NotDetected) Parainfluenza 1 (PCR) Not Detected (NotDetected) Parainfluenza 2 (PCR) Not Detected (NotDetected) Parainfluenza 3 (PCR) Not Detected (NotDetected) Parainfluenza 4 (PCR) Not Detected (NotDetected) RSV (PCR) Not Detected (NotDetected) Entero/Rhino (PCR) Not Detected (NotDetected) Blood Type A Positive Antibody Screen NEGATIVE Crossmatch See Detail Administered Medications Acetaminophen (Acetaminophen 325 Mg Tab) 650 mg PO Q4H PRN PRN Reason: Pain or Fever Stop: 11/04/24 14:36 Last Admin: 10/06/24 05:14 Dose: 650 mg Documented By: MARGOTH Amiodarone HCl (Amiodarone 200 Mg Tab) 200 mg PO QAM [facility] Stop: 11/04/24 14:36 Last Admin: 10/05/24 15:13 Dose: 200 mg Documented By: GLADYS Apixaban (Apixaban 5 Mg Tablet) 5 mg PO BID [facility] Stop: 11/04/24 14:36 Last Admin: 10/05/24 20:38 Dose: 5 mg Documented By: Admin: 10/05/24 15:35 Dose: 5 mg Documented By: GLADYS Docusate Sodium (Docusate Sodium 100 Mg Cap) 100 mg PO BID PRN PRN Reason: Constipation Stop: 11/04/24 14:36 Last Admin: 10/05/24 20:49 Dose: 100 mg Documented By: MARGOTH Ferrous Sulfate (Ferrous Sulfate 325 Mg Tab) 325 mg PO BID [facility] Stop: 11/04/24 20:59 Last Admin: 10/05/24 20:39 Dose: 325 mg Documented By: MARGOTH Heparin Sodium (Porcine) (Heparin 100 Unit/Ml 5ml Flush) 5 ml FLUSH PRN PRN PRN Reason: Flush Stop: 11/04/24 18:03 Last Admin: 10/05/24 19:04 Dose: 5 ml Documented By: GLADYS Insulin Aspart (Insulin Aspart Per Unit Charge) 0 units SC ACHS [facility] Stop: 11/04/24 16:29 Last Admin: 10/05/24 20:39 Dose: Not Given Documented By: Admin: 10/05/24 18:02 Dose: 4 units Documented By: GLADYS Co-signed By: KINGS Insulin Glargine (Lantus Per Unit Charge) 35 units SQ HS [facility] Stop: 11/04/24 20:59 Last Admin: 10/05/24 20:40 Dose: 35 units Documented By: MARGOTH Co-signed By: NAVDEEP Levothyroxine Sodium (Levothyroxine Sodium 75 Mcg Tablet) 75 mcg PO DAILYBB [facility] Stop: 11/04/24 14:36 Last Admin: 10/06/24 05:14 Dose: 75 mcg Documented By: Admin: 10/05/24 15:13 Dose: 75 mcg Documented By: GLADYS Magnesium Oxide (Magnesium Oxide 400 Mg Tab) 400 mg PO BID [facility] Stop: 11/04/24 20:59 Last Admin: 10/05/24 20:40 Dose: 400 mg Documented By: MARGOTH Miconazole Nitrate (Miconazole Nitrate Powder 85 Gm) 1 appln EXT BID [facility] Stop: 11/04/24 20:59 Last Admin: 10/05/24 20:40 Dose: 1 appln Documented By: MARGOTH Pravastatin Sodium (Pravastatin Sod 40 Mg Tab) 40 mg PO [facility] Stop: 11/04/24 20:59 Last Admin: 10/05/24 20:41 Dose: 40 mg Documented By: MARGOTH Discontinued Medications Potassium Chloride (K Johnson / Wtr) 10 meq in 100 mls @ 100 mls/hr IV Q1H [facility] Stop: 10/05/24 14:14 Last Infusion: 10/05/24 14:32 Dose: Infused Documented By: Admin: 10/05/24 13:32 Dose: 100 mls/hr Documented By: Infusion: 10/05/24 13:29 Dose: Infused Documented By: Admin: 10/05/24 12:29 Dose: 100 mls/hr Documented By: Infusion: 10/05/24 12:29 Dose: Infused Documented By: Admin: 10/05/24 11:35 Dose: 100 mls/hr Documented By: CEF Magnesium Sulfate/Dextrose (Magnesium Sulfate / D5w) 1 gm in 100 mls @ 50 mls/hr IV Q2H [facility] Stop: 10/05/24 15:14 Last Infusion: 10/05/24 15:16 Dose: Infused Documented By: Admin: 10/05/24 13:16 Dose: 50 mls/hr Documented By: Infusion: 10/05/24 13:16 Dose: Infused Documented By: Admin: 10/05/24 11:30 Dose: 50 mls/hr Documented By: CEF Potassium Chloride (Potassium Chloride Crtab 20 Meq Tabcr) 40 meq PO NOW STA Stop: 10/05/24 14:38 Last Admin: 10/05/24 15:16 Dose: 40 meq Documented By: GLADYS Imaging Data Attestation: I personally reviewed and interpreted this imaging study as follows: My Impression: 1 view chest x-ray was obtained in the emergency department. My interpretation is no free air or definite infiltrate, final report below. Radiologist's Impression: Chest X-Ray 10/05/24 08:20 XR chest 1V portable CLINICAL HISTORY: Dyspnea COMPARISON STUDY: 08/29/2024 FINDINGS: Stable left chest port. Stable mild cardiomegaly without pulmonary vascular congestion. No effusion, consolidation, or pneumothorax. IMPRESSION: No acute findings. ACT 112: Negative or not required by law. Electronically signed by: Regis Smyth M.D. 10/05/2024 8:57 AM Discharge Plan Visit Data Chief Complaint: Shortness of Breath/Dyspnea Stated Complaint: SOB ED Provider: Stuart Renteria Discharge Problem: Anemia, OLIVARES (dyspnea on exertion), Neutropenia Patient Disposition: Admitted As Inpatient Discharge Instructions Interventions: ED Discharge Assessment Last Done: 10/05/24 13:39 Discharge Problem: Anemia Qualifiers: Anemia type: unspecified type Qualified Code(s): D64.9 - Anemia, unspecified Neutropenia Qualifiers: Neutropenia type: unspecified Qualified Code(s): D70.9 - Neutropenia, unspecified
--- NOTE | 2024-10-05 08:41 | Electrocardiogram Report ---
Test Reason : Blood Pressure : */* mmHG Vent. Rate : 73 BPM Atrial Rate : 73 BPM P-R Int : 170 ms QRS Dur : 108 ms QT Int : 456 ms P-R-T Axes : 54 80 22 degrees QTcB Int : 502 ms Normal sinus rhythm Diffuse Minor Nonspecific ST and T wave abnormality Prolonged QT Abnormal ECG When compared with ECG of 11-May-2024 03:51, No significant change was found Confirmed by Dirk Kwon ([id number]) on 10/05/2024 8:41:34 AM Referred By: Confirmed By: Dirk Kwon
[2024-10-05 08:51] LABS: Base Excess VBG 4.5 mEq/L; HCO3 VBG 26 mmol/L; Oxygen Saturation VBG 69.8 %; PCO2 VBG 28 mmHg (38-50); PO2 VBG 35 mmHg; pH VBG 7.57 (7.36-7.41)
[2024-10-05 08:56] LABS: Mean Corpuscular Hemoglobin 37.3 pg (25.0-34.0); Mean Corpuscular Hgb Conc 33.8 g/dL (32.0-36.0); Mean Corpuscular Volume 110.3 fL (80.0-100.0); Mean Platelet Volume 11.1 fL (9.4-12.4); Platelet Count 144 K/uL (130-400); RDW Coefficient of Variation 15.9 % (11.5-14.5); RDW Standard Deviation 63.7 fL (36.4-46.3); Red Blood Count 1.85 M/uL (4.20-5.40); White Blood Count 1.24 K/ul (4.8-10.8)
--- NOTE | 2024-10-05 08:58 | XRay Report ---
XR chest 1V portable CLINICAL HISTORY: Dyspnea COMPARISON STUDY: 08/29/2024 FINDINGS: Stable left chest port. Stable mild cardiomegaly without pulmonary vascular congestion. No effusion, consolidation, or pneumothorax. IMPRESSION: No acute findings. ACT 112: Negative or not required by law. Electronically signed by: Regis Smyth M.D. 10/05/2024 8:57 AM
[2024-10-05 09:15] LABS: INR 1.1 (0.9-1.1); Partial Thromboplastin Ratio 1.2; Partial Thromboplastin Time 31 Seconds (21-31); Prothrombin Time 11.4 Seconds (9.0-12.0)
[2024-10-05 09:20] LABS: Albumin Globulin Ratio 1.1 (0.9-2); Albumin Level 3.6 gm/dl (3.4-5.0); BUN Creatinine Ratio 26.1 (10-20); Bilirubin,Total 0.6 mg/dl (0.2-1.0); Calcium 8.9 mg/dl (8.6-10.3); Creatinine Clr Calc Pharmacy 62.3 ml/min; Globulin 3.2 gm/dl (2.5-4.0); Magnesium 1.6 mg/dl (1.7-2.4); Potassium 2.9 mmol/L (3.5-5.1); Total Protein 6.8 gm/dl (6.0-8.3)
[2024-10-05 09:26] LABS: Troponin I High Sensitivity 6.1 pg/ml (0-14)
[2024-10-05 09:52] LABS: Hematocrit (blood only) 20.4 % (37.0-47.0); Hemoglobin 6.9 g/dl (12.0-16.0); Nucleated RBC # (auto) 0.07 K/uL (0.00-0.12); Nucleated RBC % (auto) 5.6 %
[2024-10-05 09:54] LABS: Eosinophils # (auto) 0.01 K/uL (0.00-0.50); Eosinophils % (auto) 0.8 %; Lymphocytes % (auto) 40.3 %; Macrocytosis Present; Monocytes # (auto) 0.39 K/uL (0.11-0.59); Monocytes % (auto) 31.5 %; Neutrophils # (auto) 0.34 K/uL (1.40-6.50); Neutrophils % (auto) 27.4 %
[2024-10-05 09:55] LABS: Adenovirus PCR Not Detected (NotDetected); Bordetella parapertussis PCR Not Detected (NotDetected); Bordetella pertussis PCR Not Detected (NotDetected); Chlamydia pneumoniae PCR Not Detected (NotDetected); Coronavirus 229E PCR Not Detected (NotDetected); Coronavirus CoV-2 (COVID19)PCR Not Detected (NotDetected); Coronavirus HKU1 PCR Not Detected (NotDetected); Coronavirus NL63 PCR Not Detected (NotDetected); Coronavirus OC43PCR Not Detected (NotDetected); Human Metapneumovirus PCR Not Detected (NotDetected); Influenza A PCR Not Detected (NotDetected); Influenza B PCR Not Detected (NotDetected); Mycoplasma pneumoniae PCR Not Detected (NotDetected); Parainfluenza Virus 1 PCR Not Detected (NotDetected); Parainfluenza Virus 2 PCR Not Detected (NotDetected); Parainfluenza Virus 3 PCR Not Detected (NotDetected); Parainfluenza Virus 4 PCR Not Detected (NotDetected); Respiratory Syncytial VirusPCR Not Detected (NotDetected); Rhinovirus/Enterovirus PCR Not Detected (NotDetected)
--- NOTE | 2024-10-05 10:36 | History & Physical Report ---
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 she presents today due to dyspnea for the past few weeks, acutely worsened on exertion x 1 day. In ED was found to be anemic with a hemoglobin of 6.9; blood consent form signed 1 unit ordered with serial H&H checks. #anemia/dyspnea 2/2 to chemotherapy Hgb 6.9, Hct 2.4 on admission iron panel, ferritin, B12, folate ordered prior to transfusion blood consents obtained continue iron supplement fecal occult ordered continue Eliquis as no concern for active bleeding at this time trend H&H Q4 hours Wean O2 as tolerated #neutropenia Hx of endometrial cancer, last chemotherapy treatment 09/26/2024 Neutrophil count 0.34 Will monitor for signs of neutropenic fever Defer ABX treatment at this time given afebrile #hypokalemia/hypomagnesemia 2/2 to diarrhea K+ 2.9 on admission -> 30 MeQ IV + 40 meQ PO ordered Mg 1.6 -> 2G IV ordered continue daily home K+ and Mg supplements trend BMP and MG monitor on tele with Hx of a fib #respiratory alkalosis/dyspnea Suspect compensated, hyperventilation? CXR and bio fire negative; suspect noninfectious etiology of dyspnea VBG 7.57// repeat VBG in AM incentive spirometry # paroxysmal A-fib NSR on admitting EKG Continue Eliquis, metoprolol, and amiodarone Monitor on telemetry with electrolyte abnormalities #HTN mildly hypotensive on arrival to ED Did not take a.m. BP meds; hold for 10/05, resume lisinopril and Lasix 10/06 #T2DM Most recent A1C 6.6 continue home lantus 35 u HS SSI with target BSG range 110-140mg/dL, CF 25, carb ratio 10 Chronic stable diagnoses: elevated alk phos - chronic, stable, trend CMP Hypothyroidismcontinue levothyroxine ANN MARIE - 2L NC O2 HS ordered Endometrial cancerfollows with Dr. Benavidez, last chemotherapy tx 09/26/24 HLD - continue statin Anxiety/depressioncontinue Zyprexa VTE ppx: TEDs, Eliquis Diet: T2DM Dispo: med/tele Admission and Anticipated Discharge Date Admission Date: 10/05/24 History of Present Illness Chief Complaint: dyspnea Primary Care Provider: Uyen Gaspar MD Patient is a 74-year-old female with past medical history of endometrial cancer s/p chemotherapy (last treatment 09/26/24), type II DM on insulin, HTN, paroxysmal A-fib. she presents today due to dyspnea for the past few weeks, acutely worsened on exertion x 1 day. In ED was found to be anemic with a hemoglobin of 6.9; blood consent form signed 1 unit ordered with serial H&H checks. Patient was seen at bedside with present. She stated that she was extremely short of breath with exertion today, had difficulty making it to the bathroom. She does have a history of anemia requiring blood transfusions with ongoing chemotherapy. She has had her last chemotherapy treatment 09/26. She was supposed to follow-up with Dr. Benavidez today, will need to reschedule. She does endorse feeling off, but denies dizziness for the past few days. She denies any headache today, does frequently get headaches when her glucose is elevated. She has had a dry cough for the past few weeks, unchanged. She did have diarrhea over the weekend, chronic for her. 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 She has chronic edema, unchanged. Patient denies fever, chills, headache, dizziness, lightheadedness, rhinorrhea, sore throat, sputum production, dyspnea at rest, chest pain, abdominal pain, nausea, vomiting, numbness, tingling. She denies signs of bleeding, no bright red blood in stool, no hematemesis. She stated she frequently has melena but takes iron supplements and has taken Pepto- Bismol recently. Her most recent iron transfusion was in either March or April after she had a hysterectomy in February, she had no reaction to this transfusion. She held her Eliquis for a month after that but is now back on Eliquis. She is requiring 1L O2 via nasal cannula in ED, she uses 2L O2 at bedtime but not during the day at baseline. She did not take any of her home medications this morning; she is still on Eliquis and Lasix. She wishes to be full code at this time. Allergies Allergy/AdvReac Type Severity Reaction Status Date / Time codeine AdvReac Mild NAUSEA Verified 10/05/24 11:07 Home Medications Medication Instructions Recorded Confirmed Type vit A 300 mcg-C 200 mg-E 27 1 tab PO QAM 05/25/19 10/05/24 History mg-lutein 2 mg and minerals tablet (Ocuvite with Lutein) Oxygen Home #1 ea 07/24/19 07/27/24 Rx pen needle, diabetic 31 gauge x #50 ea 04/03/21 07/27/24 Rx 3/16" (BD Ultra-Fine Mini Pen Needle) calcium 600 mg (as 1 tab PO QAM 02/09/22 10/05/24 History carbonate)-vitamin D3 20 mcg (800 unit) tablet (Caltrate with Vitamin D3) blood sugar diagnostic (OneTouch #300 ea 12/14/22 07/27/24 Rx Ultra Test strips) magnesium oxide 400 mg (241.3 mg 400 mg PO BID #60 tabs 03/01/23 10/05/24 Rx magnesium) tablet potassium chloride 10 mEq 10 meq PO QAM #90 tabs 09/23/23 10/05/24 Rx tablet,extended release metoprolol succinate 25 mg 37.5 mg (1.5 x 25 mg) PO QAM #135 10/19/23 10/05/24 Rx tablet,extended release 24 hr tabs insulin lispro 100 unit/mL See Rx Instructions subcut AC #15 02/28/24 10/05/24 Rx subcutaneous pen mL pravastatin 40 mg tablet 40 mg PO HS #30 tabs 03/13/24 10/05/24 Rx amiodarone 200 mg tablet 200 mg PO QAM #90 tabs 04/26/24 10/05/24 Rx dexamethasone 4 mg tablet 4 mg PO DIRECTED 05/11/24 10/05/24 History olanzapine 2.5 mg tablet 2.5 mg PO DIRECTED 05/11/24 10/05/24 History prochlorperazine maleate 10 mg 10 mg PO DIRECTED PRN Nausea 05/11/24 10/05/24 History tablet And Vomiting furosemide 40 mg tablet 40 mg PO QAM #90 tabs 06/09/24 10/05/24 Rx ferrous sulfate 325 mg (65 mg 325 mg PO BID 07/18/24 10/05/24 History iron) tablet (Iron (ferrous sulfate)) insulin glargine 100 unit/mL (3 35 unit (0.35 mL) subcut QPM #30 mL 07/31/24 10/05/24 Rx mL) subcutaneous pen (Lantus Solostar U-100 Insulin) apixaban 5 mg tablet 5 mg PO BID #180 tabs 08/11/24 10/05/24 Rx lisinopril 5 mg tablet 5 mg PO QAM #90 tabs 08/16/24 10/05/24 Rx levothyroxine 75 mcg tablet 75 mcg PO QAM #90 tabs 09/04/24 10/05/24 Rx Past Med/Surg History Problem List (Updated 10/08/24 @ 12:35 by Andie Worley PA-C) GI bleeding Respiratory alkalosis Hypomagnesemia Hypokalemia Neutropenia (Acute) OLIVARES (dyspnea on exertion) (Acute) Anemia (Acute) Neuropathic pain Cellulitis of both lower extremities Diarrhea due to drug Ambulatory dysfunction (Acute) Fall (Acute) Obesity, Class III, 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 Aortic stenosis moderate per 03/2023 ECHO 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 (Acute) Glenohumeral arthritis Endometrioid adenocarcinoma of uterus (Chronic 03/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) radiation X 2 last treatment 09/2021 follows w/ [facility] onc Pulmonary nodule BEING MONITORING Paroxysmal atrial fibrillation Obstructive sleep apnea 2L NC Dyslipidemia Diabetes mellitus type 2, controlled Hypertension Hypothyroidism Medical History Colon polyps Prolonged Q-T interval on ECG per 05/11/24 EKG (QTc 509ms) Acid reflux Hx of migraine headaches none recently Pulmonary nodule 05/25/24 CT scan follow up - monitoring Hx pulmonary embolism 2004 Endometrioid adenocarcinoma of uterus s/p hyster03/06/24; also s/p XRT; follows w/ [facility] onc Type 2 diabetes mellitus IDDM History of COVID-19 07/2021 no symptoms Arthritis LVH (left ventricular hypertrophy) Vitamin D deficiency Surgical History Port-A-Cath in place (06/01/24) p Insertion of Left Subclavian Access Port with Fluoroscopy(Left) - Tristan Devries MD, FACS MRI port placement in the left subclavian throughout the procedure fluoroscopy was used and I interpreted all the images H/O: hysterectomy History of robot-assisted laparoscopic hysterectomy 03/06/24 [facility] - Follows History of bunionectomy Left Foot History of robot-assisted laparoscopic hysterectomy (04/2021) Attempted procedure not possible secondary to small bowel obscuring pelvic structures Mirena IUD placed History of colonoscopy S/P dilation and curettage (03/26/21) "I only had one done down at [place]" D&C Hysteroscopy with Myosure [facility] Dr. Barfield History of tooth extraction wisdom teeth History of cholecystectomy H/O total knee replacement Right Family History Mother , Passed Age 83 Lung cancer radiation therapy and chemotherapy Cancer Heart disease Brother Prostate cancer radiation Diabetes Myocardial infarction Father Myocardial infarction Heart disease Stroke Aunt , maternal Breast cancer Cancer Aunt , maternal Colorectal cancer Uncle , maternal Esophageal cancer Grandmother (Maternal) Diabetes Sister Diabetes Clotting disorder Other Has no children No family history of adverse response to anesthesia Denies family history of Ovarian cancer Social History Smoking Status: Former smoker Tobacco Type: Cigarettes Age Started Using Tobacco: 16; Age Quit Using Tobacco: 60; packs per day: 1; Second Hand Exposure: No; Do You Dip or Chew Tobacco: No; Hx Alcohol Use: No Hx Substance Use: No Preferred Language: Sami Communication Ability: Effective Visual Impairment: Limited Hearing Ability: Normal Learning And Development Administrator Required: No Beliefs That Will Affect Care: None marital status: Single Current Living Situation: Alone Current Living Situation Comment: Currently at [facility] until 05/27/24 - when at home is alone current occupational status: retired current occupation: Retired How many Children do You have: 0 Feels Safe at Home: Yes Safety Concerns: Feels Safe At This Time Childhood Exposure to Second-Hand Smoke: No Diet: diabetic and low carbohydrate caffeine: Yes (soda daily) during the past year weight has: remained stable Dental Care, Regularly: Yes Physical Activity Frequency: Does not Exercise Seatbelt Use: always Sunscreen Use: Yes Do you think of yourself as: straight/heterosexual Assistive Devices: Oxygen - at Night and Walker Assistive Devices Comment: 2l @ HS Review of Systems Review of Systems: see HPI Physical Exam Physical Exam: The patient is awake, alert and oriented 3, well developed and well nourished, normocephalic and atraumatic, in no acute distress. Non-toxic appearing. HEENT- EOMI, mucous membranes moist. Hearing grossly intact. Heart-normal S1 and S2. No murmurs, rubs or gallops. Lungs-clear bilaterally, no respiratory distress, no accessory muscle use. 2L O2 via NC. Abdomen-normal bowel sounds and soft. No ascites noted. Non-tender. Extremities- no clubbing, cyanosis, or edema. Bilateral LE erythema, improved from cellulitis in June. Rheumatologic-normal range of motion. Psychiatric-normal affect. Results & Data Results & Data Vital Signs (Past 12 Hours) Vital Signs Temp Pulse Resp BP Pulse Ox O2 Del Method 10/05/24 09:15 69 13 112/48 L 100 10/05/24 08:57 70 24 89/66 L 100 10/05/24 08:34 73 10/05/24 08:20 71 100 Nasal Cannula 10/05/24 08:18 36.9 C 76 20 122/87 100 Room Air Laboratory Results reviewed CBC, VBG, CMP, BioFire, Mg Diagnostic Findings reviewed CXR ECG Additional Comments: NSR Code Status & VTE Plan Code Status full code VTE Prophylaxis Plan VTE Prophylaxis will be ordered: Yes Supervising Physician Co-Signing Physician Notes I personally saw and examined the patient. I independently reviewed the labs, EKG, imaging, problem list, medication list, past medical history and family history. I verified all velásquez points and agree with Lynda Candelaria PA-C with the following exceptions and/or additions: 74 year old presents to the ER with generalized fatigue and shortness of breath. Anemic in the ER. She is 2 weeks out from chemotherapy. No melena or GERD. O/E HS RRR, no murmurs, Chest CTAB, Abdo SNT A/P Pancytopenia secondary to antineoplastic therapy - consult oncology, transfuse 2 units packed RBCs, repeat H&H following this. PT/OT. PG Care Time/CCT Total # of Minutes Spent Total Time Spent with Patient: Total time spent is greater than 50% in coordination of care (as documented) at patient's floor/unit and/or counseling patient: Coding Level of Care Code 59175 INT INP/OBS CARE 3/75MIN Diagnoses Anemia D64.9 Anemia type: unspecified type OLIVARES (dyspnea on exertion) R06.09 Neutropenia D70.9 Neutropenia type: unspecified Hypokalemia E87.6 Respiratory alkalosis E87.3 Hypomagnesemia E83.42 Paroxysmal atrial fibrillation I48.0 Hypertension I10 Hypertension type: unspecified Type 2 diabetes mellitus with obesity E11.69; E66.9 Endometrioid adenocarcinoma of uterus C55 Obstructive sleep apnea G47.33 (1) Anemia Anemia type: unspecified type Qualified Code(s): D64.9 - Anemia, unspecified (3) Neutropenia Neutropenia type: unspecified Qualified Code(s): D70.9 - Neutropenia, unspecified (8) Hypertension Hypertension type: unspecified Qualified Code(s): I10 - Essential (primary) hypertension
[2024-10-05] MEDS ORDERED: SODIUM CHLORIDE 0.9% 100 ML IV PRN ×2 (11:04→21:13)
[2024-10-05] MEDS ORDERED: SODIUM CHLORIDE 0.9% 50 ML IV PRN ×2 (11:04→21:13)
[2024-10-05] MEDS: MAGNESIUM SULFATE / D5W 1 GM/100 ML BAG IV SCH (11:30)
[2024-10-05] MEDS: POTASSIUM CHLORIDE / WTR 10 MEQ/100 ML PLCT IV SCH (11:35)
[2024-10-05 12:02] LABS: Ferritin 564.5 ng/ml (8-388)
[2024-10-05 12:06] LABS: Folate (Folic Acid),Ser orPlas > 22.30 ng/ml (>5.38)
[2024-10-05 12:07] LABS: Vitamin B12 990 pg/ml (180-914)
[2024-10-05] MEDS ORDERED: GLUCOSE 40% GEL 15 GM TUBE PO PRN (14:37)
[2024-10-05] MEDS ORDERED: OLANZAPINE 2.5 MG TAB PO SCH (14:37)
[2024-10-05] MEDS ORDERED: GLUCAGON FOR INJ 1 MG VIAL SQ PRN (14:37)
[2024-10-05] MEDS ORDERED: CARBOHYDRATES FOR HYPOGLYCEMIA PO PRN (14:37)
[2024-10-05] MEDS ORDERED: DEXTROSE 50% 50 ML SYRINGE IV PRN (14:37)
[2024-10-05] MEDS ORDERED: GLUCOSE 10 TAB/TUBE PO PRN (14:37)
[2024-10-05 14:52] LABS: Appearance Urine Cloudy (Clear); Bacteria Urine Automated None Seen (None Seen); Bilirubin Urine Negative (Negative); Blood Urine Negative (Negative); Cast Urine Automated 0-2 /lpf (0-2); Color Urine Yellow; Glucose Urine UA Negative (Negative); Ketones Urine Trace (Negative); Leukocyte Esterase Urine Trace (Negative); Nitrite Urine Negative (Negative); Protein Urine Trace (Negative); RBC Urine Automated 0-2 /hpf (0-2); Specific Gravity Urine 1.023 (1.000-1.030); Urobilinogen Urine Negative (Negative); WBC Urine Automated 0-5 /hpf (0-5); pH Urine 5.5 (4.5-7.5)
[2024-10-05] MEDS: AMIODARONE 200 MG TAB PO SCH (15:13)
[2024-10-05] MEDS: LEVOTHYROXINE SODIUM 75 MCG TABLET PO SCH (15:13)
[2024-10-05] MEDS: POTASSIUM CHLORIDE CRTAB 20 MEQ TABCR PO STA (15:16)
[2024-10-05] MEDS: APIXABAN 5 MG TABLET PO SCH (15:35)
[2024-10-05] MEDS: INSULIN ASPART PER UNIT CHARGE SC SCH (18:02)
[2024-10-05] MEDS: HEPARIN 100 UNIT/ML 5ML FLUSH FLUSH PRN (19:04)
[2024-10-05 19:28] LABS: Hematocrit (blood only) 21.4 % (37.0-47.0); Hemoglobin 7.3 g/dl (12.0-16.0)
[2024-10-05] MEDS: FERROUS SULFATE 325 MG TAB PO SCH (20:39)
[2024-10-05] MEDS: LANTUS PER UNIT CHARGE SQ SCH (20:40)
[2024-10-05] MEDS: MICONAZOLE NITRATE POWDER 85 GM EXT SCH (20:40)
[2024-10-05] MEDS: MAGNESIUM OXIDE 400 MG TAB PO SCH (20:40)
[2024-10-05] MEDS: PRAVASTATIN SOD 40 MG TAB PO SCH (20:41)
[2024-10-05] MEDS: DOCUSATE SODIUM 100 MG CAP PO PRN (20:49)
[2024-10-06] MEDS: ACETAMINOPHEN 325 MG TAB PO PRN (05:14)
[2024-10-06 07:41] LABS: Base Excess VBG 2.4 mEq/L; HCO3 VBG 26 mmol/L; Oxygen Saturation VBG 62.1 %; PCO2 VBG 38 mmHg (38-50); PO2 VBG 37 mmHg; pH VBG 7.45 (7.36-7.41)
[2024-10-06 07:54] LABS: Hematocrit (blood only) 27.1 % (37.0-47.0); Hemoglobin 9.2 g/dl (12.0-16.0); Mean Corpuscular Hemoglobin 34.7 pg (25.0-34.0); Mean Corpuscular Hgb Conc 33.9 g/dL (32.0-36.0); Mean Corpuscular Volume 102.3 fL (80.0-100.0); Mean Platelet Volume 10.5 fL (9.4-12.4); Nucleated RBC # (auto) 0.05 K/uL (0.00-0.12); Nucleated RBC % (auto) 3.8 %; Platelet Count 121 K/uL (130-400); RDW Coefficient of Variation 19.5 % (11.5-14.5); RDW Standard Deviation 70.7 fL (36.4-46.3); Red Blood Count 2.65 M/uL (4.20-5.40); White Blood Count 1.33 K/ul (4.8-10.8)
[2024-10-06 08:20] LABS: Albumin Globulin Ratio 1.2 (0.9-2); Albumin Level 3.4 gm/dl (3.4-5.0); BUN Creatinine Ratio 17.5 (10-20); Bilirubin,Total 0.8 mg/dl (0.2-1.0); Calcium 8.3 mg/dl (8.6-10.3); Creatinine Clr Calc Pharmacy 67.2 ml/min; Globulin 2.9 gm/dl (2.5-4.0); Magnesium 2.1 mg/dl (1.7-2.4); Potassium 3.7 mmol/L (3.5-5.1); Total Protein 6.3 gm/dl (6.0-8.3)
[2024-10-06 08:33] LABS: Basophils # (auto) 0.01 K/uL (0.00-0.20); Basophils % (auto) 0.8 %; Eosinophils # (auto) 0.01 K/uL (0.00-0.50); Eosinophils % (auto) 0.8 %; Immature Granulocytes # (auto) 0.02 K/uL (0.01-0.20); Immature Granulocytes % (auto) 1.5 %; Lymphocytes # (auto) 0.48 K/uL (1.20-3.40); Lymphocytes % (auto) 36.1 %; Monocytes # (auto) 0.57 K/uL (0.11-0.59); Monocytes % (auto) 42.9 %; Neutrophils # (auto) 0.24 K/uL (1.40-6.50); Neutrophils % (auto) 17.9 %
[2024-10-06] MEDS: METOPROLOL SUCC 25MG EXT REL TAB PO SCH (09:05)
[2024-10-06] MEDS: lisinopril 5 MG TAB PO SCH (09:06)
[2024-10-06] MEDS: POTASSIUM CHLORIDE 10 MEQ TABCR PO SCH (09:10)
[2024-10-06] MEDS: FUROSEMIDE 40 MG TAB PO ONE (12:49)
[2024-10-06] MEDS: POTASSIUM CHLORIDE CRTAB 20 MEQ TABCR PO STA (12:50)
--- NOTE | 2024-10-06 15:32 | XCELERA ---
[id number]
--- NOTE | 2024-10-06 18:39 | Hospitalist Progress Note ---
Date of Service October 06, 2024 Assessment & Plan (1) Anemia: Plan: Suspected secondary to chemotherapy - s/p 2 units packed RBCs, repeat Hgb 9.0 Transferrin sats 16%, ferritin 564.5 B12 990 Folate > 22.3 (2) Neutropenia: Plan: Oncology consult pending Continue neutropenic precautions (3) OLIVARES (dyspnea on exertion): Plan: Significantly improved shortness of breath with tranfusions No progression of aortic stenosis on TTE CXR without acute findings (4) Hypokalemia: Plan: Resolved with supplementation, repeat with AM labs (5) Respiratory alkalosis: Plan: Resolved (6) Paroxysmal atrial fibrillation: Plan: Currently in NSR Continue anticoagulation with Eliquis (7) Hypomagnesemia: (8) Hypertension: (9) Type 2 diabetes mellitus with obesity: (10) Endometrioid adenocarcinoma of uterus: (11) Obstructive sleep apnea: Plan VTE Prophylaxis - Eliquis Diet - T2DM Disposition - continue admission to med/tele, PT/OT recommending rehabilitation Admission and Anticipated Discharge Date Admission Date: October 05, 2024 Subjective Improved shortness of breath following blood transfusions but run down after chemotherapy and wishes to go to rehabilitation Physical Exam Constitutional: WD/WN, vitals as above Respiratory: normal respiratory effort, lungs clear to auscultation Cardiovascular: RRR, no murmur, no edema Results & Data Results & Data Vital Signs (Past 12 Hours) Vital Signs Temp Pulse Pulse Resp BP BP Pulse Ox 10/06/24 15:11 36.5 C 61 16 98/57 L 95 10/06/24 11:45 36.9 C 58 L 16 107/66 95 10/06/24 11:44 10/06/24 07:25 60 10/06/24 07:18 37.2 C 58 L 12 110/64 95 O2 Del Method 10/06/24 15:11 Room Air 10/06/24 11:45 Room Air 10/06/24 11:44 Room Air 10/06/24 07:25 10/06/24 07:18 Room Air PG Care Time/CCT Total # of Minutes Spent Total Time Spent with Patient: Total time spent is greater than 50% in coordination of care (as documented) at patient's floor/unit and/or counseling patient: Coding Level of Care Code 73437 SUB INP/OBS CARE 2/35MIN Diagnoses Anemia D64.9 Anemia type: unspecified type Neutropenia D70.9 Neutropenia type: unspecified OLIVARES (dyspnea on exertion) R06.09 Hypokalemia E87.6 Respiratory alkalosis E87.3 Paroxysmal atrial fibrillation I48.0 Hypomagnesemia E83.42 Hypertension I10 Hypertension type: unspecified Type 2 diabetes mellitus with obesity E11.69; E66.9 Endometrioid adenocarcinoma of uterus C55 Obstructive sleep apnea G47.33 (1) Anemia Anemia type: unspecified type Qualified Code(s): D64.9 - Anemia, unspecified (2) Neutropenia Neutropenia type: unspecified Qualified Code(s): D70.9 - Neutropenia, unspecified (8) Hypertension Hypertension type: unspecified Qualified Code(s): I10 - Essential (primary) hypertension
[2024-10-06] MEDS: bisacodyL 5 MG TABEC PO ONE (20:33)
[2024-10-07 06:34] LABS: Hematocrit (blood only) 27.1 % (37.0-47.0); Mean Corpuscular Hemoglobin 34.9 pg (25.0-34.0); Mean Corpuscular Hgb Conc 33.2 g/dL (32.0-36.0); Mean Platelet Volume 10.4 fL (9.4-12.4); Nucleated RBC # (auto) 0.02 K/uL (0.00-0.12); Nucleated RBC % (auto) 1.4 %; Platelet Count 128 K/uL (130-400); RDW Standard Deviation 76.4 fL (36.4-46.3); Red Blood Count 2.58 M/uL (4.20-5.40); White Blood Count 1.43 K/ul (4.8-10.8)
[2024-10-07 06:49] LABS: BUN Creatinine Ratio 18.4 (10-20); Calcium 8.3 mg/dl (8.6-10.3); Creatinine Clr Calc Pharmacy 61.8 ml/min; Magnesium 1.9 mg/dl (1.7-2.4); Potassium 3.9 mmol/L (3.5-5.1)
[2024-10-07 07:02] LABS: Basophils # (auto) 0.01 K/uL (0.00-0.20); Basophils % (auto) 0.7 %; Eosinophils # (auto) 0.01 K/uL (0.00-0.50); Eosinophils % (auto) 0.7 %; Immature Granulocytes # (auto) 0.02 K/uL (0.01-0.20); Immature Granulocytes % (auto) 1.4 %; Lymphocytes # (auto) 0.56 K/uL (1.20-3.40); Lymphocytes % (auto) 39.2 %; Macrocytosis Present; Monocytes # (auto) 0.64 K/uL (0.11-0.59); Monocytes % (auto) 44.8 %; Neutrophils # (auto) 0.19 K/uL (1.40-6.50); Neutrophils % (auto) 13.2 %; Polychromasia 1+
--- NOTE | 2024-10-07 08:26 | Hospitalist Progress Note ---
Date of Service October 07, 2024 Assessment & Plan (1) Anemia: Plan: Suspected secondary to chemotherapy - s/p 2 units packed RBCs, repeat Hgb 9.2 Transferrin sats 16%, ferritin 564.5 B12 990 Folate > 22.3 10/07 - hgb 9.0 on repeat/stable, breathing stable but OLIVARES/deconditioning and inpatient waiting for rehab. ABx as below per oncology CBC in AM (2) Neutropenia: Plan: Oncology consulted Continue neutropenic precautions ?abx, blood cx pending but NGTD at this time --> discussed w/ Dr Benavidez and recs for Cefdinir 300mg BID x 7 days (or Levaquin 500mg PO daily if no contraindication/QTC prolongation however review EKG 10/05 w/ borderline QTC however is improved on repeat and could consider if needed) -- Started cefdinir AM 10/07, plan 7 day course (3) OLIVARES (dyspnea on exertion): Plan: Significantly improved shortness of breath with transfusions No progression of aortic stenosis on TTE CXR without acute findings 98% on RA Lasix 40mg PO daily resumed 10/07, ?on hold on admission. EKG w/ improvement in ST abn, likley w/ transfusion. EKG done to check QTC/no CP reported. Does report improvement in her OLIVARES since transfusion but still needing rehab before turning home Monitor CBC (4) Hypokalemia: Plan: Resolved with supplementation and remaining stable (5) Respiratory alkalosis: Plan: Resolved (6) Paroxysmal atrial fibrillation: Plan: Currently in NSR Continue anticoagulation with Eliquis, amiodarone and metoprolol have been continued Monitor mag/K -- will increase home Kcl supp from 10meq to 20meq given lasix use (7) Hypomagnesemia: Plan: resolved, 1.9 on AM labs. if worse can give 1gm to keep closer to 2 (8) Hypertension: Plan: continues on lisinopril, metoprolol, lasix BP borderline and will hold off her lisinopril in AM if needed but no dizziness reported (9) Type 2 diabetes mellitus with obesity: Plan: basal/bolus, sliding scale - has been acceptable BSGs and will moitnor (10) Endometrioid adenocarcinoma of uterus: Plan: reported susp cells on fallopian tube path but doing chemo for prevention of any issues per patient. follows with Dr Benavidez. As above, discussed while inpatient regarding her care (11) Obstructive sleep apnea: Plan: O2 HS, declined CPAP previously per PCP note Suspect would help with her fatigue if agreeable to revisit would arrange w/ PCP [place] [facility] Plan Continued inpatient stay for rehab and monitoring blood counts, abx started per oncology discussion Admission and Anticipated Discharge Date Admission Date: October 05, 2024 Supervising Physician Co-Signing Physician Notes The patient was not seen by me. The chart was reviewed. Case discussed with JAKE Albarran. Agree with assessment and plan Subjective Eval this morning, resting in bed. Doing well but did get some shortness of breath after ambulating a little bit. No bleeding reported, hgb stable. Discussed I spoke with Dr Benavidez and plan for cefdinir 300mg BID x 7 days given neuropenia, blood cx pending. He believes should improve with time. Levaquin deferred given borderline QTC but is not on significant medications for concerns. Ongoing inpatient stay for rehab, she has not moved her bowels. Does have issues with this at home but usually takes dulcolax and resolved. She reports she would like to try suppository to get things stimulated and will order. Chemo as proph measure as she said was susp cells on her fallopian tube path and hopefully jimmy be finished up with in future. Reports CTAP mahendra toro time which did not note any lymph node activity. Will continue to monitor blood counts and plan for rehab when facility accepted/bed available. Questions/concerns addressed at this time. Physical Exam 2 Physical Exam: General: 74yo female resting in bed, NAD, slightly fatigued after ambulation/activity this morning but 98% on RA/no tachypnea HEENT: loss of hair from chemo, mmm, trachea midline, thick neck Resp: even/unlabored but slight diminished in the bases, no wheezing/rales, on room air CV: regular, rates 60s, not on telemetry GI: +BS, slight distension, no overt tenderness but cramping/reporting hasn't moved her bowels Psych: AOx3, cooperative with exam Results & Data Results & Data Vital Signs (Past 12 Hours) Vital Signs Temp Pulse Resp BP Pulse Ox O2 Del Method O2 Flow Rate 10/07/24 07:50 36.8 C 63 19 107/70 98 Room Air 10/07/24 07:46 Room Air 10/06/24 22:45 Nasal Cannula 2 Laboratory Results 10/07/24 06:06 10/07/24 06:06 PG Care Time/CCT Total # of Minutes Spent Total Time Spent with Patient: Total time spent is greater than 50% in coordination of care (as documented) at patient's floor/unit and/or counseling patient: Coding Level of Care Code 20839 SUB INP/OBS CARE 3/50MIN Diagnoses Anemia D64.9 Anemia type: unspecified type Neutropenia D70.9 Neutropenia type: unspecified OLIVARES (dyspnea on exertion) R06.09 Hypokalemia E87.6 Respiratory alkalosis E87.3 Paroxysmal atrial fibrillation I48.0 Hypomagnesemia E83.42 Hypertension I10 Hypertension type: unspecified Type 2 diabetes mellitus with obesity E11.69; E66.9 Endometrioid adenocarcinoma of uterus C55 Obstructive sleep apnea G47.33 (1) Anemia Anemia type: unspecified type Qualified Code(s): D64.9 - Anemia, unspecified (2) Neutropenia Neutropenia type: unspecified Qualified Code(s): D70.9 - Neutropenia, unspecified (8) Hypertension Hypertension type: unspecified Qualified Code(s): I10 - Essential (primary) hypertension
[2024-10-07] MEDS: FUROSEMIDE 40 MG TAB PO SCH (09:00)
[2024-10-07] MEDS: CEFDINIR 300 MG CAP PO SCH (09:10)
[2024-10-07] MEDS: bisacodyL 10 MG SUPP PR STA (15:52)
[2024-10-08 05:52] LABS: Hematocrit (blood only) 25.2 % (37.0-47.0); Hemoglobin 8.4 g/dl (12.0-16.0); Mean Corpuscular Hemoglobin 35.1 pg (25.0-34.0); Mean Corpuscular Hgb Conc 33.3 g/dL (32.0-36.0); Mean Corpuscular Volume 105.4 fL (80.0-100.0); Mean Platelet Volume 10.6 fL (9.4-12.4); Nucleated RBC # (auto) 0.02 K/uL (0.00-0.12); Nucleated RBC % (auto) 1.1 %; Platelet Count 117 K/uL (130-400); RDW Standard Deviation 72.2 fL (36.4-46.3); Red Blood Count 2.39 M/uL (4.20-5.40); White Blood Count 1.83 K/ul (4.8-10.8)
[2024-10-08 06:19] LABS: Polychromasia 1+
[2024-10-08 06:20] LABS: Basophils # (auto) 0.01 K/uL (0.00-0.20); Basophils % (auto) 0.5 %; Eosinophils # (auto) 0.02 K/uL (0.00-0.50); Eosinophils % (auto) 1.1 %; Immature Granulocytes # (auto) 0.04 K/uL (0.01-0.20); Immature Granulocytes % (auto) 2.2 %; Lymphocytes # (auto) 0.82 K/uL (1.20-3.40); Lymphocytes % (auto) 44.8 %; Monocytes # (auto) 0.78 K/uL (0.11-0.59); Monocytes % (auto) 42.6 %; Neutrophils # (auto) 0.16 K/uL (1.40-6.50); Neutrophils % (auto) 8.8 %
[2024-10-08 06:21] LABS: BUN Creatinine Ratio 21.7 (10-20); Calcium 8.2 mg/dl (8.6-10.3); Creatinine Clr Calc Pharmacy 64.7 ml/min; Magnesium 1.8 mg/dl (1.7-2.4); Potassium 3.6 mmol/L (3.5-5.1)
[2024-10-08] MEDS ORDERED: SODIUM CHLORIDE 0.9% 50 ML IV PRN (08:05)
[2024-10-08] MEDS ORDERED: SODIUM CHLORIDE 0.9% 100 ML IV PRN (08:05)
--- NOTE | 2024-10-08 08:05 | Hospitalist Progress Note ---
Date of Service October 08, 2024 Assessment & Plan (1) Anemia: Plan: Suspected secondary to chemotherapy - s/p 2 units packed RBCs, repeat Hgb 9.2 Transferrin sats 16%, ferritin 564.5 B12 990 Folate > 22.3 10/08 Hgb 9.0 -->8.4, fecal occult + but is on PO iron. However, given ongoing transfusion and NSR on exam/EKG, Eliquis has been placed on hold and additional 1u PRBC to be provided. Has been resumed on her home lasix 40mg PO daily but will monitor for additional dose lasix as needed. Lisinopril placed on hold 5mg daily for BP but has already been given -- BPs improving with PRBC and instructed to give her metoprolol to prevent afib Patient w/ hx reported for blood w/ clots past fall and was reported from eliquis which was then held for period of time/resumed at 2.5mg dose for a while before back to 5mg BID -->interestingly while denied abd pain did have increased reflux and admittedly has been taking more peptobismol recently (which can also cause darkening of stool) but given prior concerns/bleeding and transfusion and was taking NSAIDs at that time which she endorses she has been good about avoiding, had prior placed on protonix ONCE daily but will INCREASE to BID for now but rec she continue course BID for couple weeks then once daily for GI proph sharmaine when on eliquis to prevent bleeding. Monitor for diarrhea on PPI therapy Monitor blood counts, waitin for rehab this week when bed available (2) GI bleeding: Plan: cannot r/o slow gi bleeding from eliquis therapy as above and has been placed on protonix/increased to BID and eliquis placed on hold. No need for acute GI eval unless acute drop/abd pain/WILL but will plan to hold eliquis for now and continue BID x 6-8 wks/GI follow up and resumption in eliquis when deemed safe. (3) Paroxysmal atrial fibrillation: Plan: Currently in NSR, EKG on 10/07 confirming as checked to monitor QTC (improved) Metoprolol, amiodarone continued TSH wnl Eliquis placed on HOLD as above, +focb Kcl inc to 20meq yesterday given lasix resumption and will monitor if needing additional increase to keep closer to 4 as not on supplementation at baseline (4) Neutropenia: Plan: Oncology consulted Neutropenic precautions Discussed w/ Dr Benavidez 10/07, added cefdinir 300mg BID and plan for 7 day course WBC 1.4--> 1.8 however neutrophil count 0.16, suspect should improve per oncology. To see today CBC in AM (5) OLIVARES (dyspnea on exertion): Plan: Improved with transfusions. ECHO w/o worsening aortic stenosis, CXR no acute findings and remains on RA Lasix 40mg PO daily resumed 10/07 which was not ordered on admission Monitor w/ additonal transfusion/holding eliquis as above Does have paroxysmal afib, EKG w/ NSR and discussed w/ patient she does know when that occurs/feels palpitations and to let us know Continue metoprolol 25mg daily, instructed to give today w/ improvement in BP w/ blood to prevent issues and will monitor (6) Hypokalemia: Plan: Resolved with supplementation and remaining stable 3.6 but increased PO supp to 20meq daily and monitor to increase if needed for afib to get closer to 4 to prevent (7) Respiratory alkalosis: Plan: Resolved (8) Hypomagnesemia: Plan: resolved, 1.8 on labs and remains on PO supplementation daily. 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 follows with Dr Benavidez. As above, discussed while inpatient regarding her care (12) Obstructive sleep apnea: Plan: O2 HS, declined CPAP previously per PCP note Suspect would help with her fatigue if agreeable to revisit would arrange w/ [place] Plan Continued inpatient stay for rehab, additional 1u PRBC for hgb8.4 given suspected slow GI bleeding/sx and hypotension this morning (since improved). PPI started/increased to BID and monitoring blood counts. remains on cefdinir for proph for neutropenia, Dr Benavidez to see today Planning for rehab [place] Admission and Anticipated Discharge Date Admission Date: October 05, 2024 Supervising Physician Co-Signing Physician Notes The patient was not seen by me. The chart was reviewed. Case discussed with JAKE Albarran. Agree with assessment and plan Subjective Eval this morning, resting in bed. Getting additinal unit of blood. Discussed she actually had some blood in stool/clots before/after her hysterctomy and was decided ultimately they thought from eliquis which was held for a period of time and then resumed. She is not on PPI at baseline, held eliquis this morning given EKG NSR and repeat transfusion. She does endorse she has been taking more peptomismol lately though despite not having abdominal pain has had increased reflux, also w/ prednisone use increase risk for GI bleeding. Discussed did start PPI once daily but will increase to BID and rec continuing for couple weeks/hold eliquis for now and then at least once daily PPI for proph. She does endorse last year she was taking ibuprofen however has not since that time. Discussed to monitor if any SOB w/ transfusion for need for lasix but 97% on RA and VSS improved this morning and planning to hold her lisinopril for AM. Questions/concerns addressed at this time. Physical Exam 2 Physical Exam: General: 74yo female resting in bed, getting 1u PRBC, NAD HEENT: loss of hair from chemo, mmm, trachea midline, thick neck Resp: even/unlabored but slight diminished in the bases, no wheezing/rales, on room air CV: regular, rates 60s, not on telemetry, no pitting edema, maybe trace edema to b/l legs but calves nontender GI: +BS, soft, no significant tenderness/rebound/guarding Psych: AOx3, cooperative with exam Results & Data Results & Data Vital Signs (Past 12 Hours) Vital Signs Temp Pulse Resp BP Pulse Ox O2 Del Method 10/08/24 07:54 36.9 C 59 L 16 98/64 L 94 Room Air 10/08/24 00:27 36.6 C 98 H 18 129/75 97 Room Air 10/07/24 21:30 Room Air Laboratory Results 10/08/24 05:18 10/08/24 05:18 Stool occult + Mag 1.8 PG Care Time/CCT Total # of Minutes Spent Total Time Spent with Patient: Total time spent is greater than 50% in coordination of care (as documented) at patient's floor/unit and/or counseling patient: Coding Level of Care Code 01452 SUB INP/OBS CARE 3/50MIN Diagnoses Anemia D64.9 Anemia type: unspecified type GI bleeding K92.2 Paroxysmal atrial fibrillation I48.0 Neutropenia D70.9 Neutropenia type: unspecified OLIVARES (dyspnea on exertion) R06.09 Hypokalemia E87.6 Respiratory alkalosis E87.3 Hypomagnesemia E83.42 Hypertension I10 Hypertension type: unspecified Type 2 diabetes mellitus with obesity E11.69; E66.9 Endometrioid adenocarcinoma of uterus C55 Obstructive sleep apnea G47.33 (1) Anemia Anemia type: unspecified type Qualified Code(s): D64.9 - Anemia, unspecified (4) Neutropenia Neutropenia type: unspecified Qualified Code(s): D70.9 - Neutropenia, unspecified (9) Hypertension Hypertension type: unspecified Qualified Code(s): I10 - Essential (primary) hypertension
[2024-10-08] MEDS: PANTOprazole 40 MG TAB PO SCH ×2 (09:07→21:00)
[2024-10-08] MEDS: POTASSIUM CHLORIDE CRTAB 20 MEQ TABCR PO SCH (09:13)
[2024-10-08 16:03] LABS: Hematocrit (blood only) 29.8 % (37.0-47.0); Hemoglobin 9.8 g/dl (12.0-16.0)
[2024-10-09 06:13] LABS: Hemoglobin 9.5 g/dl (12.0-16.0); Mean Corpuscular Hemoglobin 34.5 pg (25.0-34.0); Mean Corpuscular Hgb Conc 33.9 g/dL (32.0-36.0); Mean Corpuscular Volume 101.8 fL (80.0-100.0); Mean Platelet Volume 10.2 fL (9.4-12.4); Platelet Count 106 K/uL (130-400); RDW Coefficient of Variation 19.7 % (11.5-14.5); RDW Standard Deviation 72.2 fL (36.4-46.3); Red Blood Count 2.75 M/uL (4.20-5.40); White Blood Count 2.08 K/ul (4.8-10.8)
[2024-10-09 06:25] LABS: BUN Creatinine Ratio 19.5 (10-20); Calcium 7.8 mg/dl (8.6-10.3); Creatinine Clr Calc Pharmacy 61.8 ml/min; Magnesium 1.7 mg/dl (1.7-2.4); Potassium 3.5 mmol/L (3.5-5.1)
[2024-10-09 06:46] LABS: Eosinophils # (auto) 0.01 K/uL (0.00-0.50); Eosinophils % (auto) 0.5 %; Immature Granulocytes # (auto) 0.05 K/uL (0.01-0.20); Immature Granulocytes % (auto) 2.4 %; Lymphocytes # (auto) 0.81 K/uL (1.20-3.40); Lymphocytes % (auto) 38.9 %; Monocytes % (auto) 43.3 %; Neutrophils # (auto) 0.31 K/uL (1.40-6.50); Neutrophils % (auto) 14.9 %
[2024-10-09 06:47] LABS: Polychromasia 1+; Stomatocytes 1+
--- NOTE | 2024-10-09 08:06 | Hospitalist Progress Note ---
<Statement entered by Jeri Ceron MD - 10/09/24 22:11> pancytopenia due to chemotherapy Date of Service October 09, 2024 Assessment & Plan (1) Anemia: Plan: Hgb 6.9 on admission, suspected 2nd to chemotherapy and previously s/p 2u PRBC w/ hgb to 9.2 however notable patient w/ reported blood last fall and reported from eliquis/was held and then restarted lower dose w/ PCP and increased to 5mg BID and no PPI therapy and on steroids w/ chemo and reporting having taken increased peptobismol recently. Already on PO iron BID at baseline so no surprise +fecal ocult however given history and need for additional 1u PRBC on 10/08 for hgb to 8.4 with symptoms/low BP eliquis was placed on hold and protonix started/increased to BID Patient MUCH improved on exam 10/09. Hgb stable 9.5 and remains on PPI BID. Consideration to resume eliquis as outpatient for hx parosyxmal afib/cancer hx on chemo however remains in SR and given transfusions will continue to hold for now and did well in the past with holding this PT/OT rec for rehab and CM following to [facility] when bed available. Monitor CBC (2) GI bleeding: Plan: As above, cannot r/o slow gi bleeding from eliquis therapy as above and has been placed on protonix BID/eliquis held as above and hgb stable w/ transfusion/less reflux sx and as discussed w/ patient would continue 6-8 wk BID therapy and at least once daily on eliquis when resumed/continued for GI proph Consideration for GI ref at [place] for EGD but does not appear with acute UGIB and suspect more acute on chronic with continued eliquis use/steroids for chemo Monitor counts (3) Paroxysmal atrial fibrillation: Plan: Remains in NSR on exam, EKG w/ NSR Rates in 60s (reports typically where she runs). Notable she does know/sensation when in afib -- to alert if any palpitations/sensation TSH wnl ELiquis on hold for above but continues on metoprolol 1gm IV mag/20meq Kcl to keep stores replete/prevent afib Resume eliquis when deemed appropriate Monitor (4) Neutropenia: Plan: Oncology consulted, neutropenic precautions Discussed w/ Dr Benavidez 10/07, added cefdinir 300mg BID and plan for 7 day course and neutrophils improving Monitor CBC (5) OLIVARES (dyspnea on exertion): Plan: Improving, s/p 3u PRBC as above for acute on chroinc bleeding suspected from chemo/eliquis use Continue PPI, 95% on RA. Reports improvement in symptoms and hgb stable (6) Hypokalemia: Plan: Resolved but additional 20meq with her 20meq daily to keep closer to 4 given hx pafib as above. 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 follows with Dr Benavidez. As above, discussed while inpatient regarding her care (12) Obstructive sleep apnea: Plan: O2 HS, declined CPAP previously per PCP note Suspect would help with her fatigue if agreeable to revisit would arrange w/ PCP [place] Plan Dispo: continued inpatient stay waiting for rehab, CM following Admission and Anticipated Discharge Date Admission Date: October 05, 2024 Subjective Eval this morning, sitting up in the chair. Appears MUCH better today, hgb stable. On PPI BID, eliquis on hold. No palpitations, HR stable in 60s on exam which she reports is her usual on amiodarone. Moved her bowels, slightly hard. Continues on colace prn, will change to scheduled. Did note got suppository 2 days ago and can use if needed. Neutrophils improved as discussed and continues on cefdinir. Plan for rehab when bed available, CM following. Physical Exam 2 Physical Exam: General: 74yo female sitting up in chair today, appears much better/NAD, BP improved 126/76 this morning/no dizziness HEENT: loss of hair from chemo, mmm, trachea midline, thick neck Resp: even/unlabored, diminished but improved air entry to bases bilaterally, no wheezing/rales, on ROOM AIR CV: regular, rates 60s, not on telemetry, no pitting edema, maybe trace edema to b/l legs but calves nontender GI: +BS, soft, slight distension but no significant tenderness/rebound/guarding Psych: AOx3, cooperative with exam Results & Data Results & Data Vital Signs (Past 12 Hours) Vital Signs Temp Pulse Pulse Resp BP BP Pulse Ox 10/09/24 07:39 36.6 C 61 16 126/76 95 10/08/24 23:47 10/08/24 23:47 10/08/24 23:47 36.7 C 65 20 149/68 H 98 Pulse Ox O2 Del Method O2 Del Method O2 Flow Rate 10/09/24 07:39 Room Air 10/08/24 23:47 Room Air, Nasal Cannula 2 10/08/24 23:47 98 Room Air 10/08/24 23:47 Room Air Laboratory Results 10/09/24 05:45 10/09/24 05:45 Neutrophil 0.31 from 0.16 on 10/08 PG Care Time/CCT Total # of Minutes Spent Total Time Spent with Patient: Total time spent is greater than 50% in coordination of care (as documented) at patient's floor/unit and/or counseling patient: Coding Level of Care Code 71319 SUB INP/OBS CARE 3/50MIN Diagnoses Anemia D64.9 Anemia type: unspecified type GI bleeding K92.2 Paroxysmal atrial fibrillation I48.0 Neutropenia D70.9 Neutropenia type: unspecified OLIVARES (dyspnea on exertion) R06.09 Hypokalemia E87.6 Respiratory alkalosis E87.3 Hypomagnesemia E83.42 Hypertension I10 Hypertension type: unspecified Type 2 diabetes mellitus with obesity E11.69; E66.9 Endometrioid adenocarcinoma of uterus C55 Obstructive sleep apnea G47.33 (1) Anemia Anemia type: unspecified type Qualified Code(s): D64.9 - Anemia, unspecified (4) Neutropenia Neutropenia type: unspecified Qualified Code(s): D70.9 - Neutropenia, unspecified (9) Hypertension Hypertension type: unspecified Qualified Code(s): I10 - Essential (primary) hypertension
[2024-10-09] MEDS: POTASSIUM CHLORIDE CRTAB 20 MEQ TABCR PO STA (09:05)
[2024-10-09] MEDS: MAGNESIUM SULFATE / D5W 1 GM/100 ML BAG IV ONE (09:10)
[2024-10-09 19:35] VITALS: RESP 16
[2024-10-09] MEDS: DOCUSATE SODIUM 100 MG CAP PO SCH (21:09)
--- NOTE | 2024-10-09 21:52 | Electrocardiogram Report ---
Test Reason : Blood Pressure : */* mmHG Vent. Rate : 65 BPM Atrial Rate : 65 BPM P-R Int : 172 ms QRS Dur : 110 ms QT Int : 460 ms P-R-T Axes : 53 72 41 degrees QTcB Int : 478 ms Normal sinus rhythm Possible Inferior infarct When compared with ECG of 05-Oct-2024 08:17, Nonspecific T wave abnormality, improved in Anterolateral leads Confirmed by Loc Ware ([id number]) on 10/09/2024 9:51:46 PM Referred By: REFERRED SELF Confirmed By: Loc Ware
[2024-10-10 07:11] VITALS: TEMP 97.3; O2SAT 98
[2024-10-10 07:19] LABS: Hematocrit (blood only) 28.8 % (37.0-47.0); Hemoglobin 9.6 g/dl (12.0-16.0); Mean Corpuscular Hemoglobin 34.4 pg (25.0-34.0); Mean Corpuscular Hgb Conc 33.3 g/dL (32.0-36.0); Mean Corpuscular Volume 103.2 fL (80.0-100.0); Mean Platelet Volume 10.3 fL (9.4-12.4); Platelet Count 114 K/uL (130-400); RDW Coefficient of Variation 19.1 % (11.5-14.5); RDW Standard Deviation 71.6 fL (36.4-46.3); Red Blood Count 2.79 M/uL (4.20-5.40); White Blood Count 2.23 K/ul (4.8-10.8)
[2024-10-10 07:35] LABS: Calcium 8.7 mg/dl (8.6-10.3); Creatinine Clr Calc Pharmacy 61.8 ml/min; Magnesium 2.6 mg/dl (1.7-2.4); Potassium 3.7 mmol/L (3.5-5.1)
[2024-10-10 07:53] LABS: Basophils # (auto) 0.02 K/uL (0.00-0.20); Basophils % (auto) 0.9 %; Eosinophils # (auto) 0.02 K/uL (0.00-0.50); Eosinophils % (auto) 0.9 %; Immature Granulocytes # (auto) 0.07 K/uL (0.01-0.20); Immature Granulocytes % (auto) 3.1 %; Lymphocytes # (auto) 0.74 K/uL (1.20-3.40); Lymphocytes % (auto) 33.2 %; Monocytes # (auto) 0.92 K/uL (0.11-0.59); Monocytes % (auto) 41.3 %; Neutrophils # (auto) 0.46 K/uL (1.40-6.50); Neutrophils % (auto) 20.6 %
[2024-10-10 08:50] VITALS: BP 119/74; PULSE 60
--- NOTE | 2024-10-10 09:39 | Oncology Consultation ---
Date of Consultation October 10, 2024 History of Present Illness Attending Physician: Rudolph España MD Allergies Allergy/AdvReac Type Severity Reaction Status Date / Time codeine AdvReac Mild NAUSEA Verified 10/05/24 11:07 Home Medications Medication Instructions Recorded Confirmed Type vit A 300 mcg-C 200 mg-E 27 1 tab PO QAM 05/25/19 10/05/24 History mg-lutein 2 mg and minerals tablet (Ocuvite with Lutein) Oxygen Home #1 ea 07/24/19 07/27/24 Rx pen needle, diabetic 31 gauge x #50 ea 04/03/21 07/27/24 Rx 3/16" (BD Ultra-Fine Mini Pen Needle) calcium 600 mg (as 1 tab PO QAM 02/09/22 10/05/24 History carbonate)-vitamin D3 20 mcg (800 unit) tablet (Caltrate with Vitamin D3) blood sugar diagnostic (OneTouch #300 ea 12/14/22 07/27/24 Rx Ultra Test strips) magnesium oxide 400 mg (241.3 mg 400 mg PO BID #60 tabs 03/01/23 10/05/24 Rx magnesium) tablet potassium chloride 10 mEq 10 meq PO QAM #90 tabs 09/23/23 10/05/24 Rx tablet,extended release metoprolol succinate 25 mg 37.5 mg (1.5 x 25 mg) PO QAM #135 10/19/23 10/05/24 Rx tablet,extended release 24 hr tabs insulin lispro 100 unit/mL See Rx Instructions subcut AC #15 02/28/24 10/05/24 Rx subcutaneous pen mL pravastatin 40 mg tablet 40 mg PO HS #30 tabs 03/13/24 10/05/24 Rx amiodarone 200 mg tablet 200 mg PO QAM #90 tabs 04/26/24 10/05/24 Rx dexamethasone 4 mg tablet 4 mg PO DIRECTED 05/11/24 10/05/24 History olanzapine 2.5 mg tablet 2.5 mg PO DIRECTED 05/11/24 10/05/24 History prochlorperazine maleate 10 mg 10 mg PO DIRECTED PRN Nausea 05/11/24 10/05/24 History tablet And Vomiting furosemide 40 mg tablet 40 mg PO QAM #90 tabs 06/09/24 10/05/24 Rx ferrous sulfate 325 mg (65 mg 325 mg PO BID 07/18/24 10/05/24 History iron) tablet (Iron (ferrous sulfate)) insulin glargine 100 unit/mL (3 35 unit (0.35 mL) subcut QPM #30 mL 07/31/24 10/05/24 Rx mL) subcutaneous pen (Lantus Solostar U-100 Insulin) apixaban 5 mg tablet 5 mg PO BID #180 tabs 08/11/24 10/05/24 Rx lisinopril 5 mg tablet 5 mg PO QAM #90 tabs 08/16/24 10/05/24 Rx levothyroxine 75 mcg tablet 75 mcg PO QAM #90 tabs 09/04/24 10/05/24 Rx Patient History Medical History Colon polyps Prolonged Q-T interval on ECG per 05/11/24 EKG (QTc 509ms) Acid reflux Hx of migraine headaches none recently Pulmonary nodule 05/25/24 CT scan follow up - monitoring Hx pulmonary embolism 2004 Endometrioid adenocarcinoma of uterus s/p hyster03/06/24; also s/p XRT; follows w/ [facility] onc Type 2 diabetes mellitus IDDM History of COVID-19 07/2021 no symptoms Arthritis LVH (left ventricular hypertrophy) Vitamin D deficiency Surgical History Port-A-Cath in place (06/01/24) p Insertion of Left Subclavian Access Port with Fluoroscopy(Left) - Tristan Devries MD, FACS MRI port placement in the left subclavian throughout the procedure fluoroscopy was used and I interpreted all the images H/O: hysterectomy History of robot-assisted laparoscopic hysterectomy 03/06/24 [facility] - Follows History of bunionectomy Left Foot History of robot-assisted laparoscopic hysterectomy (04/2021) Attempted procedure not possible secondary to small bowel obscuring pelvic structures Mirena IUD placed History of colonoscopy S/P dilation and curettage (03/26/21) "I only had one done down at [place]" D&C Hysteroscopy with Myosure [facility] Dr. Barfield History of tooth extraction wisdom teeth History of cholecystectomy H/O total knee replacement Right Family History Mother , Passed Age 83 Lung cancer radiation therapy and chemotherapy Cancer Heart disease Brother Prostate cancer radiation Diabetes Myocardial infarction Father Myocardial infarction Heart disease Stroke Aunt , maternal Breast cancer Cancer Aunt , maternal Colorectal cancer Uncle , maternal Esophageal cancer Grandmother (Maternal) Diabetes Sister Diabetes Clotting disorder Other Has no children No family history of adverse response to anesthesia Denies family history of Ovarian cancer Social History Smoking Status: Former smoker Tobacco Type: Cigarettes Age Started Using Tobacco: 16; Age Quit Using Tobacco: 60; packs per day: 1; Second Hand Exposure: No; Do You Dip or Chew Tobacco: No; Hx Alcohol Use: No Hx Substance Use: No Preferred Language: [place]atian Communication Ability: Effective Visual Impairment: Limited Hearing Ability: Normal Machine Wiper Required: No Beliefs That Will Affect Care: None marital status: Single Current Living Situation: Alone Current Living Situation Comment: Currently at [facility] until 05/27/24 - when at home is alone current occupational status: retired current occupation: Retired How many Children do You have: 0 Feels Safe at Home: Yes Safety Concerns: Feels Safe At This Time Childhood Exposure to Second-Hand Smoke: No Diet: diabetic and low carbohydrate caffeine: Yes (soda daily) during the past year weight has: remained stable Dental Care, Regularly: Yes Physical Activity Frequency: Does not Exercise Seatbelt Use: always Sunscreen Use: Yes Do you think of yourself as: straight/heterosexual Assistive Devices: Oxygen - at Night and Walker Assistive Devices Comment: 2l @ HS Results & Data Vital Signs (Past 12 Hours) Vital Signs Temp Pulse Resp BP BP Pulse Ox O2 Del Method 10/10/24 08:49 60 119/74 10/10/24 07:09 36.3 C L 65 16 95/61 L 98 Nasal Cannula 10/10/24 00:00 Nasal Cannula O2 Flow Rate 10/10/24 08:49 10/10/24 07:09 2.0 10/10/24 00:00 2
[2024-10-10] MEDS: CEFDINIR 300 MG CAP PO SCH (11:09)
--- NOTE | 2024-10-10 20:25 | Discharge Summary ---
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 she presents today due to dyspnea for the past few weeks, acutely worsened on exertion x 1 day. In ED was found to be anemic with a hemoglobin of 6.9; blood consent form signed 1 unit ordered with serial H&H checks. #anemia/dyspnea 2/2 to chemotherapy Hgb 6.9, Hct 2.4 on admission iron panel, ferritin, B12, folate ordered prior to transfusion blood consents obtained continue iron supplement fecal occult ordered continue Eliquis as no concern for active bleeding at this time trend H&H Q4 hours Wean O2 as tolerated #neutropenia Hx of endometrial cancer, last chemotherapy treatment 09/26/2024 Neutrophil count 0.34 Will monitor for signs of neutropenic fever Defer ABX treatment at this time given afebrile #hypokalemia/hypomagnesemia 2/2 to diarrhea K+ 2.9 on admission -> 30 MeQ IV + 40 meQ PO ordered Mg 1.6 -> 2G IV ordered continue daily home K+ and Mg supplements trend BMP and MG monitor on tele with Hx of a fib #respiratory alkalosis/dyspnea Suspect compensated, hyperventilation? CXR and bio fire negative; suspect noninfectious etiology of dyspnea VBG 7.57// repeat VBG in AM incentive spirometry # paroxysmal A-fib NSR on admitting EKG Continue Eliquis, metoprolol, and amiodarone Monitor on telemetry with electrolyte abnormalities #HTN mildly hypotensive on arrival to ED Did not take a.m. BP meds; hold for 10/05, resume lisinopril and Lasix 10/06 #T2DM Most recent A1C 6.6 continue home lantus 35 u HS SSI with target BSG range 110-140mg/dL, CF 25, carb ratio 10 Chronic stable diagnoses: elevated alk phos - chronic, stable, trend CMP Hypothyroidismcontinue levothyroxine ANN MARIE - 2L NC O2 HS ordered Endometrial cancerfollows with Dr. Benavidez, last chemotherapy tx 09/26/24 HLD - continue statin Anxiety/depressioncontinue Zyprexa VTE ppx: TEDs, Eliquis Diet: T2DM Dispo: med/tele Admission HPI Per Admitting Provider Patient is a 74-year-old female with past medical history of endometrial cancer s/p chemotherapy (last treatment 09/26/24), type II DM on insulin, HTN, paroxysmal A-fib. she presents today due to dyspnea for the past few weeks, acutely worsened on exertion x 1 day. In ED was found to be anemic with a hemoglobin of 6.9; blood consent form signed 1 unit ordered with serial H&H checks. Patient was seen at bedside with present. She stated that she was extremely short of breath with exertion today, had difficulty making it to the bathroom. She does have a history of anemia requiring blood transfusions with ongoing chemotherapy. She has had her last chemotherapy treatment 09/26. She was supposed to follow-up with Dr. Benavidez today, will need to reschedule. She does endorse feeling off, but denies dizziness for the past few days. She denies any headache today, does frequently get headaches when her glucose is elevated. She has had a dry cough for the past few weeks, unchanged. She did have diarrhea over the weekend, chronic for her. 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 She has chronic edema, uncha nged. Patient denies fever, chills, headache, dizziness, lightheadedness, rhinorrhea, sore throat, sputum production, dyspnea at rest, chest pain, abdominal pain, nausea, vomiting, numbness, tingling. She denies signs of bleeding, no bright red blood in stool, no hematemesis. She stated she frequently has melena but takes iron supplements and has taken Pepto- Bismol recently. Her most recent iron transfusion was in either March or April after she had a hysterectomy in February, she had no reaction to this transfusion. She held her Eliquis for a month after that but is now back on Eliquis. She is requiring 1L O2 via nasal cannula in ED, she uses 2L O2 at bedtime but not during the day at baseline. She did not take any of her home medications this morning; she is still on Eliquis and Lasix. She wishes to be full code at this time. Discharge Exam General: 74yo female sitting up in chair today, appears much better/NAD, BP improved 126/76 this morning/no dizziness HEENT: loss of hair from chemo, mmm, trachea midline, thick neck Resp: even/unlabored, diminished but improved air entry to bases bilaterally, no wheezing/rales, on ROOM AIR CV: regular, rates 60s, not on telemetry, no pitting edema, maybe trace edema to b/l legs but calves nontender GI: +BS, soft, slight distension but no significant tenderness/rebound/guarding Psych: AOx3, cooperative with exam Discharge Plan Discharge Items Patient Disposition: Transfer Inpatient Rehab Fac Reason For Visit: ANEMIA, ELECTROLYTE ABNORMALITY Discharge Diagnosis: Anemia Goals: You have been hospitalized for an acute medical problem. During your stay at [facility], we have made an effort to correct the problem that brought you to the hospital while keeping you as comfortable as possible. Medications were used to bring your condition under control and your discharge instructions will include directions for any medications you should take after leaving the hospital. Please make sure you see your Primary Care Provider as part of your follow up plan. Activity: Resume your previous activity Non-emergency contact: Primary Care Provider and Oncologist Call non-emergency contact if: you have any medication questions, your symptoms worsen, your pain is concerning for you and you have a fever Follow-up/Referrals: Uyen Gaspar MD [Primary Care Provider] - (Follow-up in 1-2 weeks) Nathanael Benavidez MD [Physician] - (Follow-up as scheduled) Diet: Carb Consistent or DM2 and Heart Healthy Addtl Attending Provider Instructions: Sherley, You are admitted to the hospital due to symptomatic anemia. This is suspected to be due to recent chemotherapy, but could also be from some slow bleeding secondary to your Eliquis use given your increased reflux/Pepto-Bismol use recently. You received a total of 3 units of blood while in the hospital, and your hemoglobin has remained stable. You are being discharged to [facility] from the hospital. Upon discharge from the hospital: * Continue Protonix (pantoprazole PPI) twice daily for 6-8 weeks. Then recomm end continuing once daily for GI prophylaxis with ongoing Eliquis use and steroids for chemo to prevent further problems. * Hold taking your Eliquis until 10/16/2024, then you may resume it. * Take cefdinir (oral antibiotic) twice daily through 10/16/2024. This was recommended by Dr. Benavidez because of neutropenia (low neutrophil count). Monitor for any increased diarrhea on this medication/alert doctor if this occurs, as antibiotics can cause C. difficile infection. * Use saline nasal spray as needed to moisturize your nasal passages. * Continue your other home medications as prescribed. * Follow-up with your PCP in 1-2 weeks. * Follow-up with Dr. Benavidez in oncology as scheduled. It was a pleasure taking care of you while you were in the hospital, Jeri Long PA-C Pending Studies at Discharge: Yes (blood cultures-- no growth to date) Stand-Alone Forms: My [facility] Skilled Items Patient informed of condition?: Yes DNR: No Discharge Level of Care: Acute rehab Communicable Disease: No Discharge Prognosis: Stable Lines: None Urinary Catheter: No Medications and DC Order Prescriptions: New cefdinir 300 mg Capsule 300 mg PO BID Qty: 13 0RF Rx Instructions: BID @0700, 1900 pantoprazole 40 mg Tablet,Delayed Release (Dr/Ec) 40 mg PO BID Qty: 60 0RF Saline Nasal 0.65 % aerosol,spray 1 spray intranasal TID PRN (Reason: dry nasal passages) Qty: 44 0RF Continued (DME) OneTouch Ultra Test Strip See Rx Instructions .Route Qty: 300 3RF Rx Instructions: use 3 strips daily to test blood sugars magnesium oxide 400 mg (241.3 mg magnesium) tablet 400 mg PO BID Qty: 60 11RF potassium chloride 10 mEq tablet extended release 10 meq PO QAM Qty: 90 3RF Hold Instructions: Resume on 07/29/24. metoprolol succinate 25 mg tablet extended release 24 hr 37.5 mg PO QAM Qty: 135 3RF insulin lispro 100 unit/mL insulin pen See Rx Instructions subcut AC MDD 50 units Qty: 15 1RF Rx Instructions: subcutaneously before meals; per sliding scale subcut; 50 units max per day pravastatin 40 mg tablet 40 mg PO HS Qty: 30 11RF amiodarone 200 mg tablet 200 mg PO QAM Qty: 90 3RF furosemide 40 mg tablet 40 mg PO QAM Qty: 90 1RF Hold Instructions: Provider's Order Rx Instructions: Take 1 tablet by mouth once daily insulin glargine [Lantus Solostar U-100 Insulin] 100 unit/mL (3 mL) insulin pen 35 unit subcut QPM Qty: 30 3RF Patient Comments: "Will be doing 50% dose of 17 units prior to 06/01/24 surgery" lisinopril 5 mg tablet 5 mg PO QAM Qty: 90 3RF Hold Instructions: Provider's Order levothyroxine 75 mcg tablet 75 mcg PO QAM Qty: 90 3RF Ocuvite with Lutein 1,000 unit-200 mg-60 unit-2 mg tablet 1 tab PO QAM calcium carbonate-vitamin D3 [Caltrate with Vitamin D3] 600 mg-20 mcg (800 unit) tablet 1 tab PO QAM (DME) pen needle, diabetic [BD Ultra-Fine Mini Pen Needle] 31 gauge x 3/16" needle See Rx Instructions .ROUTE .MEDSUPPLY Qty: 50 2RF Rx Instructions: use daily with victoza (DME) Oxygen Home Liters Per Minute See Dose Instructions .ROUTE .MEDSUPPLY Qty: 1 0RF Dose Instruction: As directed Rx Instructions: PORTABLE OXYGEN CONCENTRATOR 2L OF OXYGEN AT NIGHT DX: G47.36 LENGTH OF NEED: 99 MONTHS prochlorperazine maleate 10 mg tablet 10 mg PO DIRECTED PRN (Reason: Nausea And Vomiting) olanzapine 2.5 mg tablet 2.5 mg PO DIRECTED Patient Comments: "Use once chemo starts" Rx Instructions: TAKE 1 TABLET BY MOUTH ONCE DAILY AT BEDTIME FOR 4 DAYS STARTING ON DAY 1 OF CHEMOTHERAPY FOR NAUSEA dexamethasone 4 mg tablet 4 mg PO DIRECTED Hold Instructions: Resume on 08/05/24. Patient Comments: "Use once chemo starts" Rx Instructions: take before next procedure 08/08 ferrous sulfate [Iron (ferrous sulfate)] 325 mg (65 mg iron) Tablet 325 mg PO BID Held apixaban 5 mg tablet 5 mg PO BID Qty: 180 3RF Hold Instructions: Resume on 10/16/24. Discharge Orders: Discharge Order (Routine); Ordered 10/10/24 Ordered By: Jeri Long Admission Data Admit Date/Time: 10/05/24 11:12 Attending Provider: Rudolph España Admit Provider: Rudolph Campbell Primary Care Provider: Uyen Gaspar Other Providers: Rudolph Campbell; Nathanael Benavidez; [facility] Other Interventions: Discharge Summary Assessment (RN) Last Done: 10/10/24 12:55 Hospital Stay Data Consultations 10/05/24 10:36 ED Decision to Admit Stat 10/05/24 14:45 Consult Oncology Routine Pending Results Patient Have Any Pending Studies at Discharge: Yes (blood cultures-- no growth to date) Discharge Instructions Given to Patient (Per Discharging Provider) Sherley, You are admitted to the hospital due to symptomatic anemia. This is suspected to be due to recent chemotherapy, but could also be from some slow bleeding secondary to your Eliquis use given your increased reflux/Pepto-Bismol use recently. You received a total of 3 units of blood while in the hospital, and your hemoglobin has remained stable. You are being discharged to [facility] from the hospital. Upon discharge from the hospital: * Continue Protonix (pantoprazole PPI) twice daily for 6-8 weeks. Then recommend continuing once daily for GI prophylaxis with ongoing Eliquis use and steroids for chemo to prevent further problems. * Hold taking your Eliquis until 10/16/2024, then you may resume it. * Take cefdinir (oral antibiotic) twice daily through 10/16/2024. This was recommended by Dr. Benavidez because of neutropenia (low neutrophil count). Monitor for any increased diarrhea on this medication/alert doctor if this occurs, as antibiotics can cause C. difficile infection. * Use saline nasal spray as needed to moisturize your nasal passages. * Continue your other home medications as prescribed. * Follow-up with your PCP in 1-2 weeks. * Follow-up with Dr. Benavidez in oncology as scheduled. It was a pleasure taking care of you while you were in the hospital, Jeri Long PA-C Total Time Total Time Spent Total Time Spent (In Minutes): Greater than 30 minutes spent completing this discharge process including direct patient care, medication reconciliation, documentation, review of labs and images, and coordination of care. Coding Diagnoses Anemia D64.9 Anemia type: unspecified type OLIVARES (dyspnea on exertion) R06.09 Neutropenia D70.9 Neutropenia type: unspecified Hypokalemia E87.6 Respiratory alkalosis E87.3 Hypomagnesemia E83.42 Paroxysmal atrial fibrillation I48.0 Hypertension I10 Hypertension type: unspecified Type 2 diabetes mellitus with obesity E11.69; E66.9 Endometrioid adenocarcinoma of uterus C55 Obstructive sleep apnea G47.33
== END 2024-10-10 13:26 | DRG 812 ==
LOC: ED 08:11 → EDINP 11:12 → SUATTDRO 11:12 → 2W 13:39 → 3E 10-08 23:42